=== PATIENT | female | born 1990 | race Caucasian/White ===

== ENCOUNTER 2016-11-13 01:02 | Emergency (ER) | payer OTHER ==
[~2016-11-13] VITALS: Ht 175.3 cm; Wt 55.0 kg
[~2016-11-13 01:02] MED LIST: ADVAI500I PO; AEROMIS4 INH; ALBU0.08 NEB; ALBU1AER INH; ALBU6.7H INH; ALBU8I INH; FERR324T4 PO; FLOV110A INH; FLOVENT110 MCG/A INH; FLUT1SPR9 EACH NARE; MEDR4PAK3 PO; MONT10 PO; NAPR-576 PO; PRED-503 PO; PRED10PA PO; VENTAER INH; ZITH250T PO
[2016-11-13 01:06] VITALS: BP 140/78; PULSE 74; RESP 16; O2SAT 99
[2016-11-13 01:11] VITALS: BP 140/78; PULSE 73; RESP 20; O2SAT 100
[2016-11-13] MEDS ORDERED: ADVA500A INH (01:39)
[2016-11-13] MEDS ORDERED: LORA-400 PO (01:39)
[2016-11-13] MEDS ORDERED: FERR1TAB36 PO (01:39)
--- NOTE | 2016-11-13 02:16 | PD ---
HPI Chief Complaint: Head Injury Time Seen by Provider: 02:03 Travel History International Travel<30 days: No Contact w/Intl Traveler<30days: No Traveled to known affect area: No History of Present Illness HPI 26-year-old female complains of headache and neck pain. Patient was doing pole dancing and fell off the pole onto her head. Patient states that she had loss of consciousness. Patient complains of headache on top of the head and back of her head. Patient denies any visual change. Patient denies any nausea vomiting. Patient complained of neck pain also. Patient denies any chest pain or shortness of breath. Patient denies abdominal pain. Patient denies any back pain. Patient denies any focal weakness or numbness of extremity. Patient denies any extremity injury. Patient status post tubal ligation and denies any chance of being . PFSH Past Medical History Hx Anticoagulant Therapy: No Anemia: Yes Asthma: Yes Cancer: No Cardiovascular Problems: No Chemotherapy: No Cerebrovascular Accident: No Diabetes: No Diminished Hearing: No Endocrine: No Genitourinary: Yes Immune Disorder: No Kidney Stones: Yes (WHILE ) Musculoskeletal: No Neurologic: Yes Psychiatric: No Reproductive: No Respiratory: Yes (ASTHMA) Immunizations Current: Yes Seizures: Yes (WHILE ) Tetanus Vaccination: < 5 Years Influenza Vaccination: No ?: Unknown LMP: 3 years ago, tubal : 4 Para: 4 Miscarriage: 0 Tubal Ligation: Yes Past Surgical History Gynecologic Surgery: Yes (epesiotomy, TUBAL LIGATION) Hysterectomy: No Tonsillectomy: Yes Social History Alcohol Use: No Tobacco Use: No Substance Use: No Allergies-Medications (Allergen,Severity, Reaction): Coded Allergies: Adhesives (Verified Allergy, Severe, SKIN RASH, 09/20/16) Benzoin (Verified Allergy, Severe, TINCTURE BENZOIN, 09/20/16) Betadine (Verified Allergy, Severe, Hives, 09/20/16) Latex (Verified Allergy, Severe, Rash, 09/20/16) Penicillin (Verified Allergy, Severe, BLISTERS, 09/20/16) Amoxicillin (Verified Allergy, Unknown, 09/20/16) Ampicillin (Verified Allergy, Unknown, 09/20/16) Coconut (Verified Allergy, Unknown, 09/20/16) Contrast Media (Verified Allergy, Unknown, 09/20/16) Grape (Verified Allergy, Unknown, 09/20/16) Kiwi (Verified Allergy, Unknown, 09/20/16) Multivitamins (Verified Allergy, Unknown, 09/20/16) Raisin (Verified Allergy, Unknown, 09/20/16) Shellfish (Verified Allergy, Unknown, 09/20/16) [place] (Verified Allergy, Unknown, 09/20/16) *MDRO Multi-Drug Resistant Organism (Verified Adverse Reaction, Unknown, 09/20/16) 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 Uncoded Allergies: SILVER/ JEWLERY (Adverse Reaction, Severe, NUMBNESS TO AREA, 02/04/13) Reported Meds & Prescriptions Reported Meds & Active Scripts Active Albuterol Neb (Albuterol Sulfate) 2.5 Mg/3 Ml Neb 2.5 Mg NEB Q4HR NEB While awake Ventolin Hfa 18 GM Inh (Albuterol Sulfate) 90 Mcg/Act Aer 2 Puff INH Q4H PRN Deltasone (Prednisone) 20 Mg Tab 40 Mg PO DAILY 4 Days Reported Claritin-D 24 HR (Loratadine-Pseudoephedrine 24 HR) 10-240 Mg Tab 1 Tab PO DAILY Advair Diskus Inh (Fluticasone-Salmeterol Inh) 500-50 Mcg/Blist Aer 1 Puff INH BID Rinse mouth after use. Iron (Ferrous Sulfate) 325 Mg Tab 325 Mg PO DAILY Take Review of Systems General / Constitutional: No: Fever Eyes: No: Visual changes HENT: Positive: Headaches, Neck Pain Cardiovascular: No: Chest Pain or Discomfort Respiratory: No: Shortness of Breath Gastrointestinal: No: Abdominal Pain Genitourinary: No: Dysuria Musculoskeletal: No: Pain Skin: No Rash Neurologic: No: Weakness Psychiatric: No: Depression Endocrine: No: Polydipsia Hematologic/Lymphatic: No: Easy Bruising Physical Exam Narrative GENERAL: Well-nourished, well-developed patient. SKIN: Warm and dry. HEAD: Normocephalic. Patient has soft tissue swelling tenderness right forehead. Patient has diffuse tenderness on palpation of the scalp. No laceration abrasion noted. EYES: No scleral icterus. No injection or drainage. Pupils 3 mm equal reactive. NECK: Supple, trachea midline. No JVD or lymphadenopathy. Mild to moderate tenderness on palpation paraspinal area of cervical spine. No midline tenderness. CARDIOVASCULAR: Regular rate and rhythm without murmurs, gallops, or rubs. RESPIRATORY: Breath sounds equal bilaterally. No accessory muscle use. GASTROINTESTINAL: Abdomen soft, non-tender, nondistended. MUSCULOSKELETAL: No cyanosis, or edema. BACK: Nontender without obvious deformity. No CVA tenderness. Neurologic exam: Patient's lethargic however answer questions appropriately. moves all extremity. No obvious focal neurological deficit. Data Data Last Documented VS Vital Signs Date Time Temp Pulse Resp B/P Pulse Ox O2 Delivery O2 Flow Rate FiO2 11/13/16 03:26 57 20 123/[address] Brain W/O Iv Contrast(Rout) (11/13/16 02:10) Ct Cerv Spine W/O Contrast (11/13/16 02:10) MDM Medical Decision Making Medical Screen Exam Complete: Yes Emergency Medical Condition: Yes Interpretation(s) 3:[address] scan of the brain and cervical spine shows no acute pathology. Differential Diagnosis Differential diagnosis including contusion, concussion, intracranial hemorrhage , cervical strain versus fracture. Narrative Course 26-year-old female with head and neck injury. Status post fall on her head. Mcdonough collar applied immediately. Diagnosis Primary Impression: Closed head injury Qualified Code: S09.90XA - Closed head injury, initial encounter Additional Impression: Cervical strain Qualified Code: S16.1XXA - Cervical strain, initial encounter Patient Instructions: General Instructions Additional Instructions: Head trauma instructions given. Take medication as needed for headache and neck pain. Follow-up with personal physician. Return if persistent problem or worse. Med/Other Pt SpecificInfo: Prescription(s) given Scripts Tramadol (Ultram)50 Mg Tab50 Mg PO Q6H PRN (PAIN) #20 TAB Prov:Raul Sawyer MD 11/13/16 Methocarbamol (Robaxin)750 Mg Gue494 Mg PO QID #40 TAB Prov:Raul Sawyer MD 11/13/16 Meloxicam (Mobic)15 Mg Tab15 Mg PO DAILY #20 TAB Prov:Raul Sawyer MD 11/13/16 Disposition: 01 DISCHARGE HOME Condition: Stable Raul Sawyer MD Nov 13, 2016 02:16
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
[2016-11-13 03:26] VITALS: BP 123/62; PULSE 57; RESP 20; O2SAT 97
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
[2016-11-13] MEDS ORDERED: ULTR50TA5 PO (03:35)
[2016-11-13] MEDS ORDERED: MOBI15TA PO (03:35)
[2016-11-13] MEDS ORDERED: ROBA750T PO (03:35)
== END 2016-11-13 04:26 | disposition home or self-care (01) ==
LOC: NEPE 01:02
DX: S09.90XA Unspecified injury of head, initial encounter (principal); S16.1XXA Strain of muscle, fascia and tendon at neck level, initial encounter; S06.9X9A Unspecified intracranial injury with loss of consciousness of unspecified duration, initial encounter; R51 Headache; W17.89XA Other fall from one level to another, initial encounter; Y93.41 Activity, dancing; Y99.0 Civilian activity done for income or pay; J45.909 Unspecified asthma, uncomplicated; D64.9 Anemia, unspecified
CPT/HCPCS: 70450; 72125

== ENCOUNTER 2016-12-08 06:16 | Observation (INO) | payer OTHER ==
[~2016-12-08] VITALS: Ht 172.7 cm; Wt 65.0 kg
[2016-12-08] VITALS (11 sets, daily range): BP systolic 104–129; BP diastolic 56–90; PULSE 70–98; RESP 15–28; TEMP 97.7–98.4; O2SAT 95–100
[~2016-12-08 06:16] MED LIST changes: +ADVA500A INH; -ADVAI500I PO; -AEROMIS4 INH; -ALBU1AER INH; -ALBU6.7H INH; -ALBU8I INH; +FERR1TAB36 PO; -FERR324T4 PO; -FLOV110A INH; -FLOVENT110 MCG/A INH; -FLUT1SPR9 EACH NARE; +LORA-400 PO; -MEDR4PAK3 PO; +MOBI15TA PO; -MONT10 PO; -NAPR-576 PO; -PRED10PA PO; +ROBA750T PO; +ULTR50TA5 PO; -ZITH250T PO
[2016-12-08] MEDS: RESP: ALBUTEROL 2.5 MG/IPRATROPIUM 0.5 MG NEB (SCH) INH ×3 (06:28→06:40)
[2016-12-08] MEDS ORDERED: methylPREDNISolone SOD SUCC 125 MG/2 ML VIAL IVP ONE (06:30)
[2016-12-08] MEDS ORDERED: SODIUM CHLOR 0.9% 1000 ML INJ 1,000 ML IV ONE (06:30)
[2016-12-08] MEDS ORDERED: SODIUM CHLORIDE 0.9% FLUSH 5 ML FLUSH IVF PRN (06:30)
--- NOTE | 2016-12-08 06:32 | PD ---
HPI Chief Complaint: shortness of breath Time Seen by Provider: 06:21 Travel History International Travel<30 days: No Contact w/Intl Traveler<30days: No Traveled to known affect area: No History of Present Illness HPI The patient is a 26-year-old female who presents emergency department for shortness of breath. The patient states she has a history of asthma, however, last 3-4 hours has had increasing shortness of breath with audible wheezing. The patient does have a nebulizer machine at home, however, states she has a hole in her tubing and is unable to use her nebulizer. The patient also states she ran out of her inhaler, was unable to provide herself albuterol inhalation at home. The patient does have a history of asthma and a history of previous pneumothorax, several years ago. The patient was last on prednisone 2 weeks ago, last hospitalized 6 months ago. The patient estimates approximately 8-9 intubations in the past secondary to severe asthma exacerbations. The patient does note a dry nonproductive cough with her asthma tonight, but denies any fever, chills, or sweats. The patient's primary physician is Dr. Aggarwal. [facility] Past Medical History Hx Anticoagulant Therapy: No Anemia: Yes Asthma: Yes Cancer: No Cardiovascular Problems: No Chemotherapy: No Cerebrovascular Accident: No Diabetes: No Diminished Hearing: No Endocrine: No Genitourinary: Yes Immune Disorder: No Kidney Stones: Yes (WHILE ) Musculoskeletal: No Neurologic: Yes Psychiatric: No Reproductive: No Respiratory: Yes (ASTHMA) Immunizations Current: Yes Seizures: Yes (WHILE ) : 4 Para: 4 Miscarriage: 0 Tubal Ligation: Yes Past Surgical History Gynecologic Surgery: Yes (epesiotomy, TUBAL LIGATION) Hysterectomy: No Tonsillectomy: Yes Social History Alcohol Use: No Tobacco Use: No Substance Use: No Allergies-Medications (Allergen,Severity, Reaction): Coded Allergies: Adhesives (Verified Allergy, Severe, SKIN RASH, 12/08/16) Benzoin (Verified Allergy, Severe, TINCTURE BENZOIN, 12/08/16) Betadine (Verified Allergy, Severe, Hives, 12/08/16) Latex (Verified Allergy, Severe, Rash, 12/08/16) Penicillin (Verified Allergy, Severe, BLISTERS, 12/08/16) Amoxicillin (Verified Allergy, Unknown, 12/08/16) Ampicillin (Verified Allergy, Unknown, 12/08/16) Coconut (Verified Allergy, Unknown, 12/08/16) Contrast Media (Verified Allergy, Unknown, 12/08/16) Grape (Verified Allergy, Unknown, 12/08/16) Kiwi (Verified Allergy, Unknown, 12/08/16) Multivitamins (Verified Allergy, Unknown, 12/08/16) Raisin (Verified Allergy, Unknown, 12/08/16) Shellfish (Verified Allergy, Unknown, 12/08/16) [place] (Verified Allergy, Unknown, 12/08/16) *MDRO Multi-Drug Resistant Organism (Verified Adverse Reaction, Unknown, ) 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 Uncoded Allergies: SILVER/ JEWLERY (Adverse Reaction, Severe, NUMBNESS TO AREA, 02/04/13) Reported Meds & Prescriptions Reported Meds & Active Scripts Active Ultram (Tramadol HCl) 50 Mg Tab 50 Mg PO Q6H PRN Robaxin (Methocarbamol) 750 Mg Tab 750 Mg PO QID Mobic (Meloxicam) 15 Mg Tab 15 Mg PO DAILY Albuterol Neb (Albuterol Sulfate) 2.5 Mg/3 Ml Neb 2.5 Mg NEB Q4HR NEB While awake Ventolin Hfa 18 GM Inh (Albuterol Sulfate) 90 Mcg/Act Aer 2 Puff INH Q4H PRN Reported Claritin-D 24 HR (Loratadine-Pseudoephedrine 24 HR) 10-240 Mg Tab 1 Tab PO DAILY Advair Diskus Inh (Fluticasone-Salmeterol Inh) 500-50 Mcg/Blist Aer 1 Puff INH BID Rinse mouth after use. Iron (Ferrous Sulfate) 325 Mg Tab 325 Mg PO DAILY Take Review of Systems Except as stated in HPI: all other systems reviewed are Neg General / Constitutional: No: Fever HENT: No: Lightheadedness Cardiovascular: No: Chest Pain or Discomfort Respiratory: Positive: Cough, Shortness of Breath, Wheezing Gastrointestinal: No: Nausea, Vomiting Musculoskeletal: No: Weakness Neurologic: No: Dizziness Physical Exam Narrative GENERAL: Awake, alert, 26-year-old female who appears in moderate respiratory distress. SKIN: Warm and dry. HEAD: Atraumatic. Normocephalic. EYES: Pupils equal and round. No scleral icterus. No injection or drainage. ENT: No nasal bleeding or discharge. Mucous membranes pink and moist. NECK: Trachea midline. No JVD. CARDIOVASCULAR: Regular, tachycardic with a heart rate of 105. RESPIRATORY: Bleeding for, accessory muscle use with supraclavicular and intercostal retractions. Diminished breath sounds throughout with prolonged expiratory phase and significant wheezing. GASTROINTESTINAL: Abdomen soft, non-tender, nondistended. No rebound tenderness. MUSCULOSKELETAL: No obvious deformities. No clubbing. No cyanosis. No edema. NEUROLOGICAL: Awake and alert. No obvious cranial nerve deficits. Motor grossly within normal limits. Normal speech. PSYCHIATRIC: Appropriate mood and affect; insight and judgment normal. Data Data Last Documented VS Vital Signs Date Time Temp Pulse Resp B/P Pulse Ox O2 Delivery O2 Flow Rate FiO2 12/08/16 06:45 100 30 12/08/16 06:32 95 26 Aerosol Mask 8 12/08/16 06:30 98.4 129/90 Orders Chest, Single Ap (12/08/16 06:24) Ecg Monitoring (12/08/16 06:24) Iv Access Insert/Monitor (12/08/16 06:24) Oximetry (12/08/16 06:24) Oxygen Administration (12/08/16 06:24) Methylprednisolone So Succ Inj (Solumedr (12/08/16 06:30) Albuterol-Ipratropium Neb (Duoneb Neb) (12/08/16 06:30) Sodium Chloride 0.9% Flush (Ns Flush) (12/08/16 06:30) Sodium Chlor 0.9% 1000 Ml Inj (Ns 1000 M (12/08/16 06:30) Complete Blood Count With Diff (12/08/16 06:32) Basic Metabolic Panel (Bmp) (12/08/16 06:32) MDM Medical Decision Making Medical Screen Exam Complete: Yes Emergency Medical Condition: Yes Medical Record Reviewed: Yes Interpretation(s) Chest x-ray reveals hyperinflated lungs, no evidence of pneumothorax. Differential Diagnosis Differential diagnosis includes status asthmaticus, asthma exacerbation, pneumothorax, pneumomediastinum, pulmonary embolism, acute coronary syndrome, pleural effusion, pneumonia, bronchitis. Narrative Course IV was established, labs were drawn and sent, and the patient was placed on cardiac telemetry monitoring and continuous pulse oximetry monitoring. Chest x- ray was obtained. The patient was administered Solu-Medrol 125 mg intravenously and duo nebs 3. The patient continued to be severely symptomatic with tripoding retractions, therefore, immediate chest x-ray was obtained, no evidence of pneumothorax. The patient was then placed on BiPAP 12/ with improvement of her symptoms. Patient will need admission for status asthmaticus. Patient is high risk with multiple intubations in the past. The patient was signed out at 7 AM with laboratory evaluation pending, if her symptoms significantly improved, patient can go to a medical floor. Diagnosis Primary Impression: Status asthmaticus Qualified Code: J45.902 - Asthma with status asthmaticus, unspecified asthma severity Condition: Stable Inocente Diamond MD Dec 08, 2016 06:32
--- NOTE | 2016-12-08 07:04 | PD ---
Physical Exam Date Seen by Provider: Dec 08, 2016 Time Seen by Provider: 07:28 Narrative 26-year-old female came to the emergency room with severe shortness of breath and asthma exacerbation. Patient was seen by the previous ER physician who started her on bronchodilator nebulizers followed by BiPAP. Please refer to his notes regarding the H&P and MDM. Patient was signed over to me to follow- up on her labs and to admit her at least for observation since patient has a h/ o poorly controlled asthma with 7-8 intubations in the past. Her last admission was 6 months ago. I went and reexamined the patient while she was on the BiPAP and her air entry was significantly improved than the previous description. She was sitting up comfortably and was on her phone. She says she was feeling better. Oxygen saturation was 99%. I just spoke with the respiratory therapist and plan to take her off the BiPAP and put her on a nasal cannula to see how she fairs. If patient does not deteriorate and I will be able to admit her to the CDU for observation. Patient received IV Solu-Medrol initially. Patient understands this decision and is comfortable with the plan. Her blood test results of back and within normal limits. Chest x-rays within normal limit. Data Data Last Documented VS Orders Chest, Single Ap (12/08/16 06:24) Ecg Monitoring (12/08/16 06:24) Iv Access Insert/Monitor (12/08/16 06:24) Oximetry (12/08/16 06:24) Oxygen Administration (12/08/16 06:24) Methylprednisolone So Succ Inj (Solumedr (12/08/16 06:30) Albuterol-Ipratropium Neb (Duoneb Neb) (12/08/16 06:30) Sodium Chloride 0.9% Flush (Ns Flush) (12/08/16 06:30) Sodium Chlor 0.9% 1000 Ml Inj (Ns 1000 M (12/08/16 06:30) Complete Blood Count With Diff (12/08/16 06:32) Basic Metabolic Panel (Bmp) (12/08/16 06:32) Admit Order (Ed Use Only) (12/08/16 08:30) Labs MDM Supervised Visit with TEODORO: No Narrative Course 8:21 AM patient has been on nasal cannula for past 45 minutes. Oxygen saturation is 98%. She seems comfortable. Awaiting for the residents to call back for admission. Critical Care Narrative Aggregate critical care time was 30 minutes. Time to perform other separately billable procedures was not included in the critical care time. My time did not include minutes spent treating any other patients simultaneously or on activities that did not directly contribute to the patient's treatment. The services I provided to this patient were to treat and/or prevent clinically significant deterioration that could result in: Status asthmaticus, BiPAP I provided critical care services requiring my management, as noted below: Chart data review, documentation time, medication orders and management, vital sign assessments/reviewing monitor data, ordering and reviewing lab tests, ordering and interpreting/reviewing x-rays and diagnostic studies, care of the patient and discussion of the patient with the admitting physicians. Diagnosis Primary Impression: Status asthmaticus Qualified Code: J45.902 - Asthma with status asthmaticus, unspecified asthma severity Additional Impression: Acute asthma exacerbation Qualified Code: J45.51 - Severe persistent asthma with acute exacerbation Admitting Information Admitting Physician Requests: Observation Scripts Walker with Front Wheels 1 Mis Mis #1 EA .ROUTE DIRECTED Ref 0 Prov:Alisa Herrera MD R2 12/10/16 Nebulizer 1 Mis Mis #1 Ea .route As Directed Prov:Alisa Herrera MD R2 12/10/16 Condition: Stable Janet Morrell MD Dec 08, 2016 07:04 Monocytes (%) (Auto) 9.0 % Eosinophils (%) (Auto) 8.7 % Basophils (%) (Auto) 0.9 % Neutrophils # (Auto) 2.5 TH/MM3 Lymphocytes # (Auto) 2.4 TH/MM3 Monocytes # (Auto) 0.5 TH/MM3 Eosinophils # (Auto) 0.5 TH/MM3 Basophils # (Auto) 0.1 TH/MM3 CBC Comment DIFF FINAL Differential Comment Sodium Level 141 MEQ/L Potassium Level 3.9 MEQ/L Chloride Level 110 MEQ/L Carbon Dioxide Level 24.9 MEQ/L Anion Gap 6 MEQ/L Blood Urea Nitrogen 10 MG/DL Creatinine 0.81 MG/DL Estimat Glomerular Filtration 86 ML/MIN Rate Random Glucose 83 MG/DL Calcium Level 8.4 MG/DL [facility] Supervised Visit with TEODORO: No Narrative Course 8:21 AM patient has been on nasal cannula for past 45 minutes. Oxygen saturation is 98%. She seems comfortable. Awaiting for the residents to call back for admission. Diagnosis Primary Impression: Status asthmaticus Qualified Code: J45.902 - Asthma with status asthmaticus, unspecified asthma severity Additional Impression: Acute asthma exacerbation Qualified Code: J45.51 - Severe persistent asthma with acute exacerbation Admitting Information Admitting Physician Requests: Observation Condition: Stable Janet Morrell MD Dec 08, 2016 07:04
[2016-12-08 07:05] LABS: AUTOMATED NEUTROPHIL # 2.5 TH/MM3 (1.8-7.7); BASOPHIL # 0.1 TH/MM3 (0-0.2); BASOPHIL % 0.9 % (0.0-2.0); EOSINOPHIL # 0.5 TH/MM3 (0-0.4); EOSINOPHIL % 8.7 % (0.0-4.0); HEMATOCRIT 40.7 % (35.0-46.0); HEMO FLAGS DIFF FINAL; LYMPH % 39.6 % (9.0-44.0); LYMPHOCYTE # 2.4 TH/MM3 (1.0-4.8); MEAN CELL VOLUME 88.4 FL (80.0-100.0); MEAN CORPUSCULAR HEMOGLOBIN 29.2 PG (27.0-34.0); NEUT % 41.8 % (16.0-70.0); PLATELET COUNT 185 TH/MM3 (150-450); RED CELL DISTRIBUTION WIDTH 13.6 % (11.6-17.2)
[2016-12-08 07:14] LABS: BICARBONATE 24.9 MEQ/L (21.0-32.0); POTASSIUM 3.9 MEQ/L (3.5-5.1)
--- NOTE | 2016-12-08 07:19 | RADRPT ---
EXAM DATE/TIME: 12/08/2016 06:47 [facility] COMPARISON: CHEST SINGLE AP, August 20, 2016, 6:58. INDICATIONS : Shortness of breath, asthma. MEDICAL HISTORY : Asthma SURGICAL HISTORY : None. ENCOUNTER: Initial ACUITY: 1 day PAIN SCORE: 0/10 LOCATION: Bilateral chest FINDINGS: A single view of the chest demonstrates the lungs to be symmetrically aerated without evidence of mas s, infiltrate or effusion. The cardiomediastinal contours are unremarkable. Osseous structures are intact. CONCLUSION: No acute disease. Liam Gomez MD on December 08, 2016 at 7:17 Board Certified Radiologist. This report was verified electronically.
--- NOTE | 2016-12-08 08:35 | HHI.HP ---
HPI Service Family Medicine Primary Care Physician No Primary Care Physician Admission Diagnosis status asthmaticus, acute asthma exacerbation Diagnoses: International Travel<30 Days: No Contact w/Intl Traveler<30days: No Known Affected Area: No History of Present Illness PCP Jasen Patient is a 26-year-old female with a PMH significant for severe asthma. Presents here today due to respiratory distress. Reports waking up this morning with wheezing. She tried to use her albuterol inhaler and her nebulizer but she was out of medication and nebulizer machine was not working. Reports having chest pain last night and using her inhaler yesterday evening after overexertion with dancing but did improve symptomatically prior to going bed. After realizing she did not have her medication this morning, she came immediately to the ED as she was having severe SOB, chest pain, inability to talk. Since being in the hospital, she has improved significantly but does continue to have substernal chest pain that is stabbing in nature as well as pleurisy. Denies any fever/chills, nausea/vomiting, abdominal pain, dysuria, diarrhea. Sick contact has include her daughter who recently had flu. Patient typically utilizes her inhaler 3 times a day but is also on Advair, Singulair, qvar reportedly. 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 Few weeks ago, she discontinued daily prednisone over 5 weeks due to respiratory distress. Review of Systems Constitutional: DENIES: Fatigue, Fever, Chills, Dizziness, Change in appetite Eyes: DENIES: Blurred vision, Eye pain Ears, nose, mouth, throat: DENIES: Throat pain, Running Nose Respiratory: COMPLAINS OF: Wheezing, Shortness of breath, DENIES: Sputum production Cardiovascular: COMPLAINS OF: Chest pain, DENIES: Syncope, Lower Extremity Edema Gastrointestinal: DENIES: Abdominal pain, Nausea, Vomiting Genitourinary: DENIES: Hematuria Musculoskeletal: DENIES: Joint pain Integumentary: DENIES: Rash Neurologic: DENIES: Localized weakness Psychiatric: DENIES: Confusion Past Family Social History Past Medical History Asthma w/ hx of multiple intubation. Reports last intubation was 8 months ago at [place] but last recorded intubation per our records was 06/2015. History of kidney stones anemia Prepartum seizures and hypoglycemia but none otherwise Past Surgical History Episiotomy Tonsillectomy Tubal ligation Reported Medications Reported Meds & Active Scripts Active Albuterol Neb (Albuterol Sulfate) 2.5 Mg/3 Ml Neb 2.5 Mg NEB Q4HR NEB While awake Ventolin Hfa 18 GM Inh (Albuterol Sulfate) 90 Mcg/Act Aer 2 Puff INH Q4H PRN Reported Qvar Inh (Beclomethasone Dipropionate) Unknown Strength Aero Unknown Dose INH BID Singulair (Montelukast Sodium) Unknown Strength Tab Unknown Dose PO HS Advair Diskus Inh (Fluticasone-Salmeterol Inh) 500-50 Mcg/Blist Aer 1 Puff INH BID Rinse mouth after use. Iron (Ferrous Sulfate) 325 Mg Tab 325 Mg PO DAILY Take Allergies: Coded Allergies: Adhesives (Verified Allergy, Severe, SKIN RASH, 12/08/16) Benzoin (Verified Allergy, Severe, TINCTURE BENZOIN, 12/08/16) Betadine (Verified Allergy, Severe, Hives, 12/08/16) Latex (Verified Allergy, Severe, Rash, 12/08/16) Penicillin (Verified Allergy, Severe, BLISTERS, 12/08/16) Amoxicillin (Verified Allergy, Unknown, 12/08/16) Ampicillin (Verified Allergy, Unknown, 12/08/16) Coconut (Verified Allergy, Unknown, 12/08/16) Contrast Media (Verified Allergy, Unknown, 12/08/16) Grape (Verified Allergy, Unknown, 12/08/16) Kiwi (Verified Allergy, Unknown, 12/08/16) Multivitamins (Verified Allergy, Unknown, 12/08/16) Raisin (Verified Allergy, Unknown, 12/08/16) Shellfish (Verified Allergy, Unknown, 12/08/16) [place] (Verified Allergy, Unknown, 12/08/16) *MDRO Multi-Drug Resistant Organism (Verified Adverse Reaction, Unknown, ) 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 Uncoded Allergies: SILVER/ JEWLERY (Adverse Reaction, Severe, NUMBNESS TO AREA, 02/04/13) Family History Mother: ovarian and breast cancer, dystrophy, "nerve cancer", hypoglycemia, cataracts Father: unknown Social History Lives with her 4children and her fiancee Tobacco: denies Alcohol: denies Illicit: none Physical Exam Vital Signs Vital Signs Date Time Temp Pulse Resp B/P Pulse Ox O2 Delivery O2 Flow Rate FiO2 12/08/16 07:00 70 16 126/69 99 BiPAP 12/08/16 06:45 100 30 12/08/16 06:32 95 26 100 Aerosol Mask 8 12/08/16 06:32 26 100 Aerosol Mask 8 12/08/16 06:32 100 Aerosol Mask 8 12/08/16 06:30 98.4 98 28 129/90 95 Physical Exam Pulse ox 96% with nasal cannula at 1.5 during examination GENERAL: This is a well-nourished, well-developed patient, in no apparent distress. Nasal cannula in place but able to speak in complete sentences. SKIN: No rashes, ecchymoses or lesions. Cool and dry. EYES: Pupils equal round and reactive. Extraocular motions intact. No scleral icterus. No injection or drainage. ENT: Nose without bleeding, purulent drainage. Throat without erythema, tonsillar hypertrophy or exudate. Uvula midline. Airway patent. NECK: No JVD or lymphadenopathy. CARDIOVASCULAR: Regular rate and rhythm without murmurs, gallops, or rubs. RESPIRATORY: Clear to auscultation with good air movement bilaterally. Deep breaths are cut short due to pleurisy. Breath sounds equal bilaterally. No obvious wheezes, rales, or rhonchi. GASTROINTESTINAL: Abdomen soft, non-tender, nondistended. No hepato-splenomegaly , or palpable masses. No guarding. MUSCULOSKELETAL: Extremities without clubbing, cyanosis, or edema. No calf tenderness. NEUROLOGICAL: Awake and alert. Motor and sensory grossly within normal limits. Normal speech. Laboratory Laboratory Tests Test 12/08/16 06:30 White Blood Count 6.0 Red Blood Count 4.60 Hemoglobin 13.4 Hematocrit 40.7 Mean Corpuscular Volume 88.4 Mean Corpuscular Hemoglobin 29.2 Mean Corpuscular Hemoglobin 33.0 Concent Red Cell Distribution Width 13.6 Platelet Count 185 Mean Platelet Volume 9.4 Neutrophils (%) (Auto) 41.8 Lymphocytes (%) (Auto) 39.6 Monocytes (%) (Auto) 9.0 Eosinophils (%) (Auto) 8.7 Basophils (%) (Auto) 0.9 Neutrophils # (Auto) 2.5 Lymphocytes # (Auto) 2.4 Monocytes # (Auto) 0.5 Eosinophils # (Auto) 0.5 Basophils # (Auto) 0.1 CBC Comment DIFF FINAL Differential Comment Sodium Level 141 Potassium Level 3.9 Chloride Level 110 Carbon Dioxide Level 24.9 Anion Gap 6 Blood Urea Nitrogen 10 Creatinine 0.81 Estimat Glomerular Filtration 86 Rate Random Glucose 83 Calcium Level 8.4 Result Diagram: 12/08/1662912/08/16629 Imaging Last Impressions Chest X-Ray 12/08/16623 Signed Impressions: Service Date/Time: November 06:47 - CONCLUSION: No acute disease. Liam Gomez MD Assessment and Plan Assessment and Plan 26-year-old female with history of asthma requiring intubation. Admitted for asthma exacerbation. Code Status Full Discussed Condition With Dr. Durham Problem List: (1) Asthma exacerbation Status: Acute Plan: History of severe asthma requiring intubation. Presented to the ED with respiration rate of 28 and required Solu-Medrol and BiPAP. Respiration status has much improved and is currently on nasal cannula with appropriate saturation. Able to speak in complete sentences. -Admitted for observations due to extensive history -Continuous pulse ox monitoring -Informed patient and nurse to call if patient requires increasing oxygen supplementation -If patient worsens clinically, will obtain ABG/VBG and [place] [facility] [place] Medications: * Albuterol and Duonebs * Solu-Medrol 40 mg IV every 8 * Singulair (2) Nutrition, metabolism, and development symptoms Status: Acute Plan: Diet: Regular Electrolytes: Unremarkable Fluids: None DVT prophylaxis: Lovenox GI prophylaxis: Protonix Alisa Herrera MD R2 Dec 08, 2016 08:34
[2016-12-08] MEDS ORDERED: SODIUM CHLORIDE 0.9% FLUSH 5 ML FLUSH IV PRN (09:15)
[2016-12-08] MEDS ORDERED: MONT10TA2 PO (09:25)
[2016-12-08] MEDS ORDERED: BECL80AE3 INH (09:25)
[2016-12-08] MEDS ORDERED: ACETAMINOPHEN/HYDROcodone 325 MG/5 MG TAB PO PRN (09:30)
[2016-12-08] MEDS ORDERED: ENALAPRILAT 1.25 MG/ML VIAL IV PRN (09:45)
[2016-12-08] MEDS: BUDESONIDE-FORMOTEROL 160/4.5 MCG INHALER INH SCH ×2 (09:49→22:08)
[2016-12-08] MEDS: PANTOPRAZOLE SOD 40 MG DELAYED RELEASE TAB PO SCH (09:50)
[2016-12-08] MEDS: ACETAMINOPHEN/HYDROcodone 325 MG/7.5 MG TAB PO PRN ×3 (11:05→20:18)
[2016-12-08] MEDS ORDERED: ENOXAPARIN SODIUM 30 MG/0.3 ML SYRINGE SQ SCH (12:00)
[2016-12-08] MEDS: RESP: ALBUTEROL 2.5 MG/IPRATROPIUM 0.5 MG NEB (SCH) NEB ×3 (12:20→19:26)
--- NOTE | 2016-12-08 12:29 | HHI.FPPN ---
Subjective Remarks Patient seen and examined, discussed with the medicine team. This is a 26 year-old female para 4 with long history of asthma, patient of Dr. Aggarwal. She presented to the emergency department this morning with shortness of breath and chest tightness. She has run out of her albuterol inhaler, and her nebulizer tubing was cracked and she was unable to use it. She reports that she uses albuterol metered-dose inhaler 3 times a day, and that also she is on Imdur and Advair. Last time she saw Dr. Aggarwal was approximately July 2016. She was last hospitalized approximately 6 months ago for her asthma. She reports no wheezing, no fever or chills, but this morning she still feels some stabbing type pain just to the left of the chondrosternal junction at the lower border of the sternum. Feels as though she has difficulty filling her lungs. Please see observation history and physical examination for this admission for additional past, family, social history and review of systems. This patient has multiple medication and environmental allergies and food allergies. Objective Vitals Vital Signs Date Time Temp Pulse Resp B/P Pulse Ox O2 Delivery O2 Flow Rate FiO2 12/08/16 12:22 99 Nasal Cannula 2.00 12/08/16 11:18 97.7 77 16 111/63 100 12/08/16 10:00 74 15 124/65 99 Nasal Cannula 2 12/08/16 07:00 70 16 126/69 99 BiPAP 12/08/16 06:45 100 30 12/08/16 06:32 95 26 100 Aerosol Mask 8 12/08/16 06:32 26 100 Aerosol Mask 8 12/08/16 06:32 100 Aerosol Mask 8 12/08/16 06:30 98.4 98 28 129/90 95 Result Diagram: 12/08/16 0630 12/08/16 0630 Imaging Last Impressions Chest X-Ray 12/08/16 0624 Signed Impressions: Service Date/Time: November 06:47 - CONCLUSION: No acute disease. Liam Gomez MD Objective Remarks O. CONSTITUTIONAL/GEN: normally nourished, in NAD. EYES: conjunctiva normal, PERRLA, EOMI. ENT: Mouth and pharynx normal. NECK: thyroid midline, carotids symmetrical. LUNGS: clear A-P, respiratory effort is normal. No wheezes, Rales or rhonchi. CARDIOVASCULAR: RR without murmur or gallop. No significant edema. No tachycardia GI/ABD: soft without masses, without organomegaly. : no CVA tenderness NEURO: No focal deficits. SKIN: color normal, no rashes noted. HEME/LYMPH: no bruising, petechia or significant adenopathy MUSC: back is normal in appearance. Extremities are normal in appearance. She has a little discomfort to palpation along the lower left border of the sternum. PSYCH/MENTAL STATUS: Alert and oriented x 3. A/P Assessment and Plan 26-year-old female with history of asthma requiring intubation in the past. Admitted for asthma exacerbation. Attending Attestation Patient seen and examined. Case reviewed and discussed with the resident team. Agree with plan of care as discussed with me and documented in the resident note. Problem List: (1) Asthma exacerbation Status: Acute Plan: History of severe asthma requiring intubation. Presented to the ED with respiration rate of 28 and required Solu-Medrol and BiPAP. Respiration status has much improved and is currently on nasal cannula with appropriate saturation. Able to speak in complete sentences. -Admitted for observations due to extensive history -Continuous pulse ox monitoring -Informed patient and nurse to call if patient requires increasing oxygen supplementation -If patient worsens clinically, will obtain ABG/VBG and consider transfer to [facility] [place] -Influenza ordered Medications: * Albuterol and Duonebs * Solu-Medrol 40 mg IV every 8 * Singulair (2) Nutrition, metabolism, and development symptoms Status: Acute Plan: Diet: Regular Electrolytes: Unremarkable Fluids: None DVT prophylaxis: Lovenox GI prophylaxis: Protonix Mariza Girard MD Dec 08, 2016 12:29
[2016-12-08] MEDS: methylPREDNISolone SOD SUCC 40 MG/1 ML VIAL IV PUSH SCH ×2 (13:01→21:54)
[2016-12-08] MEDS: ACETAMINOPHEN 325 MG TAB PO PRN (16:32)
--- NOTE | 2016-12-08 19:45 | HHI.PR ---
Addendum to Inpatient Note Addendum Reason: Additional Documentation Additional Information Called by nurse because patient continues to complain of chest tightness and dizziness. EKG wnl. VS: BP - 104/56, P - 89, O2 100% RA. Per patient, she feels as though her body is spinning. Endorses nausea, no emesis. PE: VS - as above CV: RRR, no m/r/g Resp: lungs CTAB, no wheezes or rhonchi Abd: Soft, NT, ND, no peritoneal signs Ext: no edema A/P: 26 year old female admitted with asthma exacerbation complains of chest tightness and severe dizziness. -Trial of meclizine -Albuterol neb (last one given at 12:30) -One time dose of Ativan -Added Jessica Bell MD R3 Dec 08, 2016 19:45
[2016-12-08] MEDS ORDERED: LORazepam 2 MG/ML VIAL IV PUSH ONE (20:00)
[2016-12-08] MEDS: SODIUM CHLORIDE 0.9% FLUSH 5 ML FLUSH IV SCH (20:18)
[2016-12-08] MEDS: ONDANSETRON HCL 4 MG/2 ML VIAL IV PUSH PRN (20:18)
[2016-12-08] MEDS: MONTELUKAST SODIUM 10 MG TAB PO SCH (21:54)
[2016-12-09] VITALS (11 sets, daily range): BP systolic 89–117; BP diastolic 45–56; PULSE 64–108; RESP 12–20; TEMP 97.6–98.9; O2SAT 97–100
[2016-12-09] MEDS: RESP: ALBUTEROL 2.5 MG/IPRATROPIUM 0.5 MG NEB (SCH) NEB ×7 (00:08→23:58)
[2016-12-09] MEDS: ACETAMINOPHEN/HYDROcodone 325 MG/7.5 MG TAB PO PRN ×2 (04:42→10:20)
[2016-12-09] MEDS: ONDANSETRON HCL 4 MG/2 ML VIAL IV PUSH PRN (04:42)
[2016-12-09] MEDS: methylPREDNISolone SOD SUCC 40 MG/1 ML VIAL IV PUSH SCH (06:02)
[2016-12-09] MEDS ORDERED: PRED20 PO (07:26)
[2016-12-09] MEDS ORDERED: MONT10TA4 PO (07:26)
[2016-12-09] MEDS ORDERED: ADVA500A INH (07:26)
[2016-12-09] MEDS ORDERED: VENTAER INH (07:26)
[2016-12-09] MEDS ORDERED: PANT40TA3 PO (07:26)
[2016-12-09] MEDS: BUDESONIDE-FORMOTEROL 160/4.5 MCG INHALER INH SCH ×2 (08:43→21:29)
[2016-12-09] MEDS: SODIUM CHLORIDE 0.9% FLUSH 5 ML FLUSH IV SCH ×2 (08:44→21:00)
[2016-12-09] MEDS: PANTOPRAZOLE SOD 40 MG DELAYED RELEASE TAB PO SCH (09:01)
[2016-12-09] MEDS: MECLIZINE HCL 25 MG TAB PO PRN ×2 (10:30→18:29)
[2016-12-09 10:42] LABS: AUTOMATED NEUTROPHIL # 9.3 TH/MM3 (1.8-7.7); BASOPHIL % 0.1 % (0.0-2.0); HEMATOCRIT 34.2 % (35.0-46.0); HEMO FLAGS DIFF FINAL; LYMPH % 3.9 % (9.0-44.0); LYMPHOCYTE # 0.4 TH/MM3 (1.0-4.8); MEAN CELL VOLUME 88.3 FL (80.0-100.0); MEAN CORPUSCULAR HEMOGLOBIN 28.9 PG (27.0-34.0); MEAN CORPUSCULAR HGB CONC 32.8 % (32.0-36.0); MONO % 2.6 % (0.0-8.0); NEUT % 93.4 % (16.0-70.0); PLATELET COUNT 161 TH/MM3 (150-450); RED BLOOD COUNT 3.87 MIL/MM3 (4.00-5.30); RED CELL DISTRIBUTION WIDTH 13.4 % (11.6-17.2)
[2016-12-09 10:55] LABS: BICARBONATE 24.5 MEQ/L (21.0-32.0); POTASSIUM 3.9 MEQ/L (3.5-5.1)
[2016-12-09] MEDS ORDERED: NEBULIZER1 MI1 (12:13)
--- NOTE | 2016-12-09 12:14 | HHI.DCPOC ---
Discharge Care Plan Diagnosis: (1) Asthma exacerbation Goals to Promote Your Health * To prevent worsening of your condition and complications * To maintain your health at the optimal level Directions to Meet Your Goals Take your medications as prescribed Follow your dietary instruction Follow activity as directed Keep your appointments as scheduled Take your immunizations and boosters as scheduled If your symptoms worsen call your PCP, if no PCP go to Urgent Care Center or Emergency Room Smoking is Dangerous to Your Health. Avoid second hand smoke Call the 24-hour hour crisis hotline for domestic abuse at Alisa Herrera MD R2 Dec 09, 2016 12:14
--- NOTE | 2016-12-09 12:17 | HHI.FPPN ---
Subjective Remarks Overnight patient was complaining of chest tightness, nausea, lightheadedness. EKG was performed which was unremarkable and patient was clinically stable. Symptoms may been due to vertigo so patient was started on meclizine but it was not given. This morning patient denies any respiratory distress but does continue to complain of substernal chest pain and lightheadedness. Is tolerating a diet without issues. (Alisa Herrera MD R2) Objective Vitals Vital Signs Date Time Temp Pulse Resp B/P Pulse Ox O2 Delivery O2 Flow Rate FiO2 12/09/16 09:00 91 117/55 12/09/16 08:48 98 21 12/09/16 08:15 98.4 75 17 89/50 97 12/09/16 04:00 Room Air 12/09/16 04:00 97.6 73 16 109/56 100 12/09/16 00:09 99 12/09/16 00:00 98.9 64 16 90/49 99 12/09/16 00:00 Room Air 12/08/16 22:00 99 12/08/16 22:00 99 Room Air 12/08/16 21:30 16 12/08/16 20:10 99 Nasal Cannula 0.50 12/08/16 20:00 100 Nasal Cannula 2.00 12/08/16 19:04 98.2 88 16 104/56 100 12/08/16 15:55 98.0 82 20 99 12/08/16 15:40 100 Nasal Cannula 2.00 12/08/16 12:22 99 Nasal Cannula 2.00 I/O 12/08/16 12/08/16 12/08/16 12/09/16 12/09/16 12/09/16 07:00 15:00 23:00 07:00 15:00 23:00 Intake Total 480 ml 200 ml 720 ml Balance 480 ml 200 ml 720 ml Intake Oral 480 ml 200 ml 720 ml # Voids 1 (Alisa Herrera MD R2) Result Diagram: 12/09/16 1011 12/09/16 1011 Objective Remarks GEN: Well-developed, well-nourished patient. Resting comfortably in bed on room air. No respiratory distress but will intermittently increase her respiration rate during evaluation. CV: Regular rate and rhythm without obvious murmurs. LUNGS: Clear to auscultation bilaterally. Normal respiratory effort. No wheezes , rales, rhonchi. EXT: No edema. No calf tenderness. NEURO/PSYCH: Awake, alert. Appropriate insight and judgment. Normal speech ( Alisa Herrera MD R2) A/P Assessment and Plan 26-year-old female with history of asthma requiring intubation in the past. Admitted for asthma exacerbation. Discharge Planning Today pending pain control sdw Dr. Durham and Dr. Girard. (Alisa Herrera MD R2) Attending Attestation Patient seen and examined. Case reviewed and discussed with the resident team. Agree with plan of care as discussed with me and documented in the resident note. (Mariza Girard MD) Problem List: (1) Asthma exacerbation Status: Acute Plan: History of severe asthma requiring intubation. Presented to the ED with respiration rate of 28 and required Solu-Medrol and BiPAP. Respiration status has much improved and is currently on room air. Able to speak in complete sentences. Physical exam clear. -Influenza negative -Continuous pulse ox monitoring -Informed patient and nurse to call if patient requires increasing oxygen supplementation -If patient worsens clinically, will obtain ABG/VBG and consider transfer to [facility] [place] Medications: * Albuterol and Duonebs * Discontinued Solu-Medrol 40 mg IV every 8 * Symbicort 2 puff BID * Prednisone 20 mg BID * Singulair 10mg daily (2) Costochondritis Status: Acute Plan: Symptoms of chest pain likely due to costochondritis as the pain is reproducible on physical exam. EKG unremarkable. -Pain control with Celoron 10 -Avoid NSAIDs due to asthma (3) Vertigo Status: Acute Plan: Increase solid food intake. -Meclizine (4) Nutrition, metabolism, and development symptoms Status: Acute Plan: Diet: Regular Electrolytes: Unremarkable Fluids: None DVT prophylaxis: Lovenox GI prophylaxis: Protonix (Alisa Herrera MD R2) Alisa Herrera MD R2 Dec 09, 2016 12:17 Mariza Girard MD Dec 09, 2016 13:20
[2016-12-09 14:34] LABS: HEMATOCRIT 33.3 % (35.0-46.0); REVIEW FLAG FINAL
[2016-12-09] MEDS: ACETAMINOPHEN/HYDROcodone 325 MG/10 MG TAB PO PRN ×2 (14:51→18:31)
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
--- NOTE | 2016-12-09 17:30 | EKG ---
Date Performed: 12/08/2016 Time Performed: 16:01:33 PTAGE: 26 years EKG: Sinus rhythm WITH SINUS ARRHYTHMIA POSSIBLE LEFT ATRIAL ENLARGEMENT Since previous tracing, no significant change noted BORDERLINE ECG PREVIOUS TRACING : 08/20/2016 07.49 DOCTOR: Gracia Mcgregor Interpretating Date/Time 12/09/2016 17:27:43
[2016-12-09] MEDS: predniSONE 20 MG TAB PO SCH (21:28)
[2016-12-09] MEDS: MONTELUKAST SODIUM 10 MG TAB PO SCH (21:28)
[2016-12-10] VITALS (11 sets, daily range): BP systolic 98–121; BP diastolic 50–76; PULSE 68–84; RESP 16–18; TEMP 97.9–98.7; O2SAT 97–99
[2016-12-10] MEDS: RESP: ALBUTEROL 2.5 MG/IPRATROPIUM 0.5 MG NEB (SCH) NEB ×5 (04:21→22:39)
[2016-12-10 08:19] LABS: HEMATOCRIT 34.6 % (35.0-46.0); MEAN CELL VOLUME 89.6 FL (80.0-100.0); MEAN CORPUSCULAR HEMOGLOBIN 29.3 PG (27.0-34.0); MEAN CORPUSCULAR HGB CONC 32.6 % (32.0-36.0); PLATELET COUNT 159 TH/MM3 (150-450); RED BLOOD COUNT 3.86 MIL/MM3 (4.00-5.30); REVIEW FLAG FINAL; WHITE BLOOD COUNT 5.9 TH/MM3 (4.0-11.0)
[2016-12-10 08:50] LABS: BICARBONATE 26.4 MEQ/L (21.0-32.0); POTASSIUM 4.1 MEQ/L (3.5-5.1)
[2016-12-10] MEDS: SODIUM CHLORIDE 0.9% FLUSH 5 ML FLUSH IV SCH ×2 (09:00→21:00)
[2016-12-10] MEDS: predniSONE 20 MG TAB PO SCH ×2 (09:17→21:17)
[2016-12-10] MEDS: PANTOPRAZOLE SOD 40 MG DELAYED RELEASE TAB PO SCH (09:17)
[2016-12-10] MEDS: BUDESONIDE-FORMOTEROL 160/4.5 MCG INHALER INH SCH ×2 (09:18→21:00)
[2016-12-10] MEDS ORDERED: WALKER WHEELS/F1 MIS (10:00)
[2016-12-10] MEDS ORDERED: NEBULIZER1 MI1 (10:00)
--- NOTE | 2016-12-10 10:38 | HHI.FPPN ---
Subjective Remarks No acute events overnight. Vital signs unremarkable. This morning patient reports that she continues to have some dizziness but otherwise feels well. Vaginal bleeding is about the same as yesterday. Per discussion with nurse, overnight patient was able to ambulate to the bathroom independently without issues. Has had no falls. Maintain adequate saturation on room air. (lAisa Barajas MD R2) Objective Vitals Vital Signs Date Time Temp Pulse Resp B/P Pulse Ox O2 Delivery O2 Flow Rate FiO2 12/10/16 04:23 98 21 12/10/16 04:00 Room Air 12/10/16 04:00 97.9 71 16 112/62 98 12/10/16 00:01 99 21 12/10/16 00:00 Room Air 12/10/16 00:00 98.1 78 18 98/50 97 12/09/16 20:24 98 21 12/09/16 20:00 Room Air 12/09/16 20:00 98.7 80 18 94/45 98 12/09/16 18:30 98.5 85 20 95/51 98 12/09/16 14:54 98.1 81 12 104/55 98 I/O 12/09/16 12/09/16 12/09/16 12/10/16 12/10/16 12/10/16 07:00 15:00 23:00 07:00 15:00 23:00 Intake Total 720 ml 1080 ml 360 ml 720 ml Output Total 0 ml 0 ml Balance 720 ml 1080 ml 360 ml 720 ml Intake Oral 720 ml 1080 ml 360 ml 720 ml Output Urine Total 0 ml Emesis 0 ml # Voids 1 1 1 2 (Alisa Herrera MD R2) Result Diagram: 12/10/1648 12/10/16 0748 Objective Remarks GEN: Well-developed, well-nourished patient. Resting comfortably in bed on room air. Able to sit up from a laying position without issues. CV: Regular rate and rhythm without obvious murmurs. LUNGS: Clear to auscultation bilaterally. Normal respiratory effort. No wheezes , rales, rhonchi. Chest pain reproducible on palpation of sternum. NEURO/PSYCH: Awake, alert. Appropriate insight and judgment. Normal speech ( Alisa Herrera MD R2) A/P Assessment and Plan 26-year-old female with history of asthma requiring intubation in the past. Admitted for asthma exacerbation. Discharge Planning Today pending ability to get walker and orthostatic results. Patient is agreeable to discharge today. sdw Dr. Basilio (Alisa Herrera MD R2) Attending Attestation Patient seen and examined. Case reviewed and discussed with the resident team. Agree with plan of care as discussed with me and documented in the resident note. Pt wishes to go home today as she feels good with her breathing and is eating well, etc. She has no history of falls and was able to walk with Dr Villa yesterday and with PT today. She at times yesterday reportedly complained of weakness and complained today of some dizziness but has been able to walk to the bathroom on her own basically and has no serious balance problems or focal weakness noted on exam or per PT. She has been cautioned to get up slowly. She has a home nebulizer which has been not functioning and has a script for another nebulizer. They normally cost about $20 without insurance and she can likely be reimbursed for this purchase by her Insurance. If she chooses to wait until Monday, a machine will be delivered. However, clinically she is doing very well today with great air movement and no wheezing and O2 sats up in the high 90s even on exertion. She will have her inhalers and should be stable with these and her po steroids even without a home nebulizer as inhalers have the same meds and can work as well but also can be user dependent. She will follow up with dr Aggarwal her regular Physician. (Sheeba Basilio MD) Problem List: (1) Asthma exacerbation Status: Resolved Plan: History of severe asthma requiring intubation. Presented to the ED with respiration rate of 28 and required Solu-Medrol and BiPAP. Respiration status has much improved and is currently on room air. Able to speak in complete sentences. Physical exam clear. -Influenza negative -Continuous pulse ox monitoring Medications: * Albuterol and Duonebs * Symbicort 2 puff BID * Prednisone 20 mg BID * Singulair 10mg daily (2) Costochondritis Status: Acute Plan: Symptoms of chest pain likely due to costochondritis as the pain is reproducible on physical exam. EKG unremarkable. -Pain control with [place] 10 -Avoid NSAIDs due to asthma (3) Vertigo Status: Acute Plan: PT was consulted due to subjective weakness. Per conversation with the physical therapist, strength jacob patient is functional. She was able to walk from bed to bathroom door 2x. However she reported subjective dizziness but did not fall. Blood pressure was taken when patient was standing and sitting with all appropriate values. Hypotension was noted. Saturation was always greater than 95% on room air throughout examination. Based on my exam yesterday when assisting patient with ambulation, physical exam was not consistent with reported symptoms. I do not feel that patient is at a fall risk due to her ability to catch herself and having adequate strength. She may have subjective symptoms of vertigo but this does not require inpatient hospitalization but rather can be monitored as an outpatient. -Counseled about sitting up and standing up very slowly before moving -Maintain good PO intake -Continue meclizine -Ordered walker at discharge -Orthostatic vitals (4) Vaginal bleeding Status: Acute Plan: Symptoms likely due to her menses. Hemoglobin stable. Pelvic ultrasound and CT from 07/2016 were unremarkable. -Continue home iron supplementation -Recommend follow-up as outpatient (5) Nutrition, metabolism, and development symptoms Status: Acute Plan: Diet: Regular Electrolytes: Unremarkable Fluids: None DVT prophylaxis: SCDs GI prophylaxis: Protonix (Alisa Herrera MD R2) Alisa Herrera MD R2 Dec 10, 2016 10:38 Sheeba Basilio MD Dec 10, 2016 12:55
[2016-12-10] MEDS ORDERED: walker (12:53)
[2016-12-10] MEDS: ACETAMINOPHEN 325 MG TAB PO PRN (14:40)
--- NOTE | 2016-12-10 17:10 | HHI.FPPN ---
Addendum to progress note ADDENDUM Reason for addendum: Additonal documentation Additional information Residents stopped by to check on patient after receiving a page from the patient 's nurse that she fell on her way to the bathroom. She was sitting up comfortably in bed, friend at bedside. She stated that she hit her forehead on the floor and immediately had headache which was somewhat relieved with Tylenol. She still wanted to go home yesterday because her 4 children were waiting for her. She did express concern about not having a nebulizer because the nebulizer helps her the most whenever she has an asthma attack. Exam: There were no signs of bruising, abrasion, or an identifiable bump on her forehead. I put a call out to Dr. Villa, the senior resident in charge of her care, and was instructed not to discharge her from the hospital. This information was passed on to the patient, who was disappointed but expressed understanding. Seen and examined with Dr. Girard, PGY 2 Kaylee Gusman MD R1 Dec 10, 2016 17:10
[2016-12-10] MEDS: MONTELUKAST SODIUM 10 MG TAB PO SCH (21:17)
[2016-12-11] VITALS (8 sets, daily range): BP systolic 96–114; BP diastolic 61–69; PULSE 67–87; RESP 16–20; TEMP 97.6–98.5; O2SAT 97–100
[2016-12-11] MEDS: RESP: ALBUTEROL 2.5 MG/IPRATROPIUM 0.5 MG NEB (SCH) NEB ×6 (00:36→20:28)
[2016-12-11] MEDS: PANTOPRAZOLE SOD 40 MG DELAYED RELEASE TAB PO SCH (08:46)
[2016-12-11] MEDS: predniSONE 20 MG TAB PO SCH ×2 (08:46→21:02)
[2016-12-11] MEDS: SODIUM CHLORIDE 0.9% FLUSH 5 ML FLUSH IV SCH ×2 (08:47→21:00)
[2016-12-11] MEDS: BUDESONIDE-FORMOTEROL 160/4.5 MCG INHALER INH SCH ×2 (08:47→21:02)
[2016-12-11] MEDS: MECLIZINE HCL 25 MG TAB PO PRN ×2 (08:55→21:02)
[2016-12-11] MEDS ORDERED: ALUMINUM/MAGNESIUM/SIMETH 30 ML CUP PO ONE (12:30)
[2016-12-11] MEDS ORDERED: ALUMINUM/MAGNESIUM/SIMETH 30 ML CUP PO PRN (12:30)
--- NOTE | 2016-12-11 15:35 | HHI.FPPN ---
Subjective Remarks Patient seen and examined this morning by medical team. Patient with fall overnight on the way to the bathroom. She was evaluated by medical team. Exam showed no signs of bruising or trauma. She states that again she felt like the "room spinning" and had midsternal chest pain during her fall. She did not lose consciousness and tried to catch her self on her bed. This morning she still complains of midsternal chest pain and occasional episodes of dizziness when getting up and out of bed as well as any positional change. We discussed the possibility of vertigo, gastric ulcer related to her recent prednisone treatment , and vasovagal syncope. Selena maneuver showed no nystagmus, but patient does endorse nausea and dizziness when turning her head to the right. She is agreeable to the physical therapy evaluation for possible vertigo. We also discussed her possible discharge, however she would feel more comfortable waiting until tomorrow to receive her nebulizer for her asthma treatments. ( Alex Durham MD R1) Objective Vitals Vital Signs Date Time Temp Pulse Resp B/P Pulse Ox O2 Delivery O2 Flow Rate FiO2 12/11/16 11:50 98.3 87 16 111/69 98 12/11/16 08:45 97.6 70 16 114/63 97 12/11/16 08:45 97 Room Air 12/11/16 08:30 98 21 12/11/16 03:54 98 Room Air 12/11/16 03:54 98.1 67 20 98 12/11/16 00:30 98.5 82 20 100 12/10/16 23:40 98 Room Air 12/10/16 22:39 99 Nasal Cannula 12/10/16 21:00 98.4 84 16 121/76 98 12/10/16 20:30 99 Room Air 12/10/16 18:00 96 Room Air 12/10/16 16:12 98.7 84 16 98 I/O 12/10/16 12/10/16 12/10/16 12/11/16 12/11/16 12/11/16 07:00 15:00 23:00 07:00 15:00 23:00 Intake Total 720 ml 960 ml 1440 ml Output Total 0 ml Balance 720 ml 960 ml 1440 ml Intake Oral 720 ml 960 ml 1440 ml Emesis 0 ml # Voids 2 2 3 (Alex Durham MD R1) Result Diagram: 12/10/1674712/10/16747 Objective Remarks GEN: Well-developed, well-nourished patient. Resting comfortably in bed on room air. Able to sit up from a laying position without issues. CV: Regular rate and rhythm without obvious murmurs. LUNGS: Clear to auscultation bilaterally. Normal respiratory effort. No wheezes , rales, rhonchi. Chest pain reproducible on palpation of sternum. GI: Soft, nondistended, with +BS. NEURO/PSYCH: Awake, alert. Appropriate insight and judgment. Normal speech. Selena maneuver showed no nystagmus, but patient does endorse nausea and dizziness when turning her head to the right. (Alex Durham MD R1) A/P Assessment and Plan 26-year-old female with history of asthma requiring intubation in the past. Admitted for asthma exacerbation. Discharge Planning Likely tomorrow as patient will receive PT for vertigo as well as nebulizer arrangements for home. sdw Dr. Basilio (Alex Durham MD R1) Attending Attestation Patient seen and examined. Case reviewed and discussed with the resident team. Agree with plan of care as discussed with me and documented in the resident note. 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 she needs to have great strength and balance and coordination to have this schedule. her falls fortunately have not resulted in any visible or palpable injuries. unfortunately, all her falls are unwitnessed as well. per nursing, she walked to the bathroom and was fine. her nurse was right outside the door and the pt closed the bathroom door and then reported her fall which her nurse did not see. the pt had been told to call her nurse if she had any problems at all but did not until she called out after the reported fall (Sheeba Basilio MD) Problem List: (1) Asthma exacerbation Status: Resolved Plan: History of severe asthma requiring intubation. Presented to the ED with respiration rate of 28 and required Solu-Medrol and BiPAP. Respiration status has much improved and is currently on room air. Able to speak in complete sentences. Physical exam clear. -Influenza negative -Continuous pulse ox monitoring -Patient likely discharged home tomorrow after receiving her nebulizer for asthma treatments per CM, appreciate their assistance Medications: * Albuterol and Duonebs * Symbicort 2 puff BID * Prednisone 20 mg BID * Singulair 10mg daily (2) Costochondritis Status: Acute Plan: Symptoms of chest pain likely due to costochondritis as the pain is reproducible on physical exam. EKG unremarkable. Pain maybe related to gastric symptoms as she has just completed course of prednisone. However, symptoms currently do no coincide with her diet and PO intake. -Pain control with [place] 10 -Avoid NSAIDs due to asthma/possible GI symptoms -Protonix with Mylanta ordered for GI protection (3) Vertigo Status: Acute Plan: PT was consulted due to subjective weakness. Per conversation with the physical therapist, strength jacob patient is functional. She was able to walk from bed to bathroom door 2x. However she reported subjective dizziness but did not fall. Blood pressure was taken when patient was standing and sitting with all appropriate values. Hypotension was noted. Saturation was always greater than 95% on room air throughout examination. Based on my exam yesterday when assisting patient with ambulation, physical exam was not consistent with reported symptoms. I do not feel that patient is at a fall risk due to her ability to catch herself and having adequate strength. She may have subjective symptoms of vertigo but this does not require inpatient hospitalization but rather can be monitored as an outpatient. Selena maneuver showed no nystagmus, but patient does endorse nausea and dizziness when turning her head to the right. -Counseled about sitting up and standing up very slowly before moving -Maintain good PO intake -Continue meclizine -Ordered walker at discharge -Orthostatic vitals WNL -PT consulted for evaluation and treatment of possible vertigo (4) Vaginal bleeding Status: Acute Plan: Symptoms likely due to her menses. Hemoglobin stable. Pelvic ultrasound and CT from 07/2016 were unremarkable. -Continue home iron supplementation -Recommend follow-up as outpatient (5) Nutrition, metabolism, and development symptoms Status: Acute Plan: Diet: Regular Electrolytes: Unremarkable Fluids: None DVT prophylaxis: SCDs GI prophylaxis: Protonix with Mylanta (Alex Durham MD R1) Alex Durham MD R1 Dec 11, 2016 15:35 Sheeba Basilio MD Dec 14, 2016 13:22
[2016-12-11] MEDS ORDERED: ENOXAPARIN SODIUM 40 MG/0.4 ML SYRINGE SQ SCH (18:00)
[2016-12-11] MEDS: ACETAMINOPHEN/HYDROcodone 325 MG/10 MG TAB PO PRN (19:46)
[2016-12-11] MEDS: MONTELUKAST SODIUM 10 MG TAB PO SCH (21:02)
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
[2016-12-11] MEDS ORDERED: ONDANSETRON ODT 4 MG TAB PO PRN (23:45)
[2016-12-12] VITALS (10 sets, daily range): BP systolic 100–113; BP diastolic 48–69; PULSE 67–88; RESP 16–26; TEMP 97.2–98.2; O2SAT 96–99
[2016-12-12] MEDS: RESP: ALBUTEROL 2.5 MG/IPRATROPIUM 0.5 MG NEB (SCH) NEB ×4 (00:21→11:40)
--- NOTE | 2016-12-12 07:37 | HHI.FPPN ---
Subjective Remarks Overnight patient fell when getting up from the restroom and reported hitting her head. She was evaluated by the night team at which no other symptoms/ problems were noted. VS continues to show intermittently low BP but is otherwise unremarkable. This morning she reports that she continues to have substernal chest pain that is only present when breathing. Continues to complain of dizziness. Reports that she gets dizzy because of the chest pain and the current pain medication only makes her sleepy. (This statement is different from prior explanations of her dizziness per discussion with attending.) (Alisa Herrera MD R2) Objective Vitals Vital Signs Date Time Temp Pulse Resp B/P Pulse Ox O2 Delivery O2 Flow Rate FiO2 12/12/16 04:20 97.8 70 20 102/48 96 12/12/16 04:20 96 Room Air 12/12/16 00:20 97 Room Air 12/12/16 00:20 98.2 67 16 100/54 97 12/11/16 20:28 98 21 12/11/16 20:00 97.8 78 20 106/67 99 12/11/16 20:00 99 Room Air 12/11/16 16:30 97.9 82 16 96/61 97 12/11/16 16:30 97 Room Air 12/11/16 12:00 98 Room Air 12/11/16 11:50 98.3 87 16 111/69 98 12/11/16 08:45 97.6 70 16 114/63 97 12/11/16 08:45 97 Room Air 12/11/16 08:30 98 21 I/O 12/11/16 12/11/16 12/11/16 12/12/16 12/12/16 12/12/16 07:00 15:00 23:00 07:00 15:00 23:00 Intake Total 1440 ml 720 ml 960 ml Balance 1440 ml 720 ml 960 ml Intake Oral 1440 ml 720 ml 960 ml # Voids 3 2 1 (Alisa Herrera MD R2) Result Diagram: 12/10/1648 12/10/16 0748 Objective Remarks GEN: Well-developed, well-nourished patient. Resting comfortably in bed on room air. Able to sit up from a laying position without issues. Speaks in complete sentences. CV: Regular rate and rhythm without obvious murmurs. Substernal chest pain reproducible on palpation. LUNGS: Clear to auscultation bilaterally. Normal respiratory effort. No wheezes , rales, rhonchi. MSK: No edema. No calf tenderness. NEURO/PSYCH: Awake, alert. Appropriate insight and judgment. Normal speech. ( Alisa Herrera MD R2) A/P Assessment and Plan 26-year-old female with history of asthma requiring intubation in the past. Admitted for asthma exacerbation which has now resolved. Continues stay due to vertigo and falls. Discharge Planning 1-2days pending improvement in gait dw Dr. Basilio and Dr. Durham (Alisa Herrera MD R2) Attending Attestation Patient seen and examined. Case reviewed and discussed with the resident team. Agree with plan of care as discussed with me and documented in the resident note. she is doing well with her breathing which was her original problem. she was seen by Cardiology and does not have a cardiac problem. He recommended Neurology eval as she keeps complaining of dizziness and has unwitnessed falls fortunately without any galindo on her head or elsewhere. unsure how aggressive to get with her workup as her history does change depending on who is questioning her as at times her sxs seem more vertiginous in nature and at other times today she told her resident that the chest pain was causing the other problems. (Sheeba Basilio MD) Problem List: (1) Vertigo Status: Acute Plan: PT was consulted due to subjective weakness. Functionally, patient has adequate strength. Blood pressure/orthostatic and oxygen saturation are adequate. Has now fallen twice. Re-consulted PT for therapy related to vertigo. -Consulted cardiology for possible tilt table testing -Cardiac telemetry -Counseled about sitting up and standing up very slowly before moving, Maintain good PO intake -Continue meclizine - CK ordered for evaluation of possibly steroid related myopathy (2) Asthma exacerbation Status: Resolved Plan: History of severe asthma requiring intubation. Presented to the ED with respiration rate of 28 and required Solu-Medrol and BiPAP. Respiration status has much improved and is currently on room air. Able to speak in complete sentences. Physical exam clear. Acute symptoms resolved. -Influenza negative Medications: * Albuterol and Duonebs * Symbicort 2 puff BID * Prednisone 20 mg BID * Singulair 10mg daily (3) Costochondritis Status: Acute Plan: Symptoms of chest pain likely due to costochondritis as the pain is reproducible on physical exam. EKG unremarkable. Pain maybe related to gastric symptoms as she has just completed course of prednisone. However, symptoms currently do no coincide with her diet and PO intake. -Will try Mobic and monitor for respiratory issues to assist with persistent pain. (4) Nutrition, metabolism, and development symptoms Status: Acute Plan: Diet: Regular Electrolytes: Unremarkable Fluids: None DVT prophylaxis: SCDs, no anticoagulation due to repeated falls GI prophylaxis: Protonix with Mylanta (Alisa Herrera MD R2) Alisa Herrera MD R2 Dec 12, 2016 07:37 Sheeba Basilio MD Dec 12, 2016 14:34 Alisa Herrera MD R2 Dec 12, 2016 07:37 Alisa Herrera MD R2 Dec 12, 2016 07:37
[2016-12-12] MEDS: predniSONE 20 MG TAB PO SCH ×2 (08:54→21:38)
[2016-12-12] MEDS: PANTOPRAZOLE SOD 40 MG DELAYED RELEASE TAB PO SCH (08:54)
[2016-12-12] MEDS: SODIUM CHLORIDE 0.9% FLUSH 5 ML FLUSH IV SCH ×2 (09:00→21:00)
[2016-12-12 09:34] LABS: ALKALINE PHOSPHATASE 74 U/L (45-117); ALT (GPT) 17 U/L (10-53); ANION GAP 6 MEQ/L (5-15); AST (GOT) 6 U/L (15-37); BICARBONATE 29.7 MEQ/L (21.0-32.0); BLOOD UREA NITROGEN 16 MG/DL (7-18); CHLORIDE 102 MEQ/L (98-107); GLOMERULAR FILTRATION RATE 99 ML/MIN (>89); POTASSIUM 4.6 MEQ/L (3.5-5.1); SODIUM (NA) 138 MEQ/L (136-145); TOTAL BILIRUBIN ADULT 0.2 MG/DL (0.2-1.0)
[2016-12-12] MEDS: MECLIZINE HCL 25 MG TAB PO PRN (11:22)
[2016-12-12] MEDS: MELOXICAM 7.5 MG TAB PO SCH (14:07)
[2016-12-12] MEDS: BUDESONIDE-FORMOTEROL 160/4.5 MCG INHALER INH SCH ×2 (14:07→22:00)
--- NOTE | 2016-12-12 14:53 | MB ---
cc: SHEA WHITING DATE OF CONSULTATION: 12/12/2016 HISTORY OF PRESENT ILLNESS Ms. Tello is a 26-year-old white female with a history of severe asthma requiring intubation last year. She was admitted on 12/08 after she woke up in the morning with shortness of breath and wheezing. She also started to have low substernal chest discomfort increased with manual pressure and deep inspiration. Her pain is sharp moderate severity. Her shortness of breath is now improved but she still complains of continuing chest pain and also dizziness, vertigo and palpitations. She was on prednisone until several weeks ago. PAST MEDICAL HISTORY Positive for: Asthma. Multiple intubations apparently last year. History of nephrolithiasis. Anemia. Hypoglycemia. History of tonsillectomy. Tubal ligation. MEDICATION Albuterol. Ventolin. QVAR. Singulair. Advair Diskus. Iron. ALLERGIES ADHESIVE. BETADINE. BENZOIN. LATEX. PENICILLIN. AMOXICILLIN. AMPICILLIN. COCONUT. CONTRAST. GRAPE. KIWI. MULTIVITAMINS. RAISINS. SHELLFISH. STRAWBERRY. SILVER. SOCIAL HISTORY The patient does not smoke. She does not drink alcohol. She has four children. FAMILY HISTORY Positive for coronary artery disease in her mother. REVIEW OF SYSTEMS Otherwise negative. PHYSICAL EXAMINATION VITAL SIGNS: Blood pressure 108/52, pulse 88 and regular. HEENT: Negative. 2+ carotid upstrokes. No bruits. LUNGS: Clear. HEART: Regular with no murmur, gallop or rub. Left lower mid anterior chest discomfort, reproducible with chest palpation. ABDOMEN: Soft. No bruits. EXTREMITIES: Without edema. 2+ distal pulses. NEUROLOGIC: Grossly nonfocal. EKG EKG was reviewed and showed normal sinus rhythm, normal axis and intervals. LABORATORY DATA Hemoglobin 11.3, potassium 4.6, creatinine 0.7, AST and ALT normal. PT 18. DIAGNOSIS 1. Atypical chest pain. 2. Recent asthma exacerbation. 3. Vertigo. DISPOSITION Ms. Tello presents with atypical chest discomfort, likely of musculoskeletal origin. She has multiple vague symptoms. She recently suffered asthma exacerbation which is now improved. We will obtain echocardiogram to evaluate her left ventricular function. I will follow her for cardiology during her hospitalization. She will then follow up with Dr. Aggarwal, her primary physician, in his office after discharge. MD SHARYN Barnett /1:46 PM /2:19 PM SAHHIDA
[2016-12-12] MEDS: ACETAMINOPHEN/HYDROcodone 325 MG/10 MG TAB PO PRN (20:04)
--- NOTE | 2016-12-12 21:02 | EC ---
Study Study Date:12/12/2016 STUDY CONCLUSIONS SUMMARY LEFT VENTRICLE: The cavity size was normal. Wall thickness was normal. Systolic function was normal. The estimated ejection fraction was 65%. Wall motion was normal; there were no regional wall motion abnormalities. If LV function is below 40, please consider prescribing an ACEI or ARB or document rationale for non-use. PROCEDURE DATA STUDY STATUS: Elective. Procedure: Transthoracic echocardiography. Image quality was good. Scanning was performed from the parasternal, apical, and subcostal acoustic windows. Study completion: The patient tolerated the procedure well. Transthoracic echocardiography. M-mode, complete 2D, complete spectral Doppler, and color Doppler. Height: Height: 68in. Weight: Weight: 142.7lb. Body mass index: BMI: 21.7kg/m^2. Body surface area: BSA: 1.77m^2. Patient status: Inpatient. CARDIAC ANATOMY LEFT VENTRICLE: The cavity size was normal. Wall thickness was normal. Systolic function was normal. The estimated ejection fraction was 65%. Wall motion was normal; there were no regional wall motion abnormalities. AORTIC VALVE: Trileaflet; normal thickness leaflets. Doppler: Transvalvular velocity was within the normal range. There was no stenosis. No regurgitation. Valve area: 1.21cm^2(VTI). Indexed valve area: 0.68cm^2/m^2 (VTI). Valve area: 1.39cm^2 (Vmax). Indexed valve area: 0.79cm^2/m^2 (Vmax). Mean gradient: 6mm Hg (S). Peak gradient: 11mm Hg (S). AORTA: Aortic root: The aortic root was normal in size. MITRAL VALVE: Structurally normal valve. Doppler: Transvalvular velocity was within the normal range. There was no evidence for stenosis. Trace regurgitation. Peak gradient: 3mm Hg (D). LEFT ATRIUM: The atrium was normal in size. RIGHT VENTRICLE: The cavity size was normal. Wall thickness was normal. PULMONIC VALVE: Doppler: Transvalvular velocity was within the normal range. There was no evidence for stenosis. No regurgitation. TRICUSPID VALVE: Structurally normal valve. Doppler: Transvalvular velocity was within the normal range. Trace regurgitation. PULMONARY ARTERY: The main pulmonary artery was normal-sized. Systolic pressure was within the normal range. RIGHT ATRIUM: The atrium was normal in size. PERICARDIUM: There was no pericardial effusion. SYSTEMIC VEINS: Inferior vena cava: The vessel was normal in size. Patient weight: 142.7lb _Ejection fraction:_ 65-75% _Fractional shortening:_ 32% up to 5Kg 5-11.5Kg 11.6-22.9Kg 23-45Kg 45-57Kg Aortic Root 7-13 <17 13-22 17-27 17-27 LA diam 6-13 <23 24-38 33-47 37-40 RVID 10-17 7-15 7-15 7-18 8-17 LVIDd 12-22 <32 24-38 33-47 37-40 LVPW 2-4 3-6 5-7 6-8 7-8 IVS 2-4 3-6 5-7 6-8 7-8 BASIC MEASUREMENTS ADULT NORMAL Left ventricle LV internal dimension, ED, chordal 45.7 mm 43-52 level, PLAX LV internal dimension, ES, chordal 30.9 mm 23-38 level, PLAX Fractional shortening, chordal level, 32 % >29 PLAX LV posterior wall thickness, ED 6.31 mm IVS/LVPW ratio, ED 0.96 <1.3 Ventricular septum Septal thickness, ED 6.05 mm Aortic valve Leaflet separation 21 mm 15-26 Aorta Root diameter, ED 28 mm Left atrium Anterior-posterior dimension 24 mm Anterior-posterior dimension index 1.36 cm/m^2 <2.2 BASIC MEASUREMENTS ADULT NORMAL Aortic valve Leaflet separation 21 mm 15-26 DOPPLER MEASUREMENTS ADULT NORMAL Aortic valve Peak velocity, S 164 cm/s Mean velocity, S 117 cm/s VTI, S 32.7 cm Mean gradient, S 6 mm Hg Peak gradient, S 11 mm Hg Valve area, VTI 1.21 cm^2 Valve area index, VTI 0.68 cm^2/m^2 Valve area, Vmax 1.39 cm^2 Valve area index, Vmax 0.79 cm^2/m^2 Mitral valve Peak E-wave velocity 87.4 cm/s Peak A-wave velocity 50.8 cm/s Peak gradient, D 3 mm Hg Peak E/A ratio 1.7 Tricuspid valve Regurgitant peak velocity 126 cm/s Peak RV-RA gradient, S 6 mm Hg Maximal regurgitant velocity 126 cm/s Pulmonic valve Peak velocity, S 80.5 cm/s LEGEND: Mean values are shown as u=mean value. Asterisk (*) galindo values outside specified normal range. Prepared and signed by Lavelle Anderson [id number]
[2016-12-12] MEDS: MONTELUKAST SODIUM 10 MG TAB PO SCH (21:38)
[2016-12-12] MEDS: RESP: ALBUTEROL 2.5 MG/3 ML NEB (PRN) NEB (23:23)
[2016-12-13 01:12] VITALS: BP 112/62; PULSE 61; RESP 16; TEMP 97.9; O2SAT 96
[2016-12-13 01:54] VITALS: BP 110/63; PULSE 69; RESP 16; TEMP 96.6; O2SAT 97
[2016-12-13 05:42] VITALS: BP 93/50; PULSE 64; RESP 16; TEMP 98; O2SAT 97
[2016-12-13 08:00] VITALS: BP 106/56; PULSE 78; RESP 20; TEMP 97.1; O2SAT 98
--- NOTE | 2016-12-13 08:15 | MB ---
cc: ONEIDA LERMA M.D. DATE OF CONSULTATION 12/13/2016 REASON FOR CONSULTATION She is a 26-year-old seen in neurological consultation today. She is seen because of dizziness. HISTORY OF PRESENT ILLNESS She came in because of an acute attack of asthma. She suffers from asthma and she has had complications from this. She has been describing dizziness and chest pain. She had a cardiology evaluation which was largely unremarkable. The patient also described some double vision yesterday, some difficulty with her balance. Apparently she fell overnight. She describes that she never had the dizziness or vertigo in the past. When she stands up she feels the room is spinning around. She admits history of some retinal disorder and she has chronic tunnel vision. She is unable to drive. She works two jobs and she raises four children. She does not smoke and does not drink alcohol. HOME MEDICATIONS 1. Singulair. 2. Advair. 3. Qvar. 4. She also has been on albuterol. 5. Ventilation. 6. Steroids. NEUROLOGICAL EXAM She is mildly anxious, alert, oriented, pleasant, cooperative. It is difficult to evaluate her gaze as she admits difficulty gazing to any direction because of her tunnel vision. I am also uncertain about her visual arango due to some lack of consistency. The pupils were somewhat large but reactive. I could not see the disks well. There is no facial weakness and the speech was normal. She has good strength with all four limbs on the bedside exam and reflexes were 2+ throughout. Plantar responses flexor. I sat her up in bed but she has a bed alarm and I did not ambulate the patient. Position sense normal in the distal lower extremities. ASSESSMENT AND RECOMMENDATIONS Multiple nonspecific complaints without any distinct findings on the neurologic exam. Because of her dizziness, vertigo type of complaints and double vision, I will arrange for an MRI of brain and MRA of [place]. Otherwise, continuing medical care for the asthma, etc. I will follow the neurological course. Thank you for asking us to participate in her care. MD CRYS Andrade/INEZ /7:45 AM /8:10 AM
[2016-12-13] MEDS: RESP: ALBUTEROL 2.5 MG/3 ML NEB (PRN) NEB ×2 (08:18→15:31)
[2016-12-13 08:19] VITALS: O2SAT 95
[2016-12-13] MEDS: BUDESONIDE-FORMOTEROL 160/4.5 MCG INHALER INH SCH (09:00)
[2016-12-13] MEDS: SODIUM CHLORIDE 0.9% FLUSH 5 ML FLUSH IV SCH (09:00)
[2016-12-13] MEDS: MELOXICAM 7.5 MG TAB PO SCH (09:49)
[2016-12-13] MEDS: predniSONE 20 MG TAB PO SCH (09:49)
[2016-12-13] MEDS: PANTOPRAZOLE SOD 40 MG DELAYED RELEASE TAB PO SCH (09:50)
[2016-12-13] MEDS ORDERED: GADODIAMIDE PF 287 MG/ML 5 ML VIAL (for RAD MRI) IV ONE (10:47)
--- NOTE | 2016-12-13 10:50 | RADRPT ---
EXAM DATE/TIME: 12/13/2016 10:07 [facility] COMPARISON: No previous studies available for comparison. INDICATIONS : Dizziness. MEDICAL HISTORY : Seizures. hypotension SURGICAL HISTORY : Tonsillectomy. Tubal ligation. ENCOUNTER: Subsequent ACUITY: 1 week PAIN SCORE: 0/10 LOCATION: cranial Please note a normal MRA of the brain does not entirely exclude the possibility of a small aneurysm, nor the possibility of distal intracranial vessel disease. TECHNIQUE: 3D time of flight MRA was performed. Source images, multiplanar STS MIP, and 3D volume MIP reconstru ctions were reviewed. FINDINGS: There is excellent visualization of the major intracranial arteries out to the second-order branch ve ssels. There is no evidence for aneurysm, vessel truncation or stenosis, and no evidence for vascula r malformation. Patent posterior to indicating artery on the right with a smaller P1 segment eventually form a slight ly small P2 segment on the right CONCLUSION: P2 segment and P1 segments are smaller on the right than the left otherwise unremarkable [place] MRA. Both posterior communicating arteries are patent. Benoit Chaves MD on December 13, 2016 at 10:47 Board Certified Radiologist. This report was verified electronically.
--- NOTE | 2016-12-13 11:31 | RADRPT ---
EXAM DATE/TIME: 12/13/2016 10:07 [facility] COMPARISON: No previous studies available for comparison. INDICATIONS : Dizziness. CONTRAST: 14 cc Omniscan (gadodiamide) IV MEDICAL HISTORY : Seizures. hypotension SURGICAL HISTORY : Tonsillectomy. Tubal ligation. ENCOUNTER: Subsequent ACUITY: 1 week PAIN SCORE: 0/10 LOCATION: cranial TECHNIQUE: Multiplanar, multisequence MRI of the brain was performed both prior to and following the administrat ion of paramagnetic contrast. FINDINGS: CEREBRUM: The ventricles are normal for age. No evidence of midline shift, mass lesion, hemorrhage or acute in farction. No extraaxial fluid collections are seen. The pituitary gland and suprasellar cistern are normal in configuration. WHITE MATTER: No significant signal abnormalities are seen in the white matter. POSTERIOR FOSSA: The cerebellum and brainstem are intact. The 4th ventricle is midline. The cerebellopontine angle is unremarkable. The cerebellar tonsils are normal in position. DIFFUSION IMAGING: No focal areas of restricted diffusion are seen. No evidence of acute infarction. EXTRACRANIAL: The visualized portions of the orbits and paranasal sinuses are unremarkable. POST-CONTRAST: No abnormal areas of parenchymal or dural enhancement. No evidence of blood-brain barrier breakdown. CONCLUSION: Unremarkable MRI of the brain. Liam Gomez MD on December 13, 2016 at 11:28 Board Certified Radiologist. This report was verified electronically.
[2016-12-13 12:00] VITALS: BP 102/63; PULSE 76; RESP 20; TEMP 98; O2SAT 98
[2016-12-13 12:06] LABS: HEMATOCRIT 35.7 % (35.0-46.0); MEAN CELL VOLUME 87.7 FL (80.0-100.0); MEAN CORPUSCULAR HEMOGLOBIN 29.5 PG (27.0-34.0); MEAN CORPUSCULAR HGB CONC 33.7 % (32.0-36.0); PLATELET COUNT 181 TH/MM3 (150-450); RED BLOOD COUNT 4.08 MIL/MM3 (4.00-5.30); RED CELL DISTRIBUTION WIDTH 13.5 % (11.6-17.2); REVIEW FLAG FINAL; WHITE BLOOD COUNT 5.9 TH/MM3 (4.0-11.0)
[2016-12-13] MEDS ORDERED: MECL-62 PO (13:51)
[2016-12-13] MEDS ORDERED: ZOFR4TAB3 SL (13:52)
--- NOTE | 2016-12-13 13:54 | HHI.FPPN ---
Subjective Remarks No acute events overnight. Afebrile, vital signs stable. Per patient, she is still experiencing dizziness and nausea. She was seen by neurology who ordered MRI/MRA. (Jessica Kendrick MD R3) Objective Vitals Vital Signs Date Time Temp Pulse Resp B/P Pulse Ox O2 Delivery O2 Flow Rate FiO2 12/13/16 12:00 98.0 76 20 102/63 98 12/13/16 08:19 95 21 12/13/16 08:00 97.1 78 20 106/56 98 12/13/16 05:42 98.0 64 16 93/50 97 12/13/16 01:54 96.6 69 16 110/63 97 12/13/16 01:12 97.9 61 16 112/62 96 12/12/16 21:02 98 21 12/12/16 20:32 97.2 82 16 106/59 98 12/12/16 17:10 97.6 82 18 113/69 96 12/12/16 16:16 98.1 78 16 99 12/12/16 14:11 98.2 78 20 106/59 98 I/O 12/12/16 12/12/16 12/12/16 12/13/16 12/13/16 12/13/16 07:00 15:00 23:00 07:00 15:00 23:00 Intake Total 960 ml 1080 ml Output Total 350 ml Balance 960 ml 1080 ml -350 ml Intake Oral 960 ml 1080 ml Output Urine Total 350 ml # Voids 1 1 2 # Bowel Movements 0 (Jessica Kendrick MD R3) Result Diagram: 12/13/16 1115 12/12/16 0828 Objective Remarks Gen.: No acute distress Head: Normocephalic. Atraumatic. EENT: Pupils equal round and reactive to light. Nose without drainage. Airway intact. Throat without injection. Cardiovascular: Regular rate and rhythm. No murmurs, rubs or gallops. Respiratory: Lungs clear to auscultation bilaterally. No wheezes or rhonchi. Abdomen: Soft, nontender, nondistended. No peritoneal signs. Musculoskeletal: No gross deformities. No edema. Skin: No obvious rashes or erythema. Neuro: Sensory and motor grossly intact. Cranial nerves II through XII grossly intact. Psych: Appropriate mood and affect (Jessica Kendrick MD R3) A/P Assessment and Plan 26-year-old female with history of asthma requiring intubation in the past. Admitted for asthma exacerbation which has now resolved. Continues stay due to vertigo and falls. Discharge Planning To home today (Jessica Kendrick MD R3) Attending Attestation Patient seen and examined. Case reviewed and discussed with the resident team. Agree with plan of care as discussed with me and documented in the resident note. because of continued reports of problems, cardiology saw her and did not feel she had any cardiac problems. Neuro recommended an MRI based on the complaints of dizziness and double vision which fortunately was normal (Sheeba Basilio MD) Problem List: (1) Vertigo Status: Acute Plan: PT was consulted due to subjective weakness. Functionally, patient has adequate strength. Blood pressure/orthostatic and oxygen saturation are adequate. -Consulted cardiology; chest pain likely musculoskeletal in origin. Echo showed EF 65% otherwise unremarkable. -Counseled about sitting up and standing up very slowly before moving, Maintain good PO intake -Continue meclizine (2) Asthma exacerbation Status: Resolved Plan: History of severe asthma requiring intubation. Presented to the ED with respiration rate of 28 and required Solu-Medrol and BiPAP. Respiration status has much improved and is currently on room air. Able to speak in complete sentences. Physical exam clear. Acute symptoms resolved. -Influenza negative Medications: * Albuterol and Duonebs * Symbicort 2 puff BID * Prednisone 20 mg BID * Singulair 10mg daily (3) Costochondritis Status: Acute Plan: Symptoms of chest pain likely due to costochondritis as the pain is reproducible on physical exam. EKG unremarkable. Pain maybe related to gastric symptoms as she has just completed course of prednisone. However, symptoms currently do no coincide with her diet and PO intake. -Will try Mobic and monitor for respiratory issues to assist with persistent pain. (4) Nutrition, metabolism, and development symptoms Status: Acute Plan: Diet: Regular Electrolytes: Unremarkable Fluids: None DVT prophylaxis: SCDs, no anticoagulation due to repeated falls GI prophylaxis: Protonix with Mylanta Note: The family medicine service will not be accepting this patient back should she return to the hospital. (Jessica Kendrick MD R3) Jessica Kendrick MD R3 Dec 13, 2016 13:54 Sheeba Basilio MD Dec 14, 2016 13:24
--- NOTE | 2016-12-13 14:00 | HHI.DS ---
Discharge Summary Admission Date Dec 08, 2016 at 08:32 Discharge Date: Dec 13, 2016 Admitting Diagnosis status asthmaticus, acute asthma exacerbation (1) Vertigo Diagnosis: Principal Plan: PT was consulted due to subjective weakness. Functionally, patient has adequate strength. Blood pressure/orthostatic and oxygen saturation are adequate. -Consulted cardiology; chest pain likely musculoskeletal in origin. Echo showed EF 65% otherwise unremarkable. -Counseled about sitting up and standing up very slowly before moving, Maintain good PO intake -Continue meclizine (2) Asthma exacerbation Diagnosis: Principal Plan: History of severe asthma requiring intubation. Presented to the ED with respiration rate of 28 and required Solu-Medrol and BiPAP. Respiration status has much improved and is currently on room air. Able to speak in complete sentences. Physical exam clear. Acute symptoms resolved. -Influenza negative Medications: * Albuterol and Duonebs * Symbicort 2 puff BID * Prednisone 20 mg BID * Singulair 10mg daily (3) Costochondritis Diagnosis: Principal Plan: Symptoms of chest pain likely due to costochondritis as the pain is reproducible on physical exam. EKG unremarkable. Pain maybe related to gastric symptoms as she has just completed course of prednisone. However, symptoms currently do no coincide with her diet and PO intake. -Will try Mobic and monitor for respiratory issues to assist with persistent pain. [facility] Neurology Brief History History of present illness: Patient is a 26-year-old female with a PMH significant for severe asthma. Presents here today due to respiratory distress. Reports waking up this morning with wheezing. She tried to use her albuterol inhaler and her nebulizer but she was out of medication and nebulizer machine was not working. Reports having chest pain last night and using her inhaler yesterday evening after overexertion with dancing but did improve symptomatically prior to going bed. After realizing she did not have her medication this morning, she came immediately to the ED as she was having severe SOB, chest pain, inability to talk. Since being in the hospital, she has improved significantly but does continue to have substernal chest pain that is stabbing in nature as well as pleurisy. Denies any fever/chills, nausea/vomiting, abdominal pain, dysuria, diarrhea. Sick contact has include her daughter who recently had flu. Patient typically utilizes her inhaler 3 times a day but is also on Advair, Singulair, qvar reportedly. 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 Few weeks ago, she discontinued daily prednisone over 5 weeks due to respiratory distress. PCP Dr Aggarwal CBC/BMP: 12/13/16 1115 12/12/16 0828 Significant Findings Laboratory Tests Test 12/12/16 08:28 Aspartate Amino Transf 6 U/L (15-37) (AST/SGOT) Total Creatine Kinase 18 U/L (26-192) Albumin 3.2 GM/DL (3.4-5.0) Imaging Last Impressions Head Magnetic Resonance Angiography 12/13/16 0000 Signed Impressions: Service Date/Time: Tuesday, December 13, 2016 10:07 - CONCLUSION: P2 segment and P1 segments are smaller on the right than the left otherwise unremarkable [place] MRA. Both posterior communicating arteries are patent. Benoit Chaves MD Brain MRI 12/13/16 0000 Signed Impressions: Service Date/Time: Tuesday, December 13, 2016 10:07 - CONCLUSION: Unremarkable MRI of the brain. Liam Gomez MD Chest X-Ray 12/08/16 0624 Signed Impressions: Service Date/Time: November 06:47 - CONCLUSION: No acute disease. Liam Gomez MD PE at Discharge Gen.: No acute distress Head: Normocephalic. Atraumatic. EENT: Pupils equal round and reactive to light. Nose without drainage. Airway intact. Throat without injection. Cardiovascular: Regular rate and rhythm. No murmurs, rubs or gallops. Respiratory: Lungs clear to auscultation bilaterally. No wheezes or rhonchi. Abdomen: Soft, nontender, nondistended. No peritoneal signs. Musculoskeletal: No gross deformities. No edema. Skin: No obvious rashes or erythema. Neuro: Sensory and motor grossly intact. Cranial nerves II through XII grossly intact. Psych: Appropriate mood and affect Hospital Course Patient admitted for status asthmaticus requiring BiPAP in the emergency department. Her symptoms improved with albuterol and DuoNeb's. Patient complained from the time of admission of chest pain consistent with costochondritis. ACS rule out negative. Cardiology was consulted, recommended follow-up with PCP. Echo showed EF of 65% no abnormalities noted. Patient also complained of weakness and vertigo. She was started on meclizine with some symptomatic relief. Selena maneuvers did not alleviate her symptoms. Neurology was consulted, ordered MRI/MRA of the brain. Both scans were within normal limits. Recommended outpatient follow-up in 2 weeks. The patient states that her symptoms are relieved with Zofran and meclizine although she does not feel back to her baseline. She will have close follow-up with her PCP and with neurology. She verbally agrees to discharge with close follow-up. Note: The family living educator service will not be accepting this patient should she return to the hospital. Pt Condition on Discharge: Fair Discharge Disposition: Discharge Home Discharge Instructions DIET: Follow Instructions for: As Tolerated, No Restrictions Speech Therapy-Diet Recommends: Regular Activities you can perform: Regular-No Restrictions Follow up Referrals: Appointment for Follow Up - 1 Week with Wilder Aggarwal MD Neurology - 2 Weeks with Aniya Ochoa MD New Orders: Physical Therapy - 1 Week New Medications: Nebulizer (Nebulizer) 1 Mis Mis 1 EA .ROUTE DIRECTED Breathing Treatment #1 EA Ondansetron Odt (Zofran Odt) 4 Mg Tab 4 MG SL Q8HR PRN Nausea/Vomiting #90 Ref 0 TAB Prednisone (Prednisone) 20 Mg Tab 20 MG PO DIRECTED Take 1 tab twice a day for 5 days and then 1 tab daily for 5 days #15 Ref 0 TAB ([walker]) UNITS #1 Meclizine (Meclizine) 25 Mg Tab 25 MG PO Q8H PRN Diziness #90 TAB Montelukast (Montelukast) 10 Mg Tab 10 MG PO HS #30 TAB Pantoprazole (Pantoprazole) 40 Mg Tab 40 MG PO DAILY #20 TAB Continued Medications: Albuterol 18 GM Inh (Ventolin Hfa 18 GM Inh) 90 Mcg/Act Aer 2 PUFF INH Q4H PRN SHORTNESS OF BREATH #1 Ref 0 INHALER (This prescription has been renewed) Albuterol Neb (Albuterol Neb) 2.5 Mg/3 Ml Neb 2.5 MG NEB Q4HR NEB While awake Breathing Treatment #60 Ref 0 NEBULE Ferrous Sulfate (Iron) 325 Mg Tab 325 MG PO DAILY Take Nutritional Supplement Ref 0 TAB Fluticasone-Salmeterol Inh (Advair Diskus Inh) 500-50 Mcg/Blist Aer 1 PUFF INH BID Rinse mouth after use. #1 Ref 0 INHALER (This prescription has been renewed) Discontinued Medications: Beclomethasone Inh (Qvar Inh) Unknown Strength Aero Unknown Dose INH BID Asthma Management #1 Ref 0 INHALER Montelukast (Singulair) Unknown Strength Tab Unknown Dose PO HS #30 Ref 0 TAB Jessica Kendrick MD R3 Dec 13, 2016 14:00
[2016-12-13] MEDS ORDERED: Physical Therapy (15:16)
== END 2016-12-13 15:49 | disposition home or self-care (01) ==
LOC: NEPE 06:16 → NEDA 08:32 → H6YA 11:06 → N05B 12-12 16:29
PROVIDERS: ADMIT Family Medicine; ATTEND Family Medicine
DX: J45.52 Severe persistent asthma with status asthmaticus (principal); R42 Dizziness and giddiness; M94.0 Chondrocostal junction syndrome [Tietze]; R09.1 Pleurisy; H53.2 Diplopia; R29.6 Repeated falls; K27.9 Peptic ulcer, site unspecified, unspecified as acute or chronic, without hemorrhage or perforation; Z87.442 Personal history of urinary calculi; Z87.820 Personal history of traumatic brain injury
CPT/HCPCS: 70544; 70553; 71010; 80048; 80053; 82550; 85014; 85018; 85025; 85027; 87641; 87804; 93005; 93306; 94002; 94640; 94664; 96361; 96374; 97110; 97116; 97162; 97530; 99291; A9579; G0378; G8987; G8988; J2060; J2405; J2920; J2930; J7030; J7512; J7613

== ENCOUNTER 2017-03-14 21:29 | Inpatient (IN) | payer OTHER ==
[~2017-03-14 21:29] MED LIST changes: -LORA-400 PO; +MECL-62 PO; -MOBI15TA PO; +MONT10TA4 PO; +NEBULIZER1 MI1; +PANT40TA3 PO; -PRED-503 PO; +PRED20 PO; +Physical Therapy; -ROBA750T PO; -ULTR50TA5 PO; +ZOFR4TAB3 SL; +walker
[2017-03-14 21:39] VITALS: BP 121/73; PULSE 82; RESP 14; TEMP 98.3; O2SAT 100
[2017-03-14] MEDS: SODIUM CHLOR 0.9% 1000 ML INJ 1,000 ML IV SCH (21:59)
[2017-03-14] MEDS ORDERED: SODIUM CHLORIDE 0.9% FLUSH 5 ML FLUSH IV FLUSH PRN (22:00)
--- NOTE | 2017-03-14 22:27 | PD ---
HPI Chief Complaint: Altered Mental Status Time Seen by Provider: 21:40 Travel History International Travel<30 days: No Contact w/Intl Traveler<30days: No Traveled to known affect area: No History of Present Illness HPI The patient is a 26 year old female who presents to the [facility] emergency department with a history of altered mental status that began prior to arrival. The patient was reportedly out with friends when she suddenly developed a decreased level of consciousness. The patient has her eyes open and is staring off. The patient is flaccid when attempts are made at testing motor activity. The patient is nonverbal. The patient's history is obtained from the electronic medical record. The patient was brought in by ambulance services, with a reportedly normal blood sugar prior to arrival in the s, however I was not available at the bedside to take report from ambulance services. According to the patient's nurse said took report, the patient was out with friends when the symptoms began. She was sitting down when they began , therefore she did not fall to the ground or injure herself. Otherwise, review of systems is unable to be obtained in this patient. The family arrived at the patient's bedside and reports a history of paresis below the waist that began during a hospital admission in November for an asthma exacerbation. They report that she was discharged home with the paresis and orthostatic hypotension. He reports that anytime she stands up for longer than 10 seconds she has a syncopal event. They report that they have been trying to follow-up with a neurologist as an outpatient, however there having difficulty making an appointment. While the patient was in the hospital it looks like from reviewing the record she had generalized weakness and vertigo. She was evaluated by the neurologist, who did an MRI and MRA of the brain. No acute abnormality was noted. The patient continues to be on physical therapy twice per week. The patient's primary care physician is Dr. Dunaway. The patient's family reports that through the weekend she has had recurrent episodes of syncope. On Monday she had an episode where she had a syncopal event with altered mental status and a decreased level of consciousness that continued for 2 hours. They report that last night when she was going up a ramp in her wheelchair she also went up to fast and fell backwards striking the left side of her occipital scalp. She had no visible lesion and no symptoms, therefore she was not brought in for evaluation and treatment. Today, she again had an episode where she became overheated outside and appeared to have a syncopal event. She began to complain of shortness of breath and insisted that ambulance services not be called initially, however then she became nonverbal and was just staring. She would intermittently blink yes or no to answers, therefore family decided to call ambulance services for evaluation emergently in the ER. [facility] Past Medical History Narrative Medical The patient's past medical history is obtained from reviewing the electronic medical record consists of asthma with her last admission to the hospital for an asthma exacerbation on December 08, 2016, history of multiple intubations related to asthma exacerbations. The patient has a history of kidney stones, history of anemia, history of recent lower extremity paresis, below the waist since November. The patient has a prior history of reportedly having vertigo and tunnel vision. Hx Anticoagulant Therapy: No Anemia: Yes Asthma: Yes Cancer: No Cardiovascular Problems: Yes Chemotherapy: No Cerebrovascular Accident: No Diabetes: No Diminished Hearing: No Endocrine: No Genitourinary: Yes Immune Disorder: No Kidney Stones: Yes Musculoskeletal: No Neurologic: Yes Psychiatric: No Reproductive: No Respiratory: Yes Immunizations Current: Yes Seizures: Yes Sleep Apnea: Yes ?: Unknown : 4 Para: 4 Miscarriage: 0 Tubal Ligation: Yes Past Surgical History Narrative Surgical The patient's past surgical history is significant for an episiotomy, tonsillectomy, bilateral tubal ligation. Hysterectomy: No Tonsillectomy: Yes Social History Alcohol Use: No Tobacco Use: No Substance Use: No Allergies-Medications (Allergen,Severity, Reaction): Coded Allergies: Adhesives (Verified Allergy, Severe, SKIN RASH, 03/14/17) Benzoin (Verified Allergy, Severe, TINCTURE BENZOIN, 03/14/17) Betadine (Verified Allergy, Severe, Hives, 03/14/17) Latex (Verified Allergy, Severe, Rash, 03/14/17) Penicillin (Verified Allergy, Severe, BLISTERS, 03/14/17) Amoxicillin (Verified Allergy, Unknown, 03/14/17) Ampicillin (Verified Allergy, Unknown, 03/14/17) Coconut (Verified Allergy, Unknown, 03/14/17) Contrast Media (Verified Allergy, Unknown, 03/14/17) Grape (Verified Allergy, Unknown, 03/14/17) Kiwi (Verified Allergy, Unknown, 03/14/17) Multivitamins (Verified Allergy, Unknown, 03/14/17) Raisin (Verified Allergy, Unknown, 03/14/17) Shellfish (Verified Allergy, Unknown, 03/14/17) [place] (Verified Allergy, Unknown, 03/14/17) *MDRO Multi-Drug Resistant Organism (Verified Adverse Reaction, Unknown, ) 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 Uncoded Allergies: SILVER/ JEWLERY (Adverse Reaction, Severe, NUMBNESS TO AREA, 02/04/13) Reported Meds & Prescriptions Reported Meds & Active Scripts Active [Physical Therapy ] Zofran Odt (Ondansetron Odt) 4 Mg Tab 4 Mg SL Q8HR PRN Meclizine (Meclizine HCl) 25 Mg Tab 25 Mg PO Q8H PRN Nebulizer 1 Mis Mis 1 Ea .ROUTE DIRECTED Prednisone 20 Mg Tab 20 Mg PO DIRECTED Take 1 tab twice a day for 5 days and then 1 tab daily for 5 days Montelukast (Montelukast Sodium) 10 Mg Tab 10 Mg PO HS Pantoprazole (Pantoprazole Sodium) 40 Mg Tab 40 Mg PO DAILY Advair Diskus Inh (Fluticasone-Salmeterol Inh) 500-50 Mcg/Blist Aer 1 Puff INH BID Rinse mouth after use. Ventolin Hfa 18 GM Inh (Albuterol Sulfate) 90 Mcg/Act Aer 2 Puff INH Q4H PRN Albuterol Neb (Albuterol Sulfate) 2.5 Mg/3 Ml Neb 2.5 Mg NEB Q4HR NEB While awake Reported Iron (Ferrous Sulfate) 325 Mg Tab 325 Mg PO DAILY Take Review of Systems ROS Limitations: Clinical Condition HENT: No: Headaches Neurologic: Positive: Change in Mentation Psychiatric: No: Depression Physical Exam Narrative General: The patient is a well-developed well-nourished female, staring, not blinking with her head turned to the left on my arrival to the room. She is unresponsive to verbal stimulation. She does not follow commands. She is on the monitor and blood pressure, pulse, oxygenation are all within normal limits. Head and Neck exam: Head is normocephalic atraumatic. Eyes: Uncooperative with extraocular motion testing, however the light is shined in her eyes to check her pupils she rolls her eyes up and clenches her eyes shut. Nose: Midline septum with pink mucous membranes Mouth: Dentition unremarkable. Moist mucus membranes. Posterior oropharynx is not erythematous. No tonsillar hypertrophy. Uvula midline. Airway patent. The patient has a gag reflex noted on examination. Neck: No palpable lymphadenopathy. No nuchal rigidity. No thyromegaly. Cardiovascular: Regular rate and rhythm without murmurs, gallops, or rubs. Lungs: Clear to auscultation bilaterally. No wheezes, rhonchi, or rales. Abdomen: Soft, without tenderness to palpation in all 4 quadrants of the abdomen. No guarding, rebound, or rigidity. Normal bowel sounds are audible. Extremities: No clubbing or cyanosis. The patient has trace pedal edema bilateral lower arana days. 2+ pulses in all 4 extremities. The patient on examination of her feet has dirt all over the bottoms of her feet suggestive of walking. Back: No spinous process tenderness to palpation. No costovertebral angle tenderness to palpation. Neurologic Exam: The patient is staring up and unresponsive verbally. The patient's vital signs are otherwise unremarkable. The patient has flaccidity of bilateral upper extremities and legs. The patient has 2+ DTRs bilateral lower extremities. The patient has downgoing Babinski bilaterally. The patient on examination by holding her hand up in the air over her face and then allowing to drop to the bed does not allow her arm to hit her face. Skin Exam: No rash noted. Intact skin that is warm and dry. Data Data Last Documented VS Vital Signs Date Time Temp Pulse Resp B/P Pulse Ox O2 Delivery O2 Flow Rate FiO2 03/14/17 23:30 89 16 120/69 99 Room Air 03/14/17 21:39 98.3 Orders Electrocardiogram (03/14/17 21:59) Ammonia (03/14/17 21:59) Complete Blood Count With Diff (03/14/17 21:59) Comprehensive Metabolic Panel (03/14/17 21:59) Prothrombin Time / Inr (Pt) (03/14/17 21:59) Act Partial Throm Time (Ptt) (03/14/17 21:59) Thyroid Stimulating Hormone (03/14/17 21:59) Urinalysis - C+S If Indicated (03/14/17 21:59) Chest, Single Ap (03/14/17 21:59) Ct Brain W/O Iv Contrast(Rout) (03/14/17 21:59) Blood Glucose (03/14/17 21:59) Ecg Monitoring (03/14/17 21:59) Iv Access Insert/Monitor (03/14/17 21:59) Oximetry (03/14/17 21:59) Sodium Chloride 0.9% Flush (Ns Flush) (03/14/17 22:00) Sodium Chlor 0.9% 1000 Ml Inj (Ns 1000 M (03/14/17 21:59) Westergren Sedimentation Rate (03/14/17 21:59) Cath For Specimen (03/14/17 21:59) Ed Urine Pregnancytest Poc (03/14/17 21:59) Drug Screen, Random Urine (03/14/17 21:59) Alcohol (Ethanol) (03/14/17 21:59) Urine Culture (03/14/17 22:01) Sodium Chlor 0.9% 1000 Ml Inj (Ns 1000 M (03/14/17 23:15) Ct Cerv Spine W/O Contrast (03/14/17 23:36) Admit Order (Ed Use Only) (03/15/17 00:54) Labs Laboratory Tests Test 03/14/17 03/14/17 22:00 22:01 White Blood Count 7.8 TH/MM3 Red Blood Count 4.83 MIL/MM3 Hemoglobin 14.1 GM/DL Hematocrit 41.9 % Mean Corpuscular Volume 86.8 FL Mean Corpuscular Hemoglobin 29.2 PG Mean Corpuscular Hemoglobin 33.6 % Concent Red Cell Distribution Width 14.3 % Platelet Count 231 TH/MM3 Mean Platelet Volume 9.5 FL Neutrophils (%) (Auto) 47.5 % Lymphocytes (%) (Auto) 34.3 % Monocytes (%) (Auto) 7.7 % Eosinophils (%) (Auto) 9.6 % Basophils (%) (Auto) 0.9 % Neutrophils # (Auto) 3.7 TH/MM3 Lymphocytes # (Auto) 2.7 TH/MM3 Monocytes # (Auto) 0.6 TH/MM3 Eosinophils # (Auto) 0.8 TH/MM3 Basophils # (Auto) 0.1 TH/MM3 CBC Comment DIFF FINAL Differential Comment Erythrocyte Sedimentation Rate 12 mm/hr Prothrombin Time 10.3 SEC Prothromb Time International 0.9 RATIO Ratio Activated Partial 28.2 SEC Thromboplast Time Sodium Level 140 MEQ/L Potassium Level 4.2 MEQ/L Chloride Level 107 MEQ/L Carbon Dioxide Level 24.8 MEQ/L Anion Gap 8 MEQ/L Blood Urea Nitrogen 9 MG/DL Creatinine 0.73 MG/DL Estimat Glomerular Filtration 97 ML/MIN Rate Random Glucose 82 MG/DL Calcium Level 8.7 MG/DL Total Bilirubin 0.2 MG/DL Aspartate Amino Transf 14 U/L (AST/SGOT) Alanine Aminotransferase 15 U/L (ALT/SGPT) Alkaline Phosphatase 102 U/L Ammonia 14 MCMOL/L Total Protein 7.3 GM/DL Albumin 3.6 GM/DL Thyroid Stimulating Hormone 2.420 uIU/ML 3rd Gen Ethyl Alcohol Level LESS THAN 3 MG/DL Urine Color LIGHT-YELLOW Urine Turbidity CLEAR Urine pH 5.0 Urine Specific Thrall 1.005 Urine Protein NEG mg/dL Urine Glucose (UA) NEG mg/dL Urine Ketones NEG mg/dL Urine Occult Blood NEG Urine Nitrite NEG Urine Bilirubin NEG Urine Urobilinogen LESS THAN 2.0 MG/DL Urine Leukocyte Esterase NEG Urine RBC LESS THAN 1 /hpf Urine WBC LESS THAN 1 /hpf Urine Bacteria RARE /hpf Microscopic Urinalysis Comment CATH-CULTURE IND Urine Opiates Screen NEG Urine Barbiturates Screen NEG Urine Amphetamines Screen NEG Urine Benzodiazepines Screen NEG Urine Cocaine Screen NEG Urine Cannabinoids Screen NEG MDM Medical Decision Making Medical Screen Exam Complete: Yes Emergency Medical Condition: Yes Medical Record Reviewed: Yes 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 The patient had IV access obtained and blood work sent for analysis. The patient was placed on a threat monitoring analyst with oximetry and blood pressure monitoring. An EKG was done on arrival. The patient's EKG shows a sinus rhythm heart rate of 87, no acute ST segment elevation or depression, QRS duration is 81 ms, QTC 408 ms. T waves are inverted in V1. The patient was initially provided normal saline at 125 an hour, followed by a normal saline IV fluid bolus once I had further discussion with the patient's family regarding her orthostasis. The patients laboratory studies were reviewed and remarkable for a CBC within normal limits, sedimentation rate is normal at 12, CMP is unremarkable, ammonia level XIV, TSH 2.42, PT PTT within normal limits, urinalysis is unremarkable, alcohol level is less than 3. Once the patient's family arrived at the bedside, the patient became more responsive and actually reported that she has neck pain. The cervical collar was placed on the patient and a CT scan of the cervical spine was added to her CT scan of the brain. Radiology studies were reviewed and remarkable for a chest x-ray that is unremarkable, CT scan of the head and neck showed no acute abnormality. The patient was noted to have thyroid nodules which should be followed up with an ultrasound of the thyroid. Given the patient's neurologic abnormalities that seem to wax and wane in intensity, the patient will be admitted to the hospital with a neurologic consultation and consideration of additional testing. The patients results were discussed with the patient, including the plan of care. I explained that further testing and/ or monitoring is indicated based on the patients history, examination, and/ or laboratory findings. Therefore, I recommended admission for additional evaluation. The patient expressed understanding and was agreeable with this plan. The patient was admitted to the hospital in guarded condition and sent to a bed under the care of the [facility] service. Physician Communication Physician Communication The patient's case is discussed with Dr. Felton who did agree to admit the patient for further evaluation and treatment at this time. Diagnosis Primary Impression: Transient neurological symptoms Additional Impression: Syncope and collapse Admitting Information Admitting Physician Requests: Admit Lissa Shaffer MD March 14, 2017 22:27
[2017-03-14 22:32] VITALS: O2SAT 100
[2017-03-14 22:36] LABS: AUTOMATED NEUTROPHIL # 3.7 TH/MM3 (1.8-7.7); BASOPHIL # 0.1 TH/MM3 (0-0.2); BASOPHIL % 0.9 % (0.0-2.0); EOSINOPHIL # 0.8 TH/MM3 (0-0.4); EOSINOPHIL % 9.6 % (0.0-4.0); HEMATOCRIT 41.9 % (35.0-46.0); HEMO FLAGS DIFF FINAL; LYMPH % 34.3 % (9.0-44.0); LYMPHOCYTE # 2.7 TH/MM3 (1.0-4.8); MEAN CELL VOLUME 86.8 FL (80.0-100.0); MEAN CORPUSCULAR HEMOGLOBIN 29.2 PG (27.0-34.0); MEAN CORPUSCULAR HGB CONC 33.6 % (32.0-36.0); MONO % 7.7 % (0.0-8.0); NEUT % 47.5 % (16.0-70.0); PLATELET COUNT 231 TH/MM3 (150-450); RED BLOOD COUNT 4.83 MIL/MM3 (4.00-5.30); RED CELL DISTRIBUTION WIDTH 14.3 % (11.6-17.2); WHITE BLOOD COUNT 7.8 TH/MM3 (4.0-11.0)
[2017-03-14 22:36] LABS: BACTERIA, URINE RARE /hpf; BLOOD, URINE NEG (NEG); GLUCOSE,URINE NEG (NEG); KETONE, URINE NEG (NEG); NITRITE,URINE NEG (NEG); URINE COLOR LIGHT-YELLOW (YELLW/STRAW)
[2017-03-14 22:37] LABS: COMMENT (UR) CATH-CULTURE IND; CULTURE IF INDICATED CATH CULTURE IND
[2017-03-14 22:43] LABS: AMPHETAMINE, URINE NEG (NEG); BARBITURATES, URINE NEG (NEG); COCAINE, URINE NEG (NEG)
[2017-03-14 22:52] LABS: APTT (PATIENT) 28.2 SEC (24.3-30.1); INTERNATIONAL NORMALIZED RATIO 0.9 RATIO; PROTHROMBIN TIME - PATIENT 10.3 SEC (9.8-11.6)
[2017-03-14 23:08] LABS: ALKALINE PHOSPHATASE 102 U/L (45-117); ALT (GPT) 15 U/L (10-53); TOTAL BILIRUBIN ADULT 0.2 MG/DL (0.2-1.0)
[2017-03-14] MEDS ORDERED: SODIUM CHLOR 0.9% 1000 ML INJ 1,000 ML IV ONE (23:15)
[2017-03-14 23:24] LABS: ANION GAP 8 MEQ/L (5-15); AST (GOT) 14 U/L (15-37); BICARBONATE 24.8 MEQ/L (21.0-32.0); BLOOD UREA NITROGEN 9 MG/DL (7-18); CHLORIDE 107 MEQ/L (98-107); GLOMERULAR FILTRATION RATE 97 ML/MIN (>89); POTASSIUM 4.2 MEQ/L (3.5-5.1); SODIUM (NA) 140 MEQ/L (136-145)
[2017-03-14 23:30] VITALS: BP 120/69; PULSE 89; RESP 16; O2SAT 99
[2017-03-15] VITALS (7 sets, daily range): BP systolic 104–121; BP diastolic 47–68; PULSE 66–111; RESP 16–18; TEMP 96–98.9; O2SAT 96–100
[2017-03-15] MEDS ORDERED: SODIUM CHLORIDE 0.9% FLUSH 10 ML FLUSH IV FLUSH PRN (01:15)
[2017-03-15] MEDS ORDERED: NALOXONE HCL 0.4 MG/ML AMP IV PRN (01:15)
[2017-03-15] MEDS: SODIUM CHLOR 0.9% 1000 ML INJ 1,000 ML IV SCH (02:24)
[2017-03-15] MEDS ORDERED: ONDANSETRON HCL 4 MG/2 ML VIAL IV PUSH ONE (08:15)
--- NOTE | 2017-03-15 08:23 | RADRPT ---
EXAM DATE/TIME: 03/14/2017 22:31 [facility] COMPARISON: CHEST SINGLE AP, December 08, 2016, 6:47. INDICATIONS : Syncope. MEDICAL HISTORY : None. SURGICAL HISTORY : None. ENCOUNTER: Initial ACUITY: 1 day PAIN SCORE: Non-responsive. LOCATION: Bilateral chest FINDINGS: A single view of the chest demonstrates the lungs to be symmetrically aerated without evidence of mas s, infiltrate or effusion. The cardiomediastinal contours are unremarkable. Osseous structures are intact. CONCLUSION: Normal examination. Selvin Lozoya Jr., MD on March 14, 2017 at 22:43 Board Certified Radiologist. This report was verified electronically.
--- NOTE | 2017-03-15 08:25 | RADRPT ---
EXAM DATE/TIME: 03/14/2017 23:50 [facility] COMPARISON: No previous studies available for comparison. INDICATIONS : Altered mental status. Found unresponsive, possible overdose. RADIATION DOSE: 35.14 CTDIvol (mGy) MEDICAL HISTORY : Seizures. SURGICAL HISTORY : Tubal ligation. ENCOUNTER: Initial ACUITY: 1 day PAIN SCALE: Non-responsive LOCATION: cranial TECHNIQUE: Multiple contiguous axial images were obtained of the head. Using automated exposure control and adj ustment of the mA and/or kV according to patient size, radiation dose was kept as low as reasonably a chievable to obtain optimal diagnostic quality images. FINDINGS: CEREBRUM: The ventricles are normal for age. No evidence of midline shift, mass lesion, hemorrhage or acute in farction. No extra-axial fluid collections are seen. POSTERIOR FOSSA: The cerebellum and brainstem are intact. The 4th ventricle is midline. The cerebellopontine angle i s unremarkable. EXTRACRANIAL: The visualized portion of the orbits is intact. SKULL: The calvaria is intact. No evidence of skull fracture. CONCLUSION: Normal examination. Wilder Kirkland MD on March 14, 2017 at 23:56 Board Certified Radiologist. This report was verified electronically.
--- NOTE | 2017-03-15 08:25 | RADRPT ---
EXAM DATE/TIME: 03/14/2017 23:50 [facility] COMPARISON: No previous studies available for comparison. INDICATIONS : Altered mental status. Found unresponsive, possible overdose. RADIATION DOSE: 20.49 CTDIvol (mGy) MEDICAL HISTORY : Seizures. SURGICAL HISTORY : Tubal ligation. ENCOUNTER: Initial ACUITY: 1 day PAIN SCALE: Non-responsive LOCATION: neck TECHNIQUE: Volumetric scanning of the cervical spine was performed. Multiplanar reconstructions in the sagittal, coronal and oblique axial planes were performed. Using automated exposure control and adjustment o f the mA and/or kV according to patient size, radiation dose was kept as low as reasonably achievable to obtain optimal diagnostic quality images. FINDINGS: The alignment is normal. There is no evidence of cervical spine fracture. No bony canal or foraminal stenosis is identified. There is no evidence of paraspinal hematoma. There are nodules involving the thyroid. CONCLUSION: No acute bony injury in the cervical spine. Thyroid nodules. Recommend elective follow up with thyroid sonography Wilder Kirkland MD on March 15, 2017 at 0:13 Board Certified Radiologist. This report was verified electronically.
[2017-03-15] MEDS: SODIUM CHLORIDE 0.9% FLUSH 10 ML FLUSH IV FLUSH SCH ×2 (08:40→21:55)
--- NOTE | 2017-03-15 09:13 | EKG ---
Date Performed: 03/14/2017 Time Performed: 22:57:13 PTAGE: 26 years EKG: Sinus rhythm NORMAL ECG PREVIOUS TRACING : 12/08/2016 16.01 DOCTOR: Benoit Banks Interpretating Date/Time 03/15/2017 09:11:59
[2017-03-15] MEDS ORDERED: methylPREDNISolone SOD SUCC 125 MG/2 ML VIAL IV PUSH ONE (09:15)
--- NOTE | 2017-03-15 09:22 | HHI.HP ---
[facility] Primary Care Physician Unknown Admission Diagnosis Waxing and waning neurologic symptoms Diagnoses: Chief Complaint: recurrent syncopal episodes Travel History International Travel<30 Days: No Contact w/Intl Traveler <30 Da: No Traveled to Known Affected Are: No History of Present Illness Patient is a 26 years sold right handed female with history of hyperreactive airway disease with history of mechanical ventilations in the past who was admitted here last November for HAD exacerbation and developed generalized LE weakness/paresis= more of the LE than UE, occasional incontinence - states occasional can control BM and urine. Was discharged then almost requiring total care per sharron and almost wheelchair dependent. Past 3-4 weeks Each time remington lifts her up to stand her up to go to BR or transfers- patient would pass out- "gets flaccid". No seizure activity reported complains of tingling of both LE. complains of tingling sensation of extremities Was with some friend earlier and was noted to be dazing off with decreased mental status. Brought it by EMS and admittef for further evaluation. Has history of HAD almost steroid dependent and was tapered off Prednisone - last Prednisone course completed last week of December. 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, legally blind Review of Systems Constitutional: COMPLAINS OF: Fatigue, Dizziness Endocrine: DENIES: Abnorml menstrual pattern, Heat/cold intolerance, Polydipsia , Polyuria, Polyphagia Eyes: DENIES: Blurred vision, Diplopia, Eye inflammation, Eye pain, Vision loss , Photosensitivity, Double Vision Ears, nose, mouth, throat: DENIES: Tinnitus, Hearing loss, Vertigo, Nasal discharge, Oral lesions, Throat pain, Hoarseness, Ear Pain, Running Nose, Epistaxis, Sinus Pain, Toothache, Odynophagia Respiratory: COMPLAINS OF: Shortness of breath, DENIES: Apneas, Cough, Snoring , Wheezing, Hemoptysis, Sputum production Cardiovascular: COMPLAINS OF: Chest pain (on and off) Gastrointestinal: DENIES: Abdominal pain, Black stools, Bloody stools, Constipation, Diarrhea, Nausea, Vomiting, Difficulty Swallowing, Anorexia Genitourinary: DENIES: Abnormal vaginal bleeding, Dysmenorrhea, Dyspareunia, Sexual dysfunction, Urinary frequency, Urinary incontinence, Urgency, Hematuria , Dysuria, Nocturia, Vaginal discharge Musculoskeletal: COMPLAINS OF: Neck pain Integumentary: DENIES: Abnormal pigmentation, Pruritus, Rash, Nail changes, Breast masses, Breast skin changes, Nipple discharge Hematologic/lymphatic: DENIES: Bruising, Lymphadenopathy Immunologic/allergic: DENIES: Eczema, Urticaria Neurologic: COMPLAINS OF: Localized weakness, Paresthesias, Poor Balance Psychiatric: COMPLAINS OF: Depression (since november) Past Family Social History Past Medical History HAD History of congenital retinal diorder- with tunnel vision ? valvular disorder Past Surgical History tubal ligation Reported Medications see EMR Allergies: Coded Allergies: Adhesives (Verified Allergy, Severe, SKIN RASH, 03/14/17) Benzoin (Verified Allergy, Severe, TINCTURE BENZOIN, 03/14/17) Betadine (Verified Allergy, Severe, Hives, 03/14/17) Latex (Verified Allergy, Severe, Rash, 03/14/17) Penicillin (Verified Allergy, Severe, BLISTERS, 03/14/17) Amoxicillin (Verified Allergy, Unknown, 03/14/17) Ampicillin (Verified Allergy, Unknown, 03/14/17) Coconut (Verified Allergy, Unknown, 03/14/17) Contrast Media (Verified Allergy, Unknown, 03/14/17) Grape (Verified Allergy, Unknown, 03/14/17) Kiwi (Verified Allergy, Unknown, 03/14/17) Multivitamins (Verified Allergy, Unknown, 03/14/17) Raisin (Verified Allergy, Unknown, 03/14/17) Shellfish (Verified Allergy, Unknown, 03/14/17) [place] (Verified Allergy, Unknown, 03/14/17) *MDRO Multi-Drug Resistant Organism (Verified Adverse Reaction, Unknown, Cleared 12/08/16, 03/16/17) 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 MRSA PCR screen NEGATIVE 07/12/15 & 12/08/16 Cleared per Infection Control Uncoded Allergies: SILVER/ JEWLERY (Adverse Reaction, Severe, NUMBNESS TO AREA, 02/04/13) Family History non contributory Social History non smoker, no history of alcohol use, no history of recreational drug use Physical Exam Vital Signs Vital Signs Date Time Temp Pulse Resp B/P Pulse Ox O2 Delivery O2 Flow Rate FiO2 03/15/17 08:00 98.1 66 18 106/47 96 03/15/17 05:15 77 03/15/17 04:00 96.0 87 18 118/66 100 03/15/17 01:15 87 16 104/56 97 Room Air 03/14/17 23:30 89 16 120/69 99 Room Air 03/14/17 22:32 100 Room Air 03/14/17 21:39 98.3 82 14 121/73 100 Physical Exam GENERAL: awake and alert, speech soft but clear, in no apparent distress. SKIN: No rashes, ecchymoses or lesions. Cool and dry. HEAD: Atraumatic. Normocephalic. No temporal or scalp tenderness. EYES: Pupils equal round and reactive. Extraocular motions intact. No scleral icterus. No injection or drainage. ENT: Nose without bleeding, NECK: Trachea midline. No JVD or lymphadenopathy. Supple, nontender, no meningeal signs.. no nuchal rigidity CARDIOVASCULAR: Regular rate and rhythm without murmurs, gallops, or rubs. RESPIRATORY:diminished breath sounds, with nspiratory wheezes GASTROINTESTINAL: Abdomen soft, non-tender, nondistended. No guarding. MUSCULOSKELETAL: Extremities without clubbing, cyanosis, or edema. No joint tenderness, effusion, or edema noted. No calf tenderness. Negative Homans sign bilaterally. NEUROLOGICAL: Awake and alert. Cranial nerves II through XII intact. 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 Unable to lift arms LE able to wiggle toes, her left LE was horizontally flexed under the covers and stretched it out spontaneously grossly patient was able to feel my cold hands gait testing deferred Laboratory Laboratory Tests Test 03/14/17 03/14/17 22:00 22:01 White Blood Count 7.8 Red Blood Count 4.83 Hemoglobin 14.1 Hematocrit 41.9 Mean Corpuscular Volume 86.8 Mean Corpuscular Hemoglobin 29.2 Mean Corpuscular Hemoglobin 33.6 Concent Red Cell Distribution Width 14.3 Platelet Count 231 Mean Platelet Volume 9.5 Neutrophils (%) (Auto) 47.5 Lymphocytes (%) (Auto) 34.3 Monocytes (%) (Auto) 7.7 Eosinophils (%) (Auto) 9.6 Basophils (%) (Auto) 0.9 Neutrophils # (Auto) 3.7 Lymphocytes # (Auto) 2.7 Monocytes # (Auto) 0.6 Eosinophils # (Auto) 0.8 Basophils # (Auto) 0.1 CBC Comment DIFF FINAL Differential Comment Erythrocyte Sedimentation Rate 12 Prothrombin Time 10.3 Prothromb Time International 0.9 Ratio Activated Partial 28.2 Thromboplast Time Sodium Level 140 Potassium Level 4.2 Chloride Level 107 Carbon Dioxide Level 24.8 Anion Gap 8 Blood Urea Nitrogen 9 Creatinine 0.73 Estimat Glomerular Filtration 97 Rate Random Glucose 82 Calcium Level 8.7 Total Bilirubin 0.2 Aspartate Amino Transf 14 (AST/SGOT) Alanine Aminotransferase 15 (ALT/SGPT) Alkaline Phosphatase 102 Ammonia 14 Total Protein 7.3 Albumin 3.6 Thyroid Stimulating Hormone 2.420 3rd Gen Ethyl Alcohol Level LESS THAN 3 Urine Color LIGHT-YELLOW Urine Turbidity CLEAR Urine pH 5.0 Urine Specific Odell 1.005 Urine Protein NEG Urine Glucose (UA) NEG Urine Ketones NEG Urine Occult Blood NEG Urine Nitrite NEG Urine Bilirubin NEG Urine Urobilinogen LESS THAN 2.0 Urine Leukocyte Esterase NEG Urine RBC LESS THAN 1 Urine WBC LESS THAN 1 Urine Bacteria RARE Microscopic Urinalysis Comment CATH-CULTURE IND Urine Opiates Screen NEG Urine Barbiturates Screen NEG Urine Amphetamines Screen NEG Urine Benzodiazepines Screen NEG Urine Cocaine Screen NEG Urine Cannabinoids Screen NEG Date/Time Procedure Status Source Growth 03/14/17 22:01 Urine Culture Received Urine Catheterized Urine Pending Result Diagram: 03/14/17219903/14/172199 Imaging Last Impressions Cervical Spine CT 03/14/176 Signed Impressions: Service Date/Time: Tuesday, March 14, 2017 23:50 - CONCLUSION: No acute bony injury in the cervical spine. Thyroid nodules. Recommend elective follow up with thyroid sonography Wilder Kirkland MD Head CT 03/14/172158 Signed Impressions: Service Date/Time: Tuesday, March 14, 2017 23:50 - CONCLUSION: Normal examination. Wilder Kirkland MD Chest X-Ray 03/14/172158 Signed Impressions: Service Date/Time: Tuesday, March 14, 2017 22:31 - CONCLUSION: Normal examination. Selvin Lozoya Jr., MD Assessment and Plan Assessment and Plan 26 years old female righ handed female recurrent syncopal episodes and weakness Change in MS- transient- with recurrent syncopal episodes- ? relative adrenal insufficiency Neuro checks head CT negative Check EEG.r/o SZ On history- 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 since then recurrent syncopal episodes she was worked up with Echo which was negative. Get a carotid doppler, Holeter and EEG to complete work up start her on IV steroids - which is also for HAD exacerbation get EMG- NCV studies- consult Rehab medicine negative orthostatic vital signs- Neurology consulted- HAD in acute exacerbation- on exam with some wheezes and shortness of breath Start IV steroids Duonebuzation q 4 scheduled and q 2 prn SCDs for now for DVT prophylaxis- in the event of possible LP Discussed Condition With george Physician Certification 2 Midnight Certification Type: Admission for Inpatient Services Order for Inpatient Services The services are ordered in accordance with Medicare regulations or non- Medicare payer requirements, as applicable. In the case of services not specified as inpatient-only, they are appropriately provided as inpatient services in accordance with the 2-midnight benchmark. Estimated LOS (days): 3 days is the estimated time the patient will need to remain in the hospital, assuming treatment plan goals are met and no additional complications. Post-Hospital Plan: Not yet determined Leonardo Cruz MD March 15, 2017 09:22
[2017-03-15] MEDS: RESP: ALBUTEROL 2.5 MG/IPRATROPIUM 0.5 MG NEB (SCH) NEB ×2 (09:23→21:25)
[2017-03-15] MEDS: DEXTROSE 5% IN WATE 1000ML INJ 1,000 ML IV SCH (10:15)
[2017-03-15] MEDS: PANTOPRAZOLE SODIUM 40 MG VIAL IV PUSH SCH (12:20)
[2017-03-15] MEDS: methylPREDNISolone SOD SUCC 40 MG/1 ML VIAL IV PUSH SCH ×2 (16:03→21:55)
--- NOTE | 2017-03-15 16:24 | MB ---
cc: TREMAINE STRONG M.D. DATE OF CONSULTATION 03/15/2017 DATE OF 1990, 26 years old REASON FOR CONSULTATION Possible seizure. HISTORY OF THE PRESENT ILLNESS The patient is a 26-year-old with hyperreactive airway disease, history of mechanical ventilation in the past admitted in November for exacerbation, developed generalized lower extremity weakness, ___ more in the legs with some inability to feel if she has to go to the bathroom. Apparently she was discharged back in November, was discharged with total care, wheelchair dependent. Apparently she came in today because they picked her up to put her into the car and she passed out. Still unable to move her lower extremities but has some tingling in her left foot. The patient is now admitted for further evaluation. Apparently she has not followed up. She was seen by my partner back in December for possible syncope. Had an MRI of the brain, [facility] [place] [place] that did show any significant findings. There was no mention of her lower extremity weakness at that time. Apparently she has had recurrent syncope every time she gets off of the toilet. It sounds like vasovagal issues. She had an issue back when she was with one of her children in [place] where she was admitted to the hospital for a couple of weeks and had multiple issues with vasovagal syncope. PAST MEDICAL HISTORY As stated. ALLERGIES NUMEROUS, PLEASE REFER TO HER MAR. 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 No smoking, alcohol, no drug use. She has four kids. PHYSICAL EXAMINATION VITAL SIGNS: Temperature is 97.5, pulse 76, respiratory rate 18. Supine blood pressure is 110/62, standing 113/68, sating at 99% on room air. NECK: Supple. No bruits. HEART: Regular. LUNGS: Clear. NEUROLOGIC: She is awake, alert. She is fluent. Pupils are reactive. Visual arango are full. Face is symmetrical. Tongue is midline. She does not have a nasal speech. She does not have any ptosis or diplopia. She does not have any weakness in her neck muscles. Motor jacob, upper extremities fairly intact. Good bulk and tone. There is no drift. 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 No Ellsworth sign. Reflexes are 2+. Lower extremity she has brisker reflexes in the knees, 2+ at the ankles. No clonus. Both toes are downgoing. However, when I did the Babinski on the left she withdrew her left foot and she can feel some vibratory sense in it, but she cannot feel vibratory light touch, temperature or position sense on the right. Gait cannot be assessed. Cerebellar testing [id number] no past pointing. LABORATORY DATA Sedimentation rate is 12. CBC is really unremarkable. Chemistries are reviewed. ACT is pending. Random cortisol 7.2. Toxicology screen is negative. IMAGING Cervical spine CT scan nothing acute seen. Some thyroid nodules. Chest x-ray normal. Head CT scan unremarkable. IMPRESSION A 26-year-old woman with possible syncope versus seizure. We will get an EEG for that. The lower extremity weakness is a bit unusual. I know an EMG has been ordered. We will go ahead and get that done by rehab. I will go ahead and get an imaging of the cervical, thoracic and lumbosacral spine with and without contrast to look for any enhancing plaques. Have physical therapy work with her. I do not think this is a Guillain-[place] picture. She has good reflexes. However, consideration would be to do a spinal tap at some point but we will go ahead and get imaging first. MD MATTHEW Maddox/ELDON /3:31 PM /3:40 PM
[2017-03-15 17:17] LABS: FREE T4 0.96 NG/DL (0.76-1.46)
--- NOTE | 2017-03-15 17:38 | RADRPT ---
EXAM DATE/TIME: 03/15/2017 14:29 [facility] COMPARISON: No previous studies available for comparison. INDICATIONS : Syncope. MEDICAL HISTORY : Renal calculi. Seizures. Heart murmur. Asthma. Paresthesia. MRSA. Syncope. SURGICAL HISTORY : Tonsillectomy. Tubal ligation. ENCOUNTER: Initial ACUITY: 1 week PAIN SCORE: 6/10 LOCATION: Bilateral neck PEAK SYSTOLIC VELOCITIES (cm/sec): ICA/CCA RATIO: Right: 1.1 Left: 0.8 ICA: Right: 139.6 Left: 119.6 CCA: Right: 125.6 Left: 141.8 ECA: Right: 116.3 Left: 108.4 VERTEBRAL: Right: 68.5 antegrade Left: 94.5 antegrade Elevated flow velocities and ICA/CCA ratios have been found to correlate with increased degrees of vessel stenosis, calculated as percentage of diameter relative to a normal segment of distal ICA/CCA FINDINGS: RIGHT CAROTID: There is no evidence for a hemodynamically significant carotid stenosis. Minimal int imal hyperplasia is present with scattered calcific plaque. LEFT CAROTID: There is no evidence for a hemodynamically significant carotid stenosis. Minimal inti mal hyperplasia is present with scattered calcific plaque. VERTEBRAL ARTERIES: Flow is antegrade in both vertebral arteries. MISCELLANEOUS: There are no ancillary masses or adenopathy. CONCLUSION: Negative examination for a hemodynamically significant carotid stenosis. Bob Bolaños MD FACR Board Certified Radiologist. This report was verified electronically.
[2017-03-15] MEDS: ACETAMINOPHEN 325 MG TAB PO PRN (21:55)
[2017-03-16] VITALS (12 sets, daily range): BP systolic 100–119; BP diastolic 51–65; PULSE 105–119; RESP 18–20; TEMP 97.9–98.6; O2SAT 96–99
[2017-03-16] MEDS: RESP: ALBUTEROL 2.5 MG/IPRATROPIUM 0.5 MG NEB (SCH) NEB ×6 (00:28→19:53)
[2017-03-16] MEDS: methylPREDNISolone SOD SUCC 40 MG/1 ML VIAL IV PUSH SCH ×4 (04:24→21:06)
--- NOTE | 2017-03-16 07:12 | MG ---
cc: SEBLE REYNOLDS M.D. Lab No: [id number] Date: 03/15/2017 Age: 26 Sex: F Race: DATE OF 1990 AGE [age] years old. EEG NUMBER [id number]. REFERRING PHYSICIAN MD Nancy ROOM 1519 FINDINGS Hyperventilation and photic stimulation completed. EEG is awake, drowsy, asleep. INDICATIONS FOR PROCEDURE Sudden decrease in loss of consciousness, weakness, admitted with being nonverbal. History of tunnel vision, heart disease and trouble ambulating. History of asthma. MEDICATIONS 1. Meclizine. 2. Prednisone. 3. Montelukast. 4. Pantoprazole. 5. Zofran. DESCRIPTION OF RECORD Overall normal alpha activity at 10-10.5 Hz, 20-60 microvolts, symmetrical background. There is some mild artifact from movement. EKG looks sinus. When she does not move, the EEG is symmetrical, well-organized, diffuse, normal alpha rhythm. Photic stimulation shows a normal posterior driving response. IMPRESSION Normal EEG without any epileptiform features. Clinical correlation. Seble Reynolds MD DF/INEZ /10:39 PM /7:07 AM
[2017-03-16 08:13] LABS: AUTOMATED NEUTROPHIL # 11.6 TH/MM3 (1.8-7.7); BASOPHIL % 0.1 % (0.0-2.0); HEMATOCRIT 35.7 % (35.0-46.0); HEMO FLAGS DIFF FINAL; LYMPH % 4.4 % (9.0-44.0); LYMPHOCYTE # 0.6 TH/MM3 (1.0-4.8); MEAN CELL VOLUME 87.3 FL (80.0-100.0); MEAN CORPUSCULAR HEMOGLOBIN 28.6 PG (27.0-34.0); MEAN CORPUSCULAR HGB CONC 32.8 % (32.0-36.0); MONO % 3.8 % (0.0-8.0); NEUT % 91.7 % (16.0-70.0); PLATELET COUNT 186 TH/MM3 (150-450); RED BLOOD COUNT 4.09 MIL/MM3 (4.00-5.30); RED CELL DISTRIBUTION WIDTH 14.4 % (11.6-17.2); WHITE BLOOD COUNT 12.7 TH/MM3 (4.0-11.0)
[2017-03-16 08:34] LABS: BICARBONATE 24.4 MEQ/L (21.0-32.0); POTASSIUM 4.1 MEQ/L (3.5-5.1)
[2017-03-16] MEDS: SODIUM CHLORIDE 0.9% FLUSH 10 ML FLUSH IV FLUSH SCH ×2 (09:00→21:07)
[2017-03-16] MEDS: PANTOPRAZOLE SODIUM 40 MG VIAL IV PUSH SCH (09:07)
[2017-03-16] MEDS: ACETAMINOPHEN 325 MG TAB PO PRN ×3 (10:17→22:09)
--- NOTE | 2017-03-16 12:03 | HM ---
Date Performed: 03/15/2017 Time Performed: 11:29:00 HOOKUP DATE: 03/15/17 11:29:00 AM Wed ANALYSIS START TIME: 03/15/2017 11:34:00 AM ANALYSIS END TIME: 03/16/2017 11:07:25 AM PATIENT AGE: 26 PATIENT HEIGHT PATIENT WEIGHT DRUG LIST PATIENT DIAGNOSIS: neuro symptoms TEST NARRATIVE: The patient's average heart rate was 103 BPM. Heart rates greater than 120 BPM were noted 33% of the time. No episodes of bradycardia were noted. No pauses exceeding 2.0 s econds were noted. No ventricular ectopics were noted. No supraventricular ectopics were note d. Multiple episodes of ST depression (defined as -1.0 mm or more) were noted in channel 1. The maximum depression of -4.4 mm occurred at 09:04:53 AM Cuca. Multiple episodes of ST depression (defi cory as -1.0 mm or more) were noted in channel 2. The maximum depression of -4.1 mm occurred at 09:0 4:51 AM Cuca. Multiple episodes of ST depression (defined as -1.0 mm or more) were noted in channel 3. The maximum depression of -3.4 mm occurred at 11:03:26 PM Wed. NO DIARY ENTRIES TEST INTERPRETATION: 1) Mostly normal Sinus rhythm with some sinus tachycardia. No episodes of arrhythmias noted 2) No pauses noted 3) No PVC/PACs not ed 4) Multiple episodes of ST depression (defined as -1.0 mm or more) were noted in channel 1. The maximum depression of -4.4 mm occurred at 09:04:53 AM Cuca. Multiple episodes of ST depression (defin ed as -1.0 mm or more) were noted in channel 2. The maximum depression of -4.1 mm occurred at 09:04 :51 AM Cuca. Multiple episodes of ST depression (defined as -1.0 mm or more) were noted in channel 3 . The maximum depression of -3.4 mm occurred at 11:03:26 PM Wed. 5) No symptoms/diary reported by health system patient Signed by : Hector granado
--- NOTE | 2017-03-16 12:31 | HHI.PR ---
Subjective Remarks awake and alert, in good spirits able to lift her UE up easily - manager willow strong LE still having difficulty moving- able to move toes and ankle, mild about 30 degreess flexion + flatus, + BM Objective Vitals Vital Signs Date Time Temp Pulse Resp B/P Pulse Ox O2 Delivery O2 Flow Rate FiO2 03/16/17 08:51 98.3 106 20 110/51 98 03/16/17 08:35 98 21 03/16/17 08:00 109 03/16/17 04:17 98 21 03/16/17 04:00 98.0 116 18 113/52 97 03/16/17 02:30 119 03/16/17 00:28 99 21 03/16/17 00:00 98.6 105 18 119/65 97 03/15/17 20:00 98.9 111 18 104/55 98 03/15/17 16:00 98.6 107 18 121/61 96 I/O 03/15/17 03/15/17 03/15/17 03/16/17 03/16/17 03/16/17 07:00 15:00 23:00 07:00 15:00 23:00 Intake Total 300 ml 240 ml 1057 ml Output Total 250 ml 750 ml 3200 ml Balance 50 ml -510 ml 1057 ml -3200 ml Intake Oral 240 ml IV Total 300 ml 1057 ml Output Urine Total 250 ml 750 ml 3200 ml # Bowel Movements 0 Result Diagram: 03/16/1718 03/16/17 0718 Imaging Last Impressions Thoracic Spine MRI 03/16/17 0000 Signed Impressions: Service Date/Time: March 12:26 - CONCLUSION: Examination is within normal limits. No thoracic spine or spinal cord abnormality is identified. Wilder Patel MD Lumbar Spine MRI 03/16/17 0000 Signed Impressions: Service Date/Time: March 12:26 - CONCLUSION: Examination of the lumbar spine is within normal limits. Wilder Patel MD Cervical Spine MRI 03/16/17 0000 Signed Impressions: Service Date/Time: March 12:26 - CONCLUSION: Examination is within normal limits. No cervical spine or spinal cord abnormality is identified. Wilder Patel MD Carotid Artery Ultrasound 03/15/17 0000 Signed Impressions: Service Date/Time: Wednesday, March 15, 2017 14:29 - CONCLUSION: Negative examination for a hemodynamically significant carotid stenosis. Bob Bolaños MD Cervical Spine CT 03/14/17 [id number] Signed Impressions: Service Date/Time: Tuesday, March 14, 2017 23:50 - CONCLUSION: No acute bony injury in the cervical spine. Thyroid nodules. Recommend elective follow up with thyroid sonography Wilder Kirkland MD Head CT 03/14/172158 Signed Impressions: Service Date/Time: Tuesday, March 14, 2017 23:50 - CONCLUSION: Normal examination. Wilder Kirkland MD Chest X-Ray 03/14/172158 Signed Impressions: Service Date/Time: Tuesday, March 14, 2017 22:31 - CONCLUSION: Normal examination. Selvin Lozoya Jr., MD Objective Remarks awake alert, NAD anicteric no nuchal rigdiity lungs clear regular rhythm abdomen soft, nontender extremities no edema motor- UE [facility] stronger 4/5- LE- able to move feet more, grossly no sensory deficits Urinary Catheter: Yes Reynolds insert reason: Prolonged Immobilization Date of Insertion: March 15, 2017 Date of Removal: Mar 17, 2017 A/P Assessment and Plan 26 years old female righ handed female recurrent syncopal episodes and weakness Change in MS- transient-- resolved Possible relative adrenal insufficiency- - On history- 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 since then recurrent syncopal episodes cortisol level on low normal side - EEG negative - she was worked up with Echo which was negative. Get a carotid doppler, Holeter and EEG to complete work up -started her on IV steroids- decrease to q 12 - which is also for HAD exacerbation- UE weakness improved - PT/OT consult UTI- start Bactriim DS po bid x 7 days. - DC reynolds TEDs/SCDs HAD in acute exacerbation- improved on IV steroids- decrease to q 12 Duonebuzation q 4 scheduled and q 2 prn Recurrent weakness get EMG- NCV studies- consult Rehab medicine negative orthostatic vital signs- Neurology ff SCDs for now for DVT prophylaxis- in the event of possible LP Leonardo Cruz MD Mar 16, 2017 12:31
[2017-03-16] MEDS ORDERED: GADODIAMIDE PF 287 MG/ML 5 ML VIAL (for RAD MRI) IV ONE (13:08)
[2017-03-16] MEDS: DEXTROSE 5% IN WATE 1000ML INJ 1,000 ML IV SCH (13:57)
--- NOTE | 2017-03-16 16:55 | RADRPT ---
EXAM DATE/TIME: 03/16/2017 12:26 [facility] COMPARISON: No previous studies available for comparison. INDICATIONS : Paraplegia. CONTRAST: 15 cc Omniscan (gadodiamide) IV MEDICAL HISTORY : Renal calculi. Hyperactive airway disease. SURGICAL HISTORY : Tonsillectomy. Tubal ligation. ENCOUNTER: Subsequent ACUITY: 3 months PAIN SCORE: 0/10 LOCATION: back. TECHNIQUE: Multiplanar multisequence MRI of the thoracic spine was performed. FINDINGS: VERTEBRA: Normal vertebral body height. Bone marrow signal is normal. ALIGNMENT: No anterolisthesis or retrolisthesis. CORD: Normal position and configuration. No lesions are identified within the cord. POST CONTRAST: No abnormal areas of contrast enhancement seen. T1-T2: No disc herniation, canal stenosis, or neural foraminal stenosis. T2-T3: No disc herniation, canal stenosis, or neural foraminal stenosis. T3-T4: No disc herniation, canal stenosis, or neural foraminal stenosis. T4-T5: No disc herniation, canal stenosis, or neural foraminal stenosis. T5-T6: No disc herniation, canal stenosis, or neural foraminal stenosis. T6-T7: No disc herniation, canal stenosis, or neural foraminal stenosis. T7-T8: No disc herniation, canal stenosis, or neural foraminal stenosis. T8-T9: No disc herniation, canal stenosis, or neural foraminal stenosis. T9-T10: No disc herniation, canal stenosis, or neural foraminal stenosis. T10-T11: No disc herniation, canal stenosis, or neural foraminal stenosis. T11-T12: No disc herniation, canal stenosis, or neural foraminal stenosis. T12-L1: No disc herniation, canal stenosis, or neural foraminal stenosis. CONCLUSION: Examination is within normal limits. No thoracic spine or spinal cord abnormality is identified. Wilder Patel MD on March 16, 2017 at 16:51 Board Certified Radiologist. This report was verified electronically.
--- NOTE | 2017-03-16 16:58 | RADRPT ---
EXAM DATE/TIME: 03/16/2017 12:26 [facility] COMPARISON: CT CERVICAL SPINE W/O CONTRAST, March 14, 2017, 23:50. INDICATIONS : Paraplegia. CONTRAST: 15 cc Omniscan (gadodiamide) IV MEDICAL HISTORY : Renal calculi. Hyperactive airway disease. SURGICAL HISTORY : Tonsillectomy. Tubal ligation. ENCOUNTER: Subsequent ACUITY: 3 months PAIN SCORE: 0/10 LOCATION: neck. TECHNIQUE: Multiplanar, multisequence MRI examination of the cervical spine was performed. FINDINGS: VERTEBRAE: Normal vertebral body height. Bone marrow signal is within normal limits. ALIGNMENT: No anterolisthesis or retrolisthesis. CORD: Normal configuration and signal. POST FOSSA: The cerebellar tonsils are normal in position. POST-CONTRAST: No abnormal areas of enhancement are seen. C2-C3: No disc herniation, canal stenosis, or neural foraminal stenosis. C3-C4: No disc herniation, canal stenosis, or neural foraminal stenosis. C4-C5: No disc herniation, canal stenosis, or neural foraminal stenosis. C5-C6: No disc herniation, canal stenosis, or neural foraminal stenosis. C6-C7: No disc herniation, canal stenosis, or neural foraminal stenosis. C7-T1: No disc herniation, canal stenosis, or neural foraminal stenosis. CONCLUSION: Examination is within normal limits. No cervical spine or spinal cord abnormality is identified. Wilder Patel MD on March 16, 2017 at 16:53 Board Certified Radiologist. This report was verified electronically.
--- NOTE | 2017-03-16 16:59 | RADRPT ---
EXAM DATE/TIME: 03/16/2017 12:26 [facility] COMPARISON: No previous studies available for comparison. INDICATIONS : Paraplegia. CONTRAST: 15 cc Omniscan (gadodiamide) IV MEDICAL HISTORY : Renal calculi. Hyperactive airway disease. SURGICAL HISTORY : Tubal ligation. Tonsillectomy. ENCOUNTER: Subsequent ACUITY: 3 months PAIN SCORE: 0/10 LOCATION: back. TECHNIQUE: Multiplanar multisequence MRI of the lumbar spine was performed with and without contrast. FINDINGS: The most caudal appearing lumbar vertebra is numbered as L5. VERTEBRAE: Bone marrow signals within normal limits. There is no anterolisthesis or retrolisthesis. CONUS: Normal level and configuration. POST CONTRAST: No abnormal areas of contrast enhancement are seen. T12-L1: No disc herniation, canal stenosis, or neural foraminal stenosis. L1-L2: No disc herniation, canal stenosis, or neural foraminal stenosis. L2-L3: No disc herniation, canal stenosis, or neural foraminal stenosis. L3-L4: No disc herniation, canal stenosis, or neural foraminal stenosis. L4-L5: No disc herniation, canal stenosis, or neural foraminal stenosis. L5-S1: No disc herniation, canal stenosis, or neural foraminal stenosis. CONCLUSION: Examination of the lumbar spine is within normal limits. Wilder Patel MD on March 16, 2017 at 16:56 Board Certified Radiologist. This report was verified electronically.
[2017-03-16] MEDS: SULFAMETHOXAZOLE-TRIMETHOPRIM DS 800-160 MG TAB PO SCH (21:07)
[2017-03-16] MEDS: ONDANSETRON HCL 4 MG/2 ML VIAL IV PUSH PRN (22:35)
[2017-03-17] VITALS (10 sets, daily range): BP systolic 103–119; BP diastolic 51–66; PULSE 80–109; RESP 18–20; TEMP 97.2–98.8; O2SAT 96–99
[2017-03-17] MEDS: RESP: ALBUTEROL 2.5 MG/IPRATROPIUM 0.5 MG NEB (SCH) NEB ×3 (00:31→08:22)
[2017-03-17] MEDS: ACETAMINOPHEN 325 MG TAB PO PRN ×2 (09:07→22:17)
[2017-03-17] MEDS: SULFAMETHOXAZOLE-TRIMETHOPRIM DS 800-160 MG TAB PO SCH ×2 (09:08→22:16)
[2017-03-17] MEDS: PANTOPRAZOLE SODIUM 40 MG VIAL IV PUSH SCH (09:08)
[2017-03-17] MEDS: methylPREDNISolone SOD SUCC 40 MG/1 ML VIAL IV PUSH SCH (09:09)
[2017-03-17] MEDS: SODIUM CHLORIDE 0.9% FLUSH 10 ML FLUSH IV FLUSH SCH ×2 (09:09→21:00)
[2017-03-17] MEDS: ONDANSETRON HCL 4 MG/2 ML VIAL IV PUSH PRN ×2 (09:14→22:27)
--- NOTE | 2017-03-17 10:13 | HHI.PR ---
Subjective Remarks patient in very good spirits had a good BM Objective Vitals Vital Signs Date Time Temp Pulse Resp B/P Pulse Ox O2 Delivery O2 Flow Rate FiO2 03/17/17 04:21 98 03/17/17 04:00 97.8 92 18 105/51 99 03/17/17 00:33 97 21 03/17/17 00:00 98.8 100 18 103/51 96 03/16/17 19:53 96 21 03/16/17 19:30 98.5 115 20 105/54 97 03/16/17 17:10 98.0 108 18 102/52 97 03/16/17 12:00 97.9 117 19 100/55 98 I/O 03/16/17 03/16/17 03/16/17 03/17/17 03/17/17 03/17/17 07:00 15:00 23:00 07:00 15:00 23:00 Intake Total 960 ml Output Total 3200 ml 850 ml 2200 ml Balance -3200 ml 110 ml -2200 ml Intake Oral 960 ml Output Urine Total 3200 ml 850 ml 2200 ml Result Diagram: 03/16/1718 03/16/1718 Objective Remarks awake alert, NAD anicteric no nuchal rigdiity lungs clear regular rhythm abdomen soft, nontender extremities no edema motor- UE [facility] stronger 4/5- LE- able to move feet more, grossly no sensory deficits Date of Insertion: March 15, 2017 A/P Assessment and Plan 26 years old female righ handed female recurrent syncopal episodes and weakness Change in MS- transient-- resolved REcurrent syncopal episodes Possible Relative adrenal insufficiency- - On history- 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 since then recurrent syncopal episodes cortisol level on low normal side - EEG negative - she was worked up with Echo which was negative. Get a carotid doppler, Hole[place] and EEG to complete work up -started her on IV steroids- decrease to q 12 - - PT/OT consult - change to po Medrol gradual taper HAD improved. - lungs clear -change to po steroids as above -MDis scheduled- QVAr and Albuterol MDI UTI- start Bactriim DS po bid x 7 days. - DC [facility] . check voiding TEDs/SCDs Recurrent weakness get EMG- NCV studies- consult Rehab medicine negative orthostatic vital signs- Neurology ff PT daily SCDs for now for DVT prophylaxis- in the event of possible LP CM consulted for DC planning- DME needs Leonardo Cruz MD Mar 17, 2017 10:13 SCDs for now for DVT prophylaxis- in the event of possible LP Leonardo Cruz MD Mar 17, 2017 10:13
[2017-03-17] MEDS ORDERED: RESP: ALBUTEROL 2.5 MG/IPRATROPIUM 0.5 MG NEB (PRN) NEB (12:00)
[2017-03-17] MEDS: BECLOMETHASONE DIPROPIONATE 80 MCG/ACT 8.7 GM INHALER INH SCH ×2 (14:20→22:15)
[2017-03-17] MEDS: methylPREDNISolone 4 MG TAB PO SCH ×2 (14:20→22:17)
--- NOTE | 2017-03-17 17:52 | HHI.PR ---
Subjective Remarks more sensory in left foot able to move toes on right foot. bouts of dizziness on po steroids emg-ncs not done yet. Objective Vital Signs Date Time Temp Pulse Resp B/P Pulse Ox O2 Delivery O2 Flow Rate FiO2 03/17/17 13:37 97.2 96 19 114/63 97 03/17/17 08:20 98 21 03/17/17 07:30 97.9 107 18 119/57 97 03/17/17 04:21 98 03/17/17 04:00 97.8 92 18 105/51 99 03/17/17 00:33 97 21 03/17/17 00:00 98.8 100 18 103/51 96 03/16/17 19:53 96 21 03/16/17 19:30 98.5 115 20 105/54 97 I/O 03/16/17 03/16/17 03/16/17 03/17/17 03/17/17 03/17/17 07:00 15:00 23:00 07:00 15:00 23:00 Intake Total 960 ml Output Total 3200 ml 850 ml 2200 ml Balance -3200 ml 110 ml -2200 ml Intake Oral 960 ml Output Urine Total 3200 ml 850 ml 2200 ml Result Diagram: 03/16/17 0718 03/16/17 0718 Imaging mri c-t l/s spine w &w/o negative-nl had mri brain 12/13/16 nl mra cow p2and p1 smaller on the right than left. [id number] tft nl acth pending esr 12 Objective Remarks awake alert fluent perrla motor ue intact no hoffmans le some w/d toes to noxious left and wiggles toes on right both toes are downgoing she has 2-3+ drtr's in legs no clonus and 2+in arms gait per PT. Assessment and Plan Assessment and Plan weakness of lower extremities -emg-ncs to be done if normal then consider LP vs referral to tertiary center for opinion. continue PT,OT. scd's. Seble Reynolds MD Mar 17, 2017 17:52
[2017-03-17] MEDS: ALBUTEROL SULFATE 90 MCG/ACT HFA 18 GM INHALER INH SCH ×2 (18:00→19:11)
[2017-03-18] VITALS (7 sets, daily range): BP systolic 103–132; BP diastolic 60–69; PULSE 53–90; RESP 17–19; TEMP 97.6–98.2; O2SAT 97–98
[2017-03-18] MEDS: ALBUTEROL SULFATE 90 MCG/ACT HFA 18 GM INHALER INH SCH ×4 (05:23→18:00)
[2017-03-18] MEDS: SODIUM CHLORIDE 0.9% FLUSH 10 ML FLUSH IV FLUSH SCH ×2 (09:00→21:00)
[2017-03-18] MEDS: BECLOMETHASONE DIPROPIONATE 80 MCG/ACT 8.7 GM INHALER INH SCH ×2 (09:00→21:00)
[2017-03-18] MEDS: SULFAMETHOXAZOLE-TRIMETHOPRIM DS 800-160 MG TAB PO SCH (09:41)
[2017-03-18] MEDS: methylPREDNISolone 4 MG TAB PO SCH ×2 (09:41→22:01)
[2017-03-18] MEDS: PANTOPRAZOLE SOD 40 MG DELAYED RELEASE TAB PO SCH (09:41)
--- NOTE | 2017-03-18 11:08 | HHI.PR ---
Subjective Remarks feels stronger left foot and toes moving more- but not against gravity patient voiding spontaneously no BM= pe patient chronic constipation and takes mIralax on a regular bases states Bactrim making her abdomen queasy Objective Vitals Vital Signs Date Time Temp Pulse Resp B/P Pulse Ox O2 Delivery O2 Flow Rate FiO2 03/18/17 09:19 97.8 60 17 103/60 97 03/17/17 22:21 21 03/17/17 20:00 97.9 80 18 103/65 97 03/17/17 18:17 97.2 83 20 110/66 98 03/17/17 13:37 97.2 96 19 114/63 97 I/O 03/17/17 03/17/17 03/17/17 03/18/17 03/18/17 03/18/17 06:59 14:59 22:59 06:59 14:59 22:59 Intake Total 960 ml Output Total 2200 ml Balance -2200 ml 960 ml Intake Oral 960 ml Output Urine Total 2200 ml # Voids 2 1 Result Diagram: 03/16/17 0718 03/16/17 0718 Imaging Last Impressions Thoracic Spine MRI 03/16/17 0000 Signed Impressions: Service Date/Time: March 12:26 - CONCLUSION: Examination is within normal limits. No thoracic spine or spinal cord abnormality is identified. Wilder Patel MD Lumbar Spine MRI 03/16/17 0000 Signed Impressions: Service Date/Time: March 12:26 - CONCLUSION: Examination of the lumbar spine is within normal limits. Wilder Patel MD Cervical Spine MRI 03/16/17 0000 Signed Impressions: Service Date/Time: March 12:26 - CONCLUSION: Examination is within normal limits. No cervical spine or spinal cord abnormality is identified. Wilder Patel MD Carotid Artery Ultrasound 03/15/17 0000 Signed Impressions: Service Date/Time: Wednesday, March 15, 2017 14:29 - CONCLUSION: Negative examination for a hemodynamically significant carotid stenosis. Bob Bolaños MD Cervical Spine CT 03/14/17 2336 Signed Impressions: Service Date/Time: Tuesday, March 14, 2017 23:50 - CONCLUSION: No acute bony injury in the cervical spine. Thyroid nodules. Recommend elective follow up with thyroid sonography Wilder Kirkland MD Head CT 03/14/172158 Signed Impressions: Service Date/Time: Tuesday, March 14, 2017 23:50 - CONCLUSION: Normal examination. Wilder Kirkland MD Chest X-Ray 03/14/172158 Signed Impressions: Service Date/Time: Tuesday, March 14, 2017 22:31 - CONCLUSION: Normal examination. 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 since then recurrent syncopal episodes cortisol level on low normal side - EEG negative - she was worked up with Echo which was negative. work up in progress - PT/OT consult - changed to po Medrol gradual taper HAD improved. - lungs clear -change to po steroids as above -MDis scheduled- QVAr and Albuterol MDI UTI- change to po levaquin -patient voiding- patient no complains of burning or dysuria - give x 3 days course TEDs/SCDs Recurrent weakness get EMG- NCV studies- consult Rehab medicine- pending negative orthostatic vital signs- Neurology ff PT daily SCDs for now for DVT prophylaxis- in the event of possible LP CM consulted for DC planning- DME needs Leonardo Cruz MD Mar 18, 2017 11:08
[2017-03-18] MEDS: LEVOFLOXACIN 500 MG TAB PO SCH (13:01)
[2017-03-18] MEDS: ACETAMINOPHEN 325 MG TAB PO PRN (22:00)
[2017-03-19] VITALS (7 sets, daily range): BP systolic 92–123; BP diastolic 52–70; PULSE 57–88; RESP 17–19; TEMP 97.2–98.5; O2SAT 97–99
[2017-03-19] MEDS: ALBUTEROL SULFATE 90 MCG/ACT HFA 18 GM INHALER INH SCH ×4 (05:39→18:00)
[2017-03-19] MEDS: PANTOPRAZOLE SOD 40 MG DELAYED RELEASE TAB PO SCH (09:00)
[2017-03-19] MEDS: BECLOMETHASONE DIPROPIONATE 80 MCG/ACT 8.7 GM INHALER INH SCH ×2 (09:00→22:08)
[2017-03-19] MEDS: methylPREDNISolone 4 MG TAB PO SCH ×2 (09:00→22:07)
[2017-03-19] MEDS: SODIUM CHLORIDE 0.9% FLUSH 10 ML FLUSH IV FLUSH SCH ×2 (09:00→22:08)
--- NOTE | 2017-03-19 10:53 | HHI.PR ---
Subjective Remarks in good spirits patient able to move and flex left lower extremities- about 30 degrees voiding spontaenously and had a BM Objective Vitals Vital Signs Date Time Temp Pulse Resp B/P Pulse Ox O2 Delivery O2 Flow Rate FiO2 03/19/17 08:02 98.4 59 18 92/52 97 03/19/17 04:00 98.5 67 18 99/60 98 03/18/17 20:50 97.7 84 19 132/69 98 03/18/17 19:00 88 03/18/17 16:03 98.2 90 18 111/66 97 03/18/17 12:21 97.6 84 19 117/62 98 I/O 03/18/17 03/18/17 03/18/17 03/19/17 03/19/17 03/19/17 07:00 15:00 23:00 07:00 15:00 23:00 Intake Total 900 ml 1500 ml Balance 900 ml 1500 ml Intake Oral 900 ml 1500 ml # Voids 1 2 2 1 # Bowel Movements 0 0 Result Diagram: 03/16/17 0718 03/16/17 0718 Imaging Last Impressions Thoracic Spine MRI 03/16/17 0000 Signed Impressions: Service Date/Time: March 12:26 - CONCLUSION: Examination is within normal limits. No thoracic spine or spinal cord abnormality is identified. Wilder Patel MD Lumbar Spine MRI 03/16/17 0000 Signed Impressions: Service Date/Time: March 12:26 - CONCLUSION: Examination of the lumbar spine is within normal limits. Wilder Patel MD Cervical Spine MRI 03/16/17 0000 Signed Impressions: Service Date/Time: March 12:26 - CONCLUSION: Examination is within normal limits. No cervical spine or spinal cord abnormality is identified. Wilder Patel MD Carotid Artery Ultrasound 03/15/17 0000 Signed Impressions: Service Date/Time: Wednesday, March 15, 2017 14:29 - CONCLUSION: Negative examination for a hemodynamically significant carotid stenosis. Bob Bolaños MD Cervical Spine CT 03/14/17 2336 Signed Impressions: Service Date/Time: Tuesday, March 14, 2017 23:50 - CONCLUSION: No acute bony injury in the cervical spine. Thyroid nodules. Recommend elective follow up with thyroid sonography Wilder Kirkland MD Head CT 03/14/172158 Signed Impressions: Service Date/Time: Tuesday, March 14, 2017 23:50 - CONCLUSION: Normal examination. Wilder Kirkland MD Chest X-Ray 03/14/172158 Signed Impressions: Service Date/Time: Tuesday, March 14, 2017 22:31 - CONCLUSION: Normal examination. 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 since then recurrent syncopal episodes cortisol level on low normal side - EEG negative - she was worked up with Echo which was negative. work up in progress - PT/OT consult - on po Medrol gradual taper HAD improved. - lungs clear -change to po steroids as above -MDis scheduled- QVAr and Albuterol MDI UTI- change to po levaquin -patient voiding- patient no complains of burning or dysuria - give x 3 days course TEDs/SCDs Recurrent weakness get EMG- NCV studies- consult Rehab medicine- still pending negative orthostatic vital signs- Neurology ff PT daily SCDs for now for DVT prophylaxis- in the event of possible LP CM consulted for DC planning- DME needs Leonardo Cruz MD Mar 19, 2017 10:53
[2017-03-19] MEDS: LEVOFLOXACIN 500 MG TAB PO SCH (13:30)
[2017-03-19] MEDS: ACETAMINOPHEN 325 MG TAB PO PRN ×2 (13:30→22:05)
[2017-03-19] MEDS: DOCUSATE SODIUM 100 MG CAP PO SCH ×2 (13:36→22:08)
--- NOTE | 2017-03-19 15:15 | HHI.PR ---
Review/Management Diagnosis bilateral lower extremity weakness, possible diagnoses is conus medullaris/ cauda equina lesion With spastic weakness, lower extremity clonus and sphincter control disturbances Plan neurochecks every 4 hours physical and occupation therapy, recommendations are appreciated DVT prophylaxis MRA lumbar spine MRA thoracic spine May consider lumbar puncture. I will review that with the patient Diagnosis/Plan: Subjective Subjective Comments Patient complains of severe mid back pain,ongoing for 4 months occasional episodes of loss of bladder control Numbness in groin area Active Medications Current Medications Medications (Trade) Dose Ordered Sig/Roni Route Start Time Stop Time Status Last Admin (NS Flush) 2 ml UNSCH PRN IV FLUSH 03/15/17 01:15 (NS Flush) 2 ml BID IV FLUSH 03/15/17 09:00 03/18/17 21:00 (Narcan Inj) 0.4 mg UNSCH PRN IV 03/15/17 01:15 (Tylenol) 650 mg Q4H PRN PO 03/15/17 20:45 03/19/17 13:30 (Zofran Inj) 4 mg Q6H PRN IV PUSH 03/16/17 22:30 03/17/17 22:27 (Protonix) 40 mg DAILY PO 03/18/17 09:00 03/18/17 09:41 (Ventolin Hfa Inh) 2 puff Q6HR INH 03/17/17 12:00 03/19/17 05:39 (Qvar 80 Mcg Inh) 1 puff BID INH 03/17/17 10:45 03/18/17 21:00 (Medrol) 12 mg Taper BID PO 03/18/17 09:00 04/01/17 08:59 03/18/17 22:01 (Medrol) 4 mg DAILY PO 04/01/17 09:00 (Levaquin) 500 mg Q24H PO 03/18/17 13:00 03/19/17 13:30 (Colace) 100 mg BID PO 03/19/17 10:45 03/19/17 13:36 ([place]) 2 spray Q6HR PRN EACH NARE 03/19/17 14:30 Allergies Allergies Coded Allergies Adhesives (Verified Allergy, Severe, SKIN RASH, 03/14/17) Benzoin (Verified Allergy, Severe, TINCTURE BENZOIN, 03/14/17) Betadine (Verified Allergy, Severe, Hives, 03/14/17) Latex (Verified Allergy, Severe, Rash, 03/14/17) Penicillin (Verified Allergy, Severe, BLISTERS, 03/14/17) Amoxicillin (Verified Allergy, Unknown, 03/14/17) Ampicillin (Verified Allergy, Unknown, 03/14/17) Coconut (Verified Allergy, Unknown, 03/14/17) Contrast Media (Verified Allergy, Unknown, 03/14/17) Grape (Verified Allergy, Unknown, 03/14/17) Kiwi (Verified Allergy, Unknown, 03/14/17) Multivitamins (Verified Allergy, Unknown, 03/14/17) Raisin (Verified Allergy, Unknown, 03/14/17) Shellfish (Verified Allergy, Unknown, 03/14/17) Pollok (Verified Allergy, Unknown, 03/14/17) *MDRO Multi-Drug Resistant Organism (Verified Adverse Reaction, Unknown, Cleared 12/08/16, 03/16/17) Uncoded Allergies SILVER/ JEWLERY ( Adverse Reaction, Severe, NUMBNESS TO AREA, 02/04/13) Exam I&O / VS 03/18/17 03/18/17 03/19/17 15:00 23:00 07:00 Intake Total 900 ml 1500 ml Balance 900 ml 1500 ml Intake Oral 900 ml 1500 ml # Voids 1 2 2 # Bowel Movements 0 0 Vital Signs Date Time Temp Pulse Resp B/P Pulse Ox O2 Delivery O2 Flow Rate FiO2 03/19/17 12:15 97.2 88 18 106/58 98 03/19/17 08:02 98.4 59 18 92/52 97 03/19/17 07:00 57 03/19/17 04:00 98.5 67 18 99/60 98 03/18/17 20:50 97.7 84 19 132/69 98 03/18/17 19:00 88 03/18/17 16:03 98.2 90 18 111/66 97 General: Alert and Oriented, No acute distress Eye: PERRL, Normal conjuctiva, Vision unchanged Respiratory: Lungs CTA Cardiology: Normal rate, No murmur Neurologic: Alert, Oriented, Other (cranial nerve examination is grossly intact , upper extremities are normal 5/5 in normal tone. No abnormal movement. Lower extremity weakness, bilateral, with hyperreflexia and nonsustained clonus with a left upgoing toe positive Babinski reflexesquestionable sensory level at level of lower dorsal vertebrae) Psychiatric: Cooperative, Appropriate mood & affect Objective Micro and Labs Date/Time Procedure Status Source Growth 03/14/17 22:01 Urine Culture - Final Complete Urine Catheterized Urine Enterobacter Cloacae Bob Rodriguez MD Mar 19, 2017 15:15
[2017-03-19] MEDS: SODIUM CHLORIDE 0.65% NASAL SPRAY 45 ML BTL EACH NARE PRN (22:09)
[2017-03-20] VITALS: BP 120/67; PULSE 80; RESP 17; TEMP 97.9; O2SAT 98
[2017-03-20 04:00] VITALS: BP 98/58; PULSE 74; RESP 16; TEMP 97.2; O2SAT 98
[2017-03-20] MEDS: SODIUM CHLORIDE 0.65% NASAL SPRAY 45 ML BTL EACH NARE PRN ×2 (04:30→20:59)
[2017-03-20] MEDS: ALBUTEROL SULFATE 90 MCG/ACT HFA 18 GM INHALER INH SCH ×5 (06:00→23:30)
[2017-03-20 08:00] VITALS: BP 98/51; PULSE 62; RESP 17; TEMP 98.7; O2SAT 98
[2017-03-20] MEDS: PANTOPRAZOLE SOD 40 MG DELAYED RELEASE TAB PO SCH (09:29)
[2017-03-20] MEDS: methylPREDNISolone 4 MG TAB PO SCH ×2 (09:30→20:56)
[2017-03-20] MEDS: DOCUSATE SODIUM 100 MG CAP PO SCH ×2 (09:30→20:57)
[2017-03-20] MEDS: SODIUM CHLORIDE 0.9% FLUSH 10 ML FLUSH IV FLUSH SCH ×2 (09:32→20:57)
[2017-03-20] MEDS: BECLOMETHASONE DIPROPIONATE 80 MCG/ACT 8.7 GM INHALER INH SCH ×2 (09:35→20:58)
--- NOTE | 2017-03-20 11:10 | HHI.PR ---
Subjective Remarks make a conscious effort to try to move her LE- more movement of the toes but not much progress continent or urine and stools complains of low back discomfort Objective Vitals Vital Signs Date Time Temp Pulse Resp B/P Pulse Ox O2 Delivery O2 Flow Rate FiO2 03/20/17 08:00 98.7 62 17 98/51 98 03/20/17 04:00 97.2 74 16 98/58 98 03/20/17 00:00 97.9 80 17 120/67 98 03/19/17 21:30 98.2 83 17 123/70 97 03/19/17 21:00 78 03/19/17 16:16 97.9 84 19 98/68 99 03/19/17 12:15 97.2 88 18 106/58 98 I/O 03/19/17 03/19/17 03/19/17 03/20/17 03/20/17 03/20/17 07:00 15:00 23:00 07:00 15:00 23:00 Intake Total 1500 ml 1200 ml 1250 ml Balance 1500 ml 1200 ml 1250 ml Intake Oral 1500 ml 1200 ml 1250 ml # Voids 2 1 3 2 # Bowel Movements 0 0 0 Result Diagram: 03/16/17 0718 03/16/17 0718 Imaging Last Impressions Thoracic Spine MRI 03/16/17 0000 Signed Impressions: Service Date/Time: March 12:26 - CONCLUSION: Examination is within normal limits. No thoracic spine or spinal cord abnormality is identified. Wilder Patel MD Lumbar Spine MRI 03/16/17 0000 Signed Impressions: Service Date/Time: March 12:26 - CONCLUSION: Examination of the lumbar spine is within normal limits. Wilder Patel MD Cervical Spine MRI 03/16/17 0000 Signed Impressions: Service Date/Time: March 12:26 - CONCLUSION: Examination is within normal limits. No cervical spine or spinal cord abnormality is identified. Wilder Patel MD Carotid Artery Ultrasound 03/15/17 0000 Signed Impressions: Service Date/Time: Wednesday, March 15, 2017 14:29 - CONCLUSION: Negative examination for a hemodynamically significant carotid stenosis. Bob Bolaños MD Cervical Spine CT 03/14/17 0196 Signed Impressions: Service Date/Time: Tuesday, March 14, 2017 23:50 - CONCLUSION: No acute bony injury in the cervical spine. Thyroid nodules. Recommend elective follow up with thyroid sonography Wilder Kirkland MD Head CT 03/14/172158 Signed Impressions: Service Date/Time: Tuesday, March 14, 2017 23:50 - CONCLUSION: Normal examination. Wilder Kirkland MD Chest X-Ray 03/14/172158 Signed Impressions: Service Date/Time: Tuesday, March 14, 2017 22:31 - CONCLUSION: Normal examination. 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 since then recurrent syncopal episodes cortisol level on low normal side - EEG negative - she was worked up with Echo which was negative. work up in progress - PT/OT consult - on po Medrol gradual taper HAD improved. - lungs clear -change to po steroids as above -MDis scheduled- QVAr and Albuterol MDI UTI- change to po levaquin -patient voiding- patient no complains of burning or dysuria - give x 3 days course TEDs/SCDs Recurrent weakness get EMG- NCV studies- consult Rehab medicine- still pending negative orthostatic vital signs- Neurology ff PT daily SCDs for now for DVT prophylaxis- in the event of possible LP CM consulted for DC planning- DME needs Leonardo Cruz MD Mar 20, 2017 11:10
[2017-03-20 12:24] VITALS: BP 118/70; PULSE 80; RESP 18; TEMP 96.9; O2SAT 98
[2017-03-20] MEDS: LEVOFLOXACIN 500 MG TAB PO SCH (13:46)
[2017-03-20] MEDS: ACETAMINOPHEN 325 MG TAB PO PRN (13:46)
[2017-03-20 16:52] VITALS: BP 106/56; PULSE 79; RESP 18; TEMP 96.4; O2SAT 96
--- NOTE | 2017-03-20 17:33 | HHI.PR ---
Review/Management Diagnosis Bilateral lower extremity weakness, possible diagnoses is conus medullaris/ cauda equina lesion With spastic weakness, lower extremity clonus and sphincter control disturbances Plan Neuro checks every 4 hours physical and occupation therapy, recommendations are appreciated DVT prophylaxis MRI lumbar spine with [center on T12], I spoke with radiology regarding work up for possible cauda or conus lesion, they recommended this study, this will be scheduled to be done tomorrow I explained to the patient that she may need to undergo a lumbar puncture, for further work up to establish a diagnosis, she understand and agrees. Diagnosis/Plan: Subjective Subjective Comments Patient complains of mid low back pain Urinary incontinence Works well with PT/OT, states some improvement EMG &NCS still pending per Dr. Reynolds request Active Medications Current Medications Medications (Trade) Dose Ordered Sig/Roni Route Start Time Stop Time Status Last Admin (NS Flush) 2 ml UNSCH PRN IV FLUSH 03/15/17 01:15 (NS Flush) 2 ml BID IV FLUSH 03/15/17 09:00 03/20/17 09:32 (Narcan Inj) 0.4 mg UNSCH PRN IV 03/15/17 01:15 (Tylenol) 650 mg Q4H PRN PO 03/15/17 20:45 03/20/17 13:46 (Zofran Inj) 4 mg Q6H PRN IV PUSH 03/16/17 22:30 03/17/17 22:27 (Protonix) 40 mg DAILY PO 03/18/17 09:00 03/20/17 09:29 (Ventolin Hfa Inh) 2 puff Q6HR INH 03/17/17 12:00 03/20/17 11:39 (Qvar 80 Mcg Inh) 1 puff BID INH 03/17/17 10:45 03/20/17 09:35 (Medrol) 12 mg Taper BID PO 03/18/17 09:00 04/01/17 08:59 03/20/17 09:30 (Medrol) 4 mg DAILY PO 04/01/17 09:00 (Levaquin) 500 mg Q24H PO 03/18/17 13:00 03/20/17 13:46 (Colace) 100 mg BID PO 03/19/17 10:45 03/20/17 09:30 ([place] Jese [place]) 2 spray Q6HR PRN EACH NARE 03/19/17 14:30 03/20/17 04:30 Allergies Allergies Coded Allergies Adhesives (Verified Allergy, Severe, SKIN RASH, 03/14/17) Benzoin (Verified Allergy, Severe, TINCTURE BENZOIN, 03/14/17) Betadine (Verified Allergy, Severe, Hives, 03/14/17) Latex (Verified Allergy, Severe, Rash, 03/14/17) Penicillin (Verified Allergy, Severe, BLISTERS, 03/14/17) Amoxicillin (Verified Allergy, Unknown, 03/14/17) Ampicillin (Verified Allergy, Unknown, 03/14/17) Coconut (Verified Allergy, Unknown, 03/14/17) Contrast Media (Verified Allergy, Unknown, 03/14/17) Grape (Verified Allergy, Unknown, 03/14/17) Kiwi (Verified Allergy, Unknown, 03/14/17) Multivitamins (Verified Allergy, Unknown, 03/14/17) Raisin (Verified Allergy, Unknown, 03/14/17) Shellfish (Verified Allergy, Unknown, 03/14/17) [place] (Verified Allergy, Unknown, 03/14/17) *MDRO Multi-Drug Resistant Organism (Verified Adverse Reaction, Unknown, Cleared 12/08/16, 03/16/17) Uncoded Allergies SILVER/ JEWLERY ( Adverse Reaction, Severe, NUMBNESS TO AREA, 02/04/13) Exam I&O / VS 03/19/17 03/19/17 03/20/17 15:00 23:00 07:00 Intake Total 1200 ml 1250 ml Balance 1200 ml 1250 ml Intake Oral 1200 ml 1250 ml # Voids 1 3 2 # Bowel Movements 0 0 Vital Signs Date Time Temp Pulse Resp B/P Pulse Ox O2 Delivery O2 Flow Rate FiO2 03/20/17 16:52 96.4 79 18 106/56 96 03/20/17 12:24 96.9 80 18 118/70 98 03/20/17 08:00 98.7 62 17 98/51 98 03/20/17 04:00 97.2 74 16 98/58 98 03/20/17 00:00 97.9 80 17 120/67 98 03/19/17 21:30 98.2 83 17 123/70 97 03/19/17 21:00 78 General: Alert and Oriented, No acute distress Eye: PERRL, Normal conjuctiva, Vision unchanged Respiratory: Lungs CTA Cardiology: Normal rate, No murmur Neurologic: Alert, Oriented, Other (cranial nerve examination is grossly intact , upper extremities are normal 5/5 in normal tone. No abnormal movement. Lower extremity weakness, bilateral, with hyperreflexia and nonsustained clonus with a left upgoing toe positive Babinski reflexesquestionable sensory level at level of lower dorsal vertebrae) Psychiatric: Cooperative, Appropriate mood & affect Bob Rodriguez MD Mar 20, 2017 17:33
[2017-03-20 20:00] VITALS: BP 108/52; PULSE 77; RESP 18; TEMP 98.3; O2SAT 98
[2017-03-20] MEDS ORDERED: GADODIAMIDE PF 287 MG/ML 5 ML VIAL (for RAD MRI) IV ONE (23:22)
--- NOTE | 2017-03-20 23:56 | RADRPT ---
EXAM DATE/TIME: 03/20/2017 21:31 [facility] COMPARISON: MRI LUMBAR SPINE W & W/O CONTRAST, March 16, 2017, 12:26. INDICATIONS : Myelopathy. Suspected conus medullaris /cauda equina lesion. CONTRAST: 15 cc Omniscan (gadodiamide) IV MEDICAL HISTORY : Renal calculi. Hyperactive airway disease. SURGICAL HISTORY : Tonsillectomy. Tubal ligation. ENCOUNTER: Subsequent ACUITY: 1 week PAIN SCORE: 3/10 LOCATION: Mid-back. TECHNIQUE: Multiplanar multisequence MRI of the lumbar spine was performed with and without contrast. FINDINGS: The most caudal appearing lumbar vertebra is numbered as L5. VERTEBRAE: Homogeneous signal. Normal alignment. CONUS: Normal level and configuration. POST CONTRAST: No abnormal areas of contrast enhancement are seen. T12-L1: The thecal sac has a normal diameter. No evidence of disc bulge or protrusion. The neural foramina are patent bilaterally. L1-L2: The thecal sac has a normal diameter. No evidence of disc bulge or protrusion. The neural foramina are patent bilaterally. L2-L3: The thecal sac has a normal diameter. No evidence of disc bulge or protrusion. The neural foramina are patent bilaterally. L3-L4: The thecal sac has a normal diameter. No evidence of disc bulge or protrusion. The neural foramina are patent bilaterally. L4-L5: The thecal sac has a normal diameter. No evidence of disc bulge or protrusion. The neural foramina are patent bilaterally. L5-S1: The thecal sac has a normal diameter. No evidence of disc bulge or protrusion. The neural foramina are patent bilaterally. CONCLUSION: Normal examination. Dedicated images through the conus are unremarkable. Benoit Chaves MD on March 20, 2017 at 23:53 Board Certified Radiologist. This report was verified electronically.
[2017-03-21 00:08] VITALS: BP 107/52; PULSE 81; RESP 18; TEMP 97.1; O2SAT 98
[2017-03-21] MEDS: ACETAMINOPHEN 325 MG TAB PO PRN ×3 (00:44→22:18)
[2017-03-21 03:52] VITALS: BP 99/48; PULSE 73; RESP 20; TEMP 98.1; O2SAT 98
[2017-03-21] MEDS: ALBUTEROL SULFATE 90 MCG/ACT HFA 18 GM INHALER INH SCH ×4 (06:00→22:18)
[2017-03-21 08:00] VITALS: BP 111/67; PULSE 91; RESP 19; TEMP 97.9; O2SAT 98
[2017-03-21] MEDS: DOCUSATE SODIUM 100 MG CAP PO SCH ×2 (09:00→19:26)
[2017-03-21] MEDS: SODIUM CHLORIDE 0.9% FLUSH 10 ML FLUSH IV FLUSH SCH ×2 (09:13→19:27)
[2017-03-21] MEDS: PANTOPRAZOLE SOD 40 MG DELAYED RELEASE TAB PO SCH (09:14)
[2017-03-21] MEDS: BECLOMETHASONE DIPROPIONATE 80 MCG/ACT 8.7 GM INHALER INH SCH ×2 (09:14→19:27)
[2017-03-21] MEDS: methylPREDNISolone 4 MG TAB PO SCH ×2 (09:14→19:26)
--- NOTE | 2017-03-21 10:23 | HHI.PR ---
Objective Vitals Date of Insertion: March 15, 2017 Date of Removal: Mar 17, 2017 Leonardo Cruz MD Mar 21, 2017 10:23 Date Time Temp Pulse Resp B/P Pulse Ox O2 Delivery O2 Flow Rate FiO2 03/21/17 08:00 97.9 91 19 111/67 98 03/21/17 03:52 98.1 73 20 99/48 98 03/21/17 00:08 97.1 81 18 107/52 98 03/20/17 20:00 98.3 77 18 108/52 98 03/20/17 16:52 96.4 79 18 106/56 96 03/20/17 12:24 96.9 80 18 118/70 98 I/O 03/20/17 03/20/17 03/20/17 03/21/17 03/21/17 03/21/17 07:00 15:00 23:00 07:00 15:00 23:00 Intake Total 1250 ml 960 ml 100 ml Output Total 200 ml Balance 1250 ml 960 ml -100 ml Intake Oral 1250 ml 960 ml 100 ml Output Urine Total 200 ml # Voids 2 1 2 # Bowel Movements 0 Objective Remarks awake alert, NAD, in good spirits anicteric no nuchal rigdiity lungs clear regular rhythm abdomen soft, nontender extremities no edema motor- UE 5/5 LE- - some toes movement/ foot move grossly no sensory deficits Date of Insertion: March 15, 2017 Date of Removal: Mar 17, 2017 A/P Assessment and Plan 26 years old female righ handed female recurrent syncopal episodes and weakness Change in MS- transient-- resolved REcurrent syncopal episodes Possible Relative adrenal insufficiency- - On history- 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 since then recurrent syncopal episodes cortisol level on low normal side - EEG negative - she was worked up with Echo which was negative. work up in progress - PT/OT consult - on po Medrol gradual taper HAD improved. - lungs clear -change to po steroids as above -MDis scheduled- QVAr and Albuterol MDI UTI- change to po levaquin -patient voiding- patient no complains of burning or dysuria - give x 3 days course TEDs/SCDs Recurrent weakness get EMG- NCV studies- consult Rehab medicine- still pending negative orthostatic vital signs- Neurology ff PT daily SCDs for now for DVT prophylaxis- in the event of possible LP CM consulted for DC planning- DME needs Leonardo Cruz MD Mar 21, 2017 10:23
--- NOTE | 2017-03-21 10:49 | HHI.PR ---
Subjective Remarks patient very optimistic she is now able to life both UE 5/5 left LE- now able tob barely lift lower extremity/moves toes minimally but with deficnite conscious effort with concetration right LE- 0/5 Objective Vitals Vital Signs Date Time Temp Pulse Resp B/P Pulse Ox O2 Delivery O2 Flow Rate FiO2 03/21/17 08:00 97.9 91 19 111/67 98 03/21/17 03:52 98.1 73 20 99/48 98 03/21/17 00:08 97.1 81 18 107/52 98 03/20/17 20:00 98.3 77 18 108/52 98 03/20/17 16:52 96.4 79 18 106/56 96 03/20/17 12:24 96.9 80 18 118/70 98 I/O 03/20/17 03/20/17 03/20/17 03/21/17 03/21/17 03/21/17 07:00 15:00 23:00 07:00 15:00 23:00 Intake Total 1250 ml 960 ml 100 ml Output Total 200 ml Balance 1250 ml 960 ml -100 ml Intake Oral 1250 ml 960 ml 100 ml Output Urine Total 200 ml # Voids 2 1 2 # Bowel Movements 0 Imaging Last Impressions Lumbar Spine MRI 03/20/17 0000 Signed Impressions: Service Date/Time: Monday, March 20, 2017 21:31 - CONCLUSION: Normal examination. Dedicated images through the conus are unremarkable. Benoit Chaves MD Thoracic Spine MRI 03/16/17 0000 Signed Impressions: Service Date/Time: March 12:26 - CONCLUSION: Examination is within normal limits. No thoracic spine or spinal cord abnormality is identified. Wilder Patel MD Cervical Spine MRI 03/16/17 0000 Signed Impressions: Service Date/Time: March 12:26 - CONCLUSION: Examination is within normal limits. No cervical spine or spinal cord abnormality is identified. Wilder Patel MD Carotid Artery Ultrasound 03/15/17 0000 Signed Impressions: Service Date/Time: Wednesday, March 15, 2017 14:29 - CONCLUSION: Negative examination for a hemodynamically significant carotid stenosis. Bob Bolaños MD Cervical Spine CT 03/14/17 [id number] Signed Impressions: Service Date/Time: Tuesday, March 14, 2017 23:50 - CONCLUSION: No acute bony injury in the cervical spine. Thyroid nodules. Recommend elective follow up with thyroid sonography Wilder Kirkland MD Head CT [id number] Signed Impressions: Service Date/Time: Tuesday, March 14, 2017 23:50 - CONCLUSION: Normal examination. Wilder Kirkland MD Chest X-Ray [id number] Signed Impressions: Service Date/Time: Tuesday, March 14, 2017 22:31 - CONCLUSION: Normal examination. Selvin Lozoya Jr., MD Objective Remarks awake alert, NAD, in good spirits anicteric no nuchal rigdiity lungs clear regular rhythm abdomen soft, nontender extremities no edema motor- UE 5/5- strong Left LE- - some toes movement/ foot move inimally with concentration and need conscious effort right LE- flaccid grossly no sensory deficits Date of Insertion: March 15, 2017 Date of Removal: Mar 17, 2017 A/P Assessment and Plan 26 years old female righ handed female recurrent syncopal episodes and weakness Change in MS- transient-- resolved REcurrent syncopal episodes Possible Relative adrenal insufficiency- - On history- 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 since then recurrent syncopal episodes cortisol level on low normal side - EEG negative - she was worked up with Echo which was negative. work up in progress - PT/OT consult - on po Medrol gradual taper HAD improved. - lungs clear -change to po steroids as above -MDis scheduled- QVAr and Albuterol MDI UTI- enterobacter - po levaquin -patient voiding- patient no complains of burning or dysuria - patient received 2 days Bactrim- give po levaquin TEDs/SCDs Recurrent weakness - UE weakness resolved. still with LE weakness- R LE- flaccid. L:LE some toe movement get EMG- NCV studies- consult Rehab medicine- due today negative orthostatic vital signs- Neurology ff. plan for LP PT daily SCDs for now for DVT prophylaxis- in the event of possible LP CM consulted for DC planning- DME needs Leonardo Cruz MD Mar 21, 2017 10:48
[2017-03-21 12:00] VITALS: BP 108/57; PULSE 79; RESP 19; TEMP 97.9; O2SAT 98
[2017-03-21] MEDS: LEVOFLOXACIN 500 MG TAB PO SCH (13:18)
--- NOTE | 2017-03-21 15:31 | HHI.PR ---
Assessment and Plan Plan Full report to follow: Lt median SNAP: 2.9 ms (<3.6) and 57 of amp Lt sural SNAP: 2.5 ms (<4.0) and 10.3 of amp Rt sural SNAP: 2.6 ms (<4.0) and 11 of amp Lt ulnar SNAP: 2.8 ms (<3.7) and 22 of amp Lt median motor CMAP: 3.3 at the wrist with normal amplitude and CV. Lt peroneal CMAP: 4.3 ms with normal amplitude and normal conduction velocity Rt peroneal CMAP: 4.5 ms with normal amplitude and conduction angel Lt tibial CMAP: 5.4 ms (<6 ms) Rt tibial CMAP: 4.5 ms (<6 ms) EMG: Tested bilateral Tibialis anterior Lt with no denervation potential noted and minimal muscle recruitment. Rt with no denervation potential noted and No muscle recruitment. Essentially normal NCS in all 3 extremities tested as above. No denervation potential noted on the EMG but with minimal to no recruitment in the muscle. Jim Ramirez MD Mar 21, 2017 15:31
[2017-03-21 16:33] VITALS: BP 118/66; PULSE 87; RESP 19; TEMP 97.8; O2SAT 98
[2017-03-21 20:38] VITALS: BP 127/67; PULSE 82; RESP 17; TEMP 98; O2SAT 99
--- NOTE | 2017-03-21 22:46 | HHI.PR ---
Review/Management Diagnosis Bilateral lower extremity weakness Extensive spinal axis studies were unremarkable EMG & NCS is unremarkable Patient declined that she needs to be seen by a psychiatry consult service Plan Neuro checks every 4 hours physical and occupation therapy, recommendations are appreciated DVT prophylaxis ordered a CSF study / LP Patient will need rehab Can be released from hospital, LP results may take some time Follow up as outpatient Please call for questions Diagnosis/Plan: Subjective Subjective Comments No new complaints EMG& NCS unremarkable MRI lumbar was unremarkable for a conus medullaris lesion Patient states that there is some recovery of function in her legs Of note, patient's reaction to her illness looks passive, especially she states that she was a very active person before this illness, I asked her wether she needs a psychiatric consult and advise, she declined. Active Medications Current Medications Medications (Trade) Dose Ordered Sig/Roni Route Start Time Stop Time Status Last Admin (NS Flush) 2 ml UNSCH PRN IV FLUSH 03/15/17 01:15 (NS Flush) 2 ml BID IV FLUSH 03/15/17 09:00 03/20/17 09:32 (Narcan Inj) 0.4 mg UNSCH PRN IV 03/15/17 01:15 (Tylenol) 650 mg Q4H PRN PO 03/15/17 20:45 03/21/17 22:18 (Zofran Inj) 4 mg Q6H PRN IV PUSH 03/16/17 22:30 03/17/17 22:27 (Protonix) 40 mg DAILY PO 03/18/17 09:00 03/21/17 09:14 (Ventolin Hfa Inh) 2 puff Q6HR INH 03/17/17 12:00 03/21/17 22:18 (Qvar 80 Mcg Inh) 1 puff BID INH 03/17/17 10:45 03/21/17 19:27 (Medrol) 12 mg Taper BID PO 03/18/17 09:00 04/01/17 08:59 03/21/17 19:26 (Medrol) 4 mg DAILY PO 04/01/17 09:00 (Levaquin) 500 mg Q24H PO 03/18/17 13:00 03/22/17 12:59 03/21/17 13:18 (Colace) 100 mg BID PO 03/19/17 10:45 03/20/17 09:30 (Nolan Jese [place]) 2 spray Q6HR PRN EACH NARE 03/19/17 14:30 03/20/17 20:59 Allergies Allergies Coded Allergies Adhesives (Verified Allergy, Severe, SKIN RASH, 03/14/17) Benzoin (Verified Allergy, Severe, TINCTURE BENZOIN, 03/14/17) Betadine (Verified Allergy, Severe, Hives, 03/14/17) Latex (Verified Allergy, Severe, Rash, 03/14/17) Penicillin (Verified Allergy, Severe, BLISTERS, 03/14/17) Amoxicillin (Verified Allergy, Unknown, 03/14/17) Ampicillin (Verified Allergy, Unknown, 03/14/17) Coconut (Verified Allergy, Unknown, 03/14/17) Contrast Media (Verified Allergy, Unknown, 03/14/17) Grape (Verified Allergy, Unknown, 03/14/17) Kiwi (Verified Allergy, Unknown, 03/14/17) Multivitamins (Verified Allergy, Unknown, 03/14/17) Raisin (Verified Allergy, Unknown, 03/14/17) Shellfish (Verified Allergy, Unknown, 03/14/17) [place] (Verified Allergy, Unknown, 03/14/17) *MDRO Multi-Drug Resistant Organism (Verified Adverse Reaction, Unknown, Cleared 12/08/16, 03/16/17) Uncoded Allergies SILVER/ JEWLERY ( Adverse Reaction, Severe, NUMBNESS TO AREA, 02/04/13) Exam I&O / VS 03/20/17 03/20/17 03/21/17 15:00 23:00 07:00 Intake Total 960 ml 100 ml Output Total 200 ml Balance 960 ml -100 ml Intake Oral 960 ml 100 ml Output Urine Total 200 ml # Voids 1 2 Vital Signs Date Time Temp Pulse Resp B/P Pulse Ox O2 Delivery O2 Flow Rate FiO2 03/21/17 20:38 98.0 82 17 127/67 99 03/21/17 16:33 97.8 87 19 118/66 98 03/21/17 12:00 97.9 79 19 108/57 98 03/21/17 08:00 97.9 91 19 111/67 98 03/21/17 03:52 98.1 73 20 99/48 98 03/21/17 00:08 97.1 81 18 107/52 98 Exam Comments General: Alert and Oriented, No acute distress Eye: PERRL, Normal conjunctiva, Vision unchanged Respiratory: Lungs CTA Cardiology: Normal rate, No murmur Neurologic: Alert, Oriented, Other (cranial nerve examination is grossly intact , upper extremities are normal 5/5 in normal tone. No abnormal movement. Lower extremity weakness, bilateral, with hyperreflexia and nonsustained clonus with a left upgoing toe positive Babinski reflexes questionable sensory level at level of lower dorsal vertebrae Psychiatric: Cooperative, Appropriate mood & affect Objective Radiology Results Last 72 hours Impressions Lumbar Spine MRI 03/20/17 0000 Signed Impressions: Service Date/Time: Monday, March 20, 2017 21:31 - CONCLUSION: Normal examination. Dedicated images through the conus are unremarkable. Benoit Chaves MD O[place] MD Mar 21, 2017 22:46
[2017-03-22 00:17] VITALS: BP 133/70; PULSE 79; RESP 17; TEMP 97.9; O2SAT 99
[2017-03-22] MEDS: ALBUTEROL SULFATE 90 MCG/ACT HFA 18 GM INHALER INH SCH ×2 (05:45→11:56)
[2017-03-22 06:14] VITALS: BP 97/52; PULSE 64; RESP 17; TEMP 98; O2SAT 99
[2017-03-22] MEDS: DOCUSATE SODIUM 100 MG CAP PO SCH (08:27)
[2017-03-22] MEDS: SODIUM CHLORIDE 0.9% FLUSH 10 ML FLUSH IV FLUSH SCH (08:27)
[2017-03-22] MEDS: BECLOMETHASONE DIPROPIONATE 80 MCG/ACT 8.7 GM INHALER INH SCH (08:27)
[2017-03-22] MEDS: PANTOPRAZOLE SOD 40 MG DELAYED RELEASE TAB PO SCH (08:27)
[2017-03-22] MEDS: methylPREDNISolone 4 MG TAB PO SCH (08:27)
[2017-03-22 09:07] VITALS: BP 110/71; PULSE 62; RESP 20; TEMP 97.5; O2SAT 100
[2017-03-22 09:34] VITALS: PULSE 65
[2017-03-22] MEDS ORDERED: WHEEMIS3 (10:51)
--- NOTE | 2017-03-22 11:15 | HHI.PR ---
Subjective Remarks patient in good spirits, very motivated with PT no incontinence going for LP today looking forward to going home exam - not much changed- patient makes a very conscious of trying to ?"move or not to move her LE" 2 20 pm-- tolerated LP well no complains Objective Vitals Vital Signs Date Time Temp Pulse Resp B/P Pulse Ox O2 Delivery O2 Flow Rate FiO2 03/22/17 09:34 65 03/22/17 09:07 97.5 62 20 110/71 100 03/22/17 06:14 98.0 64 17 97/52 99 03/22/17 00:17 97.9 79 17 133/70 99 03/21/17 20:38 98.0 82 17 127/67 99 03/21/17 16:33 97.8 87 19 118/66 98 03/21/17 12:00 97.9 79 19 108/57 98 I/O 03/21/17 03/21/17 03/21/17 03/22/17 03/22/17 03/22/17 07:00 15:00 23:00 07:00 15:00 23:00 Intake Total 1680 ml 240 ml Balance 1680 ml 240 ml Intake Oral 1680 ml 240 ml # Voids 2 4 3 2 Imaging Last Impressions Lumbar Spine MRI 03/20/17 0000 Signed Impressions: Service Date/Time: Monday, March 20, 2017 21:31 - CONCLUSION: Normal examination. Dedicated images through the conus are unremarkable. Benoit Chaves MD Thoracic Spine MRI 03/16/17 0000 Signed Impressions: Service Date/Time: March 12:26 - CONCLUSION: Examination is within normal limits. No thoracic spine or spinal cord abnormality is identified. Wilder Patel MD Cervical Spine MRI 03/16/17 0000 Signed Impressions: Service Date/Time: March 12:26 - CONCLUSION: Examination is within normal limits. No cervical spine or spinal cord abnormality is identified. Wilder Patel MD Carotid Artery Ultrasound 03/15/17 0000 Signed Impressions: Service Date/Time: Wednesday, March 15, 2017 14:29 - CONCLUSION: Negative examination for a hemodynamically significant carotid stenosis. Bob Bolaños MD Cervical Spine CT 03/14/17 [id number] Signed Impressions: Service Date/Time: Tuesday, March 14, 2017 23:50 - CONCLUSION: No acute bony injury in the cervical spine. Thyroid nodules. Recommend elective follow up with thyroid sonography Wilder Kirkland MD Head CT [id number]/172158 Signed Impressions: Service Date/Time: Tuesday, March 14, 2017 23:50 - CONCLUSION: Normal examination. Wilder Kirkland MD Chest X-Ray 03/14/172158 Signed Impressions: Service Date/Time: Tuesday, March 14, 2017 22:31 - CONCLUSION: Normal examination. Selvin Lozoya Jr., MD Objective Remarks awake alert, NAD, in good spirits anicteric no nuchal rigdiity lungs clear regular rhythm abdomen soft, nontender extremities no edema motor- UE 5/- strong Left LE- - more movement of the toes and foot- nsome toes movement/ right LE- was able to move her toes this am on exam grossly no sensory deficits Procedures 03/22- LP today Date of Insertion: March 15, 2017 Date of Removal: Mar 17, 2017 A/P Assessment and Plan 26 years old female righ handed female recurrent syncopal episodes and weakness Change in MS- transient-- resolved REcurrent syncopal episodes Possible Relative adrenal insufficiency- - On history- 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 since then recurrent syncopal episodes cortisol level on low normal side - EEG negative - she was worked up with Echo which was negative. work up in progress - PT/OT consult - on po Medrol gradual taper - HAD improved. - lungs clear -change to po steroids as above -MDis scheduled- QVAr and Albuterol MDI UTI- enterobacter - po levaquin -patient voiding- patient no complains of burning or dysuria - patient received 2 days Bactrim- give po levaquin TEDs/SCDs Recurrent weakness - UE weakness resolved. still with LE weakness- R LE- flaccid. L:LE some toe movement- some improvement get EMG- NCV studies- consult Rehab medicine- normal negative orthostatic vital signs- Neurology ff. plan for LP- today PT daily- as OP referral ?conversion disorder- patient refused psychiatry consult SCDs for now for DVT prophylaxis- in the event of possible LP CM consulted for DC planning- DME needs- wheelchair delivered DC home today OP ff up with PCP OP ff up with Neurology Leonardo Cruz MD Mar 22, 2017 11:15
--- NOTE | 2017-03-22 12:01 | PD.RAD ---
Post Procedure Progress Note Pre Procedure Diagnosis: (1) inabi to ambu Post Procedure Diagnosis: (1) inabi to ambu Procedure Date: Mar 22, 2017 Supervising Radiologist: Selvin Lozoya JR Proceduralist/Assist: Christy Hunt RT(R), Renee Van RT(R)(CV) Anesthesia: Local Plan of Activity Patient to Unit: Nursing Unit Patient Condition: Good See PACS Report for procedural detail/treatment Spinal Procedure Lumbar Puncture L4-L5 Fluid Removal (CCs): 9 Fluid Description: Clear Puncture Time: 11:34 Findings: Opening pressure: 14 cmH20 Jr. Lozoya Thomas Justin MD Mar 22, 2017 12:01
--- NOTE | 2017-03-22 12:13 | RADRPT ---
EXAM DATE/TIME: 03/22/2017 11:35 [facility] COMPARISON: No previous studies available for comparison. INDICATIONS : Patient with bilateral lower extremity weakness in need of lumbar puncture. MEDICAL HISTORY : HAD History of congenital retinal diorder-with tunnel vision ? Valvular disorder SURGICAL HISTORY : Tubal ligation ENCOUNTER: Initial ACUITY: 4 - 6 months PAIN SCORE: 0/10 LUMBAR PUNCTURE TIME: 1134 hours FLUORO TIME: 0.55 minutes IMAGE SERIES: 0 ACCESS LEVEL: L4-5 OPENING PRESSURE: 14 cm of water FLUID: 9 cc of clear CSF was collected and sent to the laboratory for analysis. PROCEDURE : 1. Fluoroscopic guided lumbar puncture. 2. Recording of opening pressure. The risks, benefits and alternatives to the procedure were explained and verbal and written consent w as obtained. The site was prepped in sterile fashion. Full sterile technique was used, including ca p, mask, sterile gloves and gown and a large sterile sheet. Hand hygiene and 2% chlorhexidine and/or betadine/alcohol prep was utilized per protocol for cutaneous antisepsis. The skin and subcutaneous tissues were infiltrated with local anesthetic solution. With fluoroscopic guidance the lumbar thecal sac was punctured at the above level described above and the opening pressure was recorded. The above described fluid was removed without difficulty. The patient tolerated the procedure well and there were no complications. CONCLUSION: Uncomplicated fluoroscopically guided lumbar puncture with pressures as above. Selvin Lozoya Jr., MD on March 22, 2017 at 12:11 Board Certified Radiologist. This report was verified electronically.
[2017-03-22 12:30] VITALS: BP 102/53; PULSE 64; RESP 20; TEMP 98.7; O2SAT 100
[2017-03-22 12:54] LABS: CSF LYMPHOCYTES 89 %; CSF MONOCYTES 11 %; CSF NEUTROPHILS 0 %; GROSS BLOOD TUBE #1 0 (0); GROSS BLOOD TUBE #2 0 (0); GROSS BLOOD TUBE #3 0 (0); GROSS BLOOD TUBE #4 0 (0); SUPERNATE COLOR TUBE #1 CLEAR (CLEAR); SUPERNATE COLOR TUBE #2 CLEAR (CLEAR); SUPERNATE COLOR TUBE #3 CLEAR (CLEAR); SUPERNATE COLOR TUBE #4 CLEAR (CLEAR); VOLUME TUBE # 1 2.5 ML; VOLUME TUBE # 2 2.5 ML; WBC TUBE #4 5 /MM3 (0-10)
[2017-03-22] MEDS ORDERED: MEDR4TAB PO (14:33)
[2017-03-22] MEDS: ACETAMINOPHEN 325 MG TAB PO PRN (14:49)
[2017-03-23] MEDS ORDERED: LEVOFLOXACIN 500 MG TAB PO SCH (09:00)
[2017-03-23 09:39] LABS: HSV 1,PCR Negative (Negative)
[2017-03-23 09:44] LABS: CMV PCR SPECIMEN SOURCE n (())
[2017-03-23 14:38] LABS: ALBUMIN SERUM 3300 mg/dL (3200 - 4800); IGG CSF 1.2 mg/dL (<=8.1); IGG INDEX CSF 0.45 (<=0.85); IGG SERUM 1100 mg/dL (767 - 1590); IGG/ALBUMIN CSF 0.15 (<=0.21); IGG/ALBUMIN SERUM 0.33 (<=0.40)
[2017-03-23 17:44] LABS: LYME IGG IMMUNOBLOT CSF None Detected bands (None Detected); LYME IGM IMMUNOBLOT CSF None Detected bands (None Detected)
[2017-03-24 03:50] LABS: CSF ANGIOTENSIN CONV ENZYME LESS THAN 5 U/L (< OR = 15)
[2017-03-24 17:51] LABS: B. BURGDORFERI DNA PCR CSF NOT DETECTED (())
[2017-03-24 19:54] LABS: VDRL CSF NON-REACTIVE (())
[2017-03-25 11:58] LABS: CSF CRYPTOCOCCUS AG CONF ND (NOT DETECTD)
--- NOTE | 2017-03-28 10:09 | HHI.DS ---
Discharge Summary Admission Date March 15, 2017 at 00:58 Discharge Date: Mar 22, 2017 Admitting Diagnosis Waxing and waning neurologic symptoms (1) Transient neurological symptoms ICD Code: R29.818 Diagnosis: Principal (2) Asthma exacerbation ICD Code: J45.901 Diagnosis: Secondary Procedures 03/22- LP today Brief History - From Admission Patient is a 26 years sold right handed female with history of hyperreactive airway disease with history of mechanical ventilations in the past who was admitted here last November for HAD exacerbation and developed generalized LE weakness/paresis= more of the LE than UE, occasional incontinence - states occasional can control BM and urine. Was discharged then almost requiring total care per sharron and almost wheelchair dependent. Past 3-4 weeks Each time fiance lifts her up to stand her up to go to BR or transfers- patient would pass out- "gets flaccid". No seizure activity reported complains of tingling of both LE. complains of tingling sensation of extremities Was with some friend earlier and was noted to be dazing off with decreased mental status. Brought it by EMS and admittef for further evaluation. Has history of HAD almost steroid dependent and was tapered off Prednisone - last Prednisone course completed last week of December. 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 Selvin Lozoya Jr., MD Lumbar Spine MRI 03/20/17 0000 Signed Impressions: Service Date/Time: Monday, March 20, 2017 21:31 - CONCLUSION: Normal examination. Dedicated images through the conus are unremarkable. Benoit Chaves MD Thoracic Spine MRI 03/16/17 0000 Signed Impressions: Service Date/Time: March 12:26 - CONCLUSION: Examination is within normal limits. No thoracic spine or spinal cord abnormality is identified. Wilder Patel MD Cervical Spine MRI 03/16/17 0000 Signed Impressions: Service Date/Time: March 12:26 - CONCLUSION: Examination is within normal limits. No cervical spine or spinal cord abnormality is identified. Wilder Patel MD Carotid Artery Ultrasound 03/15/17 0000 Signed Impressions: Service Date/Time: Wednesday, March 15, 2017 14:29 - CONCLUSION: Negative examination for a hemodynamically significant carotid stenosis. Bob Bolaños MD Cervical Spine CT 03/14/17 2336 Signed Impressions: Service Date/Time: Tuesday, March 14, 2017 23:50 - CONCLUSION: No acute bony injury in the cervical spine. Thyroid nodules. Recommend elective follow up with thyroid sonography Wilder Kirkland MD Head CT [id number] Signed Impressions: Service Date/Time: Tuesday, March 14, 2017 23:50 - CONCLUSION: Normal examination. Wilder Kirkland MD Chest X-Ray [id number] Signed Impressions: Service Date/Time: Tuesday, March 14, 2017 22:31 - CONCLUSION: Normal examination. Selvin Lozoya Jr., MD PE at Discharge awake alert, NAD, in good spirits anicteric no nuchal rigdiity lungs clear regular rhythm abdomen soft, nontender extremities no edema motor- UE 02/17- strong Left LE- - more movement of the toes and foot- nsome toes movement/ right LE- was able to move her toes this am on exam grossly no sensory deficits Pt update on day of discharge awake and alert, in good spirits long discussion with patient and at bedside Hospital Course 26 years old female righ handed female recurrent syncopal episodes and weakness Change in MS- transient-- resolved REcurrent syncopal episodes Possible Relative adrenal insufficiency- - On history- 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 since then recurrent syncopal episodes cortisol level on low normal side - EEG negative - she was worked up with Echo which was negative. work up in progress - PT/OT consult - on po Medrol gradual taper - HAD improved. - lungs clear -change to po steroids as above -MDis scheduled- QVAr and Albuterol MDI UTI- enterobacter - po levaquin -patient voiding- patient no complains of burning or dysuria - patient received 2 days Bactrim- give po levaquin TEDs/SCDs Recurrent weakness - UE weakness resolved. still with LE weakness- R LE- flaccid. L:LE some toe movement- some improvement get EMG- NCV studies- consult Rehab medicine- normal negative orthostatic vital signs- Neurology ff. plan for LP- today PT daily- as OP referral ?conversion disorder- patient refused psychiatry consult CM consulted for DC planning- DME needs- wheelchair delivered DC home today OP ff up with PCP OP ff up with Neurology Pt Condition on Discharge: Stable Discharge Disposition: Discharge Home Discharge Time: <= 30 minutes Discharge Instructions DIET: Follow Instructions for: As Tolerated, No Restrictions Speech Therapy-Diet Recommends: Regular Activities you can perform: Weight Bearing as [place] Activities to Avoid: Strenuous Activity Follow up Referrals: Neurology - 3-5 Days with Seble Reynolds MD PCP Follow-up - 1 Week with PCPref New Medications: Methylprednisolone (Medrol) 4 Mg Tab 4 MG PO DAILY 8 mg (2 tab) bid x 5 days, then 4 mg (1 tab) bid x 5 days then 4 mg (1 tab) daily x 5 days then stop tapeadrins #35 Ref 0 TAB Wheelchair (Wheelchair) 1 Mis Mis 1 EA .ROUTE DIRECTED assi #1 Ref 0 EA Continued Medications: Albuterol 18 GM Inh (Ventolin Hfa 18 GM Inh) 90 Mcg/Act Aer 2 PUFF INH Q4H PRN SHORTNESS OF BREATH #1 Ref 0 INHALER Albuterol Neb (Albuterol Neb) 2.5 Mg/3 Ml Neb 2.5 MG NEB Q4HR NEB While awake Breathing Treatment #60 Ref 0 NEBULE Fluticasone-Salmeterol Inh (Advair Diskus Inh) 500-50 Mcg/Blist Aer 1 PUFF INH BID Rinse mouth after use. #1 Ref 0 INHALER Montelukast (Montelukast) 10 Mg Tab 10 MG PO HS #30 TAB Pantoprazole (Pantoprazole) 40 Mg Tab 40 MG PO DAILY #20 TAB ([Physical Therapy ]) Discontinued Medications: Ferrous Sulfate (Iron) 325 Mg Tab 325 MG PO DAILY Take Nutritional Supplement Ref 0 TAB Meclizine (Meclizine) 25 Mg Tab 25 MG PO Q8H PRN Diziness #90 TAB Ondansetron Odt (Zofran Odt) 4 Mg Tab 4 MG SL Q8HR PRN Nausea/Vomiting #90 Ref 0 TAB Prednisone (Prednisone) 20 Mg Tab 20 MG PO DIRECTED Take 1 tab twice a day for 5 days and then 1 tab daily for 5 days #15 Ref 0 TAB Leonardo Cruz MD Mar 28, 2017 10:09
[2017-04-01] MEDS ORDERED: methylPREDNISolone 4 MG TAB PO SCH (09:00)
== END 2017-03-22 15:19 | disposition home or self-care (01) | DRG 312 ==
LOC: NEPE 21:29 → NEDA 03-15 00:58 → INTOOBSV 03-15 00:58 → OBSVTOIN 03-15 00:58 → N05B 03-15 02:48
PROVIDERS: ADMIT Internal Medicine; ATTEND Internal Medicine
PROC: 009U3ZX Drainage of Spinal Canal, Percutaneous Approach, Diagnostic (ICD-10-PCS; principal; 2017-03-22)
DX: R55 Syncope and collapse (principal); J45.901 Unspecified asthma with (acute) exacerbation; N39.0 Urinary tract infection, site not specified; R41.82 Altered mental status, unspecified; R53.1 Weakness; E04.2 Nontoxic multinodular goiter; F44.9 Dissociative and conversion disorder, unspecified
CPT/HCPCS: 51702; 62270; 70450; 71010; 72125; 72156; 72157; 72158; 76937; 77003; 80048; 80053; 80307; 81001; 82024; 82040; 82042; 82140; 82164; 82533; 82607; 82784; 82945; 83873; 84157; 84439; 84443; 84703; 85025; 85610; 85652; 85730; 86403; 86592; 86618; 86780; 87015; 87070; 87077; 87086; 87102; 87116; 87186; 87205; 87206; 87497; 87529; 87801; 89051; 93005; 93225; 93226; 93880; 94640; 94664; 95819; A9579; C9113; G8996-GN; G8997-GN; G8998-GN; G9159-GN; G9160-GN; G9161-GN; J2405; J2920; J2930; J7030; J7070; J7509

== ENCOUNTER 2017-03-24 21:22 | Emergency (ER) | payer OTHER ==
[~2017-03-24 21:22] MED LIST changes: -FERR1TAB36 PO; -MECL-62 PO; +MEDR4TAB PO; -PRED20 PO; +WHEEMIS3; -ZOFR4TAB3 SL; -walker
[2017-03-24 21:25] VITALS: BP 135/79; PULSE 84; RESP 22; TEMP 98.7; O2SAT 100
[2017-03-24] MEDS ORDERED: KETOROLAC TROMETHAMINE 30 MG/ML (IVP) VIAL IV PUSH ONE (22:30)
[2017-03-24] MEDS ORDERED: ONDANSETRON HCL 4 MG/2 ML VIAL IV PUSH ONE (22:30)
[2017-03-24] MEDS ORDERED: SODIUM CHLOR 0.9% 1000 ML INJ 1,000 ML IV ONE (22:30)
[2017-03-24 22:42] VITALS: O2SAT 100
[2017-03-24 22:43] VITALS: TEMP 97.5
--- NOTE | 2017-03-24 23:03 | RADRPT ---
EXAM DATE/TIME: 03/24/2017 22:34 [facility] COMPARISON: No previous studies available for comparison. INDICATIONS : Shortness of breath MEDICAL HISTORY : None. SURGICAL HISTORY : None. ENCOUNTER: Initial ACUITY: 1 day PAIN SCORE: 0/10 LOCATION: Bilateral chest FINDINGS: A single view of the chest demonstrates the lungs to be symmetrically aerated without evidence of mas s, infiltrate or effusion. The cardiomediastinal contours are unremarkable. Osseous structures are intact. CONCLUSION: No acute disease. Aden Pro MD on March 24, 2017 at 23:01 Board Certified Radiologist. This report was verified electronically.
[2017-03-24 23:33] LABS: AUTOMATED NEUTROPHIL # 4.9 TH/MM3 (1.8-7.7); BASOPHIL % 0.6 % (0.0-2.0); EOSINOPHIL # 0.3 TH/MM3 (0-0.4); EOSINOPHIL % 3.7 % (0.0-4.0); HEMATOCRIT 37.1 % (35.0-46.0); HEMO FLAGS DIFF FINAL; LYMPH % 22.4 % (9.0-44.0); LYMPHOCYTE # 1.7 TH/MM3 (1.0-4.8); MEAN CELL VOLUME 86.1 FL (80.0-100.0); MEAN CORPUSCULAR HEMOGLOBIN 28.9 PG (27.0-34.0); MEAN CORPUSCULAR HGB CONC 33.6 % (32.0-36.0); MONO % 9.8 % (0.0-8.0); NEUT % 63.5 % (16.0-70.0); PLATELET COUNT 196 TH/MM3 (150-450); RED BLOOD COUNT 4.31 MIL/MM3 (4.00-5.30); RED CELL DISTRIBUTION WIDTH 13.8 % (11.6-17.2); WHITE BLOOD COUNT 7.7 TH/MM3 (4.0-11.0)
[2017-03-24 23:52] LABS: ALT (GPT) 22 U/L (10-53); ANION GAP 9 MEQ/L (5-15); AST (GOT) 9 U/L (15-37); BICARBONATE 24.3 MEQ/L (21.0-32.0); BLOOD UREA NITROGEN 15 MG/DL (7-18); CHLORIDE 110 MEQ/L (98-107); GLOMERULAR FILTRATION RATE 105 ML/MIN (>89); POTASSIUM 3.1 MEQ/L (3.5-5.1); SODIUM (NA) 143 MEQ/L (136-145)
[2017-03-24 23:54] LABS: ALKALINE PHOSPHATASE 75 U/L (45-117); TOTAL BILIRUBIN ADULT 0.4 MG/DL (0.2-1.0)
[2017-03-24 23:59] LABS: CREATINE KINASE 33 U/L (26-192)
[2017-03-25] MEDS ORDERED: POTASSIUM CHLORIDE 25 MEQ EFFERVESCENT TAB PO ONE (00:15)
--- NOTE | 2017-03-25 00:34 | PD ---
HPI Chief Complaint: Pain: Acute or Chronic Time Seen by Provider: 22:30 Travel History International Travel<30 days: No Contact w/Intl Traveler<30days: No Traveled to known affect area: No History of Present Illness HPI 26-year-old female presents with feeling like she's having a reaction to her Lyrica because her back pain is bad again. She states she's been having weakness in her legs for the past 5 months and is getting a workup for that with a recent lumbar puncture. She states that she also is having general ill feeling. She is concerned that something more is going on given her recent hospitalization. Quality is sharp. Severity is moderate. Pain is worse with movement. She denies other concurrent complaints. PFSH Past Medical History Hx Anticoagulant Therapy: No Anemia: Yes Asthma: Yes Heart Rhythm Problems: Yes (murmur hx per pt) Cancer: No Cardiovascular Problems: Yes Chemotherapy: No Cerebrovascular Accident: Yes Diabetes: No Diminished Hearing: No Endocrine: No Genitourinary: Yes Immune Disorder: Yes (Carries MS gene) Kidney Stones: Yes Musculoskeletal: Yes (hx of paralysis this year. Paraplegic) Neurologic: Yes Psychiatric: No Reproductive: No Respiratory: Yes Immunizations Current: Yes Seizures: Yes Sleep Apnea: Yes ?: Not : 4 Para: 4 Miscarriage: 0 Tubal Ligation: Yes Past Surgical History Gynecologic Surgery: Yes (tubal ligation, epesiotomy) Hysterectomy: No Tonsillectomy: Yes Social History Alcohol Use: No Tobacco Use: No Substance Use: No Allergies-Medications (Allergen,Severity, Reaction): Coded Allergies: Adhesives (Verified Allergy, Severe, SKIN RASH, 03/24/17) Benzoin (Verified Allergy, Severe, TINCTURE BENZOIN, 03/24/17) Betadine (Verified Allergy, Severe, Hives, 03/24/17) Latex (Verified Allergy, Severe, Rash, 03/24/17) Penicillin (Verified Allergy, Severe, BLISTERS, 03/24/17) Amoxicillin (Verified Allergy, Unknown, 03/24/17) Ampicillin (Verified Allergy, Unknown, 03/24/17) Coconut (Verified Allergy, Unknown, 03/24/17) Contrast Media (Verified Allergy, Unknown, 03/24/17) Grape (Verified Allergy, Unknown, 03/24/17) Kiwi (Verified Allergy, Unknown, 03/24/17) Multivitamins (Verified Allergy, Unknown, 03/24/17) Raisin (Verified Allergy, Unknown, 03/24/17) Shellfish (Verified Allergy, Unknown, 03/24/17) [place] (Verified Allergy, Unknown, 03/24/17) *MDRO Multi-Drug Resistant Organism (Verified Adverse Reaction, Unknown, Cleared 12/08/16, 03/24/17) 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 MRSA PCR screen NEGATIVE 07/12/15 & 12/08/16 Cleared per Infection Control Uncoded Allergies: SILVER/ JEWLERY (Adverse Reaction, Severe, NUMBNESS TO AREA, 02/04/13) Reported Meds & Prescriptions Reported Meds & Active Scripts Active Medrol (Methylprednisolone) 4 Mg Tab 4 Mg PO DAILY 8 mg (2 tab) bid x 5 days, then 4 mg (1 tab) bid x 5 days then 4 mg (1 tab) daily x 5 days then stop Wheelchair (Device) 1 Mis Mis 1 Ea .ROUTE DIRECTED [Physical Therapy ] Nebulizer 1 Mis Mis 1 Ea .ROUTE DIRECTED Montelukast (Montelukast Sodium) 10 Mg Tab 10 Mg PO HS Pantoprazole (Pantoprazole Sodium) 40 Mg Tab 40 Mg PO DAILY Advair Diskus Inh (Fluticasone-Salmeterol Inh) 500-50 Mcg/Blist Aer 1 Puff INH BID Rinse mouth after use. Ventolin Hfa 18 GM Inh (Albuterol Sulfate) 90 Mcg/Act Aer 2 Puff INH Q4H PRN Albuterol Neb (Albuterol Sulfate) 2.5 Mg/3 Ml Neb 2.5 Mg NEB Q4HR NEB While awake Review of Systems Except as stated in HPI: all other systems reviewed are Neg Physical Exam Narrative GENERAL: Well-nourished, well-developed patient. SKIN: Warm and dry. HEAD: Normocephalic and atraumatic. EYES: No injection or drainage. ENT: No nasal drainage noted. NECK: Supple, trachea midline. CARDIOVASCULAR: Regular rate and rhythm RESPIRATORY: Breath sounds equal bilaterally at apices. No accessory muscle use. GASTROINTESTINAL: Abdomen soft, non-tender, nondistended. EXTREMITIES: No edema. BACK: Mild tenderness over lumbar paraspinal without deformity or step-off, no CVA tenderness NEUROLOGICAL: Awake and alert. Patient able to wiggle toes, will not lift legs off the bed, no weakness to arms. Normal speech. States has been this way for 5 months Data Data Last Documented VS Vital Signs Date Time Temp Pulse Resp B/P Pulse Ox O2 Delivery O2 Flow Rate FiO2 03/24/17 22:43 97.5 03/24/17 22:42 100 Room Air 03/24/17 21:25 84 22 135/79 Orders Complete Blood Count With Diff (03/24/17 22:23) Comprehensive Metabolic Panel (03/24/17 22:23) Urinalysis - C+S If Indicated (03/24/17 22:23) Lipase (03/24/17 22:23) Iv Access Insert/Monitor (03/24/17 22:23) Oximetry (03/24/17 22:23) Creatine Kinase (Cpk) (03/24/17 22:23) Ed Urine Pregnancytest Poc (03/24/17 22:23) Chest, Single Ap (03/24/17 ) Sodium Chlor 0.9% 1000 Ml Inj (Ns 1000 M (03/24/17 22:30) Ketorolac Inj (Toradol Inj) (03/24/17 22:30) Ondansetron Inj (Zofran Inj) (03/24/17 22:30) Potassium Chloride Eff (K-Lyte Cl Eff) (03/25/17 00:15) Cath For Specimen (03/25/17 00:13) Labs Laboratory Tests Test 03/24/17 03/25/17 23:00 00:33 White Blood Count 7.7 TH/MM3 Red Blood Count 4.31 MIL/MM3 Hemoglobin 12.4 GM/DL Hematocrit 37.1 % Mean Corpuscular Volume 86.1 FL Mean Corpuscular Hemoglobin 28.9 PG Mean Corpuscular Hemoglobin 33.6 % Concent Red Cell Distribution Width 13.8 % Platelet Count 196 TH/MM3 Mean Platelet Volume 8.6 FL Neutrophils (%) (Auto) 63.5 % Lymphocytes (%) (Auto) 22.4 % Monocytes (%) (Auto) 9.8 % Eosinophils (%) (Auto) 3.7 % Basophils (%) (Auto) 0.6 % Neutrophils # (Auto) 4.9 TH/MM3 Lymphocytes # (Auto) 1.7 TH/MM3 Monocytes # (Auto) 0.8 TH/MM3 Eosinophils # (Auto) 0.3 TH/MM3 Basophils # (Auto) 0.0 TH/MM3 CBC Comment DIFF FINAL Differential Comment Sodium Level 143 MEQ/L Potassium Level 3.1 MEQ/L Chloride Level 110 MEQ/L Carbon Dioxide Level 24.3 MEQ/L Anion Gap 9 MEQ/L Blood Urea Nitrogen 15 MG/DL Creatinine 0.68 MG/DL Estimat Glomerular Filtration 105 ML/MIN Rate Random Glucose 123 MG/DL Calcium Level 8.2 MG/DL Total Bilirubin 0.4 MG/DL Aspartate Amino Transf 9 U/L (AST/SGOT) Alanine Aminotransferase 22 U/L (ALT/SGPT) Alkaline Phosphatase 75 U/L Total Creatine Kinase 33 U/L Total Protein 6.4 GM/DL Albumin 3.2 GM/DL Lipase 94 U/L Urine Color YELLOW Urine Turbidity CLOUDY Urine pH 8.0 Urine Specific [place] 1.015 Urine Protein NEG mg/dL Urine Glucose (UA) NEG mg/dL Urine Ketones NEG mg/dL Urine Occult Blood NEG Urine Nitrite NEG Urine Bilirubin NEG Urine Urobilinogen LESS THAN 2.0 MG/DL Urine Leukocyte Esterase NEG Urine Squamous Epithelial <1 /hpf Cells Urine Amorphous Sediment OCC Urine Mucus FEW /lpf Microscopic Urinalysis Comment CULT NOT INDICATED MDM Medical Decision Making Medical Screen Exam Complete: Yes Emergency Medical Condition: Yes Medical Record Reviewed: Yes (past history confirm, recent hospitalization reviewed) Interpretation(s) CBC & BMP Diagram 03/24/17 23:00 Last 24 hours Impressions Chest X-Ray 03/24/17 0000 Signed Impressions: Service Date/Time: Friday, March 24, 2017 22:34 - CONCLUSION: No acute disease. Aden Pro MD Mild hypokalemia replaced Differential Diagnosis UTI, medication effect, anemia, musculoskeletal, Narrative Course Will check blood work, chest x-ray, urinalysis and reevaluate Labs without emergent findings, chest x-ray no acute, patient will give urine sample. Patient now laying with legs bent and on her side and when I first came into room she was moving her legs. ed workup no acute, Patient denies any new complaints and states that they are feeling better. all questions answered. Patient knows that follow up is incumbent on them and to return to the emergency room immediately if new or worsening symptoms develop. Patient given strict return precautions, vitals reviewed and are normal, agrees to further workup as an outpatient. Diagnosis Primary Impression: Back pain Qualified Code: M54.5 - Acute bilateral low back pain without sciatica Additional Impression: Hypokalemia Patient Instructions: General Instructions Additional Instructions: return as needed, follow with primary monday, tylenol as needed Med/Other Pt SpecificInfo: No Change to Meds Disposition: 01 DISCHARGE HOME Condition: Stable Janine Gary MD Mar 25, 2017 00:34
[2017-03-25 00:58] LABS: BLOOD, URINE NEG (NEG); COMMENT (UR) CULT NOT INDICATED; CULTURE IF INDICATED CULT NOT INDICATED; GLUCOSE,URINE NEG (NEG); KETONE, URINE NEG (NEG); MUCUS URINE FEW /lpf (OCC); NITRITE,URINE NEG (NEG); SQUAMOUS EPITHELIAL CELL URINE <1 /hpf (0-5); URINE COLOR YELLOW (YELLW/STRAW)
== END 2017-03-25 01:21 | disposition home or self-care (01) ==
LOC: NEPC 21:22
DX: M54.5 Low back pain (principal); E87.6 Hypokalemia
CPT/HCPCS: 71010; 80053; 81001; 82550; 83690; 84703; 85025; 96374; 96375; 99284; J1885; J2405; J7030; P9612

== ENCOUNTER 2017-09-29 22:42 | Emergency (ER) | payer OTHER ==
[~2017-09-29] VITALS: Ht 165.1 cm; Wt 71.0 kg
[2017-09-29 22:43] VITALS: BP 115/74; PULSE 68; RESP 18; TEMP 98.6; O2SAT 100
[2017-09-29] MEDS ORDERED: methylPREDNISolone SOD SUCC 125 MG/2 ML VIAL IV PUSH ONE (23:00)
[2017-09-29] MEDS ORDERED: SODIUM CHLORIDE 0.9% FLUSH 10 ML FLUSH IVF PRN (23:00)
[2017-09-29] MEDS ORDERED: ASPIRIN 81 MG CHEW TAB PO ONE (23:00)
[2017-09-29 23:03] VITALS: BP_SYST 142; BP_SYST 144; BP_DIAS 80; BP_DIAS 81; PULSE 84; RESP 18; TEMP 98.2; O2SAT 96
[2017-09-29] MEDS: RESP: ALBUTEROL 2.5 MG/IPRATROPIUM 0.5 MG NEB (SCH) INH (23:06)
--- NOTE | 2017-09-29 23:11 | PD ---
HPI Chief Complaint: Chest Pain Time Seen by Provider: 22:56 Travel History International Travel<30 days: No Contact w/Intl Traveler<30days: No Traveled to known affect area: No History of Present Illness HPI 27-year-old female presents to the emergency department by private transportation the care of her significant other for evaluation of shortness of breath and chest tightness. According to the patient she recently had a new dog in her home and recently gave the dog away but this evening approximately one hour prior to arrival to the emergency department started developing shortness of breath with wheezing and chest pain. Patient states she feels like something is pressing or sitting on her chest. Patient used her nebulizer and rescue inhaler at home without symptom relief. Patient is currently not illness oral steroid. Patient also experienced chills but denies any fever. No productive cough. 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 Patient has not been nonambulatory since hospitalization reportedly in 12/2016 after admission for status asthmaticus. PFSH Past Medical History Narrative Medical Asthma anemia heart murmur GM contreras tonsillectomy tubal ligation; no tobacco use ; nursing notes reviewed Hx Anticoagulant Therapy: No Anemia: Yes Asthma: Yes Heart Rhythm Problems: Yes (murmur hx per pt) Cancer: No Cardiovascular Problems: Yes Chemotherapy: No Cerebrovascular Accident: Yes Diabetes: No Diminished Hearing: No Endocrine: No Genitourinary: Yes Immune Disorder: Yes (Carries MS gene) Kidney Stones: Yes Musculoskeletal: Yes (hx of paralysis this year. Paraplegic) Neurologic: Yes Psychiatric: No Reproductive: No Respiratory: Yes Immunizations Current: Yes Seizures: Yes Sleep Apnea: Yes ?: Unknown : 4 Para: 4 Miscarriage: 0 Tubal Ligation: Yes Past Surgical History Gynecologic Surgery: Yes (tubal ligation, epesiotomy) Hysterectomy: No Tonsillectomy: Yes Social History Alcohol Use: No Tobacco Use: No Substance Use: No Allergies-Medications (Allergen,Severity, Reaction): Coded Allergies: adhesive (Unverified Allergy, Severe, SKIN RASH, 09/29/17) benzoin (Unverified Allergy, Severe, TINCTURE BENZOIN, 09/29/17) latex (Unverified Allergy, Severe, Rash, 09/29/17) penicillin G (Unverified Allergy, Severe, BLISTERS, 09/29/17) povidone-iodine (Unverified Allergy, Severe, Hives, 09/29/17) storax (Unverified Allergy, Severe, TINCTURE BENZOIN, 09/29/17) alisa balsam (Unverified Allergy, Severe, TINCTURE BENZOIN, 09/29/17) amoxicillin (Unverified Allergy, Unknown, 09/29/17) ampicillin (Unverified Allergy, Unknown, 09/29/17) coconut (Unverified Allergy, Unknown, 09/29/17) diatrizoate meglumine (Unverified Allergy, Unknown, 09/29/17) gadobenic acid (Unverified Allergy, Unknown, 09/29/17) gadodiamide (Unverified Allergy, Unknown, 09/29/17) gadoteridol (Unverified Allergy, Unknown, 09/29/17) grape (Unverified Allergy, Unknown, 09/29/17) iodixanol (Unverified Allergy, Unknown, 09/29/17) iohexol (Unverified Allergy, Unknown, 09/29/17) kiwi (Unverified Allergy, Unknown, 09/29/17) vitamins (Unverified Allergy, Unknown, 09/29/17) shellfish derived (Unverified Allergy, Unknown, 09/29/17) strawberry (Unverified Allergy, Unknown, 09/29/17) *MDRO Multi-Drug Resistant Organism (Verified Adverse Reaction, Unknown, Cleared 12/08/16, 09/29/17) 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 MRSA PCR screen NEGATIVE 07/12/15 & 12/08/16 Cleared per Infection Control Uncoded Allergies: SILVER/ JEWLERY (Adverse Reaction, Severe, NUMBNESS TO AREA, 02/04/13) Reported Meds & Prescriptions Reported Meds & Active Scripts Active Medrol (Methylprednisolone) 4 Mg Tab 4 Mg PO DAILY 8 mg (2 tab) bid x 5 days, then 4 mg (1 tab) bid x 5 days then 4 mg (1 tab) daily x 5 days then stop Wheelchair (Device) 1 Mis Mis 1 Ea .ROUTE DIRECTED [Physical Therapy ] Nebulizer 1 Mis Mis 1 Ea .ROUTE DIRECTED Montelukast (Montelukast Sodium) 10 Mg Tab 10 Mg PO HS Pantoprazole (Pantoprazole Sodium) 40 Mg Tab 40 Mg PO DAILY Advair Diskus Inh (Fluticasone-Salmeterol Inh) 500-50 Mcg/Blist Aer 1 Puff INH BID Rinse mouth after use. Ventolin Hfa 18 GM Inh (Albuterol Sulfate) 90 Mcg/Act Aer 2 Puff INH Q4H PRN Albuterol Neb (Albuterol Sulfate) 2.5 Mg/3 Ml Neb 2.5 Mg NEB Q4HR NEB While awake Reported Tramadol (Tramadol HCl) 50 Mg Tab 50 Mg PO Q8H PRN Gabapentin 100 Mg Cap 100 Mg PO BID Review of Systems Except as stated in HPI: all other systems reviewed are Neg Physical Exam Narrative GENERAL: Well-developed well-nourished female sitting upright on exam stretcher mild respiratory distress SKIN: Warm and dry. HEAD: Normocephalic. EYES: No scleral icterus. No injection or drainage. NECK: Supple, trachea midline. No JVD or lymphadenopathy. CARDIOVASCULAR: Regular rate and rhythm without murmurs, gallops, or rubs. RESPIRATORY: Breath sounds equal bilaterally diminished breath sounds. No accessory muscle use. GASTROINTESTINAL: Abdomen soft, non-tender, nondistended. MUSCULOSKELETAL: No cyanosis, or edema. BACK: Nontender without obvious deformity. No CVA tenderness. Data Data Last Documented VS Vital Signs Date Time Temp Pulse Resp B/P (MAP) Pulse Ox O2 Delivery O2 Flow Rate FiO2 09/29/17 23:03 96 Room Air 09/29/17 23:03 98.2 84 18 144/81 (102) 142/80 (100) Orders Orders Electrocardiogram (09/29/17 22:56) Basic Metabolic Panel (Bmp) (09/29/17 22:56) Ckmb (Isoenzyme) Profile (09/29/17 22:56) Complete Blood Count With Diff (09/29/17 22:56) Magnesium (Mg) (09/29/17 22:56) Prothrombin Time / Inr (Pt) (09/29/17 22:56) Act Partial Throm Time (Ptt) (09/29/17 22:56) Troponin I (09/29/17 22:56) Chest, Single Ap (09/29/17 22:56) Ecg Monitoring (09/29/17 22:56) Bilateral Bp Monitoring (09/29/17 22:56) Iv Access Insert/Monitor (09/29/17 22:56) Oximetry (09/29/17 22:56) Oxygen Administration (09/29/17 22:56) Aspirin Chew (Aspirin Chew) (09/29/17 23:00) Sodium Chloride 0.9% Flush (Ns Flush) (09/29/17 23:00) Methylprednisolone So Succ Inj (Solumedr (09/29/17 23:00) Albuterol-Ipratropium Neb (Duoneb Neb) (09/29/17 23:00) Ed Discharge Order (09/30/17 00:07) Labs Laboratory Tests Test 09/29/17 23:05 White Blood Count 7.2 TH/MM3 Red Blood Count 4.62 MIL/MM3 Hemoglobin 13.6 GM/DL Hematocrit 39.9 % Mean Corpuscular Volume 86.4 FL Mean Corpuscular Hemoglobin 29.5 PG Mean Corpuscular Hemoglobin Concent 34.1 % Red Cell Distribution Width 13.1 % Platelet Count 229 TH/MM3 Mean Platelet Volume 8.9 FL Neutrophils (%) (Auto) 53.6 % Lymphocytes (%) (Auto) 32.1 % Monocytes (%) (Auto) 6.3 % Eosinophils (%) (Auto) 7.1 % Basophils (%) (Auto) 0.9 % Neutrophils # (Auto) 3.9 TH/MM3 Lymphocytes # (Auto) 2.3 TH/MM3 Monocytes # (Auto) 0.5 TH/MM3 Eosinophils # (Auto) 0.5 TH/MM3 Basophils # (Auto) 0.1 TH/MM3 CBC Comment DIFF FINAL Differential Comment Prothrombin Time 10.2 SEC Prothromb Time International Ratio 1.0 RATIO Activated Partial Thromboplast Time 25.9 SEC Blood Urea Nitrogen 13 MG/DL Creatinine 0.71 MG/DL Random Glucose 100 MG/DL Calcium Level 8.3 MG/DL Magnesium Level 1.8 MG/DL Sodium Level 139 MEQ/L Potassium Level 3.4 MEQ/L Chloride Level 107 MEQ/L Carbon Dioxide Level 23.7 MEQ/L Anion Gap 8 MEQ/L Estimat Glomerular Filtration Rate 100 ML/MIN Total Creatine Kinase 40 U/L Troponin I LESS THAN 0.02 NG/ML MDM Medical Decision Making Medical Screen Exam Complete: Yes Emergency Medical Condition: Yes Medical Record Reviewed: Yes Interpretation(s) CBC & BMP Diagram 12/15/17 23:05 Calcium Level 8.3 L, Magnesium Level 1.8 Vital Signs Date Time Temp Pulse Resp B/P (MAP) Pulse Ox O2 Delivery O2 Flow Rate FiO2 09/29/17 23:03 96 Room Air 09/29/17 23:03 98.2 84 18 144/81 (102) 96 Room Air 142/80 (100) 09/29/17 23:03 96 Room Air 09/29/17 22:43 98.6 68 18 115/74 (88) 100 Room Air EKG normal sinus rhythm rate [address]-T changes no acute ST elevation or ectopy Differential Diagnosis Chest pain atypical chest pain ACS ID exacerbation asthma in the thorax PE pneumonia Narrative Course Patient was on telecommunications manager and continuous pulse oximetry IV access obtained patient administered Solu-Medrol 125 mg IV and DuoNeb updrafts 2 ordered EKG performed which shows sinus rhythm rate [address] elevation nonspecific ST segment depression inferiorly; medical record reviewed. At 12 AM patient feels clinically improved is hours being discharged home denies any chest pain or shortness of breath after updraft treatments. Patient were lab values imaging study and EKG showed no acute injury pattern. Patient is encouraged to follow closely with her primary care provider return to the emergency for for any concerns. Diagnosis Primary Impression: Atypical chest pain Additional Impression: Asthma attack Referrals: Primary Care Physician call for appointment Patient Instructions: General Instructions Additional Instructions: Encourage increase fluid hydration Continue current medications as prescribed Return to the emergency for any concerns or change in condition May use as tolerated Zyrtec 10 mg daily for allergic symptoms may also use Zantac 150 twice daily for allergy symptoms Increase fluid hydration Monitor temperature for fever take acetaminophen/Tylenol as tolerated as needed for fever 100.4F or greater Disposition: 01 DISCHARGE HOME Condition: Stable Bobbi King MD Sep 29, 2017 23:11
[2017-09-29 23:20] LABS: AUTOMATED NEUTROPHIL # 3.9 TH/MM3 (1.8-7.7); BASOPHIL # 0.1 TH/MM3 (0-0.2); BASOPHIL % 0.9 % (0.0-2.0); EOSINOPHIL # 0.5 TH/MM3 (0-0.4); EOSINOPHIL % 7.1 % (0.0-4.0); HEMATOCRIT 39.9 % (35.0-46.0); HEMOGLOBIN 13.6 GM/DL (11.6-15.3); LYMPH % 32.1 % (9.0-44.0); LYMPHOCYTE # 2.3 TH/MM3 (1.0-4.8); MEAN CELL VOLUME 86.4 FL (80.0-100.0); MEAN CORPUSCULAR HEMOGLOBIN 29.5 PG (27.0-34.0); MEAN CORPUSCULAR HGB CONC 34.1 % (32.0-36.0); MEAN PLATELET VOLUME 8.9 FL (7.0-11.0); MONO % 6.3 % (0.0-8.0); MONOCYTE # 0.5 TH/MM3 (0-0.9); NEUT % 53.6 % (16.0-70.0); PLATELET COUNT 229 TH/MM3 (150-450); RED BLOOD COUNT 4.62 MIL/MM3 (4.00-5.30); RED CELL DISTRIBUTION WIDTH 13.1 % (11.6-17.2); WHITE BLOOD COUNT 7.2 TH/MM3 (4.0-11.0)
[2017-09-29 23:31] LABS: PROTHROMBIN TIME - PATIENT 10.2 SEC (9.8-11.6)
[2017-09-29 23:34] LABS: BICARBONATE 23.7 MEQ/L (21.0-32.0); BLOOD UREA NITROGEN 13 MG/DL (7-18); CALCIUM 8.3 MG/DL (8.5-10.1); CHLORIDE 107 MEQ/L (98-107); CREATININE 0.71 MG/DL (0.50-1.00); GLOMERULAR FILTRATION RATE 100 ML/MIN (>89); GLUCOSE,RANDOM 100 MG/DL (74-106); MAGNESIUM 1.8 MG/DL (1.5-2.5); SODIUM (NA) 139 MEQ/L (136-145)
[2017-09-29 23:39] LABS: TROPONIN I LESS THAN 0.02 NG/ML (0.02-0.05)
--- NOTE | 2017-09-29 23:57 | RADRPT ---
EXAM DATE/TIME: 09/29/2017 23:14 [facility] COMPARISON: CHEST SINGLE AP, March 24, 2017, 22:34. INDICATIONS : Chest pain. Sort of breath. MEDICAL HISTORY : HAD. History of congenital retinal diorder-with tunnel vision. ? Valvula r disorder. HTN. Asthma. Parapalegic. SURGICAL HISTORY : Tubal ligation. ENCOUNTER: Initial ACUITY: 1 day PAIN SCORE: 6/10 LOCATION: Right chest posterior, scapular area. FINDINGS: Single AP view of the chest. The lungs are clear. Cardiomediastinal silhouette within normal limits. No evidence of pleural effusion or pneumothorax. CONCLUSION: No acute cardiopulmonary disease identified. Mikel Dooley MD on September 29, 2017 at 23:56 Board Certified Radiologist. This report was verified electronically.
[2017-09-30] MEDS ORDERED: GABA100C4 PO (00:16)
[2017-09-30] MEDS ORDERED: TRAM50TA PO (00:16)
--- NOTE | 2017-09-30 10:42 | EKG ---
Date Performed: 09/29/2017 Time Performed: 22:58:33 PTAGE: 27 years EKG: Sinus rhythm NONSPECIFIC ST & T-WAVE ABNORMALITY BORDERLINE ECG NO PREVIOUS TRACING DOCTOR: Raymundo Rodriguez Interpretating Date/Time 09/30/2017 10:40:39
== END 2017-09-30 00:48 | disposition home or self-care (01) ==
LOC: NEPC 22:42
DX: R07.89 Other chest pain (principal); R94.31 Abnormal electrocardiogram [ECG] [EKG]; J45.909 Unspecified asthma, uncomplicated; G82.20 Paraplegia, unspecified; D64.9 Anemia, unspecified; R56.9 Unspecified convulsions; Z86.73 Personal history of transient ischemic attack (TIA), and cerebral infarction without residual deficits; Z79.51 Long term (current) use of inhaled steroids; Z79.899 Other long term (current) drug therapy
CPT/HCPCS: 71010; 80048; 82550; 83735; 84484; 85025; 85610; 85730; 93005; 94640; 94664; 96374; 99285; J2930

== ENCOUNTER 2017-12-15 20:16 | Inpatient (IN) | payer OTHER ==
[~2017-12-15] VITALS: Ht 175.3 cm; Wt 80.8 kg
[~2017-12-15 20:16] MED LIST changes: +GABA100C4 PO; +TRAM50TA PO
[2017-12-15 20:37] VITALS: BP 113/71; PULSE 128; RESP 20; TEMP 100.4; O2SAT 96
[2017-12-15] MEDS ORDERED: SODIUM CHLOR 0.9% 1000 ML INJ 100 ML IV ONE (21:58)
[2017-12-15] MEDS ORDERED: SODIUM CHLOR 0.9% 1000 ML INJ 1,000 ML IV ONE ×2 (21:58)
[2017-12-15] MEDS ORDERED: ACETAMINOPHEN 325 MG TAB PO ONE (22:00)
[2017-12-15] MEDS ORDERED: HYDROmorphone HCL PF 1 MG/ML VIAL IV PUSH ONE (22:00)
[2017-12-15] MEDS ORDERED: ONDANSETRON HCL 4 MG/2 ML VIAL IV PUSH ONE (22:00)
--- NOTE | 2017-12-15 22:14 | PD ---
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 Sudden onset. No alleviating or exacerbating factors reported. Patient states that she since developed bilateral upper quadrant abdominal pain. She states that she has been unable to take little sips of fluids here and there. On presentation she complains of 8/10 generalized headache. She denies dizziness, vision changes. She denies changes in bowel habits or difficulties with urination. She endorses nonproductive cough. She did not receive this years flu vaccination. She states that she has no sensation below the waist and her fianc transfers her to the bathroom periodically for urination. She treated at home with Zofran with no improvement in symptoms. PFSH Past Medical History Hx Anticoagulant Therapy: No Anemia: Yes Asthma: Yes Heart Rhythm Problems: Yes (murmur hx per pt) Cancer: No Cardiovascular Problems: Yes Chemotherapy: No Cerebrovascular Accident: Yes Diabetes: No Diminished Hearing: No Endocrine: No Genitourinary: Yes Immune Disorder: Yes (Carries MS gene) Kidney Stones: Yes Musculoskeletal: Yes (hx of paralysis this year. Paraplegic) Neurologic: Yes Psychiatric: No Reproductive: No Respiratory: Yes Immunizations Current: Yes Seizures: Yes Sleep Apnea: Yes Tetanus Vaccination: < 5 Years Influenza Vaccination: No ?: Not : 4 Para: 4 Miscarriage: 0 Tubal Ligation: Yes Past Surgical History Gynecologic Surgery: Yes (tubal ligation, epesiotomy) Hysterectomy: No Tonsillectomy: Yes Social History Alcohol Use: No Tobacco Use: No Substance Use: No Allergies-Medications (Allergen,Severity, Reaction): Coded Allergies: adhesive (Unverified Allergy, Severe, SKIN RASH, 12/15/17) benzoin (Unverified Allergy, Severe, TINCTURE BENZOIN, 12/15/17) latex (Unverified Allergy, Severe, Rash, 12/15/17) penicillin G (Unverified Allergy, Severe, BLISTERS, 12/15/17) povidone-iodine (Unverified Allergy, Severe, Hives, 12/15/17) storax (Unverified Allergy, Severe, TINCTURE BENZOIN, 12/15/17) alisa balsam (Unverified Allergy, Severe, TINCTURE BENZOIN, 12/15/17) amoxicillin (Unverified Allergy, Unknown, 12/15/17) ampicillin (Unverified Allergy, Unknown, 12/15/17) coconut (Unverified Allergy, Unknown, 12/15/17) diatrizoate meglumine (Unverified Allergy, Unknown, 12/15/17) gadobenic acid (Unverified Allergy, Unknown, 12/15/17) gadodiamide (Unverified Allergy, Unknown, 12/15/17) gadoteridol (Unverified Allergy, Unknown, 12/15/17) grape (Unverified Allergy, Unknown, 12/15/17) iodixanol (Unverified Allergy, Unknown, 12/15/17) iohexol (Unverified Allergy, Unknown, 12/15/17) kiwi (Unverified Allergy, Unknown, 12/15/17) pregabalin (Verified Allergy, Unknown, Seizures, 12/15/17) vitamins (Unverified Allergy, Unknown, 12/15/17) shellfish derived (Unverified Allergy, Unknown, 12/15/17) strawberry (Unverified Allergy, Unknown, 12/15/17) *MDRO Multi-Drug Resistant Organism (Verified Adverse Reaction, Unknown, Cleared 12/08/16, 12/15/17) 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 MRSA PCR screen NEGATIVE 07/12/15 & 12/08/16 Cleared per Infection Control Uncoded Allergies: SILVER/ JEWLERY (Adverse Reaction, Severe, NUMBNESS TO AREA, 02/04/13) Reported Meds & Prescriptions Reported Meds & Active Scripts Active Medrol (Methylprednisolone) 4 Mg Tab 4 Mg PO DAILY 8 mg (2 tab) bid x 5 days, then 4 mg (1 tab) bid x 5 days then 4 mg (1 tab) daily x 5 days then stop Wheelchair (Device) 1 Mis Mis 1 Ea .ROUTE DIRECTED [Physical Therapy ] Nebulizer 1 Mis Mis 1 Ea .ROUTE DIRECTED Montelukast (Montelukast Sodium) 10 Mg Tab 10 Mg PO HS Pantoprazole (Pantoprazole Sodium) 40 Mg Tab 40 Mg PO DAILY Advair Diskus Inh (Fluticasone-Salmeterol Inh) 500-50 Mcg/Blist Aer 1 Puff INH BID Rinse mouth after use. Ventolin Hfa 18 GM Inh (Albuterol Sulfate) 90 Mcg/Act Aer 2 Puff INH Q4H PRN Albuterol Neb (Albuterol Sulfate) 2.5 Mg/3 Ml Neb 2.5 Mg NEB Q4HR NEB While awake Reported Tramadol (Tramadol HCl) 50 Mg Tab 50 Mg PO Q8H PRN Gabapentin 100 Mg Cap 100 Mg PO BID Review of Systems Except as stated in HPI: all other systems reviewed are Neg Physical Exam Narrative GENERAL: Well-nourished, well-developed ill-appearing white female in no acute distress. SKIN: Focused skin assessment warm/dry. HEAD: Normocephalic. EYES: No scleral icterus. No injection or drainage. NECK: Supple, trachea midline. No JVD or lymphadenopathy. CARDIOVASCULAR: Regular rate and rhythm without murmurs, gallops, or rubs. RESPIRATORY: Breath sounds tight and wheezy bilaterally. No accessory muscle use. GASTROINTESTINAL: Abdomen soft, nondistended. Tender to palpation in bilateral upper abdominal quadrants. No suprapubic tenderness. Active bowel sounds. MUSCULOSKELETAL: No cyanosis, or edema. NEUROLOGICAL: Awake and alert. Cranial nerves II through XII intact. Motor and sensory grossly within normal limits in the upper body. Five out of 5 muscle strength in all muscle groups of the upper body. Lower body flaccid. Normal speech. BACK: Nontender without obvious deformity. No CVA tenderness. Data Data Last Documented VS Vital Signs Date Time Temp Pulse Resp B/P (MAP) Pulse Ox O2 Delivery O2 Flow Rate FiO2 12/15/17 23:00 98 Nasal Cannula 2.00 12/15/17 22:23 118 20 112/69 (83) 12/15/17 20:37 100.4 Orders Orders Influenzae A/B Antigen (12/15/17 21:52) Sepsis Workup Initiated (12/15/17 ) Complete Blood Count With Diff (12/15/17 21:58) Comprehensive Metabolic Panel (12/15/17 21:58) Prothrombin Time / Inr (Pt) (12/15/17 21:58) Act Partial Throm Time (Ptt) (12/15/17 21:58) Lactic Acid Sepsis Protocol (12/15/17 21:58) Lipase (12/15/17 21:58) Urinalysis - C+S If Indicated (12/15/17 21:58) Blood Culture (12/15/17 21:58) Chest, Single Ap (12/15/17 21:58) Blood Glucose (12/15/17 21:58) Ecg Monitoring (12/15/17 21:58) Iv Access Insert/Monitor (12/15/17 21:58) Oximetry (12/15/17 21:58) Acetaminophen (Tylenol) (12/15/17 22:00) Ondansetron Inj (Zofran Inj) (12/15/17 22:00) Ct Brain W/O Iv Contrast(Rout) (12/15/17 21:58) Sodium Chlor 0.9% 1000 Ml Inj (Ns 1000 M (12/15/17 21:58) Sodium Chlor 0.9% 1000 Ml Inj (Ns 1000 M (12/15/17 21:58) Sodium Chlor 0.9% 1000 Ml Inj (Ns 1000 M (12/15/17 21:58) Ed Urine Pregnancytest Poc (12/15/17 21:58) Cath For Specimen (12/15/17 21:58) Ct Abd/Pel W/O Iv Contrast (12/15/17 21:58) Hydromorphone Pf Inj (Dilaudid Pf Inj) (12/15/17 22:15) Ceftriaxone Inj (Rocephin Inj) (12/15/17 23:00) Azithromycin Inj (Zithromax Inj) (12/15/17 23:00) Methylprednisolone So Succ Inj (Solumedr (12/15/17 23:00) Albuterol-Ipratropium Neb (Duoneb Neb) (12/15/17 23:00) Urine Culture (12/15/17 22:30) Admit Order (Ed Use Only) (12/15/17 23:36) Labs Laboratory Tests Test 12/15/17 22:25 12/15/17 22:30 White Blood Count 4.8 TH/MM3 Red Blood Count 4.45 MIL/MM3 Hemoglobin 13.1 GM/DL Hematocrit 37.9 % Mean Corpuscular Volume 85.2 FL Mean Corpuscular Hemoglobin 29.4 PG Mean Corpuscular Hemoglobin Concent 34.5 % Red Cell Distribution Width 13.6 % Platelet Count 184 TH/MM3 Mean Platelet Volume 8.9 FL Neutrophils (%) (Auto) 76.5 % Lymphocytes (%) (Auto) 14.9 % Monocytes (%) (Auto) 8.1 % Eosinophils (%) (Auto) 0.2 % Basophils (%) (Auto) 0.3 % Neutrophils # (Auto) 3.7 TH/MM3 Lymphocytes # (Auto) 0.7 TH/MM3 Monocytes # (Auto) 0.4 TH/MM3 Eosinophils # (Auto) 0.0 TH/MM3 Basophils # (Auto) 0.0 TH/MM3 CBC Comment DIFF FINAL Differential Comment Prothrombin Time 11.1 SEC Prothromb Time International Ratio 1.1 RATIO Activated Partial Thromboplast Time 29.0 SEC Blood Urea Nitrogen 10 MG/DL Creatinine 0.79 MG/DL Random Glucose 95 MG/DL Total Protein 7.5 GM/DL Albumin 3.4 GM/DL Calcium Level 8.8 MG/DL Alkaline Phosphatase 95 U/L Aspartate Amino Transf (AST/SGOT) 14 U/L Alanine Aminotransferase (ALT/SGPT) 13 U/L Total Bilirubin 0.5 MG/DL Sodium Level 137 MEQ/L Potassium Level 3.4 MEQ/L Chloride Level 104 MEQ/L Carbon Dioxide Level 24.3 MEQ/L Anion Gap 9 MEQ/L Estimat Glomerular Filtration Rate 88 ML/MIN Lactic Acid Level 1.3 mmol/L Lipase 83 U/L Urine Color LIGHT-RED Urine Turbidity HAZY Urine pH 6.0 Urine Specific [place] 1.028 Urine Protein 100 mg/dL Urine Glucose (UA) NEG mg/dL Urine Ketones 10 mg/dL Urine Occult Blood LARGE Urine Nitrite NEG Urine Bilirubin NEG Urine Urobilinogen 2.0 MG/DL Urine Leukocyte Esterase LARGE Urine RBC /hpf Urine WBC 54 /hpf Urine Squamous Epithelial Cells 6 /hpf Urine Bacteria MOD /hpf Urine Mucus MANY /lpf Microscopic Urinalysis Comment CATH-CULTURE IND MDM Medical Decision Making Medical Screen Exam Complete: Yes Emergency Medical Condition: Yes Differential Diagnosis asthma exacerbation versus UTI versus PNA versus sepsis versus other Narrative Course 37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 Also complains of bilateral upper quadrant abdominal pain. On presentation she complains of 8/10 generalized headache. She denies dizziness, vision changes. She denies changes in bowel habits or difficulties with urination. She endorses nonproductive cough. She did not receive this years flu vaccination. She states that she has no sensation below the waist and her fianc transfers her to the bathroom periodically for urination. She treated at home with Zofran with no improvement in symptoms. Temp 100.4, pulse 128 EP 113/71 on presentation. On exam this is an ill-appearing white female in no acute distress. She has lower extremity flaccidity. There is tenderness to palpation in bilateral upper quadrants. Breath sounds are tight and wheezy bilaterally. Sepsis fluid resuscitation was initiated. Patient was administered 4 mg Zofran, 0.5 mg Dilaudid, 650 mg Tylenol, 60 mg of Solu-Medrol and 3 duo nebs. CBC & BMP Diagram 12/15/17 22:25 Total Protein 7.5, Albumin 3.4, Calcium Level 8.8, Alkaline Phosphatase 95, Aspartate Amino Transf (AST/SGOT) 14 L, Alanine Aminotransferase (ALT/SGPT) 13, Total Bilirubin 0.5 INR 1.1. UA: Light red, hazy, 10 ketone, large occult blood, large leukocyte Estrace, innumerable rbc's, 54 WBCs, moderate bacteria. Culture pending. CXR: Focal patchy opacity within the left lung base consistent with probable pneumonia. Patient was administered 1 g of Rocephin IV. Plan to admit to the medicine service. CT abdomen pending at this time. Patient signed out to Dr. Marquez at end of shift. Please see his note for disposition. Yelena Montiel Dec 15, 2017 22:14
[2017-12-15] MEDS ORDERED: HYDROmorphone HCL PF 2 MG/ML VIAL IV PUSH ONE (22:15)
[2017-12-15 22:22] VITALS: RESP 16; O2SAT 98
[2017-12-15 22:23] VITALS: BP 112/69; PULSE 118; RESP 20; O2SAT 98
--- NOTE | 2017-12-15 22:39 | RADRPT ---
EXAM DATE/TIME: 12/15/2017 22:09 [facility] COMPARISON: CHEST SINGLE AP, September 29, 2017, 23:14. INDICATIONS : Fever and shortness of breath. MEDICAL HISTORY : HTN. Asthma. SURGICAL HISTORY : Tubal ligation. ENCOUNTER: Initial ACUITY: 2 days PAIN SCORE: 0/10 LOCATION: chest FINDINGS: Focal patchy opacity is noted within the left lung base consistent with probable pneumonia. Clinical correlation is recommended. Right lung is clear. The heart is normal. CONCLUSION: Focal patchy opacity within the left lung base consistent with probable pneumonia. Clinical correlati on is recommended. Shahid Talley MD on December 15, 2017 at 22:37 Board Certified Radiologist. This report was verified electronically.
[2017-12-15 22:49] LABS: AUTOMATED NEUTROPHIL # 3.7 TH/MM3 (1.8-7.7); BASOPHIL % 0.3 % (0.0-2.0); EOSINOPHIL % 0.2 % (0.0-4.0); HEMATOCRIT 37.9 % (35.0-46.0); HEMOGLOBIN 13.1 GM/DL (11.6-15.3); LYMPH % 14.9 % (9.0-44.0); LYMPHOCYTE # 0.7 TH/MM3 (1.0-4.8); MEAN CELL VOLUME 85.2 FL (80.0-100.0); MEAN CORPUSCULAR HEMOGLOBIN 29.4 PG (27.0-34.0); MEAN CORPUSCULAR HGB CONC 34.5 % (32.0-36.0); MEAN PLATELET VOLUME 8.9 FL (7.0-11.0); MONO % 8.1 % (0.0-8.0); MONOCYTE # 0.4 TH/MM3 (0-0.9); NEUT % 76.5 % (16.0-70.0); PLATELET COUNT 184 TH/MM3 (150-450); RED BLOOD COUNT 4.45 MIL/MM3 (4.00-5.30); RED CELL DISTRIBUTION WIDTH 13.6 % (11.6-17.2); WHITE BLOOD COUNT 4.8 TH/MM3 (4.0-11.0)
[2017-12-15 22:54] LABS: BACTERIA, URINE MOD /hpf; BILIRUBIN, URINE NEG (NEG); BLOOD, URINE LARGE (NEG); GLUCOSE,URINE NEG (NEG); KETONE, URINE 10 mg/dL (NEG); MUCUS URINE MANY /lpf (OCC); NITRITE,URINE NEG (NEG); SQUAMOUS EPITHELIAL CELL URINE 6 /hpf (0-5); URINE COLOR LIGHT-RED (YELLW/STRAW); URINE LEUKOCYTE ESTERASE LARGE (NEG)
[2017-12-15 23:00] VITALS: O2SAT 98
[2017-12-15] MEDS ORDERED: cefTRIAXone INJ 1,000 MG in SODIUM CHLORIDE 0.9% INJ 100 ML IV ONE (23:00)
[2017-12-15] MEDS ORDERED: AZITHROMYCIN INJ 500 MG in SODIUM CHLOR 0.9% 250 ML INJ 250 ML IV ONE (23:00)
[2017-12-15] MEDS ORDERED: methylPREDNISolone SOD SUCC 125 MG/2 ML VIAL IV PUSH ONE (23:00)
[2017-12-15 23:06] LABS: INTERNATIONAL NORMALIZED RATIO 1.1 RATIO; PROTHROMBIN TIME - PATIENT 11.1 SEC (9.8-11.6)
[2017-12-15] MEDS: RESP: ALBUTEROL 2.5 MG/IPRATROPIUM 0.5 MG NEB (SCH) INH ×2 (23:08→23:09)
[2017-12-15 23:09] LABS: ALBUMIN 3.4 GM/DL (3.4-5.0); ALT (GPT) 13 U/L (10-53); AST (GOT) 14 U/L (15-37); BICARBONATE 24.3 MEQ/L (21.0-32.0); BLOOD UREA NITROGEN 10 MG/DL (7-18); CALCIUM 8.8 MG/DL (8.5-10.1); CHLORIDE 104 MEQ/L (98-107); CREATININE 0.79 MG/DL (0.50-1.00); GLOMERULAR FILTRATION RATE 88 ML/MIN (>89); GLUCOSE,RANDOM 95 MG/DL (74-106); SODIUM (NA) 137 MEQ/L (136-145)
--- NOTE | 2017-12-15 23:09 | RADRPT ---
EXAM DATE/TIME: 12/15/2017 22:40 [facility] COMPARISON: CT ABDOMEN & PELVIS W/O CONTRAST, August 06, 2016, 9:35. INDICATIONS : Upper quadrant abdomen pain with nausea and vomiting. ORAL CONTRAST: No oral contrast ingested. RADIATION DOSE: 9.83 CTDIvol (mGy) MEDICAL HISTORY : Cerebrovascular disease. Paraplegic. SURGICAL HISTORY : Tubal ligation. ENCOUNTER: Initial ACUITY: 1 day PAIN SCALE: 7/10 LOCATION: abdomen TECHNIQUE: Volumetric scanning of the abdomen and pelvis was performed. Using automated exposure control and ad justment of the mA and/or kV according to patient size, radiation dose was kept as low as reasonably achievable to obtain optimal diagnostic quality images. DICOM format image data is available electro nically for review and comparison. FINDINGS: LOWER LUNGS: There is focal alveolar consolidation involving left lower lobe consistent with probable lobar pneumo hero. Clinical correlation is recommended. LIVER: Homogeneous density without lesion. There is no dilation of the biliary tree. No calcified gallston es. SPLEEN: Normal size without lesion. PANCREAS: Within normal limits. KIDNEYS: Normal in size and shape. There is no mass, stone, or hydronephrosis. ADRENAL GLANDS: Within normal limits. VASCULAR: There is no aortic aneurysm. BOWEL/MESENTERY: Minimal uncomplicated colonic diverticulosis is noted. ABDOMINAL WALL: Within normal limits. RETROPERITONEUM: There is no lymphadenopathy. BLADDER: No wall thickening or mass. REPRODUCTIVE: Within normal limits. INGUINAL: There is no lymphadenopathy or hernia. MUSCULOSKELETAL: Within normal limits for patient age. CONCLUSION: 1. Focal alveolar consolidation within left lower lobe consistent with probable lobar pneumonia. Clin ical correlation is recommended. 2. Minimal uncomplicated colonic diverticulosis. Shahid Talley MD on December 15, 2017 at 23:05 Board Certified Radiologist. This report was verified electronically.
[2017-12-15 23:12] LABS: ALKALINE PHOSPHATASE 95 U/L (45-117); TOTAL BILIRUBIN ADULT 0.5 MG/DL (0.2-1.0); TOTAL PROTEIN 7.5 GM/DL (6.4-8.2)
--- NOTE | 2017-12-15 23:16 | RADRPT ---
EXAM DATE/TIME: 12/15/2017 22:38 [facility] COMPARISON: CT BRAIN W/O CONTRAST, March 14, 2017, 23:50. INDICATIONS : Cephalgia. RADIATION DOSE: 56.35 CTDIvol (mGy) MEDICAL HISTORY : Cerebrovascular disease. Seizures. Paraplegic. SURGICAL HISTORY : Tubal ligation. ENCOUNTER: Initial ACUITY: 1 day PAIN SCALE: 5/10 LOCATION: cranial TECHNIQUE: Multiple contiguous axial images were obtained of the head. Using automated exposure control and adj ustment of the mA and/or kV according to patient size, radiation dose was kept as low as reasonably a chievable to obtain optimal diagnostic quality images. DICOM format image data is available electro nically for review and comparison. FINDINGS: CEREBRUM: The ventricles are normal for age. No evidence of midline shift, mass lesion, hemorrhage or acute in farction. No extra-axial fluid collections are seen. POSTERIOR FOSSA: The cerebellum and brainstem are intact. The 4th ventricle is midline. The cerebellopontine angle i s unremarkable. EXTRACRANIAL: The visualized portion of the orbits is intact. Small mucous retention cyst is noted within left maxi llary sinus. SKULL: The calvaria is intact. No evidence of skull fracture. CONCLUSION: 1. No acute intracranial abnormality. 2. Mucous retention cyst within left maxillary sinus. Shahid Talley MD on December 15, 2017 at 23:13 Board Certified Radiologist. This report was verified electronically.
--- NOTE | 2017-12-15 23:38 | PD ---
Data Data Last Documented VS Vital Signs Date Time Temp Pulse Resp B/P (MAP) Pulse Ox O2 Delivery O2 Flow Rate FiO2 12/15/17 23:00 98 Nasal Cannula 2.00 12/15/17 22:23 118 20 112/69 (83) 12/15/17 20:37 100.4 Orders Orders Influenzae A/B Antigen (12/15/17 21:52) Sepsis Workup Initiated (12/15/17 ) Complete Blood Count With Diff (12/15/17 21:58) Comprehensive Metabolic Panel (12/15/17 21:58) Prothrombin Time / Inr (Pt) (12/15/17 21:58) Act Partial Throm Time (Ptt) (12/15/17 21:58) Lactic Acid Sepsis Protocol (12/15/17 21:58) Lipase (12/15/17 21:58) Urinalysis - C+S If Indicated (12/15/17 21:58) Blood Culture (12/15/17 21:58) Chest, Single Ap (12/15/17 21:58) Blood Glucose (12/15/17 21:58) Ecg Monitoring (12/15/17 21:58) Iv Access Insert/Monitor (12/15/17 21:58) Oximetry (12/15/17 21:58) Acetaminophen (Tylenol) (12/15/17 22:00) Ondansetron Inj (Zofran Inj) (12/15/17 22:00) Ct Brain W/O Iv Contrast(Rout) (12/15/17 21:58) Sodium Chlor 0.9% 1000 Ml Inj (Ns 1000 M (12/15/17 21:58) Sodium Chlor 0.9% 1000 Ml Inj (Ns 1000 M (12/15/17 21:58) Sodium Chlor 0.9% 1000 Ml Inj (Ns 1000 M (12/15/17 21:58) Ed Urine Pregnancytest Poc (12/15/17 21:58) Cath For Specimen (12/15/17 21:58) Ct Abd/Pel W/O Iv Contrast (12/15/17 21:58) Hydromorphone Pf Inj (Dilaudid Pf Inj) (12/15/17 22:15) Ceftriaxone Inj (Rocephin Inj) (12/15/17 23:00) Azithromycin Inj (Zithromax Inj) (12/15/17 23:00) Methylprednisolone So Succ Inj (Solumedr (12/15/17 23:00) Albuterol-Ipratropium Neb (Duoneb Neb) (12/15/17 23:00) Urine Culture (12/15/17 22:30) Admit Order (Ed Use Only) (12/15/17 23:36) Labs Laboratory Tests Test 12/15/17 22:25 12/15/17 22:30 White Blood Count 4.8 TH/MM3 Red Blood Count 4.45 MIL/MM3 Hemoglobin 13.1 GM/DL Hematocrit 37.9 % Mean Corpuscular Volume 85.2 FL Mean Corpuscular Hemoglobin 29.4 PG Mean Corpuscular Hemoglobin Concent 34.5 % Red Cell Distribution Width 13.6 % Platelet Count 184 TH/MM3 Mean Platelet Volume 8.9 FL Neutrophils (%) (Auto) 76.5 % Lymphocytes (%) (Auto) 14.9 % Monocytes (%) (Auto) 8.1 % Eosinophils (%) (Auto) 0.2 % Basophils (%) (Auto) 0.3 % Neutrophils # (Auto) 3.7 TH/MM3 Lymphocytes # (Auto) 0.7 TH/MM3 Monocytes # (Auto) 0.4 TH/MM3 Eosinophils # (Auto) 0.0 TH/MM3 Basophils # (Auto) 0.0 TH/MM3 CBC Comment DIFF FINAL Differential Comment Prothrombin Time 11.1 SEC Prothromb Time International Ratio 1.1 RATIO Activated Partial Thromboplast Time 29.0 SEC Blood Urea Nitrogen 10 MG/DL Creatinine 0.79 MG/DL Random Glucose 95 MG/DL Total Protein 7.5 GM/DL Albumin 3.4 GM/DL Calcium Level 8.8 MG/DL Alkaline Phosphatase 95 U/L Aspartate Amino Transf (AST/SGOT) 14 U/L Alanine Aminotransferase (ALT/SGPT) 13 U/L Total Bilirubin 0.5 MG/DL Sodium Level 137 MEQ/L Potassium Level 3.4 MEQ/L Chloride Level 104 MEQ/L Carbon Dioxide Level 24.3 MEQ/L Anion Gap 9 MEQ/L Estimat Glomerular Filtration Rate 88 ML/MIN Lactic Acid Level 1.3 mmol/L Lipase 83 U/L Urine Color LIGHT-RED Urine Turbidity HAZY Urine pH 6.0 Urine Specific [place] 1.028 Urine Protein 100 mg/dL Urine Glucose (UA) NEG mg/dL Urine Ketones 10 mg/dL Urine Occult Blood LARGE Urine Nitrite NEG Urine Bilirubin NEG Urine Urobilinogen 2.0 MG/DL Urine Leukocyte Esterase LARGE Urine RBC /hpf Urine WBC 54 /hpf Urine Squamous Epithelial Cells 6 /hpf Urine Bacteria MOD /hpf Urine Mucus MANY /lpf Microscopic Urinalysis Comment CATH-CULTURE IND MDM Supervised Visit with TEODORO: Yes Narrative Course I, Dr. Marquez, have reviewed the advance practice practitioner's documentation and am in agreement, met with the patient face to face, made the diagnosis, and the medical decision making was done by me. See her note for further details. 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 Workup shows a left lower lobe pneumonia. Patient was started on IV Rocephin and IV azithromycin. She also has a UTI. She'll be admitted for further treatment and evaluation of sepsis, pneumonia, UTI. Case discussed with hospitalist Dr. Doshi who will admit the patient to her service. Patient was made aware of all findings and plan. Diagnosis Primary Impression: Sepsis Qualified Codes: A41.9 - Sepsis, unspecified organism Additional Impressions: Pneumonia Qualified Codes: J18.1 - Lobar pneumonia, unspecified organism UTI (urinary tract infection) Qualified Codes: N39.0 - Urinary tract infection, site not specified; R31.9 - Hematuria, unspecified Admitting Information Admitting Physician Requests: Ruddy Wong MD Dec 15, 2017 23:38
--- NOTE | 2017-12-15 23:41 | HHI.HP ---
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 Per boyfriend, pt had fever last night and took Tylenol with improvement. Today had episode of nausea/vomiting which resolved after taking Zofran, however fever and nausea/vomiting recurred. Symptoms moderate to severe. Unable to take PO due to ongoing symptoms. Boyfriend also notes bleeding w/ urination-states he transfers her from wheelchair at specific times each day, today noted some hematuria. Reports pt w/ amenorrhea x4-5yrs. On arrival, BP 113/71, HR 128, O2 sat 96% on RA, Temp 100.4. CBC unremarkable except for elevated neutrophil count. Chemistry essentially unremarkable except for GFR 88. Lactic Acid normal. INR 1.1. UA positive for hematuria and UTI. CT Head with no acute intracranial abnormality. CXR with patchy opacity left lung base consistent with pneumonia. CT Abdomen/Pelvis with focal alveolar consolidation left lower lobe, uncomplicated colonic diverticulosis. S /p Rocephin/Zithro in ER. Review of Systems Except as stated in HPI: all other systems reviewed are Neg ROS: 14 point review of systems otherwise negative. Past Family Social History Past Medical History PMH: Asthma, Guillain [place] and Paraplegia Past Surgical History PAST SURGICAL HISTORY: Tubal Ligation, Episiotomy, Tonsillectomy Allergies: Coded Allergies: adhesive (Unverified Allergy, Severe, SKIN RASH, 12/15/17) benzoin (Unverified Allergy, Severe, TINCTURE BENZOIN, 12/15/17) latex (Unverified Allergy, Severe, Rash, 12/15/17) penicillin G (Unverified Allergy, Severe, BLISTERS, 12/15/17) povidone-iodine (Unverified Allergy, Severe, Hives, 12/15/17) storax (Unverified Allergy, Severe, TINCTURE BENZOIN, 12/15/17) alisa balsam (Unverified Allergy, Severe, TINCTURE BENZOIN, 12/15/17) amoxicillin (Unverified Allergy, Unknown, 12/15/17) ampicillin (Unverified Allergy, Unknown, 12/15/17) coconut (Unverified Allergy, Unknown, 12/15/17) diatrizoate meglumine (Unverified Allergy, Unknown, 12/15/17) gadobenic acid (Unverified Allergy, Unknown, 12/15/17) gadodiamide (Unverified Allergy, Unknown, 12/15/17) gadoteridol (Unverified Allergy, Unknown, 12/15/17) grape (Unverified Allergy, Unknown, 12/15/17) iodixanol (Unverified Allergy, Unknown, 12/15/17) iohexol (Unverified Allergy, Unknown, 12/15/17) kiwi (Unverified Allergy, Unknown, 12/15/17) pregabalin (Verified Allergy, Unknown, Seizures, 12/15/17) vitamins (Unverified Allergy, Unknown, 12/15/17) shellfish derived (Unverified Allergy, Unknown, 12/15/17) strawberry (Unverified Allergy, Unknown, 12/15/17) *MDRO Multi-Drug Resistant Organism (Verified Adverse Reaction, Unknown, Cleared 12/08/16, 12/15/17) 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 MRSA PCR screen NEGATIVE 07/12/15 & 12/08/16 Cleared per Infection Control Uncoded Allergies: SILVER/ JEWLERY (Adverse Reaction, Severe, NUMBNESS TO AREA, 02/04/13) Family History PAST FAMILY HISTORY: Reviewed. No h/o DM or CAD Social History PAST SOCIAL HISTORY: Negative for alcohol, tobacco or drugs. Physical Exam Vital Signs Vital Signs Date Time Temp Pulse Resp B/P (MAP) Pulse Ox O2 Delivery O2 Flow Rate FiO2 12/15/17 23:00 98 Nasal Cannula 2.00 12/15/17 22:23 118 20 112/69 (83) 98 Nasal Cannula 2.00 12/15/17 22:22 16 98 Room Air 12/15/17 20:37 100.4 128 20 113/71 (85) 96 Room Air Physical Exam PE: GENERAL: Young female in no acute distress, drowsy. Boyfriend at bedside sitting in her wheelchair. HEENT: PERRLA, EOMI. No scleral icterus or conjunctival pallor. No lid lag or facial droop. CARDIOVASCULAR: Regular rate and rhythm. No obvious murmurs to auscultation. No chest tenderness to palpation. RESPIRATORY: No obvious rhonchi or wheezing. Clear to auscultation. Breath sounds equal bilaterally. GASTROINTESTINAL: Abdomen soft, non-tender, nondistended. BS normal. MUSCULOSKELETAL: Extremities without clubbing, cyanosis, or edema. No obvious deformities. NEUROLOGICAL: Awake, alert and oriented x4. No focal neurologic deficits. Moving both upper and lower extremities spontaneously. Laboratory Laboratory Tests Test 12/15/17 22:25 12/15/17 22:30 White Blood Count 4.8 Red Blood Count 4.45 Hemoglobin 13.1 Hematocrit 37.9 Mean Corpuscular Volume 85.2 Mean Corpuscular Hemoglobin 29.4 Mean Corpuscular Hemoglobin Concent 34.5 Red Cell Distribution Width 13.6 Platelet Count 184 Mean Platelet Volume 8.9 Neutrophils (%) (Auto) 76.5 Lymphocytes (%) (Auto) 14.9 Monocytes (%) (Auto) 8.1 Eosinophils (%) (Auto) 0.2 Basophils (%) (Auto) 0.3 Neutrophils # (Auto) 3.7 Lymphocytes # (Auto) 0.7 Monocytes # (Auto) 0.4 Eosinophils # (Auto) 0.0 Basophils # (Auto) 0.0 CBC Comment DIFF FINAL Differential Comment Prothrombin Time 11.1 Prothromb Time International Ratio 1.1 Activated Partial Thromboplast Time 29.0 Blood Urea Nitrogen 10 Creatinine 0.79 Random Glucose 95 Total Protein 7.5 Albumin 3.4 Calcium Level 8.8 Alkaline Phosphatase 95 Aspartate Amino Transf (AST/SGOT) 14 Alanine Aminotransferase (ALT/SGPT) 13 Total Bilirubin 0.5 Sodium Level 137 Potassium Level 3.4 Chloride Level 104 Carbon Dioxide Level 24.3 Anion Gap 9 Estimat Glomerular Filtration Rate 88 Lactic Acid Level 1.3 Lipase 83 Urine Color LIGHT-RED Urine Turbidity HAZY Urine pH 6.0 Urine Specific [place] 1.028 Urine Protein 100 Urine Glucose (UA) NEG Urine Ketones 10 Urine Occult Blood LARGE Urine Nitrite NEG Urine Bilirubin NEG Urine Urobilinogen 2.0 Urine Leukocyte Esterase LARGE Urine RBC Urine WBC 54 Urine Squamous Epithelial Cells 6 Urine Bacteria MOD Urine Mucus MANY Microscopic Urinalysis Comment CATH-CULTURE IND Date/Time Source Procedure Growth Status 12/15/17 22:25 Blood Peripheral Aerobic Blood Culture Pending Received 12/15/17 22:25 Blood Peripheral Anaerobic Blood Culture Pending Received 12/15/17 22:30 Urine Catheterized Urine Urine Culture Pending Received Result Diagram: 12/15/17222412/15/172224 Caprinamadeo VTE Risk Assessment Rikirinamadeo VTE Risk Assessment: No/Low Risk (score <= 1) Caprini Risk Assessment Model Point Value = 1 Point Value = 2 Point Value = 3 Point Value = 5 Age 41-60 Minor surgery BMI > 25 kg/m2 Swollen legs Varicose veins or History of unexplained or recurrent spontaneous Oral contraceptives or hormone replacement Sepsis (< 1 month) Serious lung disease, including pneumonia (< 1 month) Abnormal pulmonary function Acute myocardial infarction Congestive heart failure (< 1 month) History of inflammatory bowel disease Medical patient at bed rest Age 61-74 Arthroscopic surgery Major open surgery (> 45 min) Laparoscopic surgery (> 45 min) Malignancy Confined to bed (> 72 hours) Immobilizing plaster cast Central venous access Age >= 75 History of VTE Family history of VTE Factor V Leiden Prothrombin [id number] Lupus anticoagulant Anticardiolipin antibodies Elevated serum homocysteine Heparin-induced thrombocytopenia Other congenital or acquired thrombophilia Stroke (< 1 month) Elective arthroplasty Hip, pelvis, or leg fracture Acute spinal cord injury (< 1 month) Prophylaxis Regimen Total Risk Factor Score Risk Level Prophylaxis Regimen 0-1 Low Early ambulation 2 Moderate Order ONE of the following: *Sequential Compression Device (SCD) *Heparin 5000 units SQ BID 3-4 Higher Order ONE of the following medications: *Heparin 5000 units SQ TID *Enoxaparin/Lovenox 40 mg SQ daily (WT < 150 kg, CrCl > 30 mL/min) *Enoxaparin/Lovenox 30 mg SQ daily (WT < 150 kg, CrCl > 10-29 mL/min) *Enoxaparin/Lovenox 30 mg SQ BID (WT < 150 kg, CrCl > 30 mL/min) AND/OR *Sequential Compression Device (SCD) 5 or more Highest Order ONE of the following medications: *Heparin 5000 units SQ TID (Preferred with Epidurals) *Enoxaparin/Lovenox 40 mg SQ daily (WT < 150 kg, CrCl > 30 mL/min) *Enoxaparin/Lovenox 30 mg SQ daily (WT < 150 kg, CrCl > 10-29 mL/min) *Enoxaparin/Lovenox 30 mg SQ BID (WT < 150 kg, CrCl > 30 mL/min) AND *Sequential Compression Device (SCD) Assessment and Plan Problem List: (1) Sepsis ICD Code: A41.9 - Sepsis, unspecified organism Status: Acute (2) PNA (pneumonia) ICD Code: J18.9 - Pneumonia, unspecified organism (3) UTI (urinary tract infection) ICD Code: N39.0 - Urinary tract infection, site not specified Status: Acute (4) H/O Guillain-[place] syndrome ICD Code: Z86.69 - Personal history of other diseases of the nervous system and sense organs Assessment and Plan A/P: 1. Sepsis: Temp 100.4, HR 128, Source-PNA/UTI, s/p Blood Cultures, IV Rocephin /Zithro. Follow up cultures, continue IV Abx, IVF for hydration. 2. PNA: CXR w/ LLL infiltrate, images reviewed by me. Continue IV Abx, DuoNeb prn, resume home Symbicort. Mucinex. Check Sputum Cultures. 3. UTI: U/a w/ UTI and hematuria. Follow up urine cultures, continue w/ IV Abx/IVF. Hematuria likely secondary to UTI, recommended that pt get repeat U/a as outpatient to eval for persistent hematuria. 4. H/o Guillain [place]: reports paralysis, wheelchair bound. Activity as tolerated. 5. DVT Prophylaxis: SCD/Teds. 6. Social work for d/c planning as needed. 7. Case discussed w/ ER physician at length, labs/records/imaging reviewed by me. Physician Certification 2 Midnight Certification Type: Admission for Inpatient Services Order for Inpatient Services The services are ordered in accordance with Medicare regulations or non- Medicare payer requirements, as applicable. In the case of services not specified as inpatient-only, they are appropriately provided as inpatient services in accordance with the 2-midnight benchmark. Estimated LOS (days): 2 days is the estimated time the patient will need to remain in the hospital, assuming treatment plan goals are met and no additional complications. Post-Hospital Plan: Not yet determined Problem Qualifiers (1) Sepsis: Qualified Codes: A41.9 - Sepsis, unspecified organism (2) UTI (urinary tract infection): Qualified Codes: N39.0 - Urinary tract infection, site not specified; R31.9 - Hematuria, unspecified Gauri Doshi MD Dec 15, 2017 23:41
[2017-12-15] MEDS ORDERED: SENNOSIDES 8.6 MG TAB PO PRN (23:45)
[2017-12-15] MEDS ORDERED: MAGNESIUM HYDROXIDE SUSP 30 ML CUP PO PRN (23:45)
[2017-12-15] MEDS ORDERED: LACTULOSE SYRUP 20 GM/30 ML CUP PO PRN (23:45)
[2017-12-15] MEDS ORDERED: ACETAMINOPHEN/HYDROcodone 325 MG/5 MG TAB PO PRN (23:45)
[2017-12-15] MEDS ORDERED: ACETAMINOPHEN 325 MG TAB PO PRN (23:45)
[2017-12-15] MEDS ORDERED: BISACODYL 10 MG SUPP RECTAL PRN (23:45)
[2017-12-15] MEDS ORDERED: SODIUM CHLORIDE 0.9% FLUSH 10 ML FLUSH IV FLUSH PRN (23:45)
[2017-12-15] MEDS ORDERED: ALBUTEROL SULFATE 90 MCG/ACT HFA 8 GM INHALER INH PRN (23:45)
[2017-12-16 02:19] VITALS: PULSE 82; RESP 16; O2SAT 97
[2017-12-16] MEDS: ONDANSETRON HCL 4 MG/2 ML VIAL IVP PRN ×3 (05:18→19:59)
[2017-12-16] MEDS: SODIUM CHLOR 0.9% 1000 ML INJ 1,000 ML IV SCH ×2 (05:18→20:13)
[2017-12-16 08:37] VITALS: BP 115/56; PULSE 78; RESP 17; TEMP 97.4; O2SAT 98
--- NOTE | 2017-12-16 08:49 | HHI.PR ---
Subjective Remarks in no acute distress. sob and cough improving. has some pain to the LUQ. has some nausea but with no emesis this morning. T max 100.4. Objective Vitals Vital Signs Date Time Temp Pulse Resp B/P (MAP) Pulse Ox O2 Delivery O2 Flow Rate FiO2 12/16/17 08:37 97.4 78 17 115/56 (75) 98 12/16/17 04:59 12/16/17 02:19 82 16 97 12/15/17 23:00 98 Nasal Cannula 2.00 12/15/17 22:23 118 20 112/69 (83) 98 Nasal Cannula 2.00 12/15/17 22:22 16 98 Room Air 12/15/17 20:37 100.4 128 20 113/71 (85) 96 Room Air I/O 12/15/17 12/15/17 12/15/17 12/16/17 12/16/17 12/16/17 07:00 15:00 23:00 07:00 15:00 23:00 Intake Total 250 ml Balance 250 ml Intake IV Total 250 ml Result Diagram: 12/15/17222412/15/172224 Imaging Last Impressions Head CT 12/15/172157 Signed Impressions: Service Date/Time: Friday, December 15, 2017 22:38 - CONCLUSION: 1. No acute intracranial abnormality. 2. Mucous retention cyst within left maxillary sinus. Shahid Talley MD Chest X-Ray 12/15/172157 Signed Impressions: Service Date/Time: Friday, December 15, 2017 22:09 - CONCLUSION: Focal patchy opacity within the left lung base consistent with probable pneumonia. Clinical correlation is recommended. Shahid Talley MD Abdomen/Pelvis CT 12/15/172157 Signed Impressions: Service Date/Time: Friday, December 15, 2017 22:40 - CONCLUSION: 1. Focal alveolar consolidation within left lower lobe consistent with probable lobar pneumonia. Clinical correlation is recommended. 2. Minimal uncomplicated colonic diverticulosis. Shahid Talley MD Objective Remarks GENERAL: This is a well-nourished, well-developed patient, in no apparent distress. CARDIOVASCULAR: Regular rate and regular rhythm without murmurs, gallops, or rubs. RESPIRATORY: Clear to auscultation. Breath sounds equal bilaterally. No wheezes , rales, or rhonchi. GASTROINTESTINAL: Abdomen soft, mild LUQ tenderness, nondistended. Normal, active bowel sounds MUSCULOSKELETAL: Extremities without clubbing, cyanosis, or edema. NEURO: Alert & Oriented x4 to person, place, time, situation. Moves all ext x4 Medications and IVs Inpatient Medications Acetaminophen (Tylenol) 650 mg Q6H PRN PO FEVER/PAIN SCALE 1 TO 2; Start at 23:45 Acetaminophen/ Hydrocodone Bitart ([place] 5-325 Mg) 1 tab Q4H PRN PO PAIN SCALE 3 TO 5; Start 12/15/17 at 23:45 Acetaminophen/ Hydrocodone Bitart ([place] 10-325 Mg) 1 tab Q4H PRN PO PAIN SCALE 6 TO 10; Start 12/15/17 at 23:45 Albuterol Sulfate (Proair Hfa Inh) 2 puff Q4H PRN INH SHORTNESS OF BREATH; Start 12/15/17 at 23:45 Albuterol/ Ipratropium (Duoneb Neb) 1 ampule Q15M INH Last administered on at 23:09; Start 12/15/17 at 23:00; Stop 12/15/17 at 23:31; Status DC Azithromycin 500 mg/Sodium Chloride 250 ml @ 250 mls/hr Q24H IV ; Start at 20:00 Bisacodyl (Dulcolax Supp) 10 mg DAILY PRN RECTAL SEVERE CONSITIPATION / IF NPO ; Start 12/15/17 at 23:45 Budesonide/ Formoterol Fumarate (Symbicort 160-4.5 Mcg Inh) 2 puff BID INH ; Start 12/16/17 at 09:00 Ceftriaxone Sodium 1000 mg/ Sodium Chloride 100 ml @ 200 mls/hr Q24H IV ; Start 12/16/17 at 21:00 Gabapentin (Neurontin) 100 mg BID PO ; Start 12/16/17 at 09:00 Guaifenesin (Mucinex Er) 600 mg BID PO ; Start 12/16/17 at 09:00 Hydromorphone HCl (Dilaudid Pf Inj) 0.5 mg ONCE ONCE IV PUSH Last administered on 12/15/17at 22:19; Start 12/15/17 at 22:15; Stop 12/15/17 at 22:16; Status DC Lactulose (Lactulose Liq) 30 ml DAILY PRN PO SEVERE CONSITIPATION/ IF PO; Start 12/15/17 at 23:45 Magnesium Hydroxide (Milk Of Magnesia Liq) 30 ml Q12H PRN PO Mild constipation ; Start 12/15/17 at 23:45 Methylprednisolone Sodium Succinate (SoluMEDROL INJ) 60 mg ONCE ONCE IV PUSH Last administered on 12/15/17at 23:34; Start 12/15/17 at 23:00; Stop 12/15/17 at 23: 01; Status DC Montelukast Sodium (Singulair) 10 mg HS PO ; Start 12/16/17 at 21:00 Ondansetron HCl (Zofran Inj) 4 mg Q6H PRN IVP NAUSEA OR VOMITING Last administered on 12/16/17at 05:18; Start 12/15/17 at 23:45 Pantoprazole Sodium (Protonix) 40 mg DAILY PO ; Start 12/16/17 at 09:00 Senna/Docusate Sodium (Kisha-Colace) 1 tab BID PO ; Start 12/16/17 at 09:00 Sennosides (Senokot) 17.2 mg Q12H PRN PO Moderate constipation; Start 12/15/17 at 23:45 Sodium Chloride (NS Flush) 2 ml BID IV FLUSH ; Start 12/16/17 at 09:00 A/P Problem List: (1) Sepsis ICD Code: A41.9 - Sepsis, unspecified organism Status: Acute (2) PNA (pneumonia) ICD Code: J18.9 - Pneumonia, unspecified organism (3) UTI (urinary tract infection) ICD Code: N39.0 - Urinary tract infection, site not specified Status: Acute (4) H/O Guillain-[place] syndrome ICD Code: Z86.69 - Personal history of other diseases of the nervous system and sense organs Assessment and Plan 1. Sepsis due to pneumonia/ UTI. Follow up cultures, continue IV Abx, IVF for hydration. 2. PNA: CXR w/ LLL infiltrate. Continue IV Abx, DuoNeb prn, resumed home Symbicort. Mucinex. blood cultures pending. 3. UTI: U/a w/ UTI and hematuria. Follow up urine cultures, continue w/ IV Abx/IVF. Hematuria likely secondary to UTI, recommended that pt get repeat U/a as outpatient to eval for persistent hematuria. 4. H/o Guillain [place]: reports paralysis, wheelchair bound. Activity as tolerated. 5. DVT Prophylaxis: SCD/Teds. Discharge Planning dc home within the next 24-48 hrs if improves and remains afebrile. Problem Qualifiers (1) Sepsis: Qualified Codes: A41.9 - Sepsis, unspecified organism (2) UTI (urinary tract infection): Qualified Codes: N39.0 - Urinary tract infection, site not specified; R31.9 - Hematuria, unspecified Miguel Hodgson MD Dec 16, 2017 08:49
[2017-12-16] MEDS: BUDESONIDE-FORMOTEROL 160/4.5 MCG INHALER INH SCH ×2 (08:58→21:24)
[2017-12-16] MEDS: PANTOPRAZOLE SOD 40 MG DELAYED RELEASE TAB PO SCH (08:58)
[2017-12-16] MEDS: SODIUM CHLORIDE 0.9% FLUSH 10 ML FLUSH IV FLUSH SCH ×2 (08:58→21:23)
[2017-12-16] MEDS: GABAPENTIN 100 MG CAP PO SCH ×2 (08:58→21:22)
[2017-12-16] MEDS: DOCUSATE SODIUM 50 MG/SENNA 8.6 MG TAB PO SCH ×2 (08:58→21:23)
[2017-12-16] MEDS: guaiFENesin E.R. 600 MG TAB PO SCH ×2 (08:58→21:22)
[2017-12-16 10:43] LABS: AUTOMATED NEUTROPHIL # 3.6 TH/MM3 (1.8-7.7); BASOPHIL % 0.1 % (0.0-2.0); HEMATOCRIT 35.4 % (35.0-46.0); HEMOGLOBIN 12.4 GM/DL (11.6-15.3); LYMPH % 8.3 % (9.0-44.0); LYMPHOCYTE # 0.3 TH/MM3 (1.0-4.8); MEAN CELL VOLUME 85.8 FL (80.0-100.0); MEAN CORPUSCULAR HEMOGLOBIN 30.1 PG (27.0-34.0); MEAN CORPUSCULAR HGB CONC 35.1 % (32.0-36.0); MEAN PLATELET VOLUME 8.8 FL (7.0-11.0); MONO % 1.3 % (0.0-8.0); MONOCYTE # 0.1 TH/MM3 (0-0.9); NEUT % 90.3 % (16.0-70.0); PLATELET COUNT 144 TH/MM3 (150-450); RED BLOOD COUNT 4.13 MIL/MM3 (4.00-5.30); RED CELL DISTRIBUTION WIDTH 13.9 % (11.6-17.2)
[2017-12-16 11:02] LABS: ALBUMIN 2.8 GM/DL (3.4-5.0); ALKALINE PHOSPHATASE 84 U/L (45-117); ALT (GPT) 15 U/L (10-53); AST (GOT) 8 U/L (15-37); BICARBONATE 22.6 MEQ/L (21.0-32.0); BLOOD UREA NITROGEN 7 MG/DL (7-18); CALCIUM 8.3 MG/DL (8.5-10.1); CHLORIDE 110 MEQ/L (98-107); GLOMERULAR FILTRATION RATE 121 ML/MIN (>89); GLUCOSE,RANDOM 167 MG/DL (74-106); SODIUM (NA) 141 MEQ/L (136-145); TOTAL BILIRUBIN ADULT 0.2 MG/DL (0.2-1.0); TOTAL PROTEIN 6.5 GM/DL (6.4-8.2)
[2017-12-16 11:35] VITALS: PULSE 74
[2017-12-16 12:30] VITALS: BP 114/66; PULSE 72; RESP 20; TEMP 97.9; O2SAT 100
[2017-12-16 15:57] VITALS: BP 108/57; PULSE 90; RESP 18; TEMP 98.1; O2SAT 99
[2017-12-16] MEDS: ACETAMINOPHEN/HYDROcodone 325 MG/10 MG TAB PO PRN ×2 (16:16→21:22)
[2017-12-16] MEDS ORDERED: KETOROLAC TROMETHAMINE 30 MG/ML (IVP) VIAL IV PUSH ONE (19:45)
[2017-12-16] MEDS: AZITHROMYCIN INJ 500 MG in SODIUM CHLOR 0.9% 250 ML INJ 250 ML IV SCH (19:58)
[2017-12-16 20:14] VITALS: BP 103/54; PULSE 62; PULSE 95; RESP 18; TEMP 98.9; O2SAT 99
[2017-12-16] MEDS: MONTELUKAST SODIUM 10 MG TAB PO SCH (21:23)
[2017-12-16] MEDS: cefTRIAXone INJ 1,000 MG in SODIUM CHLORIDE 0.9% INJ 100 ML IV SCH (21:24)
[2017-12-17] VITALS (12 sets, daily range): BP systolic 92–141; BP diastolic 50–82; PULSE 70–99; RESP 17–20; TEMP 97.4–100.7; O2SAT 91–98
[2017-12-17] MEDS: ACETAMINOPHEN/HYDROcodone 325 MG/10 MG TAB PO PRN (04:37)
[2017-12-17] MEDS: SODIUM CHLOR 0.9% 1000 ML INJ 1,000 ML IV SCH ×2 (05:56→08:53)
--- NOTE | 2017-12-17 08:35 | HHI.PR ---
Subjective Remarks in no acute distress. afebrile. still with pain to the left flank. sob improved and now off oxygen. Objective Vitals Vital Signs Date Time Temp Pulse Resp B/P (MAP) Pulse Ox O2 Delivery O2 Flow Rate FiO2 12/17/17 08:08 98.2 91 18 120/57 (78) 98 12/17/17 05:19 98.5 86 18 95/62 (73) 95 12/17/17 04:16 72 12/17/17 00:34 97.4 73 18 92/50 (64) 97 12/17/17 00:07 70 12/16/17 20:14 98.9 62 18 103/54 (70) 99 12/16/17 20:14 95 12/16/17 15:57 98.1 90 18 108/57 (74) 99 12/16/17 12:30 97.9 72 20 114/66 (82) 100 12/16/17 11:35 74 12/16/17 08:37 97.4 78 17 115/56 (75) 98 I/O 12/16/17 12/16/17 12/16/17 12/17/17 12/17/17 12/17/17 07:00 15:00 23:00 07:00 15:00 23:00 Intake Total 250 ml 240 ml 1349 ml Balance 250 ml 240 ml 1349 ml Intake Oral 240 ml IV Total 250 ml 1349 ml # Voids 2 Result Diagram: 12/16/17 1000 12/16/17 1000 Imaging Last Impressions Head CT 12/15/172157 Signed Impressions: Service Date/Time: Friday, December 15, 2017 22:38 - CONCLUSION: 1. No acute intracranial abnormality. 2. Mucous retention cyst within left maxillary sinus. Shahid Talley MD Chest X-Ray 12/15/172157 Signed Impressions: Service Date/Time: Friday, December 15, 2017 22:09 - CONCLUSION: Focal patchy opacity within the left lung base consistent with probable pneumonia. Clinical correlation is recommended. Shahid Talley MD Abdomen/Pelvis CT 12/15/172157 Signed Impressions: Service Date/Time: Friday, December 15, 2017 22:40 - CONCLUSION: 1. Focal alveolar consolidation within left lower lobe consistent with probable lobar pneumonia. Clinical correlation is recommended. 2. Minimal uncomplicated colonic diverticulosis. Shahid Talley MD Objective Remarks GENERAL: This is a well-nourished, well-developed patient, in no apparent distress. CARDIOVASCULAR: Regular rate and regular rhythm without murmurs, gallops, or rubs. RESPIRATORY: Clear to auscultation. Breath sounds equal bilaterally. No wheezes , rales, or rhonchi. GASTROINTESTINAL: Abdomen soft, mild LUQ tenderness, nondistended. Normal, active bowel sounds MUSCULOSKELETAL: Extremities without clubbing, cyanosis, or edema. NEURO: Alert & Oriented x4 to person, place, time, situation. Medications and IVs Inpatient Medications Acetaminophen (Tylenol) 650 mg Q6H PRN PO FEVER/PAIN SCALE 1 TO 2; Start at 23:45 Acetaminophen/ Hydrocodone Bitart ([place] 5-325 Mg) 1 tab Q4H PRN PO PAIN SCALE 3 TO 5; Start 12/15/17 at 23:45 Acetaminophen/ Hydrocodone Bitart ([place] 10-325 Mg) 1 tab Q4H PRN PO PAIN SCALE 6 TO 10 Last administered on 12/17/17at 04:37; Start 12/15/17 at 23:45 Albuterol Sulfate (Proair Hfa Inh) 2 puff Q4H PRN INH SHORTNESS OF BREATH; Start 12/15/17 at 23:45 Albuterol/ Ipratropium (Duoneb Neb) 1 ampule Q15M INH Last administered on at 23:09; Start 12/15/17 at 23:00; Stop 12/15/17 at 23:31; Status DC Azithromycin 500 mg/Sodium Chloride 250 ml @ 250 mls/hr Q24H IV Last administered on 12/16/17at 19:58; Start 12/16/17 at 20:00 Bisacodyl (Dulcolax Supp) 10 mg DAILY PRN RECTAL SEVERE CONSITIPATION / IF NPO ; Start 12/15/17 at 23:45 Budesonide/ Formoterol Fumarate (Symbicort 160-4.5 Mcg Inh) 2 puff BID INH Last administered on 12/16/17at 21:24; Start 12/16/17 at 09:00 Ceftriaxone Sodium 1000 mg/ Sodium Chloride 100 ml @ 200 mls/hr Q24H IV Last administered on 12/16/17at 21:24; Start 12/16/17 at 21:00 Gabapentin (Neurontin) 100 mg BID PO Last administered on 12/16/17 21:22; Start 12/16/17 at 09:00 Guaifenesin (Mucinex Er) 600 mg BID PO Last administered on 12/16/17 21:22; Start 12/16/17 at 09:00 Hydromorphone HCl (Dilaudid Pf Inj) 0.5 mg ONCE ONCE IV PUSH Last administered on 12/15/17 22:19; Start 12/15/17 at 22:15; Stop 12/15/17 at 22:16; Status DC Ketorolac Tromethamine (Toradol Inj) 30 mg ONCE ONCE IV PUSH Last administered on 12/16/17 19:59; Start 12/16/17 at 19:45; Stop 12/16/17 at 19:47; Status DC Lactulose (Lactulose Liq) 30 ml DAILY PRN PO SEVERE CONSITIPATION/ IF PO; Start 12/15/17 at 23:45 Magnesium Hydroxide (Milk Of Magnesia Liq) 30 ml Q12H PRN PO Mild constipation ; Start 12/15/17 at 23:45 Methylprednisolone Sodium Succinate (SoluMEDROL INJ) 60 mg ONCE ONCE IV PUSH Last administered on 12/15/17at 23:34; Start 12/15/17 at 23:00; Stop 12/15/17 at 23: 01; Status DC Montelukast Sodium (Singulair) 10 mg HS PO Last administered on 12/16/17at 21:23 ; Start 12/16/17 at 21:00 Ondansetron HCl (Zofran Inj) 4 mg Q6H PRN IVP NAUSEA OR VOMITING Last administered on 12/16/17 19:59; Start 12/15/17 at 23:45 Pantoprazole Sodium (Protonix) 40 mg DAILY PO Last administered on 12/16/17 08: 58; Start 12/16/17 at 09:00 Senna/Docusate Sodium (Kisha-Colace) 1 tab BID PO ; Start 12/16/17 at 09:00 Sennosides (Senokot) 17.2 mg Q12H PRN PO Moderate constipation; Start 12/15/17 at 23:45 Sodium Chloride (NS Flush) 2 ml BID IV FLUSH ; Start 12/16/17 at 09:00 A/P Problem List: (1) Sepsis ICD Code: A41.9 - Sepsis, unspecified organism Status: Acute (2) PNA (pneumonia) ICD Code: J18.9 - Pneumonia, unspecified organism (3) UTI (urinary tract infection) ICD Code: N39.0 - Urinary tract infection, site not specified Status: Acute (4) H/O Guillain-[place] syndrome ICD Code: Z86.69 - Personal history of other diseases of the nervous system and sense organs Assessment and Plan 1. Sepsis due to pneumonia/ UTI. Follow up cultures, continue IV Abx, IVF for hydration. 2. PNA: CXR w/ LLL infiltrate. Continue IV Abx, DuoNeb prn, resumed home Symbicort. Mucinex. blood cultures negative- sputum culture pending. 3. UTI: U/a w/ UTI and hematuria. Follow up urine cultures, continue w/ IV Abx/IVF. Hematuria likely secondary to UTI. will check renal US- repeat UA as outpatient. 4. H/o Guillain [place]: reports paralysis, wheelchair bound. Activity as tolerated. 5. DVT Prophylaxis: SCD/Teds. Discharge Planning dc home tomorrow if pain is better controlled- remains afebrile- pending the cultures and renal US. Problem Qualifiers (1) Sepsis: Qualified Codes: A41.9 - Sepsis, unspecified organism (2) UTI (urinary tract infection): Qualified Codes: N39.0 - Urinary tract infection, site not specified; R31.9 - Hematuria, unspecified Miguel Hodgson MD Dec 17, 2017 08:35
[2017-12-17] MEDS ORDERED: ACETAMINOPHEN/HYDROcodone 325 MG/7.5 MG TAB PO PRN (08:45)
[2017-12-17] MEDS: SODIUM CHLORIDE 0.9% FLUSH 10 ML FLUSH IV FLUSH SCH ×2 (08:47→20:39)
[2017-12-17] MEDS: GABAPENTIN 100 MG CAP PO SCH ×2 (08:48→20:39)
[2017-12-17] MEDS: guaiFENesin E.R. 600 MG TAB PO SCH ×2 (08:48→20:39)
[2017-12-17] MEDS: DOCUSATE SODIUM 50 MG/SENNA 8.6 MG TAB PO SCH ×2 (08:48→20:39)
[2017-12-17] MEDS: PANTOPRAZOLE SOD 40 MG DELAYED RELEASE TAB PO SCH (08:48)
[2017-12-17] MEDS: ACETAMINOPHEN/HYDROcodone 325 MG/7.5 MG TAB PO PRN ×3 (08:49→20:39)
[2017-12-17] MEDS: BUDESONIDE-FORMOTEROL 160/4.5 MCG INHALER INH SCH ×2 (08:49→20:40)
--- NOTE | 2017-12-17 10:27 | RADRPT ---
EXAM DATE/TIME: 12/17/2017 09:46 [facility] COMPARISON: CT ABDOMEN & PELVIS W/O CONTRAST, December 15, 2017, 22:40. INDICATIONS : Flank pain. MEDICAL HISTORY : Asthma. Guillain [place]. Paraplegia. Sepsis. Pneumonia. SURGICAL HISTORY : Tubal Ligation. Tonsillectomy. ENCOUNTER: Initial ACUITY: 3 days PAIN SCORE: 6/10 LOCATION: Bilateral flank MEASUREMENTS: RIGHT KIDNEY: 10.2 x 5.8 x 5.0 cm LEFT KIDNEY: 11.6 x 5.7 x 4.7 cm FINDINGS: RIGHT KIDNEY: Renal cortex is normal in thickness and echotexture. No hydronephrosis, stone, or mass. LEFT KIDNEY: Renal cortex is normal in thickness and echotexture. No hydronephrosis, stone, or mass. BLADDER: Within normal limits given the degree of distension. Small left pleural effusion. CONCLUSION: No hydronephrosis. Small left pleural effusion. Bob Bolaños MD FACR on December 17, 2017 at 10:25 Board Certified Radiologist. This report was verified electronically.
[2017-12-17 13:08] LABS: AUTOMATED NEUTROPHIL # 2.7 TH/MM3 (1.8-7.7); BASOPHIL % 0.3 % (0.0-2.0); EOSINOPHIL # 0.1 TH/MM3 (0-0.4); EOSINOPHIL % 1.9 % (0.0-4.0); HEMATOCRIT 32.1 % (35.0-46.0); LYMPH % 18.6 % (9.0-44.0); LYMPHOCYTE # 0.7 TH/MM3 (1.0-4.8); MEAN CORPUSCULAR HEMOGLOBIN 29.7 PG (27.0-34.0); MEAN CORPUSCULAR HGB CONC 34.2 % (32.0-36.0); MEAN PLATELET VOLUME 8.4 FL (7.0-11.0); MONO % 9.1 % (0.0-8.0); MONOCYTE # 0.4 TH/MM3 (0-0.9); NEUT % 70.1 % (16.0-70.0); PLATELET COUNT 148 TH/MM3 (150-450); RED BLOOD COUNT 3.69 MIL/MM3 (4.00-5.30); RED CELL DISTRIBUTION WIDTH 13.8 % (11.6-17.2); WHITE BLOOD COUNT 3.9 TH/MM3 (4.0-11.0)
[2017-12-17] MEDS: ONDANSETRON HCL 4 MG/2 ML VIAL IVP PRN ×2 (15:58→20:34)
[2017-12-17] MEDS: MONTELUKAST SODIUM 10 MG TAB PO SCH (20:39)
[2017-12-17] MEDS: AZITHROMYCIN INJ 500 MG in SODIUM CHLOR 0.9% 250 ML INJ 250 ML IV SCH (20:39)
[2017-12-17] MEDS: cefTRIAXone INJ 1,000 MG in SODIUM CHLORIDE 0.9% INJ 100 ML IV SCH (21:51)
[2017-12-18] VITALS (9 sets, daily range): BP systolic 118–134; BP diastolic 69–88; PULSE 60–95; RESP 16–18; TEMP 98.1–100.8; O2SAT 91–96
[2017-12-18] MEDS: SODIUM CHLOR 0.9% 1000 ML INJ 1,000 ML IV SCH ×3 (00:33→21:23)
[2017-12-18] MEDS: ACETAMINOPHEN/HYDROcodone 325 MG/7.5 MG TAB PO PRN ×2 (04:13→09:00)
[2017-12-18] MEDS: DOCUSATE SODIUM 50 MG/SENNA 8.6 MG TAB PO SCH ×2 (08:59→20:17)
[2017-12-18] MEDS: PANTOPRAZOLE SOD 40 MG DELAYED RELEASE TAB PO SCH (08:59)
[2017-12-18] MEDS: ONDANSETRON HCL 4 MG/2 ML VIAL IVP PRN ×2 (09:00→18:32)
[2017-12-18] MEDS: guaiFENesin E.R. 600 MG TAB PO SCH ×2 (09:00→20:16)
[2017-12-18] MEDS: GABAPENTIN 100 MG CAP PO SCH ×2 (09:00→20:17)
[2017-12-18] MEDS: SODIUM CHLORIDE 0.9% FLUSH 10 ML FLUSH IV FLUSH SCH ×2 (09:01→20:18)
[2017-12-18] MEDS: BUDESONIDE-FORMOTEROL 160/4.5 MCG INHALER INH SCH ×2 (09:02→20:18)
--- NOTE | 2017-12-18 09:15 | HHI.PR ---
Subjective Remarks in no acute distress. but still with some pain to the left flank. T max 100.8. d/w the RN at the bedside. Objective Vitals Vital Signs Date Time Temp Pulse Resp B/P (MAP) Pulse Ox O2 Delivery O2 Flow Rate FiO2 12/18/17 08:26 99.2 87 16 129/78 (95) 91 12/18/17 05:29 100.8 85 17 134/85 (101) 93 12/18/17 00:47 99.6 95 17 128/69 (88) 94 12/18/17 00:09 86 12/17/17 21:07 100.2 99 17 141/72 (95) 94 12/17/17 20:05 89 12/17/17 17:11 87 12/17/17 16:31 100.7 95 19 124/82 (96) 91 12/17/17 12:01 99.2 93 20 109/62 (78) 98 12/17/17 12:00 89 I/O 12/17/17 12/17/17 12/17/17 12/18/17 12/18/17 12/18/17 07:00 15:00 23:00 07:00 15:00 23:00 Intake Total 1349 ml 600 ml Balance 1349 ml 600 ml Intake Oral 600 ml IV Total 1349 ml # Voids 3 Result Diagram: 12/17/17 1155 12/16/17 1000 Imaging Last Impressions Renal Ultrasound 12/17/17 0000 Signed Impressions: Service Date/Time: Sunday, December 17, 2017 09:46 - CONCLUSION: No hydronephrosis. Small left pleural effusion. Bob Bolaños MD FACR Head CT [id number] Signed Impressions: Service Date/Time: Friday, December 15, 2017 22:38 - CONCLUSION: 1. No acute intracranial abnormality. 2. Mucous retention cyst within left maxillary sinus. Shahid Talley MD Chest X-Ray [id number] Signed Impressions: Service Date/Time: Friday, December 15, 2017 22:09 - CONCLUSION: Focal patchy opacity within the left lung base consistent with probable pneumonia. Clinical correlation is recommended. Shahid Talley MD Abdomen/Pelvis CT [id number] Signed Impressions: Service Date/Time: [place], December 15, 2017 22:40 - CONCLUSION: 1. Focal alveolar consolidation within left lower lobe consistent with probable lobar pneumonia. Clinical correlation is recommended. 2. Minimal uncomplicated colonic diverticulosis. Shahid Talley MD Objective Remarks GENERAL: This is a well-nourished, well-developed patient, in no apparent distress. CARDIOVASCULAR: Regular rate and regular rhythm without murmurs, gallops, or rubs. RESPIRATORY: Clear to auscultation. Breath sounds equal bilaterally. No wheezes , rales, or rhonchi. GASTROINTESTINAL: Abdomen soft, mild LUQ tenderness, nondistended. Normal, active bowel sounds MUSCULOSKELETAL: Extremities without clubbing, cyanosis, or edema. NEURO: Alert & Oriented x4 to person, place, time, situation. Medications and IVs Inpatient Medications Acetaminophen (Tylenol) 650 mg Q6H PRN PO FEVER/PAIN SCALE 1 TO 2; Start at 23:45 Acetaminophen/ Hydrocodone Bitart ([place] 5-325 Mg) 1 tab Q4H PRN PO PAIN SCALE 3 TO 5; Start 12/15/17 at 23:45; Stop 12/17/17 at 08:33; Status DC Acetaminophen/ Hydrocodone Bitart ([place] 7.5-325 Mg) 2 tab Q4HR PRN PO PAIN 6- 10 Last administered on 12/18/17at 09:00; Start 12/17/17 at 08:45 Acetaminophen/ Hydrocodone Bitart ([place] 10-325 Mg) 1 tab Q4H PRN PO PAIN SCALE 6 TO 10 Last administered on 12/17/17at 04:37; Start 12/15/17 at 23:45; Stop 12/17/17 at 08:33; Status DC Albuterol Sulfate (Proair Hfa Inh) 2 puff Q4H PRN INH SHORTNESS OF BREATH; Start 12/15/17 at 23:45 Albuterol/ Ipratropium (Duoneb Neb) 1 ampule Q15M INH Last administered on at 23:09; Start 12/15/17 at 23:00; Stop 12/15/17 at 23:31; Status DC Azithromycin 500 mg/Sodium Chloride 250 ml @ 250 mls/hr Q24H IV Last administered on 12/17/17at 20:39; Start 12/16/17 at 20:00 Bisacodyl (Dulcolax Supp) 10 mg DAILY PRN RECTAL SEVERE CONSITIPATION / IF NPO ; Start 12/15/17 at 23:45 Budesonide/ Formoterol Fumarate (Symbicort 160-4.5 Mcg Inh) 2 puff BID INH Last administered on 12/18/17 09:02; Start 12/16/17 at 09:00 Ceftriaxone Sodium 1000 mg/ Sodium Chloride 100 ml @ 200 mls/hr Q24H IV Last administered on 12/17/17 21:51; Start 12/16/17 at 21:00 Gabapentin (Neurontin) 100 mg BID PO Last administered on 12/18/17 09:00; Start 12/16/17 at 09:00 Guaifenesin (Mucinex Er) 600 mg BID PO Last administered on 12/18/17 09:00; Start 12/16/17 at 09:00 Hydromorphone HCl (Dilaudid Pf Inj) 0.5 mg ONCE ONCE IV PUSH Last administered on 12/15/17 22:19; Start 12/15/17 at 22:15; Stop 12/15/17 at 22:16; Status DC Ketorolac Tromethamine (Toradol Inj) 30 mg ONCE ONCE IV PUSH Last administered on 12/16/17 19:59; Start 12/16/17 at 19:45; Stop 12/16/17 at 19:47; Status DC Lactulose (Lactulose Liq) 30 ml DAILY PRN PO SEVERE CONSITIPATION/ IF PO; Start 12/15/17 at 23:45 Magnesium Hydroxide (Milk Of Magnesia Liq) 30 ml Q12H PRN PO Mild constipation ; Start 12/15/17 at 23:45 Methylprednisolone Sodium Succinate (SoluMEDROL INJ) 60 mg ONCE ONCE IV PUSH Last administered on 12/15/17at 23:34; Start 12/15/17 at 23:00; Stop 12/15/17 at 23: 01; Status DC Montelukast Sodium (Singulair) 10 mg HS PO Last administered on 12/17/17at 20:39 ; Start 12/16/17 at 21:00 Ondansetron HCl (Zofran Inj) 4 mg Q6H PRN IVP NAUSEA OR VOMITING Last administered on 12/18/17 09:00; Start 12/15/17 at 23:45 Pantoprazole Sodium (Protonix) 40 mg DAILY PO Last administered on 12/18/17at 08: 59; Start 12/16/17 at 09:00 Senna/Docusate Sodium (Kisha-Colace) 1 tab BID PO Last administered on 12/18/17 08:59; Start 12/16/17 at 09:00 Sennosides (Senokot) 17.2 mg Q12H PRN PO Moderate constipation Last administered on 12/18/17 08:59; Start 12/15/17 at 23:45 Sodium Chloride (NS Flush) 2 ml BID IV FLUSH Last administered on 12/18/17at 09: 01; Start 12/16/17 at 09:00 A/P Problem List: (1) Sepsis ICD Code: A41.9 - Sepsis, unspecified organism Status: Acute (2) PNA (pneumonia) ICD Code: J18.9 - Pneumonia, unspecified organism (3) UTI (urinary tract infection) ICD Code: N39.0 - Urinary tract infection, site not specified Status: Acute (4) H/O Guillain-[place] syndrome ICD Code: Z86.69 - Personal history of other diseases of the nervous system and sense organs Assessment and Plan 1. Sepsis due to pneumonia/ UTI. Follow up cultures, continue IV Abx, IVF for hydration. 2. PNA: CXR w/ LLL infiltrate. Continue IV Abx, DuoNeb prn, resumed home Symbicort. Mucinex. blood cultures negative- sputum culture pending. 3. UTI: U/a w/ UTI and hematuria. continue w/ IV Abx/IVF. Hematuria likely secondary to UTI. renal US with small left pleural effusion - repeat UA as outpatient. 4. 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 Activity as tolerated. 5. DVT Prophylaxis: SCD/Teds. Discharge Planning still with fever and pain; dc home tomorrow if pain is better controlled- remains afebrile- Problem Qualifiers (1) Sepsis: Qualified Codes: A41.9 - Sepsis, unspecified organism (2) UTI (urinary tract infection): Qualified Codes: N39.0 - Urinary tract infection, site not specified; R31.9 - Hematuria, unspecified Miguel Hodgson MD Dec 18, 2017 09:15
[2017-12-18] MEDS ORDERED: ACETAMINOPHEN/HYDROcodone 325 MG/10 MG TAB PO PRN (10:00)
[2017-12-18 13:54] LABS: BASOPHIL % 0.6 % (0.0-2.0); EOSINOPHIL # 0.1 TH/MM3 (0-0.4); EOSINOPHIL % 2.2 % (0.0-4.0); HEMATOCRIT 35.8 % (35.0-46.0); HEMOGLOBIN 12.4 GM/DL (11.6-15.3); LYMPH % 23.5 % (9.0-44.0); LYMPHOCYTE # 1.1 TH/MM3 (1.0-4.8); MEAN CELL VOLUME 84.5 FL (80.0-100.0); MEAN CORPUSCULAR HEMOGLOBIN 29.3 PG (27.0-34.0); MEAN CORPUSCULAR HGB CONC 34.7 % (32.0-36.0); MONOCYTE # 0.5 TH/MM3 (0-0.9); NEUT % 62.7 % (16.0-70.0); PLATELET COUNT 213 TH/MM3 (150-450); RED BLOOD COUNT 4.23 MIL/MM3 (4.00-5.30); RED CELL DISTRIBUTION WIDTH 13.7 % (11.6-17.2); WHITE BLOOD COUNT 4.7 TH/MM3 (4.0-11.0)
[2017-12-18] MEDS: ACETAMINOPHEN/HYDROcodone 325 MG/10 MG TAB PO PRN ×2 (16:47→21:23)
[2017-12-18] MEDS: AZITHROMYCIN INJ 500 MG in SODIUM CHLOR 0.9% 250 ML INJ 250 ML IV SCH (20:16)
[2017-12-18] MEDS: MONTELUKAST SODIUM 10 MG TAB PO SCH (20:17)
[2017-12-18] MEDS: cefTRIAXone INJ 1,000 MG in SODIUM CHLORIDE 0.9% INJ 100 ML IV SCH (21:22)
--- NOTE | 2017-12-18 22:39 | RADRPT ---
EXAM DATE/TIME: 12/18/2017 18:48 [facility] COMPARISON: CHEST SINGLE AP, September 29, 2017, 23:14. CHEST SINGLE AP, December 15, 2017, 22:09. CT ABDOMEN & PEL VIS W/O CONTRAST, December 15, 2017, 22:40. INDICATIONS : Pneumonia . RADIATION DOSE: 9.94 CTDIvol (mGy) MEDICAL HISTORY : Seizures. Cardiovascular disease Syncope SURGICAL HISTORY : Tubal ligation. ENCOUNTER: Initial ACUITY: 1 day PAIN SCALE: 7/10 LOCATION: chest TECHNIQUE: Volumetric scanning of the chest was performed. Using automated exposure control and adjustment of t he mA and/or kV according to patient size, radiation dose was kept as low as reasonably achievable to obtain optimal diagnostic quality images. DICOM format image data is available electronically for r eview and comparison. Follow-up recommendations for detected pulmonary nodules are based at a minimum on nodule size and pa tient risk factors according to Fleischner Society Guidelines. FINDINGS: LUNGS: Multifocal areas of opacity in both lower lungs, the largest is laterally in the left lower lobe anna uring 6.2 x 4.7 cm and is devoid of air bronchograms. The other areas are patchy and configuration a nd are also devoid of air bronchograms. The upper lungs are clear PLEURAE: Bilateral pleural effusions, moderate in size measuring up to 1.6 cm in thickness. MEDIASTINUM: Paucity of mediastinal fat makes delineation of the mediastinal lymph nodes difficult. The azygos no de measures 1.4 cm. Subcarinal node measures 1.3 cm. Structures and AP window are poorly delineated . AXILLAE: Within normal limits. No lymphadenopathy. MUSCULOSKELETAL: Within normal limits for patient age. MISCELLANEOUS: The visualized upper abdominal organs demonstrate no acute abnormality. CONCLUSION: 1. Abnormal appearance of the lower lungs with multifocal areas of irregular shape opacity which are devoid of air bronchograms. The largest is in the lower lateral left lung and measures in excess of 6 cm. There is also bilateral pleural effusions. The pleural effusions are new when compared to lis or CT 12/15/17 and the opacities in the right lower lung are also new. Selvin Clemente MD on December 18, 2017 at 22:33 Board Certified Radiologist. This report was verified electronically.
[2017-12-19] VITALS (9 sets, daily range): BP systolic 112–141; BP diastolic 62–84; PULSE 61–88; RESP 18–20; TEMP 97.9–98.5; O2SAT 94–98
[2017-12-19] MEDS: SODIUM CHLOR 0.9% 1000 ML INJ 1,000 ML IV SCH ×2 (07:35→17:35)
--- NOTE | 2017-12-19 07:56 | HHI.PR ---
Subjective Remarks in no acute distress. pain seems to be better. no fever. off oxygen. Objective Vitals Vital Signs Date Time Temp Pulse Resp B/P (MAP) Pulse Ox O2 Delivery O2 Flow Rate FiO2 12/19/17 05:07 98.2 76 20 120/78 (92) 94 12/19/17 04:01 61 12/19/17 00:00 88 12/18/17 17:03 98.6 80 16 125/88 (100) 94 12/18/17 12:20 80 12/18/17 12:09 98.1 85 16 118/73 (88) 92 12/18/17 08:26 99.2 87 16 129/78 (95) 91 12/18/17 08:15 88 I/O 12/18/17 12/18/17 12/18/17 12/19/17 12/19/17 12/19/17 06:59 14:59 22:59 06:59 14:59 22:59 Intake Total 600 ml 350 ml Balance 600 ml 350 ml Intake Oral 600 ml IV Total 350 ml # Voids 3 3 Result Diagram: 12/18/17 1340 12/16/17 1000 Imaging Last Impressions Chest CT 12/18/17 0000 Signed Impressions: Service Date/Time: Monday, December 18, 2017 18:48 - CONCLUSION: 1. Abnormal appearance of the lower lungs with multifocal areas of irregular shape opacity which are devoid of air bronchograms. The largest is in the lower lateral left lung and measures in excess of 6 cm. There is also bilateral pleural effusions. The pleural effusions are new when compared to prior CT 12/15/17 and the opacities in the right lower lung are also new. Selvin Clemente MD Renal Ultrasound 12/17/17 0000 Signed Impressions: Service Date/Time: Sunday, December 17, 2017 09:46 - CONCLUSION: No hydronephrosis. Small left pleural effusion. Bob Bolaños MD FACR Head CT [id number] Signed Impressions: Service Date/Time: Friday, December 15, 2017 22:38 - CONCLUSION: 1. No acute intracranial abnormality. 2. Mucous retention cyst within left maxillary sinus. Shahid Talley MD Chest X-Ray [id number] Signed Impressions: Service Date/Time: Friday, December 15, 2017 22:09 - CONCLUSION: Focal patchy opacity within the left lung base consistent with probable pneumonia. Clinical correlation is recommended. Shahid Talley MD Abdomen/Pelvis CT [id number] Signed Impressions: Service Date/Time: Friday, December 15, 2017 22:40 - CONCLUSION: 1. Focal alveolar consolidation within left lower lobe consistent with probable lobar pneumonia. Clinical correlation is recommended. 2. Minimal uncomplicated colonic diverticulosis. Shahid Talley MD Objective Remarks GENERAL: This is a well-nourished, well-developed patient, in no apparent distress. CARDIOVASCULAR: Regular rate and regular rhythm without murmurs, gallops, or rubs. RESPIRATORY: Clear to auscultation. Breath sounds equal bilaterally. No wheezes , rales, or rhonchi. GASTROINTESTINAL: Abdomen soft, mild LUQ tenderness, nondistended. Normal, active bowel sounds MUSCULOSKELETAL: Extremities without clubbing, cyanosis, or edema. NEURO: Alert & Oriented x4 to person, place, time, situation. Medications and IVs Inpatient Medications Acetaminophen (Tylenol) 650 mg Q6H PRN PO FEVER/PAIN SCALE 1 TO 2; Start at 23:45 Acetaminophen/ Hydrocodone Bitart ([place] 5-325 Mg) 1 tab Q4H PRN PO PAIN SCALE 3 TO 5; Start 12/15/17 at 23:45; Stop 12/17/17 at 08:33; Status DC Acetaminophen/ Hydrocodone Bitart ([place] 7.5-325 Mg) 2 tab Q4HR PRN PO PAIN 6- 10 Last administered on 12/18/17at 09:00; Start 12/17/17 at 08:45; Stop 12/18/17 at 09:12; Status DC Acetaminophen/ Hydrocodone Bitart ([place] 10-325 Mg) 2 tab Q4H PRN PO PAIN 6-10 Last administered on 12/18/17at 21:23; Start 12/18/17 at 10:00 Albuterol Sulfate (Proair Hfa Inh) 2 puff Q4H PRN INH SHORTNESS OF BREATH; Start 12/15/17 at 23:45 Albuterol/ Ipratropium (Duoneb Neb) 1 ampule Q15M INH Last administered on at 23:09; Start 12/15/17 at 23:00; Stop 12/15/17 at 23:31; Status DC Azithromycin 500 mg/Sodium Chloride 250 ml @ 250 mls/hr Q24H IV Last administered on 12/18/17 20:16; Start 12/16/17 at 20:00 Bisacodyl (Dulcolax Supp) 10 mg DAILY PRN RECTAL SEVERE CONSITIPATION / IF NPO ; Start 12/15/17 at 23:45 Budesonide/ Formoterol Fumarate (Symbicort 160-4.5 Mcg Inh) 2 puff BID INH Last administered on 12/18/17 20:18; Start 12/16/17 at 09:00 Ceftriaxone Sodium 1000 mg/ Sodium Chloride 100 ml @ 200 mls/hr Q24H IV Last administered on 12/18/17 21:22; Start 12/16/17 at 21:00 Gabapentin (Neurontin) 100 mg BID PO Last administered on 12/18/17 20:17; Start 12/16/17 at 09:00 Guaifenesin (Mucinex Er) 600 mg BID PO Last administered on 12/18/17 20:16; Start 12/16/17 at 09:00 Hydromorphone HCl (Dilaudid Pf Inj) 0.5 mg ONCE ONCE IV PUSH Last administered on 12/15/17 22:19; Start 12/15/17 at 22:15; Stop 12/15/17 at 22:16; Status DC Ketorolac Tromethamine (Toradol Inj) 30 mg ONCE ONCE IV PUSH Last administered on 12/16/17 19:59; Start 12/16/17 at 19:45; Stop 12/16/17 at 19:47; Status DC Lactulose (Lactulose Liq) 30 ml DAILY PRN PO SEVERE CONSITIPATION/ IF PO; Start 12/15/17 at 23:45 Magnesium Hydroxide (Milk Of Magnesia Liq) 30 ml Q12H PRN PO Mild constipation ; Start 12/15/17 at 23:45 Methylprednisolone Sodium Succinate (SoluMEDROL INJ) 60 mg ONCE ONCE IV PUSH Last administered on 12/15/17 23:34; Start 12/15/17 at 23:00; Stop 12/15/17 at 23: 01; Status DC Montelukast Sodium (Singulair) 10 mg HS PO Last administered on 12/18/17 20:17 ; Start 12/16/17 at 21:00 Ondansetron HCl (Zofran Inj) 4 mg Q6H PRN IVP NAUSEA OR VOMITING Last administered on 12/18/17 18:32; Start 12/15/17 at 23:45 Pantoprazole Sodium (Protonix) 40 mg DAILY PO Last administered on 12/18/17 08: 59; Start 12/16/17 at 09:00 Senna/Docusate Sodium (Kisha-Colace) 1 tab BID PO Last administered on 12/18/17 08:59; Start 12/16/17 at 09:00 Sennosides (Senokot) 17.2 mg Q12H PRN PO Moderate constipation Last administered on 12/18/17 08:59; Start 12/15/17 at 23:45 Sodium Chloride (NS Flush) 2 ml BID IV FLUSH Last administered on 12/18/17 20: 18; Start 12/16/17 at 09:00 A/P Problem List: (1) Sepsis ICD Code: A41.9 - Sepsis, unspecified organism Status: Acute (2) PNA (pneumonia) ICD Code: J18.9 - Pneumonia, unspecified organism (3) UTI (urinary tract infection) ICD Code: N39.0 - Urinary tract infection, site not specified Status: Acute (4) 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 Sepsis due to pneumonia/ UTI. Follow up cultures, continue IV Abx, IVF for hydration. 2. PNA: CXR w/ LLL infiltrate. Continue IV Abx, DuoNeb prn, resumed home Symbicort. Mucinex. blood cultures negative- sputum culture with normal respiratory woody. chest CT with lower-lung multifocal opacities- will consult pulmonary. 3. UTI: U/a w/ UTI and hematuria. continue w/ IV Abx/IVF. Hematuria likely secondary to UTI. renal US with small left pleural effusion - repeat UA as outpatient. 4. 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 Activity as tolerated. 5. DVT Prophylaxis: SCD/Teds. Discharge Planning dc home after seen and cleared by pulmonary. Problem Qualifiers (1) Sepsis: Qualified Codes: A41.9 - Sepsis, unspecified organism (2) UTI (urinary tract infection): Qualified Codes: N39.0 - Urinary tract infection, site not specified; R31.9 - Hematuria, unspecified Miguel Hodgson MD Dec 19, 2017 07:56
[2017-12-19] MEDS ORDERED: NORC5TAB PO (07:57)
[2017-12-19] MEDS: BUDESONIDE-FORMOTEROL 160/4.5 MCG INHALER INH SCH ×2 (08:49→20:24)
[2017-12-19] MEDS: PANTOPRAZOLE SOD 40 MG DELAYED RELEASE TAB PO SCH (08:50)
[2017-12-19] MEDS: DOCUSATE SODIUM 50 MG/SENNA 8.6 MG TAB PO SCH ×2 (08:50→19:22)
[2017-12-19] MEDS: guaiFENesin E.R. 600 MG TAB PO SCH ×2 (08:50→20:23)
[2017-12-19] MEDS: GABAPENTIN 100 MG CAP PO SCH ×2 (08:50→20:23)
[2017-12-19] MEDS: ONDANSETRON HCL 4 MG/2 ML VIAL IVP PRN (08:53)
[2017-12-19] MEDS: SODIUM CHLORIDE 0.9% FLUSH 10 ML FLUSH IV FLUSH SCH ×2 (09:00→20:23)
--- NOTE | 2017-12-19 11:53 | MB ---
cc: Linda Mckeon MD DATE OF CONSULT: REASON FOR CONSULTATION: Pneumonia. HISTORY OF PRESENT ILLNESS: Mrs. Tello is a 27-year-old female with known history of bronchial asthma. 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 I am asked to see the patient at this time for same. The patient's initial fever has resolved. Clinically she is improved, however, chest x-ray and subsequent CT scan of the chest done 12/18/2017 is with multifocal opacities in the left lung, the largest measuring about 6 cm, bilateral effusions are noted which were new compared to admission scan. 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 ALLERGIES: NUMEROUS. KINDLY REVIEW MR FOR SAME. FAMILY HISTORY: Negative for heart disease or cancer. SOCIAL HISTORY: Does not smoke. Does not drink. Does not use drugs. REVIEW OF SYSTEMS: A 12-point review of systems as per HPI. Past history otherwise negative. PHYSICAL EXAMINATION: GENERAL: On exam the patient is alert, sitting in bed. VITAL SIGNS: Temperature 98, pulse 64, respirations 18, blood pressure 140/70. Oxygen saturation 96% on room air. HEENT: Unremarkable. Eyes without icterus. NECK: Without adenopathy or thyroid enlargement. Central trachea. CHEST: Few rhonchi at bases are noted. ABDOMEN: Lax. Bowel sounds audible. EXTREMITIES: No clubbing, cyanosis or edema. Paraplegia noted. LABORATORY DATA: White count 4.7, hemoglobin 12, hematocrit 35, platelets 213,000. Sodium 141, potassium 3.7, BUN 7, creatinine 0.6. INR 1.1. IMPRESSION: 1. Bilateral lung infiltrates. 2. UTI. 3. 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 4. Bronchial asthma. PLAN: The patient will be maintained on bronchodilator therapy, antibiotic therapy to be continued. Will follow up the patient's chest x-ray. Should the infiltrates resolve, well and good; if not, she will require bronchoscopic exam. I do thank you for asking me to partake in Mrs. Tello care. Linda Mckeon MD WWW/RYLAN/ , 10:37 AM , 11:04 AM
[2017-12-19] MEDS: ACETAMINOPHEN/HYDROcodone 325 MG/10 MG TAB PO PRN ×2 (13:44→20:23)
[2017-12-19] MEDS: AZITHROMYCIN INJ 500 MG in SODIUM CHLOR 0.9% 250 ML INJ 250 ML IV SCH (20:23)
[2017-12-19] MEDS: MONTELUKAST SODIUM 10 MG TAB PO SCH (20:23)
[2017-12-19] MEDS: cefTRIAXone INJ 1,000 MG in SODIUM CHLORIDE 0.9% INJ 100 ML IV SCH (20:24)
[2017-12-20] VITALS (7 sets, daily range): BP systolic 103–122; BP diastolic 52–78; PULSE 59–78; RESP 18–20; TEMP 97.5–98.1; O2SAT 94–100
[2017-12-20] MEDS: SODIUM CHLOR 0.9% 1000 ML INJ 1,000 ML IV SCH ×2 (03:17→10:53)
[2017-12-20] MEDS: ACETAMINOPHEN/HYDROcodone 325 MG/10 MG TAB PO PRN ×3 (07:36→17:18)
[2017-12-20] MEDS: BUDESONIDE-FORMOTEROL 160/4.5 MCG INHALER INH SCH ×2 (09:00→21:02)
[2017-12-20] MEDS: DOCUSATE SODIUM 50 MG/SENNA 8.6 MG TAB PO SCH ×2 (09:00→21:00)
--- NOTE | 2017-12-20 10:13 | HHI.PR ---
Subjective Remarks in no acute distress. has some pain to the left flank. no fever. on and off hemoptysis. Objective Vitals Vital Signs Date Time Temp Pulse Resp B/P (MAP) Pulse Ox O2 Delivery O2 Flow Rate FiO2 12/20/17 08:28 98.1 65 20 118/61 (80) 100 12/20/17 06:15 97.8 64 20 112/68 (83) 94 12/20/17 01:52 97.5 78 20 103/52 (69) 99 12/19/17 22:05 98.0 80 20 112/67 (82) 98 12/19/17 20:00 80 12/19/17 16:00 97.9 62 18 119/62 (81) 95 12/19/17 12:00 64 12/19/17 12:00 98.5 74 18 113/84 (94) 96 I/O 12/19/17 12/19/17 12/19/17 12/20/17 12/20/17 12/20/17 07:00 15:00 23:00 07:00 15:00 23:00 Intake Total 480 ml 470 ml Balance 480 ml 470 ml Intake Oral 480 ml 120 ml IV Total 350 ml # Voids 4 1 2 # Bowel Movements 2 Result Diagram: 12/18/17 1340 12/16/17 1000 Imaging Last Impressions Chest CT 12/18/17 0000 Signed Impressions: Service Date/Time: Monday, December 18, 2017 18:48 - CONCLUSION: 1. Abnormal appearance of the lower lungs with multifocal areas of irregular shape opacity which are devoid of air bronchograms. The largest is in the lower lateral left lung and measures in excess of 6 cm. There is also bilateral pleural effusions. The pleural effusions are new when compared to prior CT 12/15/17 and the opacities in the right lower lung are also new. Selvin Clemente MD Renal Ultrasound 12/17/17 0000 Signed Impressions: Service Date/Time: Sunday, December 17, 2017 09:46 - CONCLUSION: No hydronephrosis. Small left pleural effusion. Bob Bolaños MD FACR Head CT 12/15/17 1005 Signed Impressions: Service Date/Time: Friday, December 15, 2017 22:38 - CONCLUSION: 1. No acute intracranial abnormality. 2. Mucous retention cyst within left maxillary sinus. Shahid Talley MD Chest X-Ray [id number] Signed Impressions: Service Date/Time: Friday, December 15, 2017 22:09 - CONCLUSION: Focal patchy opacity within the left lung base consistent with probable pneumonia. Clinical correlation is recommended. Shahid Talley MD Abdomen/Pelvis CT [id number] Signed Impressions: Service Date/Time: Friday, December 15, 2017 22:40 - CONCLUSION: 1. Focal alveolar consolidation within left lower lobe consistent with probable lobar pneumonia. Clinical correlation is recommended. 2. Minimal uncomplicated colonic diverticulosis. Shahid Talley MD Objective Remarks GENERAL: This is a well-nourished, well-developed patient, in no apparent distress. CARDIOVASCULAR: Regular rate and regular rhythm without murmurs, gallops, or rubs. RESPIRATORY: Clear to auscultation. Breath sounds equal bilaterally. No wheezes , rales, or rhonchi. GASTROINTESTINAL: Abdomen soft, mild LUQ tenderness, nondistended. Normal, active bowel sounds MUSCULOSKELETAL: Extremities without clubbing, cyanosis, or edema. NEURO: Alert & Oriented x4 to person, place, time, situation. Medications and IVs Inpatient Medications Acetaminophen (Tylenol) 650 mg Q6H PRN PO FEVER/PAIN SCALE 1 TO 2; Start at 23:45 Acetaminophen/ Hydrocodone Bitart ([place] 5-325 Mg) 1 tab Q4H PRN PO PAIN SCALE 3 TO 5; Start 12/15/17 at 23:45; Stop 12/17/17 at 08:33; Status DC Acetaminophen/ Hydrocodone Bitart ([place] 7.5-325 Mg) 2 tab Q4HR PRN PO PAIN 6- 10 Last administered on 12/18/17at 09:00; Start 12/17/17 at 08:45; Stop 12/18/17 at 09:12; Status DC Acetaminophen/ Hydrocodone Bitart ([place] 10-325 Mg) 2 tab Q4H PRN PO PAIN 6-10 Last administered on 12/20/17at 07:36; Start 12/18/17 at 10:00 Albuterol Sulfate (Proair Hfa Inh) 2 puff Q4H PRN INH SHORTNESS OF BREATH; Start 12/15/17 at 23:45 Albuterol/ Ipratropium (Duoneb Neb) 1 ampule Q15M INH Last administered on 23:09; Start 12/15/17 at 23:00; Stop 12/15/17 at 23:31; Status DC Azithromycin 500 mg/Sodium Chloride 250 ml @ 250 mls/hr Q24H IV Last administered on 12/19/17 20:23; Start 12/16/17 at 20:00 Bisacodyl (Dulcolax Supp) 10 mg DAILY PRN RECTAL SEVERE CONSITIPATION / IF NPO ; Start 12/15/17 at 23:45 Budesonide/ Formoterol Fumarate (Symbicort 160-4.5 Mcg Inh) 2 puff BID INH Last administered on 12/19/17 20:24; Start 12/16/17 at 09:00 Ceftriaxone Sodium 1000 mg/ Sodium Chloride 100 ml @ 200 mls/hr Q24H IV Last administered on 12/19/17 20:24; Start 12/16/17 at 21:00 Gabapentin (Neurontin) 100 mg BID PO Last administered on 12/19/17 20:23; Start 12/16/17 at 09:00 Guaifenesin (Mucinex Er) 600 mg BID PO Last administered on 12/19/17 20:23; Start 12/16/17 at 09:00 Hydromorphone HCl (Dilaudid Pf Inj) 0.5 mg ONCE ONCE IV PUSH Last administered on 12/15/17 22:19; Start 12/15/17 at 22:15; Stop 12/15/17 at 22:16; Status DC Ketorolac Tromethamine (Toradol Inj) 30 mg ONCE ONCE IV PUSH Last administered on 12/16/17 19:59; Start 12/16/17 at 19:45; Stop 12/16/17 at 19:47; Status DC Lactulose (Lactulose Liq) 30 ml DAILY PRN PO SEVERE CONSITIPATION/ IF PO; Start 12/15/17 at 23:45 Magnesium Hydroxide (Milk Of Magnesia Liq) 30 ml Q12H PRN PO Mild constipation ; Start 12/15/17 at 23:45 Methylprednisolone Sodium Succinate (SoluMEDROL INJ) 60 mg ONCE ONCE IV PUSH Last administered on 12/15/17at 23:34; Start 12/15/17 at 23:00; Stop 12/15/17 at 23: 01; Status DC Montelukast Sodium (Singulair) 10 mg HS PO Last administered on 12/19/17 20:23 ; Start 12/16/17 at 21:00 Ondansetron HCl (Zofran Inj) 4 mg Q6H PRN IVP NAUSEA OR VOMITING Last administered on 12/19/17 08:53; Start 12/15/17 at 23:45 Pantoprazole Sodium (Protonix) 40 mg DAILY PO Last administered on 12/19/17 08: 50; Start 12/16/17 at 09:00 Senna/Docusate Sodium (Kisha-Colace) 1 tab BID PO Last administered on 12/19/17 08:50; Start 12/16/17 at 09:00 Sennosides (Senokot) 17.2 mg Q12H PRN PO Moderate constipation Last administered on 12/18/17 08:59; Start 12/15/17 at 23:45 Sodium Chloride (NS Flush) 2 ml BID IV FLUSH Last administered on 12/19/17 20: 23; Start 12/16/17 at 09:00 A/P Problem List: (1) Sepsis ICD Code: A41.9 - Sepsis, unspecified organism Status: Acute (2) PNA (pneumonia) ICD Code: J18.9 - Pneumonia, unspecified organism (3) UTI (urinary tract infection) ICD Code: N39.0 - Urinary tract infection, site not specified Status: Acute (4) H/O Guillain-[place] syndrome ICD Code: Z86.69 - Personal history of other diseases of the nervous system and sense organs Assessment and Plan 1. Sepsis due to pneumonia/ UTI. Follow up cultures, continue IV Abx, IVF for hydration. 2. PNA: CXR w/ LLL infiltrate. Continue IV Abx, DuoNeb prn, resumed home Symbicort. Mucinex. blood cultures negative- sputum culture with normal respiratory woody. chest CT with lower-lung multifocal opacities- pulmonary consult appreciated; repeat CXR today- possible need for bronchoscopy? 3. UTI: U/a w/ UTI and hematuria. continue w/ IV Abx/IVF. Hematuria likely secondary to UTI. renal US with small left pleural effusion - repeat UA as outpatient. 4. 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 Activity as tolerated. 5. DVT Prophylaxis: SCD/Teds. Discharge Planning CXR today- awaiting pulmonary f/u and recommendations; possible need for bronchoscopy. not ready for discharge today. Problem Qualifiers (1) Sepsis: Qualified Codes: A41.9 - Sepsis, unspecified organism (2) UTI (urinary tract infection): Qualified Codes: N39.0 - Urinary tract infection, site not specified; R31.9 - Hematuria, unspecified Miguel Hodgson MD Dec 20, 2017 10:13
[2017-12-20] MEDS: guaiFENesin E.R. 600 MG TAB PO SCH ×2 (10:48→21:00)
[2017-12-20] MEDS: SODIUM CHLORIDE 0.9% FLUSH 10 ML FLUSH IV FLUSH SCH ×2 (10:49→21:00)
[2017-12-20] MEDS: GABAPENTIN 100 MG CAP PO SCH ×2 (10:49→21:00)
[2017-12-20] MEDS: PANTOPRAZOLE SOD 40 MG DELAYED RELEASE TAB PO SCH (10:51)
--- NOTE | 2017-12-20 10:56 | RADRPT ---
EXAM DATE/TIME: 12/20/2017 10:30 [facility] COMPARISON: CT THORAX W/O CONTRAST, December 18, 2017, 18:48. CHEST SINGLE AP, December 15, 2017, 22:09. INDICATIONS : Evaluate for pneumonia. MEDICAL HISTORY : Cerebrovascular disease. Seizures. Paraplegic. SURGICAL HISTORY : Tubal ligation. ENCOUNTER: Subsequent ACUITY: 4 - 6 days PAIN SCORE: 5/10 LOCATION: Bilateral chest FINDINGS: Dense consolidating infiltrate within the left lower lobe demonstrates interval improvement with decr easing density and improving aeration. Small effusions identified on CT are not clearly visualized. Heart and mediastinal structures are stable. CONCLUSION: Persistent but improving left lower lobe consolidating infiltrate. Christopher Wright MD on December 20, 2017 at 10:52 Board Certified Radiologist. This report was verified electronically.
--- NOTE | 2017-12-20 15:31 | HHI.PR ---
Subjective Remarks alert afebrile hemoptysis,minor , less than yesterday cxray , improving lll PNA Objective Vital Signs Date Time Temp Pulse Resp B/P (MAP) Pulse Ox O2 Delivery O2 Flow Rate FiO2 12/20/17 12:27 97.7 64 20 117/59 (78) 97 12/20/17 11:13 60 12/20/17 08:28 98.1 65 20 118/61 (80) 100 12/20/17 06:15 97.8 64 20 112/68 (83) 94 12/20/17 01:52 97.5 78 20 103/52 (69) 99 12/19/17 22:05 98.0 80 20 112/67 (82) 98 12/19/17 20:00 80 12/19/17 16:00 97.9 62 18 119/62 (81) 95 I/O 12/19/17 12/19/17 12/19/17 12/20/17 12/20/17 12/20/17 07:00 15:00 23:00 07:00 15:00 23:00 Intake Total 480 ml 470 ml Balance 480 ml 470 ml Intake Oral 480 ml 120 ml IV Total 350 ml # Voids 4 1 2 # Bowel Movements 2 Result Diagram: 12/18/17 1340 12/16/17 1000 Objective Remarks GENERAL: SKIN: Warm and dry. HEAD: Atraumatic. Normocephalic. EYES: Pupils equal and round. No scleral icterus. No injection or drainage. ENT: No nasal bleeding or discharge. Mucous membranes pink and moist. NECK: Trachea midline. No JVD. CARDIOVASCULAR: Regular rate and rhythm. RESPIRATORY: No accessory muscle use. rhonchi at basis. Breath sounds equal bilaterally. GASTROINTESTINAL: Abdomen soft, non-tender, nondistended. Hepatic and splenic margins not palpable. MUSCULOSKELETAL: Extremities without clubbing, cyanosis, or edema. No obvious deformities. NEUROLOGICAL: Awake and alert. No obvious cranial nerve deficits. paraplegic wheel chair bound PSYCHIATRIC: Appropriate mood and affect; insight and judgment normal. Assessment and Plan Assessment and Plan assessment PNA , improving hemoptysis BG SYNDROME, PARAPLEGIC PLAN CONTINUE ANTIBX PULM TOILET BRONCHOSCOPY Linda Pereira MD Dec 20, 2017 15:31
[2017-12-20] MEDS: ONDANSETRON HCL 4 MG/2 ML VIAL IVP PRN (16:44)
[2017-12-20 17:10] LABS: AUTOMATED NEUTROPHIL # 1.6 TH/MM3 (1.8-7.7); BASOPHIL % 0.9 % (0.0-2.0); EOSINOPHIL # 0.3 TH/MM3 (0-0.4); EOSINOPHIL % 8.8 % (0.0-4.0); HEMATOCRIT 37.2 % (35.0-46.0); LYMPH % 43.3 % (9.0-44.0); LYMPHOCYTE # 1.7 TH/MM3 (1.0-4.8); MEAN CELL VOLUME 83.8 FL (80.0-100.0); MEAN CORPUSCULAR HEMOGLOBIN 29.3 PG (27.0-34.0); MEAN PLATELET VOLUME 7.9 FL (7.0-11.0); MONO % 6.2 % (0.0-8.0); MONOCYTE # 0.2 TH/MM3 (0-0.9); NEUT % 40.8 % (16.0-70.0); PLATELET COUNT 275 TH/MM3 (150-450); RED BLOOD COUNT 4.44 MIL/MM3 (4.00-5.30); RED CELL DISTRIBUTION WIDTH 13.4 % (11.6-17.2); WHITE BLOOD COUNT 3.9 TH/MM3 (4.0-11.0)
[2017-12-20 17:17] LABS: INTERNATIONAL NORMALIZED RATIO 1.1 RATIO; PROTHROMBIN TIME - PATIENT 10.8 SEC (9.8-11.6)
[2017-12-20] MEDS: AZITHROMYCIN INJ 500 MG in SODIUM CHLOR 0.9% 250 ML INJ 250 ML IV SCH (20:00)
[2017-12-20] MEDS: cefTRIAXone INJ 1,000 MG in SODIUM CHLORIDE 0.9% INJ 100 ML IV SCH (20:58)
[2017-12-20] MEDS: MONTELUKAST SODIUM 10 MG TAB PO SCH (21:00)
[2017-12-21] VITALS: BP 100/57; PULSE 73; RESP 18; TEMP 98.2; O2SAT 96
[2017-12-21 04:00] VITALS: BP 105/57; PULSE 72; RESP 18; TEMP 98.4; O2SAT 96
[2017-12-21] MEDS: SODIUM CHLOR 0.9% 1000 ML INJ 1,000 ML IV SCH ×3 (06:24→19:35)
[2017-12-21] MEDS: ACETAMINOPHEN/HYDROcodone 325 MG/10 MG TAB PO PRN ×3 (06:25→18:29)
[2017-12-21] MEDS: ONDANSETRON HCL 4 MG/2 ML VIAL IVP PRN ×2 (06:25→14:27)
[2017-12-21 08:00] VITALS: PULSE 58
--- NOTE | 2017-12-21 08:19 | HHI.PR ---
Subjective Remarks in no acute distress. looks fairly comfortable. no fever. awaiting bronchoscopy. Objective Vitals Vital Signs Date Time Temp Pulse Resp B/P (MAP) Pulse Ox O2 Delivery O2 Flow Rate FiO2 12/21/17 07:43 18 12/21/17 04:00 98.4 72 18 105/57 (73) 96 12/21/17 00:00 98.2 73 18 100/57 (71) 96 12/20/17 20:00 98.0 60 18 114/76 (89) 98 12/20/17 16:33 97.8 59 20 122/78 (93) 98 12/20/17 12:27 97.7 64 20 117/59 (78) 97 12/20/17 11:13 60 12/20/17 08:28 98.1 65 20 118/61 (80) 100 I/O 12/20/17 12/20/17 12/20/17 12/21/17 12/21/17 12/21/17 07:00 15:00 23:00 07:00 15:00 23:00 Intake Total 480 ml Balance 480 ml Intake Oral 480 ml # Voids 2 1 Result Diagram: 12/20/17 1643 Imaging Last Impressions Chest X-Ray 12/20/17 0000 Signed Impressions: Service Date/Time: Wednesday, December 20, 2017 10:30 - CONCLUSION: Persistent but improving left lower lobe consolidating infiltrate. Christopher Wright MD Chest CT 12/18/17 0000 Signed Impressions: Service Date/Time: Monday, December 18, 2017 18:48 - CONCLUSION: 1. Abnormal appearance of the lower lungs with multifocal areas of irregular shape opacity which are devoid of air bronchograms. The largest is in the lower lateral left lung and measures in excess of 6 cm. There is also bilateral pleural effusions. The pleural effusions are new when compared to prior CT 12/15/17 and the opacities in the right lower lung are also new. Selvni Clemente MD Renal Ultrasound 12/17/17 0000 Signed Impressions: Service Date/Time: Sunday, December 17, 2017 09:46 - CONCLUSION: No hydronephrosis. Small left pleural effusion. Bob Bolaños MD FACR Head CT 12/15/17 [id number] Signed Impressions: Service Date/Time: Friday, December 15, 2017 22:38 - CONCLUSION: 1. No acute intracranial abnormality. 2. Mucous retention cyst within left maxillary sinus. Shahid Talley MD Abdomen/Pelvis CT [id number]/[id number] Signed Impressions: Service Date/Time: Friday, December 15, 2017 22:40 - CONCLUSION: 1. Focal alveolar consolidation within left lower lobe consistent with probable lobar pneumonia. Clinical correlation is recommended. 2. Minimal uncomplicated colonic diverticulosis. Shahid Talley MD Objective Remarks GENERAL: This is a well-nourished, well-developed patient, in no apparent distress. CARDIOVASCULAR: Regular rate and regular rhythm without murmurs, gallops, or rubs. RESPIRATORY: Clear to auscultation. Breath sounds equal bilaterally. No wheezes , rales, or rhonchi. GASTROINTESTINAL: Abdomen soft, mild LUQ tenderness, nondistended. Normal, active bowel sounds MUSCULOSKELETAL: Extremities without clubbing, cyanosis, or edema. NEURO: Alert & Oriented x4 to person, place, time, situation. Medications and IVs Inpatient Medications Acetaminophen (Tylenol) 650 mg Q6H PRN PO FEVER/PAIN SCALE 1 TO 2; Start at 23:45 Acetaminophen/ Hydrocodone Bitart ([place] 5-325 Mg) 1 tab Q4H PRN PO PAIN SCALE 3 TO 5; Start 12/15/17 at 23:45; Stop 12/17/17 at 08:33; Status DC Acetaminophen/ Hydrocodone Bitart ([place] 7.5-325 Mg) 2 tab Q4HR PRN PO PAIN 6- 10 Last administered on 12/18/17at 09:00; Start 12/17/17 at 08:45; Stop 12/18/17 at 09:12; Status DC Acetaminophen/ Hydrocodone Bitart ([place] 10-325 Mg) 2 tab Q4H PRN PO PAIN 6-10 Last administered on 12/21/17at 06:25; Start 12/18/17 at 10:00 Albuterol Sulfate (Proair Hfa Inh) 2 puff Q4H PRN INH SHORTNESS OF BREATH; Start 12/15/17 at 23:45 Albuterol/ Ipratropium (Duoneb Neb) 1 ampule Q15M INH Last administered on at 23:09; Start 12/15/17 at 23:00; Stop 12/15/17 at 23:31; Status DC Azithromycin 500 mg/Sodium Chloride 250 ml @ 250 mls/hr Q24H IV Last administered on 12/20/17at 20:00; Start 12/16/17 at 20:00 Bisacodyl (Dulcolax Supp) 10 mg DAILY PRN RECTAL SEVERE CONSITIPATION / IF NPO ; Start 12/15/17 at 23:45 Budesonide/ Formoterol Fumarate (Symbicort 160-4.5 Mcg Inh) 2 puff BID INH Last administered on 12/20/17 21:02; Start 12/16/17 at 09:00 Ceftriaxone Sodium 1000 mg/ Sodium Chloride 100 ml @ 200 mls/hr Q24H IV Last administered on 12/20/17 20:58; Start 12/16/17 at 21:00 Gabapentin (Neurontin) 100 mg BID PO Last administered on 12/20/17 21:00; Start 12/16/17 at 09:00 Guaifenesin (Mucinex Er) 600 mg BID PO Last administered on 12/20/17 21:00; Start 12/16/17 at 09:00 Hydromorphone HCl (Dilaudid Pf Inj) 0.5 mg ONCE ONCE IV PUSH Last administered on 12/15/17 22:19; Start 12/15/17 at 22:15; Stop 12/15/17 at 22:16; Status DC Ketorolac Tromethamine (Toradol Inj) 30 mg ONCE ONCE IV PUSH Last administered on 12/16/17 19:59; Start 12/16/17 at 19:45; Stop 12/16/17 at 19:47; Status DC Lactulose (Lactulose Liq) 30 ml DAILY PRN PO SEVERE CONSITIPATION/ IF PO; Start 12/15/17 at 23:45 Magnesium Hydroxide (Milk Of Magnesia Liq) 30 ml Q12H PRN PO Mild constipation ; Start 12/15/17 at 23:45 Methylprednisolone Sodium Succinate (SoluMEDROL INJ) 60 mg ONCE ONCE IV PUSH Last administered on 12/15/17 23:34; Start 12/15/17 at 23:00; Stop 12/15/17 at 23: 01; Status DC Montelukast Sodium (Singulair) 10 mg HS PO Last administered on 12/20/17 21:00 ; Start 12/16/17 at 21:00 Ondansetron HCl (Zofran Inj) 4 mg Q6H PRN IVP NAUSEA OR VOMITING Last administered on 12/21/17 06:25; Start 12/15/17 at 23:45 Pantoprazole Sodium (Protonix) 40 mg DAILY PO Last administered on 12/20/17 10: 51; Start 12/16/17 at 09:00 Senna/Docusate Sodium (Kisha-Colace) 1 tab BID PO Last administered on 12/19/17 08:50; Start 12/16/17 at 09:00 Sennosides (Senokot) 17.2 mg Q12H PRN PO Moderate constipation Last administered on 12/18/17 08:59; Start 12/15/17 at 23:45 Sodium Chloride (NS Flush) 2 ml BID IV FLUSH Last administered on 12/20/17 21: 00; Start 12/16/17 at 09:00 A/P Problem List: (1) Sepsis ICD Code: A41.9 - Sepsis, unspecified organism Status: Acute (2) PNA (pneumonia) ICD Code: J18.9 - Pneumonia, unspecified organism (3) UTI (urinary tract infection) ICD Code: N39.0 - Urinary tract infection, site not specified Status: Acute (4) H/O Guillain-[place] syndrome ICD Code: Z86.69 - Personal history of other diseases of the nervous system and sense organs Assessment and Plan A/P 1. Sepsis due to pneumonia/ UTI. continue IV Abx. 2. PNA: CXR w/ LLL infiltrate. Continue IV Abx, DuoNeb prn, resumed home Symbicort. Mucinex. blood cultures negative- sputum culture with normal respiratory woody. chest CT with lower-lung multifocal opacities- pulmonary consult appreciated; plan for bronchoscopy today. 3. possible UTI: U/a w/ UTI and hematuria. continue w/ IV Abx/IVF. Hematuria likely secondary to UTI. renal US with small left pleural effusion - repeat UA as outpatient. 4. 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 Activity as tolerated. 5. DVT Prophylaxis: SCD/Teds. Discharge Planning for bronchoscopy today. dc home within the next 24 hrs- pending the bronchoscopy. will switch to po Abx upon discharge. f/u; pcp and pulmonary. see med list. Problem Qualifiers (1) Sepsis: Qualified Codes: A41.9 - Sepsis, unspecified organism (2) UTI (urinary tract infection): Qualified Codes: N39.0 - Urinary tract infection, site not specified; R31.9 - Hematuria, unspecified Miguel Hodgson MD Dec 21, 2017 08:19
[2017-12-21] MEDS ORDERED: CEFU1TAB18 PO (08:20)
[2017-12-21] MEDS ORDERED: LEVA500T33 PO (08:24)
[2017-12-21] MEDS: DOCUSATE SODIUM 50 MG/SENNA 8.6 MG TAB PO SCH ×3 (09:00→22:00)
[2017-12-21] MEDS: BUDESONIDE-FORMOTEROL 160/4.5 MCG INHALER INH SCH ×2 (09:03→22:01)
[2017-12-21] MEDS: PANTOPRAZOLE SOD 40 MG DELAYED RELEASE TAB PO SCH (09:03)
[2017-12-21] MEDS: guaiFENesin E.R. 600 MG TAB PO SCH ×2 (09:03→22:00)
[2017-12-21] MEDS: GABAPENTIN 100 MG CAP PO SCH ×2 (09:03→22:00)
[2017-12-21] MEDS: SODIUM CHLORIDE 0.9% FLUSH 10 ML FLUSH IV FLUSH SCH ×2 (09:04→22:01)
[2017-12-21 12:36] VITALS: BP 116/66; PULSE 60; RESP 20; TEMP 97.8; O2SAT 95
--- NOTE | 2017-12-21 15:31 | HHI.PR ---
Subjective Remarks alert afebrile hemoptysis,minor , less than yesterday cxray , improving lll PNA Objective Vital Signs Date Time Temp Pulse Resp B/P (MAP) Pulse Ox O2 Delivery O2 Flow Rate FiO2 12/21/17 13:00 18 12/21/17 12:36 97.8 60 20 116/66 (83) 95 12/21/17 08:00 58 12/21/17 04:00 98.4 72 18 105/57 (73) 96 12/21/17 00:00 98.2 73 18 100/57 (71) 96 12/20/17 20:00 98.0 60 18 114/76 (89) 98 12/20/17 16:33 97.8 59 20 122/78 (93) 98 I/O 12/20/17 12/20/17 12/20/17 12/21/17 12/21/17 12/21/17 07:00 15:00 23:00 07:00 15:00 23:00 Intake Total 480 ml Balance 480 ml Intake Oral 480 ml # Voids 2 1 Result Diagram: 12/20/17 1643 Objective Remarks GENERAL: SKIN: Warm and dry. HEAD: Atraumatic. Normocephalic. EYES: Pupils equal and round. No scleral icterus. No injection or drainage. ENT: No nasal bleeding or discharge. Mucous membranes pink and moist. NECK: Trachea midline. No JVD. CARDIOVASCULAR: Regular rate and rhythm. RESPIRATORY: No accessory muscle use. rhonchi at basis. Breath sounds equal bilaterally. GASTROINTESTINAL: Abdomen soft, non-tender, nondistended. Hepatic and splenic margins not palpable. MUSCULOSKELETAL: Extremities without clubbing, cyanosis, or edema. No obvious deformities. NEUROLOGICAL: Awake and alert. No obvious cranial nerve deficits. paraplegic wheel chair bound PSYCHIATRIC: Appropriate mood and affect; insight and judgment normal. Assessment and Plan Assessment and Plan assessment PNA , improving hemoptysis BG SYNDROME, PARAPLEGIC PLAN CONTINUE ANTIBX PULM TOILET BRONCHOSCOPY TODAY Linda Mckeon MD Dec 21, 2017 15:31
--- NOTE | 2017-12-21 16:20 | MR ---
cc: Linda Mckeon MD 12/21/2017 PROCEDURE: Fiberoptic bronchoscopy, flexible. REASON FOR BRONCHOSCOPY: Hemoptysis, lung infiltrates. Fiberoptic bronchoscopy performed via LMA. Vocal cords intact. Trachea mildly hyperemic. Tammy sharp. Right mainstem bronchus, right upper, middle and lower lobe, left main bronchus, left upper and lower lobe inspected. No obstructive pathology or mass lesion seen. Washings obtained both sides of the tracheobronchial tree for routine TB, fungal cultures, cytological exam. Microbiology brushing as well as cytology brushing, brush biopsies obtained, sent for cytological exam and cultures. Procedure well tolerated. Patient transferred to recovery in stable condition. IMPRESSION: 1. Mild to moderate tracheal bronchitis. 2. No evidence of active bleeding. 3. No obstruction or mass lesion. 4. Samples obtained as above. 5. Procedure well tolerated. Patient transferred to recovery in stable condition. MD LANCE Draper/MIKEL , 03:30 PM , 03:45 PM
[2017-12-21] MEDS ORDERED: DO NOT ADM ANY ANTICOAGULANT DRUGS PRN (17:30)
[2017-12-21 20:00] VITALS: PULSE 76
[2017-12-21 20:24] VITALS: BP 124/77; PULSE 66; RESP 17; TEMP 98.1; O2SAT 98
[2017-12-21] MEDS: MONTELUKAST SODIUM 10 MG TAB PO SCH (22:00)
[2017-12-22] VITALS: PULSE 83
[2017-12-22 00:31] VITALS: BP 108/60; PULSE 66; RESP 17; TEMP 98.8; O2SAT 96
[2017-12-22] MEDS: AZITHROMYCIN INJ 500 MG in SODIUM CHLOR 0.9% 250 ML INJ 250 ML IV SCH (01:28)
[2017-12-22] MEDS: ONDANSETRON HCL 4 MG/2 ML VIAL IVP PRN (01:28)
[2017-12-22] MEDS: cefTRIAXone INJ 1,000 MG in SODIUM CHLORIDE 0.9% INJ 100 ML IV SCH (03:39)
[2017-12-22 04:02] VITALS: PULSE 65
[2017-12-22 04:30] VITALS: BP 103/56; PULSE 69; RESP 17; TEMP 98; O2SAT 96
[2017-12-22] MEDS: SODIUM CHLOR 0.9% 1000 ML INJ 1,000 ML IV SCH (04:57)
--- NOTE | 2017-12-22 08:54 | HHI.DS ---
Discharge Summary Admission Date Dec 15, 2017 at 23:37 Discharge Date: Dec 22, 2017 Admitting Diagnosis sepsis, pneumonia, UTI (1) Sepsis ICD Code: A41.9 - Sepsis, unspecified organism Diagnosis: Principal Status: Acute (2) PNA (pneumonia) ICD Code: J18.9 - Pneumonia, unspecified organism Diagnosis: Principal (3) UTI (urinary tract infection) ICD Code: N39.0 - Urinary tract infection, site not specified Diagnosis: Secondary Status: Acute (4) H/O Guillain-[place] syndrome ICD Code: Z86.69 - Personal history of other diseases of the nervous system and sense organs Diagnosis: Secondary Procedures bronchoscopy Brief History - From Admission This is a 27-year-old female with a PMH of Asthma, 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 Per boyfriend, pt had fever last night and took Tylenol with improvement. Today had episode of nausea/vomiting which resolved after taking Zofran, however fever and nausea/vomiting recurred. Symptoms moderate to severe. Unable to take PO due to ongoing symptoms. Boyfriend also notes bleeding w/ urination-states he transfers her from wheelchair at specific times each day, today noted some hematuria. Reports pt w/ amenorrhea x4-5yrs. On arrival, BP 113/71, HR 128, O2 sat 96% on RA, Temp 100.4. CBC unremarkable except for elevated neutrophil count. Chemistry essentially unremarkable except for GFR 88. Lactic Acid normal. INR 1.1. UA positive for hematuria and UTI. CT Head with no acute intracranial abnormality. CXR with patchy opacity left lung base consistent with pneumonia. CT Abdomen/Pelvis with focal alveolar consolidation left lower lobe, uncomplicated colonic diverticulosis. S /p Rocephin/Zithro in ER. CBC/BMP: 12/20/17 1643 Significant Findings Laboratory Tests Test 12/20/17 16:43 White Blood Count 3.9 TH/MM3 (4.0-11.0) Eosinophils (%) (Auto) 8.8 % (0.0-4.0) Neutrophils # (Auto) 1.6 TH/MM3 (1.8-7.7) Imaging Last Impressions Chest X-Ray 12/20/17 0000 Signed Impressions: Service Date/Time: Wednesday, December 20, 2017 10:30 - CONCLUSION: Persistent but improving left lower lobe consolidating infiltrate. Christopher Wright MD Chest CT 12/18/17 0000 Signed Impressions: Service Date/Time: Monday, December 18, 2017 18:48 - CONCLUSION: 1. Abnormal appearance of the lower lungs with multifocal areas of irregular shape opacity which are devoid of air bronchograms. The largest is in the lower lateral left lung and measures in excess of 6 cm. There is also bilateral pleural effusions. The pleural effusions are new when compared to prior CT 12/15/17 and the opacities in the right lower lung are also new. Selvin Clemente MD Renal Ultrasound 12/17/17 0000 Signed Impressions: Service Date/Time: Sunday, December 17, 2017 09:46 - CONCLUSION: No hydronephrosis. Small left pleural effusion. Bob Bolaños MD FACR Head CT [id number] Signed Impressions: Service Date/Time: Friday, December 15, 2017 22:38 - CONCLUSION: 1. No acute intracranial abnormality. 2. Mucous retention cyst within left maxillary sinus. Shahid Talley MD Abdomen/Pelvis CT [id number] Signed Impressions: Service Date/Time: Friday, December 15, 2017 22:40 - CONCLUSION: 1. Focal alveolar consolidation within left lower lobe consistent with probable lobar pneumonia. Clinical correlation is recommended. 2. Minimal uncomplicated colonic diverticulosis. Shahid Talley MD PE at Discharge GENERAL: This is a well-nourished, well-developed patient, in no apparent distress. CARDIOVASCULAR: Regular rate and regular rhythm without murmurs, gallops, or rubs. RESPIRATORY: Clear to auscultation. Breath sounds equal bilaterally. No wheezes , rales, or rhonchi. GASTROINTESTINAL: Abdomen soft, mild LUQ tenderness, nondistended. Normal, active bowel sounds MUSCULOSKELETAL: Extremities without clubbing, cyanosis, or edema. NEURO: Alert & Oriented x4 to person, place, time, situation. Hospital Course 1. Sepsis due to pneumonia/ UTI. continue IV Abx. 2. PNA: CXR w/ LLL infiltrate. blood cultures negative- sputum culture with normal respiratory woody. chest CT with lower-lung multifocal opacities- s/p bronchoscopy with Mild to moderate tracheal bronchitis/ No evidence of active bleeding/with No obstruction or mass lesion. d/w and cleared for discharge with outpatient follow-up. 3. possible UTI: U/a w/ UTI and hematuria. continue w/ IV Abx/IVF. Hematuria likely secondary to UTI. renal US with small left pleural effusion - repeat UA as outpatient. 4. 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 Activity as tolerated. Pt Condition on Discharge: Good Discharge Disposition: Discharge Home Discharge Time: <= 30 minutes Discharge Instructions DIET: Follow Instructions for: Heart Healthy Diet Activities you can perform: Regular-No Restrictions Miguel Hodgson MD Dec 22, 2017 08:54
--- NOTE | 2017-12-22 08:54 | HHI.PR ---
Subjective Remarks in no acute distress. overall looks and feels good. no fever. Objective Vitals Vital Signs Date Time Temp Pulse Resp B/P (MAP) Pulse Ox O2 Delivery O2 Flow Rate FiO2 12/22/17 04:30 98.0 69 17 103/56 (72) 96 12/22/17 04:02 65 12/22/17 00:31 98.8 66 17 108/60 (76) 96 12/22/17 00:00 83 12/21/17 20:24 98.1 66 17 124/77 (93) 98 12/21/17 20:00 76 12/21/17 16:30 97.5 61 16 102/64 (77) 97 Nasal Cannula 2 12/21/17 16:15 68 16 98/60 (73) 97 Nasal Cannula 2 12/21/17 16:00 81 15 113/74 (87) 95 Nasal Cannula 2 12/21/17 15:49 97.6 100 15 111/70 (84) 95 Nasal Cannula 2 12/21/17 13:00 18 12/21/17 12:36 97.8 60 20 116/66 (83) 95 I/O 12/21/17 12/21/17 12/21/17 12/22/17 12/22/17 12/22/17 07:00 15:00 23:00 07:00 15:00 23:00 Intake Total 950 ml Balance 950 ml Intake Oral 600 ml IV Total 350 ml # Voids 4 Result Diagram: 12/20/17 1643 Imaging Last Impressions Chest X-Ray 12/20/17 0000 Signed Impressions: Service Date/Time: Wednesday, December 20, 2017 10:30 - CONCLUSION: Persistent but improving left lower lobe consolidating infiltrate. Christopher Wright MD Chest CT 12/18/17 0000 Signed Impressions: Service Date/Time: Monday, December 18, 2017 18:48 - CONCLUSION: 1. Abnormal appearance of the lower lungs with multifocal areas of irregular shape opacity which are devoid of air bronchograms. The largest is in the lower lateral left lung and measures in excess of 6 cm. There is also bilateral pleural effusions. The pleural effusions are new when compared to prior CT 12/15/17 and the opacities in the right lower lung are also new. Selvin Clemente MD Renal Ultrasound 12/17/17 0000 Signed Impressions: Service Date/Time: Sunday, December 17, 2017 09:46 - CONCLUSION: No hydronephrosis. Small left pleural effusion. Bob Bolaños MD FACR Head CT [id number] Signed Impressions: Service Date/Time: Friday, December 15, 2017 22:38 - CONCLUSION: 1. No acute intracranial abnormality. 2. Mucous retention cyst within left maxillary sinus. Shahid Talley MD Abdomen/Pelvis CT [id number] Signed Impressions: Service Date/Time: Friday, December 15, 2017 22:40 - CONCLUSION: 1. Focal alveolar consolidation within left lower lobe consistent with probable lobar pneumonia. Clinical correlation is recommended. 2. Minimal uncomplicated colonic diverticulosis. Shahid Talley MD Objective Remarks GENERAL: This is a well-nourished, well-developed patient, in no apparent distress. CARDIOVASCULAR: Regular rate and regular rhythm without murmurs, gallops, or rubs. RESPIRATORY: Clear to auscultation. Breath sounds equal bilaterally. No wheezes , rales, or rhonchi. GASTROINTESTINAL: Abdomen soft, mild LUQ tenderness, nondistended. Normal, active bowel sounds MUSCULOSKELETAL: Extremities without clubbing, cyanosis, or edema. NEURO: Alert & Oriented x4 to person, place, time, situation. Procedures bronchoscopy Medications and IVs Inpatient Medications Acetaminophen (Tylenol) 650 mg Q6H PRN PO FEVER/PAIN SCALE 1 TO 2; Start at 23:45 Acetaminophen/ Hydrocodone Bitart (Cody 5-325 Mg) 1 tab Q4H PRN PO PAIN SCALE 3 TO 5; Start 12/15/17 at 23:45; Stop 12/17/17 at 08:33; Status DC Acetaminophen/ Hydrocodone Bitart (Cody 7.5-325 Mg) 2 tab Q4HR PRN PO PAIN 6- 10 Last administered on 12/18/17at 09:00; Start 12/17/17 at 08:45; Stop 12/18/17 at 09:12; Status DC Acetaminophen/ Hydrocodone Bitart (Cody 10-325 Mg) 2 tab Q4H PRN PO PAIN 6-10 Last administered on 12/21/17at 18:29; Start 12/18/17 at 10:00 Albuterol Sulfate (Proair Hfa Inh) 2 puff Q4H PRN INH SHORTNESS OF BREATH; Start 12/15/17 at 23:45 Albuterol/ Ipratropium (Duoneb Neb) 1 ampule Q15M INH Last administered on 23:09; Start 12/15/17 at 23:00; Stop 12/15/17 at 23:31; Status DC Azithromycin 500 mg/Sodium Chloride 250 ml @ 250 mls/hr Q24H IV Last administered on 12/22/17at 01:28; Start 12/16/17 at 20:00 Bisacodyl (Dulcolax Supp) 10 mg DAILY PRN RECTAL SEVERE CONSITIPATION / IF NPO ; Start 12/15/17 at 23:45 Budesonide/ Formoterol Fumarate (Symbicort 160-4.5 Mcg Inh) 2 puff BID INH Last administered on 12/21/17 22:01; Start 12/16/17 at 09:00 Ceftriaxone Sodium 1000 mg/ Sodium Chloride 100 ml @ 200 mls/hr Q24H IV Last administered on 12/22/17 03:39; Start 12/16/17 at 21:00 Gabapentin (Neurontin) 100 mg BID PO Last administered on 12/21/17 22:00; Start 12/16/17 at 09:00 Guaifenesin (Mucinex Er) 600 mg BID PO Last administered on 12/21/17 22:00; Start 12/16/17 at 09:00 Hydromorphone HCl (Dilaudid Pf Inj) 0.5 mg ONCE ONCE IV PUSH Last administered on 12/15/17 22:19; Start 12/15/17 at 22:15; Stop 12/15/17 at 22:16; Status DC Ketorolac Tromethamine (Toradol Inj) 30 mg ONCE ONCE IV PUSH Last administered on 12/16/17 19:59; Start 12/16/17 at 19:45; Stop 12/16/17 at 19:47; Status DC Lactulose (Lactulose Liq) 30 ml DAILY PRN PO SEVERE CONSITIPATION/ IF PO; Start 12/15/17 at 23:45 Magnesium Hydroxide (Milk Of Magnesia Liq) 30 ml Q12H PRN PO Mild constipation ; Start 12/15/17 at 23:45 Methylprednisolone Sodium Succinate (SoluMEDROL INJ) 60 mg ONCE ONCE IV PUSH Last administered on 12/15/17 23:34; Start 12/15/17 at 23:00; Stop 12/15/17 at 23: 01; Status DC Miscellaneous Information ALL NURSING DEPARTME... UNSCH PRN .XX SEE LABEL COMMENTS; Start 12/21/17 at 17:30; Stop 12/22/17 at 17:29 Montelukast Sodium (Singulair) 10 mg HS PO Last administered on 12/21/17 22:00 ; Start 12/16/17 at 21:00 Ondansetron HCl (Zofran Inj) 4 mg Q6H PRN IVP NAUSEA OR VOMITING Last administered on 12/22/17 01:28; Start 12/15/17 at 23:45 Pantoprazole Sodium (Protonix) 40 mg DAILY PO Last administered on 12/21/17 09: 03; Start 12/16/17 at 09:00 Senna/Docusate Sodium (Kisha-Colace) 1 tab BID PO Last administered on 12/19/17 08:50; Start 12/16/17 at 09:00 Sennosides (Senokot) 17.2 mg Q12H PRN PO Moderate constipation Last administered on 12/18/17 08:59; Start 12/15/17 at 23:45 Sodium Chloride (NS Flush) 2 ml BID IV FLUSH Last administered on 12/21/17 22: 01; Start 12/16/17 at 09:00 A/P Problem List: (1) Sepsis ICD Code: A41.9 - Sepsis, unspecified organism Status: Acute (2) PNA (pneumonia) ICD Code: J18.9 - Pneumonia, unspecified organism (3) UTI (urinary tract infection) ICD Code: N39.0 - Urinary tract infection, site not specified Status: Acute (4) H/O Guillain-[place] syndrome ICD Code: Z86.69 - Personal history of other diseases of the nervous system and sense organs Assessment and Plan A/P 1. Sepsis due to pneumonia/ UTI. continue IV Abx. 2. PNA: CXR w/ LLL infiltrate. blood cultures negative- sputum culture with normal respiratory woody. chest CT with lower-lung multifocal opacities- s/p bronchoscopy with Mild to moderate tracheal bronchitis/ No evidence of active bleeding/with No obstruction or mass lesion. d/w and cleared for discharge with outpatient follow-up. 3. possible UTI: U/a w/ UTI and hematuria. continue w/ IV Abx/IVF. Hematuria likely secondary to UTI. renal US with small left pleural effusion - repeat UA as outpatient. 4. 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 Activity as tolerated. 5. DVT Prophylaxis: SCD/Teds. Discharge Planning dc home today. see med list. f/u; pcp and pulmonary. d/w the patient and . Problem Qualifiers (1) Sepsis: Qualified Codes: A41.9 - Sepsis, unspecified organism (2) UTI (urinary tract infection): Qualified Codes: N39.0 - Urinary tract infection, site not specified; R31.9 - Hematuria, unspecified Miguel Hodgson MD Dec 22, 2017 08:54
[2017-12-22] MEDS: guaiFENesin E.R. 600 MG TAB PO SCH (09:21)
[2017-12-22] MEDS: PANTOPRAZOLE SOD 40 MG DELAYED RELEASE TAB PO SCH (09:21)
[2017-12-22] MEDS: GABAPENTIN 100 MG CAP PO SCH (09:21)
[2017-12-22] MEDS: SODIUM CHLORIDE 0.9% FLUSH 10 ML FLUSH IV FLUSH SCH (09:22)
[2017-12-22] MEDS: ACETAMINOPHEN/HYDROcodone 325 MG/10 MG TAB PO PRN (09:22)
[2017-12-22] MEDS: DOCUSATE SODIUM 50 MG/SENNA 8.6 MG TAB PO SCH (09:22)
[2017-12-22] MEDS: BUDESONIDE-FORMOTEROL 160/4.5 MCG INHALER INH SCH (09:22)
== END 2017-12-22 11:10 | disposition home or self-care (01) | DRG 871 ==
LOC: NEPE 20:16 → NEDA 23:37 → N05B 12-16 04:50
PROVIDERS: ADMIT Internal Medicine; ATTEND Internal Medicine
PROC: 0BDM8ZX Extraction of Bilateral Lungs, Via Natural or Artificial Opening Endoscopic, Diagnostic (ICD-10-PCS; principal; 2017-12-21)
DX: A41.9 Sepsis, unspecified organism (principal); J18.9 Pneumonia, unspecified organism; G82.20 Paraplegia, unspecified; N39.0 Urinary tract infection, site not specified; R04.2 Hemoptysis; K57.30 Diverticulosis of large intestine without perforation or abscess without bleeding; J45.909 Unspecified asthma, uncomplicated; G47.30 Sleep apnea, unspecified; Z86.14 Personal history of Methicillin resistant Staphylococcus aureus infection; Z86.73 Personal history of transient ischemic attack (TIA), and cerebral infarction without residual deficits; Z88.0 Allergy status to penicillin; Z88.1 Allergy status to other antibiotic agents; Z91.013 Allergy to seafood; Z91.040 Latex allergy status; Z99.3 Dependence on wheelchair
CPT/HCPCS: 31625; 70450; 71045; 71250; 74176; 76775; 80053; 81001; 83605; 83690; 84703; 85025; 85610; 85730; 87015; 87040; 87070; 87071; 87086; 87102; 87116; 87205; 87206; 87804; 88112; 88305; 94640; 94664; 96361; 96374; 96375; J0456; J0696; J1170; J1885; J2405; J2930; J7030; J7050

== ENCOUNTER 2018-01-18 14:20 | Emergency (ER) | payer OTHER ==
[~2018-01-18 14:20] MED LIST changes: +LEVA500T33 PO; -MEDR4TAB PO; +NORC5TAB PO; -TRAM50TA PO
[2018-01-18 14:26] VITALS: BP 124/66; PULSE 81; RESP 16; TEMP 98.1; O2SAT 100
[2018-01-18] MEDS ORDERED: KETOROLAC TROMETHAMINE 30 MG/ML (IVP) VIAL IV PUSH ONE (15:15)
[2018-01-18] MEDS ORDERED: methylPREDNISolone SOD SUCC 125 MG/2 ML VIAL IV PUSH ONE (15:15)
[2018-01-18] MEDS ORDERED: MORPHINE SULFATE 4 MG/ML INJ IV PUSH ONE (15:15)
[2018-01-18] MEDS ORDERED: ONDANSETRON HCL 4 MG/2 ML VIAL IV PUSH ONE (15:15)
[2018-01-18] MEDS ORDERED: SODIUM CHLORIDE 0.9% FLUSH 10 ML FLUSH IVF PRN (15:15)
--- NOTE | 2018-01-18 15:18 | PD ---
HPI Chief Complaint: Pain: Acute or Chronic Time Seen by Provider: 15:09 Travel History International Travel<30 days: No Contact w/Intl Traveler<30days: No Traveled to known affect area: No History of Present Illness HPI This is a 27-year-old female with history of asthma, Mena Contreras, paraplegia, presents for evaluation. She was admitted here on December 15 for evaluation of sepsis and left lower lobe pneumonia. She reports that she has completed her outpatient antibiotics. She is complaining of pain to her left lower rib cage. The pain is a sharp pain which is worse with deep inspiration. She reports persistent cough with green sputum production. She reports occasional chills but no objective fevers. Denies abdominal pain, nausea, vomiting, dysuria, leg swelling. She saw her primary care physician last week who is attempting to get her a follow-up appointment with pulmonology but this has not yet been completed. No other complaints. PFSH Past Medical History Hx Anticoagulant Therapy: No Anemia: Yes Asthma: Yes Heart Rhythm Problems: Yes (murmur hx per pt) Cancer: No Cardiovascular Problems: Yes Chemotherapy: No Cerebrovascular Accident: No Diabetes: No Diminished Hearing: No Endocrine: No Genitourinary: Yes Immune Disorder: Yes (Carries MS gene) Kidney Stones: Yes Musculoskeletal: No Neurologic: Yes (Gullian Reading) Psychiatric: No Reproductive: No Respiratory: Yes Immunizations Current: Yes Migraines: Yes Seizures: Yes Sleep Apnea: Yes ?: Unknown : 4 Para: 4 Miscarriage: 0 Tubal Ligation: Yes Past Surgical History Ear Surgery: Yes (tubes in ears as a kid) Gynecologic Surgery: Yes (tubes tied) Hysterectomy: No Oral Surgery: Yes (tosilectomy) Tonsillectomy: Yes Other Surgery: Yes (Epesiotomy, tonsilectomy, tubal ligation) Social History Alcohol Use: No Tobacco Use: No Substance Use: No Allergies-Medications (Allergen,Severity, Reaction): Coded Allergies: adhesive (Unverified Allergy, Severe, SKIN RASH, 01/18/18) benzoin (Unverified Allergy, Severe, TINCTURE BENZOIN, 01/18/18) latex (Unverified Allergy, Severe, Rash, 01/18/18) penicillin G (Unverified Allergy, Severe, BLISTERS, 01/18/18) povidone-iodine (Unverified Allergy, Severe, Hives, 01/18/18) storax (Unverified Allergy, Severe, TINCTURE BENZOIN, 01/18/18) alisa balsam (Unverified Allergy, Severe, TINCTURE BENZOIN, 01/18/18) amoxicillin (Unverified Allergy, Unknown, 01/18/18) ampicillin (Unverified Allergy, Unknown, 01/18/18) coconut (Unverified Allergy, Unknown, 01/18/18) diatrizoate meglumine (Unverified Allergy, Unknown, 01/18/18) gadobenic acid (Unverified Allergy, Unknown, 01/18/18) gadodiamide (Unverified Allergy, Unknown, 01/18/18) gadoteridol (Unverified Allergy, Unknown, 01/18/18) grape (Unverified Allergy, Unknown, 01/18/18) iodixanol (Unverified Allergy, Unknown, 01/18/18) iohexol (Unverified Allergy, Unknown, 01/18/18) kiwi (Unverified Allergy, Unknown, 01/18/18) pregabalin (Verified Allergy, Unknown, Seizures, 01/18/18) vitamins (Unverified Allergy, Unknown, 01/18/18) shellfish derived (Unverified Allergy, Unknown, 01/18/18) strawberry (Unverified Allergy, Unknown, 01/18/18) *MDRO Multi-Drug Resistant Organism (Verified Adverse Reaction, Unknown, Cleared 12/08/16, 01/18/18) 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 MRSA PCR screen NEGATIVE 07/12/15 & 12/08/16 Cleared per Infection Control Uncoded Allergies: SILVER/ JEWLERY (Adverse Reaction, Severe, NUMBNESS TO AREA, 02/04/13) Reported Meds & Prescriptions Reported Meds & Active Scripts Active Prednisone 20 Mg Tab 20 Mg PO BID 5 Days Tylenol-Codeine #3 (Acetaminophen-Codeine) 300-30 mg Tab 1 Tab PO Q6H PRN Wheelchair (Device) 1 Mis Mis 1 Ea .ROUTE DIRECTED [Physical Therapy ] Nebulizer 1 Mis Mis 1 Ea .ROUTE DIRECTED Montelukast (Montelukast Sodium) 10 Mg Tab 10 Mg PO HS Pantoprazole (Pantoprazole Sodium) 40 Mg Tab 40 Mg PO DAILY Advair Diskus Inh (Fluticasone-Salmeterol Inh) 500-50 Mcg/Blist Aer 1 Puff INH BID Rinse mouth after use. Ventolin Hfa 18 GM Inh (Albuterol Sulfate) 90 Mcg/Act Aer 2 Puff INH Q4H PRN Albuterol Neb (Albuterol Sulfate) 2.5 Mg/3 Ml Neb 2.5 Mg NEB Q4HR NEB While awake Reported Gabapentin 100 Mg Cap 100 Mg PO BID Review of Systems Except as stated in HPI: all other systems reviewed are Neg Physical Exam Narrative GENERAL: Well-developed well-nourished female who appears uncomfortable. SKIN: Warm and dry. HEAD: Atraumatic. Normocephalic. EYES: Pupils equal and round. No scleral icterus. No injection or drainage. ENT: No nasal bleeding or discharge. Mucous membranes pink and moist. NECK: Trachea midline. No JVD. CARDIOVASCULAR: Regular rate and rhythm. No murmur appreciated. RESPIRATORY: No accessory muscle use. Diffuse wheezing and crackles. GASTROINTESTINAL: Abdomen soft, non-tender, nondistended. Hepatic and splenic margins not palpable. MUSCULOSKELETAL: Tender to palpation the left lower chest wall. There is no lower extremity edema. NEUROLOGICAL: Awake and alert. No obvious cranial nerve deficits. Motor grossly within normal limits. Normal speech. PSYCHIATRIC: Appropriate mood and affect; insight and judgment normal. Data Data Last Documented VS Vital Signs Date Time Temp Pulse Resp B/P (MAP) Pulse Ox O2 Delivery O2 Flow Rate FiO2 01/18/18 17:07 83 18 115/63 (80) 99 Room Air 01/18/18 15:27 21 01/18/18 14:26 98.1 Orders Orders Chest, Pa & Lat (01/18/18 ) Electrocardiogram (01/18/18 15:12) Basic Metabolic Panel (Bmp) (01/18/18 15:12) Complete Blood Count With Diff (01/18/18 15:12) Ecg Monitoring (01/18/18 15:12) Iv Access Insert/Monitor (01/18/18 15:12) Oximetry (01/18/18 15:12) Oxygen Administration (01/18/18 15:12) Methylprednisolone So Succ Inj (Solumedr (01/18/18 15:15) Albuterol-Ipratropium Neb (Duoneb Neb) (01/18/18 15:15) Sodium Chloride 0.9% Flush (Ns Flush) (01/18/18 15:15) Ketorolac Inj (Toradol Inj) (01/18/18 15:15) Morphine Inj (Morphine Inj) (01/18/18 15:15) Ondansetron Inj (Zofran Inj) (01/18/18 15:15) Ed Urine Pregnancytest Poc (01/18/18 15:12) D-Dimer (01/18/18 15:18) Ventilation & Perfusion Scan (01/18/18 16:27) Labs Laboratory Tests Test 01/18/18 15:35 White Blood Count 4.8 TH/MM3 Red Blood Count 4.78 MIL/MM3 Hemoglobin 13.9 GM/DL Hematocrit 40.5 % Mean Corpuscular Volume 84.7 FL Mean Corpuscular Hemoglobin 29.1 PG Mean Corpuscular Hemoglobin Concent 34.4 % Red Cell Distribution Width 14.3 % Platelet Count 208 TH/MM3 Mean Platelet Volume 8.6 FL Neutrophils (%) (Auto) 52.8 % Lymphocytes (%) (Auto) 37.5 % Monocytes (%) (Auto) 5.1 % Eosinophils (%) (Auto) 4.1 % Basophils (%) (Auto) 0.5 % Neutrophils # (Auto) 2.6 TH/MM3 Lymphocytes # (Auto) 1.8 TH/MM3 Monocytes # (Auto) 0.2 TH/MM3 Eosinophils # (Auto) 0.2 TH/MM3 Basophils # (Auto) 0.0 TH/MM3 CBC Comment DIFF FINAL Differential Comment D-Dimer Quantitative (PE/DVT) 0.78 MG/L FEU Blood Urea Nitrogen 5 MG/DL Creatinine 0.74 MG/DL Random Glucose 88 MG/DL Calcium Level 9.0 MG/DL Sodium Level 141 MEQ/L Potassium Level 3.5 MEQ/L Chloride Level 109 MEQ/L Carbon Dioxide Level 21.8 MEQ/L Anion Gap 10 MEQ/L Estimat Glomerular Filtration Rate 95 ML/MIN [facility] Medical Decision Making Medical Screen Exam Complete: Yes Emergency Medical Condition: Yes Medical Record Reviewed: Yes Differential Diagnosis Pneumonia, pleurisy, pericarditis, myocarditis, pneumothorax, pulmonary embolism Narrative Course 27-year-old female who is admitted for several days 1 month ago for left lower lobe pneumonia. She presents with worsening sharp pain with inspiration left lower portion of her chest over the past several days, continues to have a productive cough. On examination she has tenderness to palpation in the left lower chest wall, diffuse wheezing. Lab work, chest x-ray, EKG have been ordered. She will be given analgesia, duo nebs, Solu-Medrol. CBC is unremarkable. BMP is unremarkable. D-dimer is mildly elevated. She is allergic to contrast, ventilation perfusion scan has been ordered. Chest x-ray is normal. There is no evidence of residual pneumonia. VQ scan is negative. The patient has multiple medication allergies. Plan is to treat her with a short course of prednisone as well as Tylenol with codeine to help with her residual wheezing and pain. She is stable for discharge and outpatient follow- up with primary care physician. Diagnosis Primary Impression: Pleurisy Additional Impression: Asthma exacerbation Additional Instructions: Please provide the patient a copy of all of her results upon discharge. Medication as prescribed. Follow-up with primary care physician. Return for any emergent medical conditions. Med/Other Pt SpecificInfo: Prescription(s) given Scripts Prednisone (Prednisone) 20 Mg Tab 20 MG PO BID for 5 Days, #10 TAB 0 Refills Prov: Vladimir Mckeon MD 01/18/18 Acetaminophen-Codeine (Tylenol-Codeine #3) 300-30 mg Tab 1 TAB PO Q6H Y for PAIN, #20 TAB 0 Refills Prov: Vladimir Mckeon MD 01/18/18 Disposition: 01 DISCHARGE HOME Condition: Stable Marshal Spence Jan 18, 2018 15:18
--- NOTE | 2018-01-18 15:20 | RADRPT ---
EXAM DATE/TIME: 01/18/2018 14:55 [facility] COMPARISON: No previous studies available for comparison. INDICATIONS : Chest pain. Swelling. Dyspnea. Wheezing. MEDICAL HISTORY : Cardiovascular disease. Seizures. Syncope. SURGICAL HISTORY : Tubal ligation. Left lung biopsy. ENCOUNTER: Subsequent ACUITY: 1 day PAIN SCORE: 9/10 LOCATION: Left chest FINDINGS: PA and lateral views of the chest demonstrate the lungs to be symmetrically aerated without evidence of mass, infiltrate or effusion. The cardiomediastinal contours are unremarkable. Osseous structure s are intact. CONCLUSION: No acute cardiopulmonary disease. Selvin Clemente MD on January 18, 2018 at 15:18 Board Certified Radiologist. This report was verified electronically.
[2018-01-18] MEDS: RESP: ALBUTEROL 2.5 MG/IPRATROPIUM 0.5 MG NEB (SCH) INH ×2 (15:21→15:22)
[2018-01-18 15:27] VITALS: O2SAT 98
[2018-01-18 15:48] LABS: AUTOMATED NEUTROPHIL # 2.6 TH/MM3 (1.8-7.7); BASOPHIL % 0.5 % (0.0-2.0); EOSINOPHIL # 0.2 TH/MM3 (0-0.4); EOSINOPHIL % 4.1 % (0.0-4.0); HEMATOCRIT 40.5 % (35.0-46.0); HEMOGLOBIN 13.9 GM/DL (11.6-15.3); LYMPH % 37.5 % (9.0-44.0); LYMPHOCYTE # 1.8 TH/MM3 (1.0-4.8); MEAN CELL VOLUME 84.7 FL (80.0-100.0); MEAN CORPUSCULAR HEMOGLOBIN 29.1 PG (27.0-34.0); MEAN CORPUSCULAR HGB CONC 34.4 % (32.0-36.0); MEAN PLATELET VOLUME 8.6 FL (7.0-11.0); MONO % 5.1 % (0.0-8.0); MONOCYTE # 0.2 TH/MM3 (0-0.9); NEUT % 52.8 % (16.0-70.0); PLATELET COUNT 208 TH/MM3 (150-450); RED BLOOD COUNT 4.78 MIL/MM3 (4.00-5.30); RED CELL DISTRIBUTION WIDTH 14.3 % (11.6-17.2); WHITE BLOOD COUNT 4.8 TH/MM3 (4.0-11.0)
[2018-01-18 16:06] LABS: BICARBONATE 21.8 MEQ/L (21.0-32.0); CREATININE 0.74 MG/DL (0.50-1.00)
[2018-01-18 17:01] VITALS: O2SAT 100
[2018-01-18 17:07] VITALS: BP 115/63; PULSE 83; RESP 18; O2SAT 99
--- NOTE | 2018-01-18 19:00 | RADRPT ---
EXAM DATE/TIME: 01/18/2018 18:12 [facility] COMPARISON: No previous studies available for comparison. INDICATIONS : Chest pain, shortness of breath. DOSE: 1.2 mCi Tc99m DTPA 8.3 mCi Tc99m MAA MEDICAL HISTORY : Gullian Selah. SURGICAL HISTORY : Tubal ligation. Tonsillectomy. Epesiotomy. ENCOUNTER: Initial ACUITY: 1 day PAIN SCALE: 6/10 LOCATION: Bilateral chest TECHNIQUE: Following five minutes of tidal breathing of DTPA aerosol, planar images of the lungs were performed in eight projections. The patient was then injected with MAA, and eight-view perfusion scan was perf ormed. FINDINGS: There is a homogeneous pattern of aerosol delivery to the periphery of both lungs. No focal ventilat ory defects are seen. The perfusion lung scan demonstrates a homogenous pattern of uptake in both lungs. No segmental or s ubsegmental defects are seen. CONCLUSION: 1. No evidence for pulmonary embolus. Aden Pro MD on January 18, 2018 at 18:57 Board Certified Radiologist. This report was verified electronically.
[2018-01-18] MEDS ORDERED: TYLETAB34 PO (19:07)
[2018-01-18] MEDS ORDERED: PRED20 PO (19:07)
[2018-01-18 20:13] VITALS: BP 128/82
--- NOTE | 2018-01-19 05:41 | EKG ---
Date Performed: 01/18/2018 Time Performed: 16:59:39 PTAGE: 27 years EKG: Sinus rhythm POSSIBLE RIGHT VENTRICULAR CONDUCTION DELAY NONSPECIFIC ST & T-WAVE ABNORMALITY BORDERLINE ECG PREVIOUS TRACING : 09/29/2017 22.58 No significant change from previous tracing noted. DOCTOR: Raymundo Rodriguez Interpretating Date/Time 01/19/2018 05:40:37
== END 2018-01-18 20:30 | disposition home or self-care (01) ==
LOC: NEPC 14:20
DX: R09.1 Pleurisy (principal); J45.901 Unspecified asthma with (acute) exacerbation; R94.31 Abnormal electrocardiogram [ECG] [EKG]; G61.0 Guillain-Barre syndrome; G82.20 Paraplegia, unspecified; G47.30 Sleep apnea, unspecified
CPT/HCPCS: 71046; 78582; 80048; 84703; 85025; 85379; 93005; 94640; 94664; 96374; 96375; 99285; A9540; A9567; J1885; J2270; J2405; J2930